=== PATIENT | male | born 1970 | race Caucasian/White ===

== ENCOUNTER 2018-05-17 13:23 | Emergency (ER) | payer BC ==
[~2018-05-17] VITALS: Ht 172.7 cm; Wt 154.2 kg
[~2018-05-17 13:23] MED LIST: ACETAMINOPHEN325 M1 PO; ASPIR-LOW81 MG PO; CHERATUSSIN AC118 ML PO; COMBIVENT RESPIM4 GM INH; FLONASE ALLERG9.9 ML NS; GABAPENTIN800 MG PO; GLUCOPHAGE500 MG PO; IBUPROFEN600 MG PO; MEDROL4 M1 PO; METOPROLOL TART50 MG PO; NORCO 5-325 TA1 EACH PO; NORTRIPTYLINE H25 MG PO; PERCOCET 5-3251 EACH PO; RANITIDINE HCL150 MG PO; TESSALON PERLE100 MG PO; VENTOLIN HFA18 GM INH
[2018-05-17] MEDS ORDERED: DULOXETINE HCL60 MG PO (13:44)
[2018-05-17] MEDS ORDERED: ATORVASTATIN CA20 MG PO (13:44)
[2018-05-17] MEDS ORDERED: PERCOCET 7.5-31 EACH PO (16:47)
== END 2018-05-17 17:07 | disposition home or self-care (01) ==
LOC: ED 13:23
DX: S39.011A Strain of muscle, fascia and tendon of abdomen, initial encounter (principal); K42.9 Umbilical hernia without obstruction or gangrene; X58.XXXA Exposure to other specified factors, initial encounter; I10 Essential (primary) hypertension; Z87.891 Personal history of nicotine dependence; Z79.899 Other long term (current) drug therapy; Z79.82 Long term (current) use of aspirin
CPT/HCPCS: 74177; 80053; 85025; 99284-25; J1170; J2405; Q9967

== ENCOUNTER 2019-06-06 12:00 | Emergency (ER) | payer BC ==
[~2019-06-06] VITALS: Ht 172.7 cm; Wt 154.2 kg
[~2019-06-06 12:00] MED LIST changes: +ATORVASTATIN CA20 MG PO; +DULOXETINE HCL60 MG PO; +PERCOCET 7.5-31 EACH PO
--- NOTE | 2019-06-06 15:05 | EKG ---
[facility] [address] [place], [place] [address] Signed Sinus tachycardia Otherwise normal ECG When compared with ECG of 12-MAY-2016 12:46, No significant change was found Confirmed by STEVE MEDEIROS MD ([id number]) on 06/06/2019 3:05:28 PM Electronically Signed By: STEVE MEDEIROS MD 06/06/19 1505 PATIENT NAME: GOROBERT Electrocardiogram DATE OF : 68 PHYSICIAN: STEVE MEDEIROS MD REPORT #: [id number] REPORT IS CONFIDENTIAL AND NOT TO BE RELEASED WITHOUT AUTHORIZATION
== END 2019-06-06 20:04 | disposition short-term general hospital (02) ==
LOC: ED 12:00
DX: J18.9 Pneumonia, unspecified organism (principal); J90 Pleural effusion, not elsewhere classified; I10 Essential (primary) hypertension; F17.200 Nicotine dependence, unspecified, uncomplicated; Z79.899 Other long term (current) drug therapy; Z79.82 Long term (current) use of aspirin; Z79.84 Long term (current) use of oral hypoglycemic drugs
CPT/HCPCS: 71046; 71260; 80053; 83605; 84484; 85025; 85379; 93005; 93010; 94660; 96361; 99285-25; J0456; J0696; J1170; J1885; J7030; J7060

== ENCOUNTER 2019-10-31 08:03 | Emergency (ER) | payer BC ==
[~2019-10-31] VITALS: Ht 172.7 cm; Wt 147.4 kg
--- OUTSIDE RECORDS SUMMARY | ~2019-10-31 | XMS | Encounter Summary ---
Demographics + + + | Address | [address] | | | [place] [address] | + + + | Home Phone | | + + + | Preferred Language | Unknown | + + + | Marital Status | Single | + + + | Baptism Affiliation | NON | + + + | Race | White | + + + | Ethnic Group | Not or | + + + Author + + + | Organization | Unknown | + + + | Address | Unknown | + + + | Phone | Unavailable | + + + Support + + +---------+ + | Name | Relationship | Address | Phone | + + +---------+ + | Dionne Frances | ECON | Unknown | | + + +---------+ + Care Team Providers + +------+ + | Care Stockfeed Miller Name | Role | Phone | + +------+ + | Gustavo Xavier | Unavailable | + +------+ + Encounter Details +--------+ + + + + | Date | Type | Department | Care Team | Description | +--------+ + + + + | 01/09/ | Procedure - | | Record, Operation | Operative Report | | 2006 | | | | | | | Transcribed | | | | +--------+ + + + + Social History + +-------+ +--------+------+ | Tobacco Use | Types | Packs/Day | Years | Date | | | | | Used | | + +-------+ +--------+------+ | Never Assessed | | | | | + +-------+ +--------+------+ + + + | Sex Assigned at | Date Recorded | | | | + + + | Not on file | | + + + + + + + | Job Start Date | Occupation | Industry | + + + + | Not on file | Not on file | Not on file | + + + + + + + + | Travel History | Travel Start | Travel End | + + + + + + | No recent travel history available. | + + documented as of this encounter Plan of Treatment Not on filedocumented as of this encounter Procedures + +--------+ + + + | Procedure Name | Priori | Date/Time | Associated Diagnosis | Comments | | | ty | | | | + +--------+ + + + | OPERATION RECORD | | 01/09/2006 | | Results for this | | | | | | procedure are in the | | | | | | results section. | + +--------+ + + + documented in this encounter Results OPERATION RECORD (01/09/2006) + + | Transcriptions | + + | Interface, Manager Of Environmental Services In - 01/11/2006 2:33 AM PDT | | [id number] | | [id number] BAILEE Lan [id number] | | | | Date: 01/09/2006 | | | | Attending Surgeon: Dejan Barclay M.D. | | | | Taker Off Drying Kiln(s): Antwon Ellington M.D. | | | | Preoperative Diagnosis(es): | | Left lumbar foraminal stenosis. | | | | Postoperative Diagnosis(es): | | Left lumbar foraminal stenosis. | | | | Procedures Performed: | | Left L3-L4 and left L4-L5 hemilaminotomy and microforaminotomy. | | | | Anesthesia: | | General. | | | | Estimated Blood Loss: | | Less than 100 cc. | | | | Complications: | | None. | | | | Findings: | | Severe foraminal stenosis at L3-L4 and moderate foraminal stenosis at | | L4-L5. | | | | Indications: | | Briefly, Jose Alberto Morocho is a 35-year-old gentleman with a long history of | | left-sided leg pain and numbness. His imaging studies has demonstrated | | foraminal stenosis at L3-L4 and L4-L5 on the left. He presents for neural | | decompression. | | | | Procedure: | | After consent was obtained, the patient was taken to the operating room. | | The ID was confirmed by the ID wrist bracelet. Anesthesia was induced via | | endotracheal tube intubation without complications, and the antibiotics | | were administered per protocol. The patient was placed in the prone | | position on the Tarun frame with all pressure points carefully padded. | | C-arm fluoroscopy was used to identify the region of L3-L4 and L4-L5. The | | back was shaved and prepped and draped in a sterile fashion. | | | | A #10 blade was used to make an incision down through the skin. Bovie | | electrocautery was used to open up dorsally to the fascia. The fascia was | | opened up with Bovie electrocautery on the patient's left side only, and | | then using subperiosteal dissection techniques the spinous processes and | | lamina of the levels were identified. X-ray was obtained to confirm | | levels, and we found that we are initially at L2. The exposure was then | | extended caudally, and subperiosteal dissection techniques were used to | | dissect out the lamina, the spinous processes, and facets of L3, L4, and | | L5. Intraoperative fluoroscopy was then obtained with a Riverside elevator | | under the lamina of L3 and L4. This confirmed that we were in fact at the | | proper levels. | | | | The microscope was brought into the field, and the lamina was partially | | removed on the left side first at L3 using the Kerrison rongeurs and the | | high-speed drill. This was then performed at L4 as well. In a similar | | fashion, the ligamentum flavum was identified and opened up with a curette. | | The ligamentum flavum was then removed with Kerrisons and curettes. First, | | we did this at L3-L4. The venous plexus of epidural veins was noted to be | | quite engorged. We then undermined the medial aspect of the facet at | | L3-L4. In this way, the foramen was opened. The foraminotomy was then | | widened with 3-mm Kerrison rongeurs. A Riverside elevator was placed over | | the surface of the nerve root out the foramen, and found that the nerve | | root was in good position and well decompressed. We gently retracted the | | nerve root medially to look for any herniated disk fragments and none were | | identified. Gelfoam was placed over the epidural veins to prevent any | | further bleeding. We then focused our attention on L4-L5. The facet at | | L4-L5 was undermined with a high-speed drill in a similar fashion. The | | foramen was opened up with a 3-mm Kerrison. The nerve root was clearly | | identified. We opened up the top of the foramen with the Kerrison rongeur. | | The nerve passed out the foramen. A Eddie elevator was placed over the | | top of the nerve root and directed out the foramen, and the nerve root was | | found to be well decompressed. We again retracted the nerve root slightly | | medially and looked for any herniated disk fragments, and none were | | identified. The epidural venous plexus was also very engorged at L4-L5. | | Bipolar electrocautery and Gelfoam were used for hemostasis. We then felt | | we had adequate decompression of both L3-L4 and L4-L5. The wound was | | copiously irrigated, and then all the Gelfoam and patties were removed. | | Powdered Gelfoam was then placed over the nerve roots in the foramen at | | L3-L4 and L4-L5 and allowed to sit for 4 minutes. This was then carefully | | evacuated to not leave any residual powdered Gelfoam. Ten more cubic | | centimeters of local anesthetic was injected into the lumbar paraspinal | | musculature. Anesthesia gave the patient a shot of Toradol, and then we | | began with closure in the typical fashion. The dorsal fascia was closed | | with 0-Vicryl sutures in an interrupted fashion. Subcutaneous tissues were | | closed with multiple 3-0 Vicryl sutures in an inverted interrupted fashion. | | The skin was closed with a running subcuticular stitch. | | | | The entire case was performed using loop magnification headlight | | illumination. At the end of the case, all needle and sponge counts were | | correct. I, Dr. Dejan Barclay was personally present and scrubbed for the | | entirety of the procedure. I, Dr. Dejan Barclay personally performed all | | the critical elements of the case including the hemilaminotomies and the | | microforaminotomies. I was not scrubbed during the closure of the skin, | | but I was immediately available for the entirety of the closure. | | | | | | | | | | Dejan Barclay M.D. | | | | | | RAQUEL / OLIVIA | | [id number] / [id number] / [id number] / | | | | | + + documented in this encounter Visit Diagnoses Not on filedocumented in this encounter"
--- OUTSIDE RECORDS SUMMARY | ~2019-10-31 | XMS | Encounter Summary ---
Demographics + + + | Address | [address] | | | [place] [address] | + + + | Home Phone | | + + + | Preferred Language | Unknown | + + + | Marital Status | Single | + + + | Islam Affiliation | NON | + + + | Race | White | + + + | Ethnic Group | Not or | + + + Author + + + | Author | [facility] | + + + | Organization | [facility] | + + + | Address | Unknown | + + + | Phone | Unavailable | + + + Support + + +---------+ + | Name | Relationship | Address | Phone | + + +---------+ + | Dionne Frances | ECON | Unknown | | + + +---------+ + Care Team Providers + +------+ + | Care Special Inspector Name | Role | Phone | + +------+ + | Gustavo Xavier PCP | Unavailable | + +------+ + Reason for Visit + + + | Reason | Comments | + + + | History and physical | C/O L3-4 laminectomy and decompression on 01-09-06 | | examination | | + + + | Pre-op evaluation | L3-5 laminectomies DOS 01/09/06 | + + + Encounter Details +--------+---------+ + + + | Date | Type | Department | Care Team | Description | +--------+---------+ + + + | 01/08/ | Office | Neurosurgery [address] | Anai Quiñonez, | Radiculitis, | | 2005 | Visit | JARON Wlils | [place] [address] [facility] | Lumbosacral (Primary | | | | Rd Mailcode:OP14B | [address] | Dx) | | | | [employer] | [place] [address] | | | | | [place], [place] | | | | | | [address] | | | | | | [phone] | | | +--------+---------+ + + + Social History + +-------+ [...] + + documented as of this encounter Last Filed Vital Signs + + + + + | Vital Sign | Reading | Time Taken | Comments | + + + + + | Blood Pressure | 108/79 | 01/08/2006 12:01 PM | | | | | PDT | | + + + + + | Pulse | 75 | 01/08/2006 12:01 PM | | | | | PDT | | + + + + + | Temperature | - | - | | + + + + + | Respiratory Rate | 16 | 01/08/2006 12:01 PM | | | | | PDT | | + + + + + | Oxygen Saturation | - | - | | + + + + + | Inhaled Oxygen | - | - | | | Concentration | | | | + + + + + | Weight | 108 kg (238 lb) | 01/08/2006 12:01 PM | | | | | PDT | | + + + + + | Height | 175.3 cm (5' 9") | 01/08/2006 12:01 PM | | | | | PDT | | + + + + + | Body Mass Index | 35.15 | 01/08/2006 12:01 PM | | | | | PDT | | + + + + + documented in this encounter Patient Instructions Patient Instructions 01/08/2006 11:30 AM PDT [facility] [employer] [facility] Department of Neurological Surgery [address] Mail [address] [place] [address] Toll Free Paging [email or web address] Pre-Operative Instructions Surgery Date: 01/09/06Check in time: Call today Please call between 2:00pm - 4:00pm the business afternoon prior to your in patient surgery to obtain your arrival time. Please be advised that it is virtually impossib le to accurately estimate your actual time of surgery. If you are scheduled for outpatient surgery, the day stay unit will call you the afternoon before your surgery to advise you of your arrival time. Again, it is virtually impossible t o exactly estimate the time of your procedure. If the surgery is on a Thursday, PLEASE call the Thursday before. It is not possible to accura tely estimate the actual time of surgery. Your surgery may start later in the day than antic ipated. If you are not able to reach someone, please plan to report to the hospital by 6:30a m. Check in location: 4th floor [facility], [address] 9th floor [facility] (Admitting Dept.) Important Reminders You cannot eat or drink after midnight the night before surgery. You may, however, brush y our teeth and rinse your mouth. It is best to eat early the night before and get a good nigh t s rest. If you have any x-ray, CT or MRI films in your possession, please bring them with you to [facility] on the day of your surgery. If you take aspirin either for your heart, or as a pain medication, you need to stop at le ast 5 days before surgery to decrease any chance of increased bleeding during or after surge ry. Please check the labels of all zvje-gax-yptyyuf medications that you take as they may al so contain aspirin. You may take your regularly scheduled medications with the exception of . Please use as little water as possible, but enough to get them down. If you take any pain medications, when you arrive, please inform the nurses what you took and when you took them . Your family and visitors can park free of charge in the [facility] parking are a. The ticket will be stamped, so please bring that in with you for validation. Discharge Information: It is expected that you will be discharged in approximately 1 day. Check out time at the h ospital is 11:00am. Please plan to arrange for transportation home ahead of time so you can leave in a timely fashion, as most patients are eager to get home. If you have any additional questions, please feel free to contact our office at . documented in this encounter Progress Notes Anai Quiñonez - 01/08/2006 12:20 PM PDTFormatting of this note might be different from t he original. Pre-Procedure History and Physical Date of Admission: 01/09/06 HISTORY: 35 yo male with c/o LBP with radiculopathy down left leg. Originally injured in . Has had occasional exacerbations. A few months ago felt sharp pain while at work. Has be en treated conservatively without relief or improvement of sxs. MRI revealed lumbar stenosis and disc bulge at L3-4, and L4-5. CURRENT PROBLEM LIST: Patient Active Problem List: RADICULITIS, LUMBOSACRAL[724.4M] Date Noted: 12/10/2005 Past Medical History: UNSPECIFIED SHOCK OTHER UNSPECIFIED BACK DISORDER UNSPECIFIED EPILEPSY WITHOUT MENTION OF INTRACTABLE EPILEPSY Comment: Chilhood. No treatment currently. No past surgical history on file. MEDICATIONS: Current outpatient prescriptions: OXYCODONE 5 MG TAB take 2 tablets (10mg) by oral route every 4 hours as needed for pain Dis p: Rfl: ASPIRIN 500 MG TAB take 2 tablets (1,000mg) by oral route every 6 hours as needed Disp: Rf l: No Known Allergies. FAMILY HISTORY: No family history on file REVIEW OF SYSTEMS: Cardiac: No CP, ADLs w/o problems; Pulm: No SOB; GI: Reg BMs, no GERD PHYSICAL EXAM: VITALS: BP 108/79 | Pulse 75 | Resp 16 | Ht 5' 9" (1.75m) | Wt 238 lbs (108.0kg) HEENT: See Notes: KWADWO, EOMI NECK: See Notes: supple, no bruit CHEST/LUNGS: See Notes: CTA bilat HEART: See Notes: RRR, no murmur ABDOMEN: Normal BACK: Normal EXTREMITIES: See Notes: YEUNG; BUE/BLE strength 5/5 throughout all muscle groups NEUROLOGICAL: See Notes: SILT, gait normal G.U.: Normal PROVISIONAL DIAGNOSIS: Lumbar stenosis PLANNED COURSE OF ACTION: L3-4, L4-5 laminectomies PARQ: A PARQ session was held, additional questions with discussion were completed. documented in this encsac-osage hospitaler Plan of Treatment Not on filedocumented as of this encounter Visit Diagnoses + + | Diagnosis | + + | Radiculitis, lumbosacral - Primary Thoracic or lumbosacral neuritis or radiculitis, | | unspecified | + + documented in this encounter
--- OUTSIDE RECORDS SUMMARY | ~2019-10-31 | XMS | Encounter Summary ---
Demographics + + + | Address | [address] | | | [place] [address] | + + + | Home Phone | | + + + | Preferred Language | Unknown | + + + | Marital Status | | + + + | Christianity Affiliation | Unknown | + + + | Race | Unknown | + + + | Ethnic Group | Unknown | + + + Author + + + | Author | [facility] | | | and [place] | + + + | Organization | [facility] | | | and [place] | + + + | Address | Unknown | + + + | Phone | Unavailable | + + + Support + + +---------+ + | Name | Relationship | Address | Phone | + + +---------+ + | Xuan Gan | ECON | Unknown | | + + +---------+ + | Dionne Hensley | ECON | Unknown | | + + +---------+ + Care Team Providers + +------+ + | Care Theatre Professor Name | Role | Phone | + +------+ + | Edilberto Troy MD | PCP | | + +------+ + Reason for Visit + + + | Reason | Comments | + + + | New Patient | Back Pain | + + + Evaluate & Treat (Routine) + +--------+ + + + + | Status | Reason | Specialty | Diagnoses / | Referred By | Referred To | | | | | Procedures | Contact | Contact | + +--------+ + + + + | Authorized | | Physical | Diagnoses | Troy, | Ashwin, Lamont | | | | Medicine and | | Edilberto Madrigal MD | Edyta Terry MD [address] | | | | Rehabilitatio | Radiculopath | [address] | [address] | | | | n | y, thoracic | [address] | [place], | | | | | region | [place], | [place] [address] | | | | | | [place] [address] | Phone: | | | | | | Phone: | [phone] | | | | | | [phone] | Fax: | | | | | | Fax: | [phone] | | | | | | [phone] | | + +--------+ + + + + Encounter Details +--------+---------+ + + + | Date | Type | Department | Care Team | Description | +--------+---------+ + + + | 09/21/ | Office | [facility] | Lamont Christopher, | Intercostal | | 2019 | Visit | PHYSIATRY [address] | MD [address] | neuralgia (Primary | | | | [address] [place], [place] | Dx); Neuropathic | | | | [place], [place] | [address] | pain of chest; | | | | [address] | | History of diabetes | | | | [phone] | | mellitus; Pleuritic | | | | | | chest pain | +--------+---------+ + + + Social History + + + +--------+ + | Tobacco Use | Types | Packs/Day | Years | Date | | | | | Used | | + + + +--------+ + | Former Smoker | Cigarettes | 0.8 | 25 | Quit: 04/25/2010 | + + + +--------+ + + +---+---+---+ | Smokeless Tobacco: | | | | | Never Used | | | | + +---+---+---+ + + +---------+ + | Alcohol Use | Drinks/Week | oz/Week | Comments | + + +---------+ + | Yes | | | | + + +---------+ + + + + | Sex Assigned at | Date Recorded | | | | + + + | Not on file | | + + + documented as of this encounter Last Filed Vital Signs + + + + + | Vital Sign | Reading | Time Taken | Comments | + + + + + | Blood Pressure | 110/62 | 09/22/2019 9:29 AM | | | | | PDT | | + + + + + | Pulse | - | - | | + + + + + | Temperature | 36.2 C (97.1 F) | 09/22/2019 9:29 AM | | | | | PDT | | + + + + + | Respiratory Rate | - | - | | + + + + + | Oxygen Saturation | - | - | | + + + + + | Inhaled Oxygen | - | - | | | Concentration | | | | + + + + + | Weight | 147.4 kg (325 lb) | 09/22/2019 9:29 AM | | | | | PDT | | + + + + + | Height | 172.7 cm (5' 8") | 09/22/2019 9:29 AM | | | | | PDT | | + + + + + | Body Mass Index | 49.42 | 09/22/2019 9:29 AM | | | | | PDT | | + + + + + documented in this encounter Patient Instructions Patient Instructions Yuliana Stokes, Tail Dogger - 09/22/2019 9:20 AM PDTPlease sta rt taking over the counter vitamin-D 2,000 units daily. Consider using over the counter Capzasin please use every 4 hours consistently. We will send Dr. Troy your progress note with medication recommendations. Please call our office if you would like to begin desensitization therapy. Electronically s igned by Yuliana Stokes, Tail Dogger at 09/22/2019 10:20 AM PDT documented in this encounter Progress Notes Lamont Christopher MD - 09/22/2019 9:20 AM PDTFormatting of this note might be different fro m the original. Lamont Christopher MD [address] [facility] [facility] [address] [address], [address] [place], [place] [id number] FAX: PHYSICAL MEDICINE AND REHABILITATION H&P CHIEF COMPLAINT: Chief Complaint Patient presents with New Patient Back Pain HISTORY OF PRESENT ILLNESS: Jose Alberto Morocho s a 49 y.o. [facility] for the complaint of burning pain from the upper/mid back with radiation to the right abdomen and chest region that began June 06, 2019, after recent rig ht sided empyema with thoracic surgery treatment at [facility]. He reports symptoms began after intubation for acute respiratory failure, right-sided pneumonia, complicated parapneumonic effusion. The symptoms have been unchanged. He describes a burning sensation to the skin, si mmilar to a sunburn. At some points it worsens with taking a deep breath. Jose Alberto Morocho rates the pain as moderate. The symptoms are continuous. Jose Alberto rashid describes the pain as burning, crushing, sharp, shooting and tingling. Jose Alberto Morocho does not report any change in bowel or bladder function or saddle anest hesia recently. His symptoms improve with nothing. His symptoms worsen with changing position, standing, sitting, walking, running, kneeling, bending and twisting. Jose Alberto Morocho has tried opiod pain medication, NSAIDS and Muscle relaxers. Jose Alberto Morocho is currently taking Oxycodone 10 mg, daily for treatment of pain. He has also tr ied methocarbamol 50 mg but reports no relief in symptoms. PAST MEDICAL HISTORY: Past Medical History: Diagnosis Date Back disorder Chronic low back pain COPD (chronic obstructive pulmonary disease) (HCC) DDD (degenerative disc disease), lumbar 09/12/2014 Dyspepsia Epilepsy, unspecified, not intractable, without status epilepticus ([facility]) Family history of prostate cancer GERD (gastroesophageal reflux disease) Gout History of seizures as a child Hypercholesterolemia Hyperlipidemia Hypertension Incisional hernia without obstruction or gangrene Lumbar radiculopathy 09/12/2014 Lumbosacral radiculitis 12/10/2005 Morbid obesity (HCC) Morbid obesity due to excess calories ([facility]) Nocturnal hypoxemia Poor circulation Poor eating habits Shock, unspecified (HCC) Sleep apnea Thoracic radiculopathy Type 2 diabetes mellitus ([facility]) PAST SURGICAL HISTORY: Past Surgical History: Procedure Laterality Date BRONCHOSCOPY Bilateral 06/19/2019 Procedure: BRONCHOSCOPY FLEXIBLE; Surgeon: Ronn Voss MD; [facility] 05/14/2016 Tubular Adenoma INGUINAL HERNIA REPAIR Left 2000 LACERATION REPAIR Right 1975 Foot SPINE SURGERY 12/2005 L4-L5 Decompression with shaving of bone spurs; Dr Gunter, [facility] SPLEEN REPAIR 1984 THORACOSCOPY Right 06/19/2019 Procedure: VIDEO ASSISTED THORACOSCOPY W/ DECORTICATION; Surgeon: Rocky Pierre MD; Loca tion: [facility] THORACOTOMY Right 06/19/2019 Procedure: THORACOTOMY-DECORTICATION; Surgeon: Rocky Pierre MD; Location: [facility] TOOTH EXTRACTION 01/31/2019 VASECTOMY 03/2010 CURRENT MEDICATIONS: Current Outpatient Medications Medication Sig Dispense Refill albuterol 90 mcg/puff inhaler Inhale 2 puffs into the lungs every 2 hours as needed for Wheezing. (Patient taking differently: Inhale 2 puffs into the lungs every 6 hours as neede d for Wheezing, Shortness of Breath or Other (Cough).) albuterol-ipratropium (COMBIVENT RESPIMAT) 100-20 mcg/puff inhaler Inhale 1 puff into t he lungs 4 times daily. aspirin 81 MG tablet Take 162 mg by mouth nightly. atorvaSTATin (LIPITOR) 80 MG tablet Take 80 mg by mouth nightly. DULoxetine (CYMBALTA) [address] capsule Take 1 capsule by mouth Daily. (Patient taking d ifferently: Take 120 mg by mouth nightly.) 0 famotidine (PEPCID) 20 mg tablet Daily. gabapentin (NEURONTIN) 600 MG tablet Take 2 tablets by mouth 3 times daily. 90 tablet 0 lidocaine-prilocaine (EMLA) cream Apply topically 3 times daily as needed (Pain). 0 lisinopril (PRINIVIL, ZESTRIL) 10 mg tablet Take 1 tablet by mouth Daily. metFORMIN (GLUCOPHAGE) 1000 MG tablet Take 1,000 mg by mouth 2 times daily (with breakf ast & dinner). metoprolol succinate (TOPROL-XL) 50 mg 24 hr tablet Take 50 mg by mouth Daily. metoprolol tartrate (LOPRESSOR) 50 mg tablet Take 50 mg by mouth 2 times daily. Multiple Vitamins-Minerals (MULTIVITAMIN PO) Take 1 tablet by mouth Daily. Castine-3 Fatty Acids (FISH OIL PO) Take by mouth. oxyCODONE 10 MG TABS take 1 tablet by mouth every 8 hours if needed for 7 days ranitidine (ZANTAC) 150 mg tablet Take 150 mg by mouth 2 times daily. No current facility-administered medications for this visit. ALLERGIES: No Known Allergies SOCIAL HISTORY: The patient reports that he quit smoking about 9 years ago. His smoking use included cigar ettes. He has a 20.00 pack-year smoking history. He has never used smokeless tobacco. He rep orts current alcohol use. He reports current drug use. Drug: Marijuana. FAMILY HISTORY: Family History Problem Relation Age of Onset COPD Mother Heart disease Father Heart failure Father Coronary artery disease Father Prostate cancer Father Multiple sclerosis Sister Multiple sclerosis Brother No known problems Maternal Grandmother No known problems Maternal Grandfather No known problems Paternal Grandmother No known problems Paternal Grandfather No known problems Son No known problems Daughter No known problems Sister REVIEW OF SYSTEMS: GENERALLY: No fever, no night sweats, no anemia, no fatigue, no recent profound weight ch anges. EYES: No eye problems, + use of corrective lenses, no eye injury, no double vision, no bli ndness. EARS, NOSE, AND THROAT: No changes in taste or smell, no hearing difficulty, + ringing in the ears, no ear drainage, no dizziness, no voice changes, no difficulty swallowing, + signi ficant snoring, + sleep apnea, no sinus problems, + major dental work. NEUROLOGICALLY:The patient has no numbness/pain of arms, + numbness/pain of legs, + awake w ith numbness/pain, no weakness, + muscle aching, no coordination difficulty, no change in wa lk, no head injury, no neck injury, no back injury, no pain in neck, + pain in back, no stro ke, no fainting spells, no loss of consciousness, no tremor/shaking, no seizures, no headach es, no migraine, no memory loss, no speech difficulty, no confusion and no numbness of face. PSYCHIATRIC: No depression, no sleep disorders, no anxiety, no bipolar disorder, no psycho tic episodes. CARDIOVASCULAR: No heart attacks, no heart murmur, no heart fluttering, no chest pain, + a nkle swelling. LUNG DISEASE: + shortness of breath, no cough, no tuberculosis, no bloody cough, no asthm a, + COPD. GASTROINTESTINAL: No bowel disease, no nausea or vomiting, no rectal bleeding, no constipa tion, no stool incontinence, no liver disease, no gallbladder disease, + abdominal pain, no ulcers. KIDNEY DISEASE: No urinary frequency, no painful or difficult urination, no incontinence. ENDOCRINE: + diabetes, no thyroid disease, no osteopenia or osteoporosis, no breast draina ge. SKIN: No breast lumps, no skin changes, no rashes, no itches. HEMATOLOGIC/LYMPHATIC: No enlarged lymph nodes, no easy or unusual bleeding, no personal h istory of cancer. RHEUMATOLOGIC: No joint arthritis, no rheumatoid arthritis. PHYSICAL EXAMINATION: Blood pressure 110/62, temperature 36.2 C (97.1 F), height 1.727 m (5' 8"), weight (!) 147.4 kg (325 lb). Body mass index is 49.42 kg/m. GENERAL: He does appear uncomfortable when seated. HEENT: HEAD/FACE: EYES: Normocephalic and atraumatic. There are no areas of recent trauma. Normal sclerae without icterus. SKIN Limited skin exam shows no significant rashes or lesions. CHEST: The patient is in no acute respiratory distress with unlabored respirations. HEART: There is not lower extremity edema. ABDOMEN: The patient is overweight. NEUROLOGIC: The patient is awake, alert, and oriented to time, place, person. He follows simple and complex commands. His speech is fluent. He comprehends speech well. He has no apparent deficits with short or termite treater helper memory. He has appropriate fund of knowledge Cranial nerves appear grossly intact. Subjective decreased sensation with monofilament testing to a broad thoracic space distrubu tion on the right. Motor exam demonstrates grossly intact strength to upper and lower extremities RADIOGRAPHIC REVIEW: Ct Chest was reviewed personally by me , I concur with the results as reported by the Radio logist. The imaging demonstrates: Right lung process is nearly resolved. A small fluid. IMPRESSION: 1. Intercostal neuralgia 2. Neuropathic pain of chest 3. History of diabetes mellitus PLAN: 1. Jose Alberto Morocho presents to the clinic today for evaluation and treatment of burning senstion from the upper/mid back with radiation to the right abdomen and chest region that began June 06, 2019, after recent right sided empyema with thoracic surgery treatment at [facility]. He reports symptoms began after intubation for acute respiratory failure, right-side d pneumonia, complicated parapneumonic effusion. 2. The differential diagnosis most consistent with Jose Alberto Morocho's physical assessmen t and report of symptoms included, but is not limited to: Neuropathic pain. .gm 3. We discussed that neuropathic pain to the chest wall could be due to a nerve injury from recent right sided empyema with thoracic surgery treatment. We discussed nerve healing/rege nerate usually is complete at 18 months after surgery. We discussed that symptoms may or may not improve. 4. Medication management of symptoms was discussed in detail during today's visit. We disc ussed that the goal of medication use is to make symptoms of pain and numbness less noticeab le. Medication use is not expected to fix or cure the cause of her symptoms. Jose Alberto Leyva is currently taking Oxycodone 10 mg, daily. We discussed that while taking opiod pain medication can ultimately decline his recovery due to an increase in pain receptors. We disc ussed that if he continues to use opioid medication for chronic pain management he should di scuss discontinuing Oxycodone and consider an alternative medication with his primary care jose freeman. I advised discontinue Oxycodone and begin a small dose of methadone, since this ten ds to better help with nerve pain. Jose Alberto Morocho will discuss this further with his [facility] care provider. We discussed that the best medication for nerve pain is anti-seizure medicaitons or antidep ressant Jose Alberto Morocho is currently taking Duloxetine 60 mg daily and gabapentin 600 mg 2 tablets TID. He reports that if he discontinues Gabapentin symptoms will increase. 5. We discussed an alternative to oral medications. We discussed the use of Capsaicin cream . We discussed that Capsaicin stimulates nerve endings so they release a receptor chemical, substance P, that transmits pain signals to the brain. When a nerve ending has released all of its substance P reserves, pain signals are no longer sent to the brain until substance P has been replenished. We discussed that he should apply capsasion every 4 hours consistentl y. 6. Jose Alberto Morocho is diabetic and reports history of diabetic neuropathy. We discussed that research shows patients who have vitamin D deficiency can help improve diabetic neurop athy. We discussed that if vitamin D levels are low he should consider taking over the count er vitamin D 2,000 units indefinitely. We discussed that vitamin B and folic acid are FDA ap proved and although there is no evidence showing this helps reduce neuropathic pain, there a re some patients who report relief in symptoms. 7. We discussed that desensitization therapy could help minimize the body's response to mary grace ious stimuli.This technique is utilized to decrease, or normalize, the body s response to particular sensations. Jose Alberto Morocho would see a physical therapists that would work with him over a period of time to help him over-come pain. Jose Alberto Morocho declined dese nsitization therapy at this time. In summary, Jose Alberto Morocho has right sided chest wall pain secondary to intercostal ne uralgia. His pain started after having right sided thoracotomy for empyema and 2 chest tube s. This pain is superficial, involves his skin in a dermatomal pattern, and is described as burning in quality. He likely also has a component of pleuritic chest pain secondary to his empyema. He descri bes this pain as sharp catching pain with deep breathing. He reports that he has a history of opiate overuse and abuse in his distant past. He would prefer not to fall back into a pattern of using too many opiates. He has a history of diabetic neuropathy and diabetic neuropathic pain. Today we reviewed t hat his history of diabetes and diabetic neuropathy put him at increased risk for impairment of nerve healing and recovery. He was encouraged to optimizing his diabetic control to all ow for best chances of nerve recovery. Today we reviewed the association between painful an d non-painful diabetic neuropathy and vitamin D deficiency. He was encouraged to consider s upplementing vitamin D3 2000 units daily. Jose Alberto Morocho is already on maximal doses of Gabapentin. He reports that it doesn't help enough, but without it, he is in much worse pain. So it is offering some benefit. Luciano Morocho is also on maximal doses of Cymbalta, and has already failed tricyclic anti depressant in the past. Jose Alberto Morocho was offered desensitization therapy with physical therapy, but he decli padmini for now. Jose Alberto Morocho was advised that he could try over the counter capsaicin cream. We rev iewed the proposed mechanism of action. We reviewed the risks of skin irritation, needing t o avoid getting it your eyes, need for routine reapplication, etc. Today we reviewed the healing process of nerves. We discussed that he may expect some impr ovement, albeit not likely resolution, of symptoms over the 18 months following onset of sym ptoms. We reviewed the option of thoracic MRI to evaluate for neural foraminal narrowing or spinal stenosis. Given the onset of symptoms associated with his thoracotomy surgery, his symptom s most likely represent injury to the intercostal nerves. We reviewed that this is a known risk of thoracotomy surgery. We reviewed the risk that opiate medications can cause worsening neuropathic pain over time . We reviewed that very low dose methadone may provide better neuropathic pain relief than oxycodone, but we reviewed that no opiates if possible is best. Intercostal nerve block could be considered, but is not offered in our clinic. Consult [facility]iology pain clinic for intercostal nerve block, could be considered if the conserv ative measures above, and a tincture of time, don't prove to be helpful. Thank you for allowing me to be involved in the care of your patient. If you have any ques tions regarding the care of your patient please don't hesitate to call. I, Lamont Christopher MD personally performed the services described in this documentation, as scribed by in my presence, Yuliana Stokes, Tail Dogger and are both accurate and comp lete. Lamont Christopher MD - 09/22/2019 CC:Edilberto Troy MD documented in this en counter Plan of Treatment Not on filedocumented as of this encounter Visit Diagnoses + + | Diagnosis | + + | Intercostal neuralgia - Primary Other nerve root and plexus disorders | + + | Neuropathic pain of chest Other nerve root and plexus disorders | + + | History of diabetes mellitus Personal history of other endocrine, metabolic, and | | immunity disorders | + + | Pleuritic chest pain Painful respiration | + + documented in this encounter
--- OUTSIDE RECORDS SUMMARY | ~2019-10-31 | XMS | Encounter Summary ---
Demographics + + + | Address | [address] | | | [place] [address] | + + + | Home Phone | | + + + | Preferred Language | Unknown | + + + | Marital Status | | + + + | Pentecostalism Affiliation | Unknown | + + + | Race | Unknown | + + + | Ethnic Group | Unknown | + + + Author + + + | Author | [facility] | | | and [place] | + + + | Organization | [facility] | | | and [...] Team Providers + +------+ + | Care Labor Delivery Specialist Name | Role | Phone | + +------+ + | Edilberto Troy MD | PCP | | + +------+ + Encounter Details +--------+ + + + + | Date | Type | Department | Care Team | Description | +--------+ + + + + | 07/04/ | Hospital | [facility] | Carlos Thompson, | Empyema of the right | | 2020 | Encounter | [facility] | [place] [address] | lung ([facility]) | | | | [address] | [address], | | | | | [address] [place], [place] | [place] [address] | | | | | [address] | [phone] | | | | | [phone] | | | +--------+ + + + + Social History + +-------+ +--------+ + | Tobacco Use | Types | Packs/Day | Years | Date | | | | | Used | | + +-------+ +--------+ + | Former Smoker | | | | Quit: 04/25/2010 | + +-------+ +--------+ + + +---+---+---+ | Smokeless Tobacco: | | | | | Never Used | | | | + +---+---+---+ + + +---------+ + | Alcohol Use | Drinks/Week | oz/Week | Comments | + + +---------+ + | Yes | 0 Standard drinks | 0.0 | | | | or equivalent | | | + + +---------+ + + + + | Sex Assigned at | Date Recorded | | | | + + + | Not on file | | + + + documented as of this encounter Medications at Time of Discharge + + + +---------+ + + | Medication | Sig | Dispensed | Refills | Start | End Date | | | | | | Date | | + + + +---------+ + + | albuterol 90 | Inhale 2 puffs into | | 0 | 03/25/20 | | | mcg/puff inhaler | the lungs every 2 | | | 20 | | | | hours as needed for | | | | | | | Wheezing. | | | | | + + + +---------+ + + | | Inhale 1 puff into | | 0 | | | | albuterol-ipratropiu | the lungs 4 times | | | | | | m (COMBIVENT | daily. | | | | | | RESPIMAT) 100-20 | | | | | | | mcg/puff inhaler | | | | | | + + + +---------+ + + | aspirin 81 MG | Take 162 mg by mouth | | 0 | | | | tablet | nightly. | | | | | + + + +---------+ + + | atorvaSTATin | Take 80 mg by mouth | | 0 | | | | (LIPITOR) 80 MG | nightly. | | | | | | tablet | | | | | | + + + +---------+ + + | DULoxetine | Take 1 capsule by | | 0 | 06/21/20 | | | (CYMBALTA) [address] | mouth Daily. | | | 20 | | | capsule | | | | | | + + + +---------+ + + | famotidine | Daily. | | 0 | | | | (PEPCID) 20 mg | | | | | | | tablet | | | | | | + + + +---------+ + + | gabapentin | Take 2 tablets by | 90 | 0 | 20 | | | (NEURONTIN) 600 MG | mouth 3 times daily. | tablet | | 20 | | | tablet | | | | | | + + + +---------+ + + | | Apply topically 3 | | 0 | 02/09/20 | | | lidocaine-prilocaine | times daily as | | | 18 | | | (EMLA) cream | needed (Pain). | | | | | + + + +---------+ + + | lisinopril | Take 1 tablet by | | 0 | 06/22/19 | | | (PRINIVIL, ZESTRIL) | mouth Daily. | | | 20 | | | 10 mg tablet | | | | | | + + + +---------+ + + | metFORMIN | Take 1,000 mg by | | 0 | | | | (GLUCOPHAGE) 1000 MG | mouth 2 times daily | | | | | | tablet | (with breakfast & | | | | | | | dinner). | | | | | + + + +---------+ + + | metoprolol | Take 50 mg by mouth | | 0 | 06/27/19 | | | succinate | Daily. | | | 20 | | | (TOPROL-XL) 50 mg 24 | | | | | | | hr tablet | | | | | | + + + +---------+ + + | metoprolol | Take 50 mg by mouth | | 0 | | | | tartrate (LOPRESSOR) | 2 times daily. | | | | | | 50 mg tablet | | | | | | + + + +---------+ + + | Multiple | Take 1 tablet by | | 0 | | | | Vitamins-Minerals | mouth Daily. | | | | | | (MULTIVITAMIN PO) | | | | | | + + + +---------+ + + | ranitidine | Take 150 mg by mouth | | 0 | | | | (ZANTAC) 150 mg | 2 times daily. | | | | | | tablet | | | | | | + + + +---------+ + + | apixaban (ELIQUIS) | Take 5 mg by mouth 2 | | 0 | | | | 5 mg tablet | times daily. | | | | 0 | + + + +---------+ + + | cefTRIAXone | Inject 2 g into the | 1 each | 0 | 06/22/19 | | | (ROCEPHIN) IVPB | vein Daily for 25 | | | 20 | 0 | | (custom dose) 2 | days. Indications: | | | | | | gIndications: | Empyema | | | | | | Empyema of Pleura | | | | | | + + + +---------+ + + | chlorhexidine | USE DIRECTE Rinse | | 0 | 01/14/20 | | | (PERIDEX) 0.12% | with 1/2 ounce by | | | 19 | 0 | | solution | mouth for 30 seconds | | | | | | | then spit out. use | | | | | | | twice a day | | | | | + + + +---------+ + + | clotrimazole | clotrimazole 1 % | | 0 | | | | (LOTRIMIN) 1% cream | topical cream APPLY | | | | 0 | | | TO THE AFFECTED AND | | | | | | | SURROUNDING AREAS OF | | | | | | | SKIN BY TOPICAL | | | | | | | ROUTE 2 TIMES PER | | | | | | | DAY IN THE MORNING | | | | | | | AND EVENING | | | | | + + + +---------+ + + | diazePAM (VALIUM) | take 1 tablet by | | 0 | 03/11/20 | | | 5 mg tablet | mouth 1 hour prior | | | 18 | 0 | | | to procedure and 1 | | | | | | | to 2 table... | | | | | | | (REFER TO | | | | | | | PRESCRIPTION NOTES). | | | | | + + + +---------+ + + | DULoxetine | Take 30 mg by mouth | | 0 | | | | (CYMBALTA) [address] | Daily. | | | | 0 | | capsule | | | | | | + + + +---------+ + + | methocarbamol | Take 1 tablet by | 30 | 0 | 07/05/19 | | | (METHOCARBAMOL) 750 | mouth every 6 hours | tablet | | 20 | 0 | | mg tablet | as needed for Muscle | | | | | | | spasms. | | | | | + + + +---------+ + + | oxyCODONE | Take 1 tablet by | 45 | 0 | 06/22/19 | | | (ROXICODONE) 5 mg | mouth every 8 hours | tablet | | 20 | 0 | | tablet | as needed for Pain | | | | | | | for up to 15 days. | | | | | + + + +---------+ + + documented as of this encounter Plan of Treatment Not on filedocumented as of this encounter Procedures + +--------+ + + + | Procedure Name | Priori | Date/Time | Associated Diagnosis | Comments | | | ty | | | | + +--------+ + + + | XR CHEST PA AND | Routin | 07/05/2019 | Empyema of the | Results for this | | LATERAL | e | 9:07 AM | right lung (HCC) | procedure are in the | | | | PDT | | results section. | + +--------+ + + + documented in this encounter Results XR Chest PA and Lateral (07/05/2019 9:07 AM PDT) + + | Specimen | + + | | + + + + + | Impressions | Performed At | + + + | 1. Round to ovoid opacity in the right mid lung is slightly reduced | [facility] | | in size from prior study. 2. Right-sided pleural fluid and | | | thickening is similar to prior study. 3. There is a new left PICC | | | line terminating at the atrial caval junction. Signed | | | by: Isiah Branham, Eddie Sign Date/Time: 07/05/2019 9:10 AM | | + + + + + + | Narrative | Performed At | + + + | CHEST PA AND LATERAL CLINICAL INFORMATION: Status post | [facility] | | thoracic surgery. COMPARISON: XR CHEST PA AND LATERAL | | | (06/22/2019); XR CHEST AP PORTABLE (06/21/2019); XR CHEST AP PORTABLE | | | (06/20/2019); CT CHEST W CONTRAST (06/17/2019); FINDINGS: | | | Left-sided PICC line is noted with the tip terminating at the atrial | | | caval junction. Right-sided PICC line is no longer present. No | | | pneumothorax is noted. Opacity along the mid right lung is slightly | | | reduced in size from prior study. Some residual right-sided pleural | | | fluid and thickening is noted. There is no new airspace | | | consolidation. The pulmonary markings are normal in caliber. There | | | is mild degenerative disc disease of the thoracic spine. | | + + + + + | Procedure Note | + + | Gabriele, Rad Results In - 07/05/2019 9:14 AM PDT | | CHEST PA AND LATERAL | | | | CLINICAL INFORMATION: | | Status post thoracic surgery. | | | | COMPARISON: | | XR CHEST PA AND LATERAL (06/22/2019); XR CHEST AP PORTABLE (06/21/2019); | | XR CHEST AP PORTABLE (06/20/2019); CT CHEST W CONTRAST (06/17/2019); | | | | FINDINGS: | | Left-sided PICC line is noted with the tip terminating at the atrial | | caval junction. Right-sided PICC line is no longer present. No | | pneumothorax is noted. Opacity along the mid right lung is slightly | | reduced in size from prior study. Some residual right-sided pleural | | fluid and thickening is noted. There is no new airspace consolidation. | | The pulmonary markings are normal in caliber. There is mild | | degenerative disc disease of the thoracic spine. | | | | IMPRESSION: | | 1. Round to ovoid opacity in the right mid lung is slightly reduced in | | size from prior study. | | 2. Right-sided pleural fluid and thickening is similar to prior study. | | 3. There is a new left PICC line terminating at the atrial caval | | junction. | | | | | | | | | | Signed by: Isiah Branham, Eddie | | Sign Date/Time: 07/05/2019 9:10 AM | + + + +---------+ + + | Performing | Address | City/State/Zipcode | Phone Number | | Organization | | | | + +---------+ + + | [facility] | | | | + +---------+ + + documented in this encounter Visit Diagnoses + + | Diagnosis | + + | Empyema of the right lung (HCC) Empyema without mention of fistula | + + documented in this encounter"
--- OUTSIDE RECORDS SUMMARY | ~2019-10-31 | XMS | Clinical Summary ---
Demographics + + + | Address | [address] | | | [place] [address] | + + + | Home Phone | | + + + | Preferred Language | Unknown | + + + | Marital Status | | + + + | Oriental Orthodox Affiliation | Unknown | + + + | Race | Unknown | + + + | Ethnic Group | Unknown | + + + Author + + + | Author | [facility] | | | and [place] | + + + | Organization | [facility] | | | and [place] | [...] Team Providers + +------+ + | Care Construction Producer Name | Role | Phone | + +------+ + | Edilberto Troy MD | PCP | | + +------+ + Allergies No Known Allergies Medications + + + +---------+------+------+-------+ | Medication | Sig | Dispensed | Refills | Star | End | Statu | | | | | | t | Date | s | | | | | | Date | | | + + + +---------+------+------+-------+ | metoprolol | Take 50 mg by mouth | | 0 | | | Activ | | tartrate (LOPRESSOR) | 2 times daily. | | | | | e | | 50 mg tablet | | | | | | | + + + +---------+------+------+-------+ | Multiple | Take 1 tablet by | | 0 | | | Activ | | Vitamins-Minerals | mouth Daily. | | | | | e | | (MULTIVITAMIN PO) | | | | | | | + + + +---------+------+------+-------+ | ranitidine | Take 150 mg by mouth | | 0 | | | Activ | | (ZANTAC) 150 mg | 2 times daily. | | | | | e | | tablet | | | | | | | + + + +---------+------+------+-------+ | aspirin 81 MG | Take 162 mg by mouth | | 0 | | | Activ | | tablet | nightly. | | | | | e | + + + +---------+------+------+-------+ | | Inhale 1 puff into | | 0 | | | Activ | | albuterol-ipratropiu | the lungs 4 times | | | | | e | | m (COMBIVENT | daily. | | | | | | | RESPIMAT) 100-20 | | | | | | | | mcg/puff inhaler | | | | | | | + + + +---------+------+------+-------+ | atorvaSTATin | Take 80 mg by mouth | | 0 | | | Activ | | (LIPITOR) 80 MG | nightly. | | | | | e | | tablet | | | | | | | + + + +---------+------+------+-------+ | metFORMIN | Take 1,000 mg by | | 0 | | | Activ | | (GLUCOPHAGE) 1000 MG | mouth 2 times daily | | | | | e | | tablet | (with breakfast & | | | | | | | | dinner). | | | | | | + + + +---------+------+------+-------+ | | Apply topically 3 | | 0 | 11/1 | | Activ | | lidocaine-prilocaine | times daily as | | | 2/20 | | e | | (EMLA) cream | needed (Pain). | | | 18 | | | + + + +---------+------+------+-------+ | gabapentin | Take 2 tablets by | 90 | 0 | 03/2 | | Activ | | (NEURONTIN) 600 MG | mouth 3 times daily. | tablet | | 5/20 | | e | | tablet | | | | 20 | | | + + + +---------+------+------+-------+ | lisinopril | Take 1 tablet by | | 0 | 03/2 | | Activ | | (PRINIVIL, ZESTRIL) | mouth Daily. | | | 5/20 | | e | | 10 mg tablet | | | | 20 | | | + + + +---------+------+------+-------+ | DULoxetine | Take 1 capsule by | | 0 | 03/2 | | Activ | | (CYMBALTA) [address] | mouth Daily. | | | 5/20 | | e | | capsule | | | | 20 | | | + + + +---------+------+------+-------+ +---+ + | | Additional | | | InformationPatient | | | taking differently: | | | 120 mg Oral NIGHTLY, | | | Informant: Other, | | | Reported on 09/05/2019 | | | 2:33 PM | +---+ + + + +---+---+------+---+-------+ | albuterol 90 | Inhale 2 puffs into | | 0 | 03/2 | | Activ | | mcg/puff inhaler | the lungs every 2 | | | 08/16 | | e | | | hours as needed for | | | 20 | | | | | Wheezing. | | | | | | + + +---+---+------+---+-------+ +---+ + | | Additional | | | InformationPatient | | | taking differently: | | | 2 puff Inhalation | | | EVERY 6 HOURS PRN, | | | Wheezing, Shortness | | | of Breath, Other, | | | Cough, Informant: | | | Other, Reported on | | | 09/05/2019 2:33 PM | +---+ + + + +---+---+------+---+-------+ | famotidine | Daily. | | 0 | | | Activ | | (PEPCID) 20 mg | | | | | | e | | tablet | | | | | | | + + +---+---+------+---+-------+ | metoprolol | Take 50 mg by mouth | | 0 | 03/3 | | Activ | | succinate | Daily. | | | 0/20 | | e | | (TOPROL-XL) 50 mg 24 | | | | 20 | | | | hr tablet | | | | | | | + + +---+---+------+---+-------+ | Bricelyn-3 Fatty | Take by mouth. | | 0 | | | Activ | | Acids (FISH OIL PO) | | | | | | e | + + +---+---+------+---+-------+ | oxyCODONE 10 MG | take 1 tablet by | | 0 | 06/2 | | Activ | | TABS | mouth every 8 hours | | | 05/19 | | e | | | if needed for 7 days | | | 20 | | | + + +---+---+------+---+-------+ Active Problems + + + | Problem | Noted Date | + + + | Empyema lung | 06/22/2019 | + + + | Empyema of lung | 06/19/2019 | + + + + + | Overview: Added automatically from request for surgery | | [id number] | + + + + + | Type 2 diabetes mellitus, without long-term current use of | 06/18/2019 | | insulin | | + + + | Obesity, Class III, BMI 40-49.9 (morbid obesity) | 07/30/2018 | + + + | Chronic pain | 07/27/2018 | + + + | Depressive disorder | 07/27/2018 | + + + | Essential hypertension | 07/27/2018 | + + + | Obstructive sleep apnea syndrome | 07/27/2018 | + + + | Type 2 diabetes mellitus | 07/27/2018 | + + + | Lumbar radiculopathy | 09/12/2014 | + + + | DDD (degenerative disc disease), lumbar | 09/12/2014 | + + + Resolved Problems + + + + | Problem | Noted | Resolved | | | Date | Date | + + + + | Sepsis | 06/18/19 | | | | 20 | 0 | + + + + | Reactive lymphadenopathy | 06/18/19 | | | | 20 | 0 | + + + + Encounters +--------+ + + + + | Date | Type | Specialty | Care Team | Description | +--------+ + + + + | 09/21/ | Office | Physical Medicine | Lamont Christopher, | Intercostal | | 2019 | Visit | and Rehabilitation | MD | neuralgia (Primary | | | | | | Dx); Neuropathic | | | | | | pain of chest; | | | | | | History of diabetes | | | | | | mellitus; Pleuritic | | | | | | chest pain | +--------+ + + + + | 09/06/ | Imaging | Radiology | Provider, | | | 2019 | Exam | | MD Martin | | +--------+ + + + + | 09/06/ | Imaging | Radiology | Provider, | | | 2019 | Exam | | MD Martin | | +--------+ + + + + | 09/04/ | Abstract | Physical Medicine | Provider, | | | 2019 | | and Rehabilitation | MD Martin | | +--------+ + + + + from Last 3 Months Immunizations + + + + | Name | Administration Dates | Next Due | + + + + | INFLUENZA PF | 02/02/2019, 02/08/2018, 02/04/2017, | | | TRIVALENT(PED/ADOL/A | 02/26/2016, 01/30/2015, 04/28/2013 | | | KAREN LOZANO | | | + + + + | TDAP, (ADOL/ADULT) | 03/13/2018 | | + + + + Family History + + + + + | Medical History | Relation | Name | Comments | + + + + + | Multiple sclerosis | Brother | | | + + + + + | No known problems | Daughter | | | + + + + + | Coronary artery | Father | | | | disease | | | | + + + + + | Heart disease | Father | | | + + + + + | Heart failure | Father | | | + + + + + | Prostate cancer | Father | | | + + + + + | No known problems | Maternal | | | | | Grandfath | | | | | er | | | + + + + + | No known problems | Maternal | | | | | Grandmoth | | | | | er | | | + + + + + | COPD | Mother | | | + + + + + | No known problems | Paternal | | | | | Grandfath | | | | | er | | | + + + + + | No known problems | Paternal | | | | | Grandmoth | | | | | er | | | + + + + + | Multiple sclerosis | Sister | | | + + + + + | No known problems | Sister | Dionne | | | | | Ayden | | + + + + + | No known problems | Son | | | + + + + + + + + + + | Relation | Name | Status | Comments | + + + + + | Brother | | | | | | | (Age | | | | | 43) | | + + + + + | Daughter | | Alive | | + + + + + | Father | | | heart failure | | | | (Age | | | | | 76) | | + + + + + | Maternal Grandfather | | | | + + + + + | Maternal Grandmother | | | | + + + + + | Mother | | | lung failure | | | | (Age | | | | | 69) | | + + + + + | Paternal Grandfather | | | | + + + + + | Paternal Grandmother | | | | + + + + + | Sister | | | | | | | (Age | | | | | 41) | | + + + + + | Sister | Dionne | Alive | | | | Ayden | | | + + + + + | Son | | Alive | | + + + + + Social History + + [...] on file | | + + + Last Filed Vital Signs + + + + + | Vital Sign | Reading | Time Taken | Comments | + + + + + | Blood Pressure | 110/62 | 09/22/2019 9:29 AM | | | | | PDT | | + + + + + | Pulse | 91 | 07/20/2019 11:13 AM | | | | | PDT | | + + + + + | Temperature | 36.2 C (97.1 F) | 09/22/2019 9:29 AM | | | | | PDT | | + + + + + | Respiratory Rate | 16 | 07/20/2019 11:13 AM | | | | | PDT | | + + + + + | Oxygen Saturation | 95% | 07/20/2019 11:13 AM | | | | | PDT [...] | | + + + + + Plan of Treatment + + + + + | Health Maintenance | Due Date | Last | Comments | | | | Done | | + + + + + | Hepatitis C | | | | | Screening | 0 | | | + + + + + | Vaccine: | | | | | Pneumococcal 19-64 | 6 | | | | ( of - PPSV23) | | | | + + + + + | Diabetic Eye Exam | | | | | | 8 | | | + + + + + | Diabetic Foot Exam | | | | | | 8 | | | + + + + + | Vaccine: Zoster (1 | | | | | of 2) | 0 | | | + + + + + | Hemoglobin A1c | | 06/19/19 | | | Screening | 0 | 20 | | + + + + + | Vaccine: Influenza | | 02/03/20 | | | (#1) | 0 | 19, | | | | | 02/09/20 | | | | | 18, | | | | | 02/05/20 | | | | | 17, | | | | | Addition | | | | | al | | | | | history | | | | | exists | | + + + + + | Med Mgmt: HBA1C | | 06/19/19 | | | | 0 | 20 | | + + + + + | Medication | | 06/22/19 | | | Management | 0 | 20 | | + + + + + | Med Mgmt: Cr | | 06/22/19 | | | | 1 | 20, | | | | | 06/21/19 | | | | | 20, | | | | | 06/20/19 | | | | | 20, | | | | | Addition | | | | | al | | | | | history | | | | | exists | | + + + + + | Med Mgmt: K | | 06/22/19 | | | | 1 | 20, | | | | | 06/21/19 | | | | | 20, | | | | | 06/20/19 | | | | | 20, | | | | | Addition | | | | | al | | | | | history | | | | | exists | | + + + + + | Med Mgmt: eGFR | | 06/22/19 | | | | 1 | 20, | | | | | 06/21/19 | | | | | 20, | | | | | 06/20/19 | | | | | 20, | | | | | Addition | | | | | al | | | | | history | | | | | exists | | + + + + + | Colorectal Cancer | | 05/14/19 | | | Screening | 7 | 17 | | | (Colonoscopy) | | | | + + + + + | Vaccine: | | 03/13/20 | | | Dtap/Tdap/Td (2 - | 8 | 18 | | | Td) | | | | + + + + + Procedures + +--------+ + + + | Procedure Name | Priori | Date/Time | Associated Diagnosis | Comments | | | ty | | | | + +--------+ + + + | CT CHEST W CONTRAST | Routin | 08/26/2019 | | Results for this | | | e | 12:05 AM | | procedure are in the | | | | PDT | | results section. | + +--------+ + + + | CT ABDOMEN PELVIS W | Routin | 08/26/2019 | | Results for this | | CONTRAST | e | 12:00 AM | | procedure are in the | | | | PDT | | results section. | + +--------+ + + + from Last [address] Chest w Contrast (08/26/2019 12:05 AM PDT) + + | Specimen | + + | | + + + + + | Narrative | Performed At | + + + | External films for comparison only | [facility] | | | | | No results will be in the chart. | | + + + + +---------+ + + | Performing | Address | City/State/Zipcode | Phone Number | | Organization | | | | + +---------+ + + | [facility] | | | | + +---------+ + + CT Abdomen Pelvis w Contrast (08/26/2019 12:00 AM PDT) + + | Specimen | + + | | + + + + + | Narrative | Performed At | + + + | External films for comparison only | [facility] | | | | | No results will be in the chart. | | + + + + +---------+ + + | Performing | Address | City/State/Zipcode | Phone Number | | Organization | | | | + +---------+ + + | [facility] | | | | + +---------+ + + from Last 3 Months Insurance +---------+--------+ +--------+ +---------+------+ | Payer | Benefi | Subscriber | Effect | Phone | Address | Type | | | t Plan | ID | lupe | | | | | | / | | Dates | | | | | | Group | | | | | | +---------+--------+ +--------+ +---------+------+ | [place] | REGENC | [id number] | | [phone] | | PPO | | | E BCBS | 8 | 016-Pr | 8 | | | | | [place] | | esent | | | | | | PPO | | | | | | +---------+--------+ +--------+ +---------+------+ | BCBS | BCBS | [id number] | | | | PPO | | | OOS | 8 | 016-Pr | | | | | | PPO | | esent | | | | +---------+--------+ +--------+ +---------+------+ + +--------+ +--------+ + + | Guarantor Name | Accoun | Relation to | Date | Phone | Billing Address | | | t Type | Patient | of | | | | | | | | | | + +--------+ +--------+ + + | Jose Alberto Morocho | Person | Self [birth year] | [address] | | | al/Fam | | 1970 | [phone] | [place] [address] | | | joaquin | | | 9 (Home) | | + +--------+ +--------+ + + | Jose Alberto Morocho | Person | Self [birth year] | [address] | | | al/Fam | | 1971 | [phone] | [place] [address] | | | joaquin | | | 9 (Home) | | + +--------+ +--------+ + + Advance Directives + + + + + | Type | Date Recorded | Patient | 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
--- OUTSIDE RECORDS SUMMARY | ~2019-10-31 | XMS | Encounter Summary ---
Demographics + + + | Address | [address] | | | [place] [address] | + + + | Home Phone | | + + + | Preferred Language | Unknown | + + + | Marital Status | Single | + + + | [employer]aritan Affiliation | NON | + + + | Race | White | + + + | Ethnic Group | Not or | + + + Author + + + | Author | [facility] | + + + | Organization | [facility] | + + + | Address | Unknown | + + + | Phone | Unavailable | + + + Support + + +---------+ + | Name | Relationship | Address | Phone | + + +---------+ + | Dionne Frances | ECON | Unknown | | + + +---------+ + Care Team Providers + +------+ + | Care Director Cloud Transformation Name | Role | Phone | + +------+ + | Nikolai Rowe | PCP | | + +------+ + Encounter Details +--------+ + + + + | Date | Type | Department | Care Team | Description | +--------+ + + + + | 11/07/ | Ancillary | Registration [id number] | | | | 2006 | [address] | [address] | | | | | [address] | [address] Mailcode: [id number] | | | | | | [place], [place] | | | | | | [address] | | | | | | [phone] | | | +--------+ + + + [...] filedocumented as of this encounter Visit Diagnoses Not on filedocumented in this encounter"
--- OUTSIDE RECORDS SUMMARY | ~2019-10-31 | XMS | Encounter Summary ---
Demographics + + + | Address | [address] | | | [place] [address] | + + + | Home Phone | | + + + | Preferred Language | Unknown | + + + | Marital Status | Single | + + + | Mu-Ism Affiliation | NON | + + + | Race | White | + + + | Ethnic Group | Not or | + + + Author + + + | Author | [facility] | + + + | Organization | [facility] | + + + | Address | Unknown | + + + | Phone | Unavailable | + + + Support + + +---------+ + | Name | Relationship | Address | Phone | + + +---------+ + | Dionne Frances | ECON | Unknown | | + + +---------+ + Care Team Providers + +------+ + | Care Stone Sandblaster Name | Role | Phone | + +------+ + | Gustavo Xavier | PCP | Unavailable | + +------+ + Encounter Details +--------+ + + + + | Date | Type | Department | Care Team | Description | +--------+ + + + + | 10/30/ | Results | Neurosurgery [address] | Dejan Barclay, | | | 2005 | Only | [address] | | | | | | Tristin Mailcode:[id number] | | | | | | [place] | | | | | | [place], [place] | | | | | | [address] | | | | | | [phone] | | | +--------+ + + + [...] as of this encounter Plan of Treatment + +---------+--------+ + + | Name | Type | Priori | Associated Diagnoses | Date/Time | | | | ty | | | + +---------+--------+ + + | MRI OUTSIDE FILMS | Imaging | Routin | | 10/30/2005 12:00 AM | | | | e | | PDT | + +---------+--------+ + + documented as of this encounter Visit Diagnoses Not on filedocumented in this encounter"
--- OUTSIDE RECORDS SUMMARY | ~2019-10-31 | XMS | Encounter Summary ---
Demographics + + + | Address | [address] | | | [place] [address] | + + + | Home Phone | | + + + | Preferred Language | Unknown | + + + | Marital Status | | + + + | Caodaism Affiliation | Unknown | + + + | Race | Unknown | + + + | Ethnic Group | Unknown | + + + Author + + + | Author | [facility] | | | and [place] | + + + | Organization | [facility] | | | and [place] | [...] Team Providers + +------+ + | Care Weight Clerk Name | Role | Phone | + +------+ + | Edilberto Troy MD | PCP | | + +------+ + Encounter Details +--------+ + + + + | Date | Type | Department | Care Team | Description | +--------+ + + + + | 09/07/ | Imaging | [facility] | Provider, | | | 2020 | Exam | [facility] | MD [address] | | | | | IMAGING [address] | [address] | | | | | [address] | [place] [address] | | | | | [place] [address] | | | | | | [phone] | | | +--------+ + + + [...] XR CHEST PA AND | Routin | 06/06/2019 | | Results for this | | LATERAL | e | 12:00 AM | | procedure are in the | | | | PDT | | results section. | + +--------+ + + + documented in this encounter Results XR Chest PA and Lateral (06/06/2019 12:00 AM PDT) + + | Specimen [...]
--- OUTSIDE RECORDS SUMMARY | ~2019-10-31 | XMS | Encounter Summary ---
Demographics + + + | Address | [address] | | | [place] [address] | + + + | Home Phone | | + + + | Preferred Language | Unknown | + + + | Marital Status | | + + + | Adventist Affiliation | Unknown | + + + | Race | Unknown | + + + | Ethnic Group | Unknown | + + + Author + + + | Author | [facility] | | | and [place] | + + + | Organization | [facility] | | | and [place] [...] Team Providers + +------+ + | Care Spacer Type Bar And Segment Name | Role | Phone | + +------+ + | Edilberto Troy MD | PCP | | + +------+ + Reason for Visit + + + | Reason | Comments | + + + | Follow-up | Empyema of Right Pleural Space | + + + Encounter Details +--------+---------+ + + + | Date | Type | Department | Care Team | Description | +--------+---------+ + + + | 07/19/ | Office | [facility] | Amber, | Empyema of right | | 2020 | Visit | INFECTIOUS DISEASE | MD [address] | pleural space (HCC) | | | | [address] | [address] | (Primary Dx) | | | | [place], [place] | [place] [address] | | | | | [address] | [phone] | | | | | [phone] | | | +--------+---------+ + + + [...] + + + | Blood Pressure | 138/88 | 07/20/2019 11:13 AM | | | | | PDT | | + + + + + | Pulse | 91 | 07/20/2019 11:13 AM | | | | | PDT | | + + + + + | Temperature | 36.9 C (98.5 F) | 07/20/2019 11:13 AM | | | [...] + + + + | Weight | 144.2 kg (318 lb) | 07/20/2019 11:13 AM | | | | | PDT | | + + + + + | Height | - | - | | + + + + + | Body Mass Index | 46.96 | 07/05/2019 9:09 AM | | | | | PDT | | + + + + + documented in this encounter Patient Instructions Patient Instructions Becky Clark MD - 07/20/2019 11:20 AM PDTCall ID clinic if you have cough, shortness of breath, fever or develop diarrhea documented in this encounter Progress Notes Josephine Loya, JEREMY - 07/20/2019 11:20 AM PDTPICC Removal Note: S :D/C PICC order received from Dr Clark O: PICC line removed from left antecubital after sterile site prepped per protocol. PICC c atheter tip visualized and intact. PICC line measures 40cm Pressure dressing applied with 4x 4 gauze and secured with coban. A: No redness, ecchymosis, edema, swelling, or drainage noted at site. P: Instructions provided on post PICC discharge care, including followup notification instr uctions. Jazzy Eller MD - 07/20/2019 11:20 AM PDTFormatting of this note might be different from the [facility]. Subjective: Patient ID: Jose Alberto Morocho is a 49 y.o. male. HPI CC: Follow-up on empyema Past medical history, medications, allergies, social and family histories are recorded in E PIC, reviewed and updated as necessary. Background History (from Dr. Lee's prior note on 07/04): The patient has been admitted to the hospital after he was recently in a different facility from June 06, 2019 through June 16, 2019 where he was managed for acute respiratory failure, right-sided pneumonia, complic ated parapneumonic effusion. The patient was initially given ceftriaxone and azithromycin. The patient had persistent fevers and also persistent leukocytosis. The patient had christel arently chest tube placed and also thoracentesis with drainage of purulent fluid. Results of cultures are not available at the moment. It appears that due to persistent fever infec tious disease was consulted. The patient's antibiotic therapy was escalated to vancomycin and Zosyn. The patient had a PICC line placed and he was discharged from the hospital with persistent leukocytosis up to 18,000. The patient apparently declined surgical interventi on. The patient returned to our emergency department with a fever of 102.6, cardiac, oxygen sat uration 93%. White blood cell count was still 18,000. The patient had a repeat CT of the chest which showed right pleural effusion with reactive mediastinal lymphadenopathy. Patient was admitted to the hospital for further care. His fluid culture at [facility] from 06/14 was NGTD. 06/10/19 sputum NRF. Blood cx 06/05, 06/06, 06/07 , 06/08 all NG. Infectious Disease (ID) consult requested for furtherevaluation and management. I recommended cardiothoracic surgery consultation. Patient was evaluated by Dr. Ignacio giron taken to the OR for decortication. All the cultures are negative. The patient responded well to IV ceftriaxone. He was discharged to complete 4 weeks of therapy. His white blood cell count has normalize d. He feels better, less pain, minimal cough. He denies fevers, chills. Assessment on 07/04: The patient was responding well to IV ceftriaxone and advised to continu e with antibiotic treatment plan. Previously noted elevated LFTs had resolved. Antibiotic stop date based on MAY 31. Interim history: The patient was also seen at CT surgery by Carlos Thompson PA-C status po st VATS/decortication. Sutures were removed during that clinic visit. Patient states that he has clinically improved. He denies cough, phlegm, dyspnea, chest pa in/pleurisy. He does indicate having some numbness at the site of prior chest tube. He has been afebrile with no chills or sweats. Energy level is better. He reports completing IV ceftriaxone on 07/17. He has been no problems with the PICC site. He denies diarrhea, thrush, pruritus or new skin rash. He wants to go back to work. He states that he works at [employer] and accommodations can pot entially be made for him to be able to physically distance with the COVID-19 pandemic. Review of Systems MS: Chronic back pain, known lumbar DDD All other systems reviewed and are negative, unless specified above Objective: Physical Exam Vital signs have been reviewed General: Pleasant male, not in acute physical distress. BMI 47. Speaks in complete senten stephen HEENT: Normocephalic. Anicteric sclera. No conjunctival lesions. No nasal mucosal lesion s. Moist oral mucosa with no oral thrush or ulcers. No pharyngeal hyperemia or exudates. Chest wall: Surgical site at the right chest wall in prior chest tube sites with brownish d iscoloration. There are no overt signs of chest wall cellulitis. Lungs: Symmetric chest expansion. No rales, wheezes rhonchi noted Cardiovascular: Normal rate. Regular rhythm. No murmur rubs Abdomen: No distention. Soft. No tenderness, rebound or guarding Skin: No drug rash Left upper extremity PICC site with no signs of inflammation Musculoskeletal: No inflamed-looking joints. Scar at lumbar area intact with no signs of i nfection. No direct spine or paraspinal tenderness to palpation Neurologic: Oriented x3. Motor strength intact upper and lower extremities. No tremors Psychiatric: Appropriate mood and affect Lab Results Component Value Date WBC 14.77 (H) 06/22/2019 HCT 38.6 (L) 06/22/2019 MCV 89.1 06/22/2019 PLT 441 (H) 06/22/2019 Lab Results Component Value Date CREA 0.73 06/22/2019 BUN 12 06/22/2019 NA 141 06/22/2019 K 3.7 06/22/2019 CL 104 06/22/2019 CO2 30 06/22/2019 Lab Results Component Value Date ALT 66 (H) 06/17/2019 AST 37 06/17/2019 ALKPHOS 127 (H) 06/17/2019 WBC 9200. 63% neutrophils. C-reactive protein 13.2 (reference range 0-5). ESR 40 Glucose 136, BUN 14, creatinine 1.64. Albumin 3.7, AST 13, ALT 15 Microbiology data reviewed Chest x-ray: IMPRESSION: 1. Round to ovoid opacity in the right mid lung is slightly reduced in size from prior study. 2. Right-sided pleural fluid and thickening is similar to prior study. 3. There is a new left PICC line terminating at the atrial caval [place]unction. Signed by: Isiah Branham Richard Sign Date/Time: 07/05/2019 9:10 AM Assessment: 1. Empyema of right pleural space (HCC) DISCONTINUE CENTRAL LINE Patient appears to have clinically improved after right decortication and with IV ceftriaxo ne. Leukocytosis has improved. Transaminases appear to have improved as well. He has mini casi elevated inflammatory markers. Patient would like to go back to work. He does work at [employer]. We discussed that he is a t risk for severe disease with COVID-19 given underlying comorbidities of type 2 diabetes me llitus and essential hypertension. He informs me that he can be accommodated at work to be able to practice physical distancing and will be allowed to use masks. Plan: 1. Discontinue PICC 2. No antibiotics recommended at this time 3. Patient carefully advised to contact his PCP or ID clinic if he has recurrent symptoms of respiratory infection or diarrhea, which can be an antibiotic side effect 4. Letter for work with recommendations for physical distancing, accommodations for krissy t to wear face mask/face shield and frequent hand hygiene during the COVID-19 pandemic had kyree house provided at his request documented in this encounter Plan of Treatment Not on filedocumented as of this encounter Visit Diagnoses + + | Diagnosis | + + | Empyema of right pleural space (HCC) - Primary Empyema without mention of fistula | + + documented in this encounter"
--- OUTSIDE RECORDS SUMMARY | ~2019-10-31 | XMS | Encounter Summary ---
Demographics + + + | Address | [address] | | | [place] [address] | + + + | Home Phone | | + + + | Preferred Language | Unknown | + + + | Marital Status | | + + + | Baptist Affiliation | Unknown | + + + | Race | Unknown | + + + | Ethnic Group | Unknown | + + + Author + + + | Author | [facility] | | | and [place] | + + + | Organization | [facility] | | | and [place] [...] Team Providers + +------+ + | Care Contact Center Professional Name | Role | Phone | + +------+ + | Mamadou Hammer DO | PCP | | + +------+ + Reason for Visit Service/Procedure (Routine) +--------+--------+ + + + + | Status | Reason | Specialty | Diagnoses / | Referred By | Referred To | | | | | Procedures | Contact | Contact | +--------+--------+ + + + + | Closed | | Radiology | Diagnoses | | [facility] | | | | | Lumbar | [place], | [address] | | | | | radiculopath | Ruddy Camacho MD | [place], | | | | | y | [address] | [place] | | | | | Procedures | [place] | [address] | | | | | [place] INJECT | [place], [place] | Phone: | | | | | ANES/STEROID | [address] | [phone] | | | | | FORAMEN | Phone: | Fax: | | | | | LUMBAR/SACRA | [phone] | [phone] | | | | | L [address] IMG | Fax: | | | | | | GUIDE ,1 | [phone] | | | | | | LEVEL [place] | | | | | | | TRIAMCINOLON | | | | | | | E ACET INJ | | | | | | | NOS, 10 MG | | | | | | | Left S1 | | | | | | | TFESI | | | +--------+--------+ + + + + Encounter Details +--------+ + + + + | Date | Type | Department | Care Team | Description | +--------+ + + + + | 10/30/ | Hospital | [facility] | Ruddy Luo | Lumbar radiculopathy | | 2015 | Encounter | MED CTR XRAY [address] | [address], [address] | | | | | [place] | [address] [place], [place] | | | | | [place] [address] | [address] | | | | | [phone] | | | | | | | Residential Support Specialist, [facility] | | | | | | [place] | | +--------+ + + + + Social History + +-------+ +--------+ + | Tobacco Use | Types | Packs/Day | Years | Date | | | | | Used | | + +-------+ +--------+ + | Former Smoker | | | | Quit: 04/25/2010 | + +-------+ +--------+ + + + +---------+ + | Alcohol Use [...] this encounter Last Filed Vital Signs + +---------+ + + | Vital Sign | Reading | Time Taken | Comments | + +---------+ + + | Blood Pressure | 140/88 | 10/30/2014 2:13 PM | | | | | PDT | | + +---------+ + + | Pulse | 89 | 10/30/2014 2:13 PM | | | | | PDT | | + +---------+ + + | Temperature | - | - | | + +---------+ + + | Respiratory Rate | - | - | | + +---------+ + + | Oxygen Saturation | - | - | | + +---------+ + + | Inhaled Oxygen | - | - | | | Concentration | | | | + +---------+ + + | Weight | - | - | | + +---------+ + + | Height | - | - | | + +---------+ + + | Body Mass Index | - | - | | + +---------+ + + documented in this encounter Medications at Time of Discharge + + + +---------+--------+ + | Medication | Sig | Dispensed | Refills | Start | End Date | | | | | | Date | | + + + +---------+--------+ + | | Inhale 1 puff into | | 0 | | | | albuterol-ipratropiu | the lungs 4 times | | | | | | m (COMBIVENT | daily. | | | | | | RESPIMAT) 100-20 | | | | | | | mcg/puff inhaler | | | | | | + + + +---------+--------+ + | aspirin 81 MG | Take 162 mg by mouth | | 0 | | | | tablet | nightly. | | | | | + + + +---------+--------+ + | metoprolol | Take 50 mg by mouth | | 0 | | | | tartrate (LOPRESSOR) | 2 times daily. | | | | | | 50 mg tablet | | | | | | + + + +---------+--------+ + | Multiple | Take 1 tablet by | | 0 | | | | Vitamins-Minerals | mouth Daily. | | | | | | (MULTIVITAMIN PO) | | | | | | + + + +---------+--------+ + | ranitidine | Take 150 mg by mouth | | 0 | | | | (ZANTAC) 150 mg | 2 times daily. | | | | | | tablet | | | | | | + + + +---------+--------+ + | acetaminophen | Take 500 mg by mouth | | 0 | | | | (TYLENOL) 500 mg | every 6 hours as | | | | 8 | | tablet | needed for Pain. | | | | | + + + +---------+--------+ + | albuterol 90 | Inhale 2 puffs into | | 0 | | | | mcg/puff inhaler | the lungs every 6 | | | | 0 | | | hours as needed for | | | | | | | Wheezing. | | | | | + + + +---------+--------+ + | gabapentin | Take 600 mg by mouth | | 0 | | | | (NEURONTIN) 600 MG | 2 times daily. | | | | 0 | | tablet | | | | | | + + + +---------+--------+ + | nortriptyline | Take 25 mg by mouth | | 0 | | | | (PAMELOR) 25 mg | nightly. | | | | 8 | | capsule | | | | | | + + + +---------+--------+ + | | Take 1 tablet by | | 0 | | | | oxyCODONE-acetaminop | mouth every 4 hours | | | | 8 | | hen (PERCOCET) 5-325 | as needed for Pain. | | | | | | mg per tablet | | | | | | + + + +---------+--------+ + documented as of this encounter Plan of Treatment Not on filedocumented as of this encounter Procedures + +--------+ + + + | Procedure Name | Priori | Date/Time | Associated Diagnosis | Comments | | | ty | | | | + +--------+ + + + | FL EPIDURAL STEROID | Routin | 10/30/2014 | Lumbar | Results for this | | INJECTION LUMBAR | e | 2:05 PM | radiculopathy | procedure are in the | | TRANSFORAMINAL | | PDT | | results section. | + +--------+ + + + documented in this encounter Results FL NITZA Lumbar Transforaminal (10/30/2014 2:05 PM PDT) + + | Specimen | + + | | + + + + + | Narrative | Performed At | + + + | 10/30/2014 Left S1 Transforaminal Epidural Steroid Injection | [facility] | | Diagnosis: Lumbosacral radiculopathy ICD-9 Code 724.4 [address] Alberto | [facility] | | Sue Morocho presents to the fluoroscopy suite for a | [facility] | | fluoroscopically-guided left S1 transforaminal epidural steroid | - IMAGING | | injection as part of conservative management for chronic pain with | | | lumbosacral radiculopathy and degenerative disk disease. After | | | informed consent was obtained, the patient lay in the prone position | | | on the fluoroscopy table. The area was identified under | | | fluoroscopic guidance. The area was prepped and draped in sterile | | | fashion. A 25-gauge, 1.5-inch needle was inserted into this region | | | and approximately 3 mL of buffered 1% lidocaine was infused. | | | Then, a 22-gauge spinal needle was inserted into the superolateral | | | region of the right S1 foramen and advanced into the epidural space | | | under fluoroscopic guidance. Confirmation into the epidural space | | | was obtained with infusion of approximately 1 mL of Omnipaque | | | contrast which showed epidural flow. Then, a combination of 1.5 | | | mL of 1% lidocaine and 1.5 mL of 6 mg/mL Celestone was infused. | | | The patient tolerated the procedure well without complications. | | | Pre- and post-procedure blood pressures were stable. The patient | | | was given verbal as well as written follow-up instructions. | | | Prior to the start of the procedure, the following were performed | | | and/or verified, including correct patient identity, correct | | | site/side marked and visible, agreement on the procedure to be done, | | | correct patient positioning and an accurate procedure consent form. | | | Any safety precautions based on clinical history and/or | | | medication use have been addressed. I personally performed the | | | procedure above. Estimated blood loss: Minimal Complications: | | | None Findings: As expected Anesthesia: Local 1% Lidocaine | | + + + + + + + + | Performing | Address | City/State/Zipcode | Phone Number | | Organization | | | | + + + + + | [facility] | [address] | [place] | [phone] | | [facility] | | [address] | | | - IMAGING | | | | + + + + + documented in this encounter Visit Diagnoses + + | Diagnosis | + + | Lumbar radiculopathy Thoracic or lumbosacral neuritis or radiculitis, unspecified | + + documented in this encounter Administered Medications + +--------+ +------+------+------+ | Medication Order | MAR | Action | Dose | Rate | Site | | | Action | Date | | | | + +--------+ +------+------+------+ | betamethasone (CELESTONE | Given | 10/31/19 | 6 mg | | | | SOLUSPAN) injection 6 mg 6 mg, | | 15 2:13 | | | | | Other, ONCE, 10/30/14 at 1430, | | PM PDT | | | | | For 1 dose, Shake well. Not for | | | | | | | IV use., | | | | | | + +--------+ +------+------+------+ +---+---+ | | | +---+---+ + +-------+ +-------+---+---+ | iohexol (OMNIPAQUE 300) 300 | Given | 10/31/19 | 4 mLs | | | | mg/mL injection 4 mL 4 mL, | | 15 2:11 | | | | | INTRATHECAL, ONCE, Thu10/30/14 at | | PM PDT | | | | | 1430, For 1 dose | | | | | | + +-------+ +-------+---+---+ +---+---+ | | | +---+---+ + +-------+ +------+---+ + | lidocaine 1% injection 1 mL 1 | Given | 10/31/19 | 1 mL | | Other | | mL, Intradermal, ONCE, Thu10/30/14 | | 15 2:08 | | | (Comment | | at 1430, For 1 dose | | PM PDT | | | ) | + +-------+ +------+---+ + +---+---+ | | | +---+---+ + +-------+ +------+---+---+ | sodium bicarbonate (NEUT) 4% | Given | 10/31/19 | 1 mL | | | | injection 1 mL 1 mL, | | 15 2:08 | | | | | Intravenous, ONCE, 10/30/14 at | | PM PDT | | | | | 1430, For 1 dose, Use for | | | | | | | addition to other parenteral | | | | | | | solutions., | | | | | | + +-------+ +------+---+---+ +---+---+ | | | +---+---+ documented in this encounter"
--- OUTSIDE RECORDS SUMMARY | ~2019-10-31 | XMS | Encounter Summary ---
Demographics + + + | Address | [address] | | | [place] [address] | + + + | Home Phone | | + + + | Preferred Language | Unknown | + + + | Marital Status | | + + + | Presybeterian Affiliation | Unknown | + + + | Race | Unknown | + + + | Ethnic Group | Unknown | + + + Author + + + | Author | [facility] | | | and Angelana | + + + | Organization | [facility] | | | and Angelana [...] Team Providers + +------+ + | Care Bleach Mixer Name | Role | Phone | + +------+ + | Edilberto Troy MD | PCP | | + +------+ + Reason for Visit +---------+ + | Reason | Comments | +---------+ + | Consult | | +---------+ + | Snoring | | +---------+ + Evaluate & Treat (Routine) +--------+--------+ + + + + | Status | Reason | Specialty | Diagnoses / | Referred By | Referred To | | | | | Procedures | Contact | Contact | +--------+--------+ + + + + | Closed | | Psychiatry & | Diagnoses | Troy, | Venkata, | | | | Neurology - | Obstructive | Edilberto Madrigal MD | MD Nata | | | | Sleep | sleep apnea | [address] | [address] | | | | Medicine / | (adult) | Kyle Cid | [address] [place] | | | | Sleep | (pediatric) | [place], | [place] | | | | Medicine | CONSULT [address] | [place] [address] | [address] Phone: | | | | | [address] | Phone: | [phone] | | | | | ELSEWHERE IN | [phone] | Fax: | | | | | [place] | Fax: | [phone] | | | | | EUQIP--NEEDS | [phone] | | | | | | OXYGEN? | | | | | | | Procedures | | | | | | | NEW PATIENT | | | +--------+--------+ + + + + Encounter Details +--------+---------+ + + + | Date | Type | Department | Care Team | Description | +--------+---------+ + + + | 12/24/ | Office | [facility] | Nata Hastings MD | SHEILA (obstructive | | 2018 | Visit | SLEEP DISORDER [address] | [address] | sleep apnea) | | | | [address] [place] | [place] | (Primary Dx) | | | | [place] [id number] | [address] | | | | | [phone] | | | +--------+---------+ + + + [...] + + + | Blood Pressure | 160/100 | 12/24/2017 9:37 AM | | | | | PDT | | + + + + + | Pulse | 88 | 12/24/2017 9:37 AM | | | | | PDT | | + + + + + | Temperature | - | - | | + + + + + | Respiratory Rate | 18 | 12/24/2017 9:37 AM | | | | | PDT | | + + + + + | Oxygen Saturation | 93% | 12/24/2017 9:37 AM | | | | | PDT | | + + + + + | Inhaled Oxygen | - | - | | | Concentration | | | | + + + + + | Weight | 155.4 kg (342 lb 9.5 | 12/24/2017 9:37 AM | | | | oz) | PDT | | + + + + + | Height | 175.3 cm (5' 9") | 12/24/2017 9:37 AM | | | | | PDT | | + + + + + | Body Mass Index | 50.59 | 12/24/2017 9:37 AM | | | | | PDT | | + + + + + documented in this encounter Progress Notes Nata Hastings MD - 12/24/2017 10:00 AM PDT ID/CC: We are asked to seeJose Alberto Morocho referred for consultation from Edilberto Troy for ev aluation of obstructive sleep apnea. Jose Alberto Morocho is a 47 y.o. year male old with history of morbid obesity, lumbar deg enerative disc disease, hypertension,gout, COPD, and obstructive sleep apnea presenting for reevaluation and establishment of care for obstructive sleep apnea. "Jose Alberto" states is in today for reevaluation of his sleep apnea. He says he used to be on s ome mental bleed in oxygen with his BiPAP machine and he would sleep much better. I reviewed his outside records. He had a split-night polysomnography at [facility] in [place], [place] on September 27, 2013. He had presented with snoring, witnessed apnea, restless and unrefreshing Sleep, daytime sleepiness and nocturia. Sleep efficiency was 87.2%. 14.2% of stage R sleep. AHI was severely elevated at 78.2. S upine AHI was 176.5. Sleep apnea was obstructive in nature. ETCO2 or TCO2 were not measure d. Patient spent 70% of total sleep time in supine position. Teo oxygen saturation was 5 6%. CPAP was titrated and was switched to bilevel because of high pressures need for CPAP. Patient was on Bilevel at 20/19 cm H2O for only 8 minutes of sleep time and with "ongoing significant respiratory events". It was concluded that there was" incomplete resolution" of his sleep-related breathing disorder at this pressure. autobilevel was recommended: IPAP ma x 25, min EPAP 15, maximum pressure support at 6, min ps at 4. Oxygen was not added. Download today shows that he is on auto bilevel: Max IPAP 22, min EPAP 14, maximum pressure support 6, minimum pressure support 4. Her age IPAP has been 19 for 90% of time. Maximum titrated EPAP has been 17. Average EPAP, 90% of time has been 14.2. AHI is 0.6. He has used his machine religiously and for average paige ly usage of 9 hours. Jose Alberto says he was not started on oxygen initially when he was started on BiPAP, and he had a few overnight oximetry and since his oxygen was low he was started on supplemental oxygen. Dr. Troy note indicated that he was on 4 LPM oxygen . He says that has insurance several m onths ago and he couldn't afford oxygen so he stopped using his oxygen in March to 2017 when he returned it. He says BiPAP has helped him a lot and without it he cannot sleep, however, he would sleep much better when he had oxygen. By that he says he means that he would have fewer awakening s at night and overall the quality of sleep was better. He gets 8-9 hours of sleep per night. He goes to bed around 2 AM. He is a night owl. it takes 10 minutes to one hour for him to fall asleep. When it takes longer than 30 madeline leon he usually is not sleepy when he goes to bed. His wakes him up around 11 AM during his lunch break. He usually feels rested. He denies excessive daytime sleepiness.. 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 His shifts will be changed next and he will need to be at work at 7 AM and has to go to bed earlier. Has had some restless legs for several years and describes it as tingling and pain in his l egs and he has to move them at bedtime. This causes some relief. depending on how tired he is it can keep him from falling asleep. He also has neuropathy. No history of anemia. He has had this problem for several years before he was started on m edications such as duloxetine. ? Tullos Sleepiness Scale: 2 out of 24 ( score >11 clinnically significant for sleepiness ). ? Patient denies: drowsy driving. ? - Insomnia Severity Index Score: 17 out of 28, suggesting moderate insomnia. 0-7 no clinically significant. 8-14 subthreshold insomnia 15-21 moderate insomnia 22-28 severe insomnia ADDITIONAL DATA: ? Doan Depression Inventory: 13, consistent with mild depression.no suicidal Ideation. ? Doan Anxiety Inventory:9 ? SF-36v2: Significant decline in all subscales but MH, RE, SF PAST MEDICAL HISTORY Past Medical History: Diagnosis Date DDD (degenerative disc disease), lumbar 09/12/2014 Gout Hypertension Lumbar radiculopathy 09/12/2014 Poor circulation PAST SURGICAL HISTORY Past Surgical History: Procedure Laterality Date SPINE SURGERY 2006 spleen repair 1983 ALLERGIES No Known Allergies CURRENT MEDICATIONS Prior to Admission medications Medication Sig Start Date End Date Taking? Authorizing Provider albuterol 90 mcg/puff inhaler Inhale 2 puffs into the lungs every 6 hours as needed for Whe ezing. Yes Historical Provider, albuterol-ipratropium (COMBIVENT RESPIMAT) 100-20 mcg/puff inhaler Inhale 1 puff into the l ungs 4 times daily. Yes Historical Provider, aspirin 81 MG tablet Take 81 mg by mouth Daily. Yes Historical Provider, atorvaSTATin (LIPITOR) 20 mg tablet Take 20 mg by mouth nightly. Yes Historical Provider, DULoxetine (CYMBALTA) [address] capsule Take 30 mg by mouth Daily. Yes Historical Provider , gabapentin (NEURONTIN) 600 MG tablet Take 600 mg by mouth 2 times daily. Yes Historical P MD pete metFORMIN (GLUCOPHAGE) 1000 MG tablet Take 1,000 mg by mouth 2 times daily (with breakfast & dinner). Yes Historical Provider, metoprolol tartrate (LOPRESSOR) 50 mg tablet Take 50 mg by mouth 2 times daily. Yes Histo rical ProviderMD Multiple Vitamins-Minerals (MULTIVITAMIN PO) Take by mouth. Yes Historical Provider, nortriptyline (PAMELOR) 25 mg capsule Take 25 mg by mouth nightly. Yes Historical Provide MD mario ranitidine (ZANTAC) 150 mg tablet Take 150 mg by mouth 2 times daily. Yes Historical Prov MD violette SOCIAL HISTORY - Lives with . - Occupation: see hpi - ETOH: yes, details not asked today - Smoking: quit in 2010 - Other substances: mj - Caffeine use: - Exercise: 2 miles per day at work but no exercise - Eating habits: no breakfast, usually eats yogurt for lunch, eats a good meal including me at and vegetables for dinner FAMILY HISTORY His mother had SHEILA. REVIEW OF SYSTEMS Constitutional: No significant fatigue ENT: No nasal or sinus congestion. Card: No exertional substernal chest heaviness, Resp: No cough, No wheezing GI: + diarrhea, ,+ acid reflux : + nocturia MS: + back pain Neuro: No headaches Psych: No overt anxiety Endocrine: No heat or cold intolerance Heme: No easy bruising or prolonged bleeding. PHYSICAL EXAMINATION BP (!) 160/100 | Pulse 88 | Resp 18 | Ht 1.753 m (5' 9") | Wt (!) 155.4 kg (342 lb 9.5 oz) | SpO2 93% | BMI 50.59 kg/m , Neck Measurement: 25 in GEN: obese, pleasant, NAD HEENT: Sclerae anicteric. No ptosis. Oropharyngeal exam reveals Modified Mallampati grade4 airway with 1+ tonsils. Tongue does not have scalloping. Thereis not retrognathia. Patient does not have a high arched palate. CV: RRR, no m/r/g RESP: CTAB, no w/r/r EXT: No clubbing/cyanosis. NEURO: A&Ox3, speech fluent. face symmetric, uvula/tongue midline. . Normal casual gait. PSYCH: Appropriate affect. LABS/IMAGING: PFT 11/30/13: FEV1: 70%, FVC: 66%(due to morbid obesity?), FEV1/FVC 79%, FVC 66%, FRC 111% ASSESSMENT AND PLAN SHEILA: This patient has history of severe obstructive sleep apnea and a polysomnography which was done in [place], [place] in 2013. He has been on auto BiPAP as he needed pressures as high as 20 cm H2O with CPAP. He has been using his machine religiously. He was on nocturn al bleed-in supplemental oxygen up to 4 LPM until early 2017 when he returned oxygen because he could not afford it. He reports that this has picked up the quality of his sleep. Base d on his sleep study report, oxygen was not added at the time of sleep study and was added l ater when overnight oximetry on bipap was performed. CO2 WAS measured during HIS sleep study . Otherwise, he has been using his BiPAP machine religiously and he says he cannot sleep wi thout it. His download shows normal AHI. Mask and pressures are comfortable to sometimes h e feels the pressure is somewhat low. He also has gained about [address] ud in 2013. I discussed that he will need to get an overnight oximetry on his bilevel machine and room air, if he continued to have residual hypoxemia while he is using his machine, I will send a prescription for supplemental oxygen. However, I did inform him that very likely we will n eed to perform a separate CPAP titration study to make sure if he really needs supplemental oxygen. In that case, I I will order a CPAP titration study with TCO2 monitoring and oxyge n to be added if it was necessary. Given his history of COPD as well as his BMI which is 50 .5, he likely has sleep related hypoventilation. He might also have obesity hypoventilation syndrome though it is a diagnosis of exclusion. He is agreeable with this plan. Today, I sent a prescription for overnight oximetry on bilevel and room air to in- home medical [facility] in [place], [place]. I will call the patient with the results and next treatme nt plan. I also discussed the pathophysiology of sleep apnea today, associated risks including hear t attack and stroke with untreated severe sleep apnea, and association between obstructive s leep apnea and hypertension, insulin resistance and diabetes, GERD, headaches, and mood and memory problems. Patient will continue to use his machine regularly. We won't change the p ressure at this time. Advised him to clean his mask and change it regularly. Encouraged maintaining regular physical activity and healthy eating habits. Discussed the importance of eating habits and diet, and that food is not just about calorie intake, and f ood is information and medicine. Encouraged him to eat a healthy breakfast, healthy clean fo ods with minimal fast foods/processed foods: a rainbow of fruits and vegetables regularly, spices such as turmeric, good protein, and cut back on carb. Thank you for the opportunity to participate in this patient's care. Portions of this chart may have been created with [email or web address] voice recognition software. Occasi onal wrong-word or sound-alike substitutions may have occurred due to the inherent tirado itations of voice recognition software. Please read the chart carefully and recognize, using context, where these substitutions have occurred. [facility] - 12/24/2017 10:00 AM PDTFormatting of this note might be different from the origina l. 12/24/17 0900 Doan Depression Inventory-II Depression Score 13 - Minimal depression Insomnia Severity Index Insomnia Severity Index 17 Tullos Sleepiness Scale Sitting and reading 0 Watching TV 0 Sitting, inactive in a public place (e.g. a theatre or a meeting) 1 As a passenger in a car for an hour without a break 0 Lying down to rest in the afternoon when circumstances permit 1 Sitting and talking to someone 0 Sitting quietly after a lunch without alcohol 0 In a car, while stopped for a few minutes in traffic 0 Total score 2 SF-36v2 Score PF 32.66 RP 39.19 BP 42.24 GH 36.54 VT 34.77 SF 47.31 RE 56.17 MH 50.87 PCS 31.24 MCS 55.08 documented in this enco unter Plan of Treatment Not on filedocumented as of this encounter Visit Diagnoses + + | Diagnosis | + + | SHEILA (obstructive sleep apnea) - Primary Obstructive sleep apnea (adult) (pediatric) | + + documented in this encounter
--- OUTSIDE RECORDS SUMMARY | ~2019-10-31 | XMS | Clinical Summary ---
Demographics + + + | Address | [address] | | | [place] [address] | + + + | Home Phone | | + + + | Preferred Language | Unknown | + + + | Marital Status | Single | + + + | Mormonism Affiliation | NON | + + + | Race | White | + + + | Ethnic Group | Not or | + + + Author + + + | Author | NON REVENUE LOCATIONS | + + + | Organization | NON REVENUE LOCATIONS | + + + | Address | Unknown | + + + | Phone | Unavailable | + + + Support + + +---------+ + | Name | Relationship | Address | Phone | + + +---------+ + | Dionne Frances | ECON | Unknown | | + + +---------+ + Care Team Providers + +------+ + | Care Lightning Rod Installer Name | Role | Phone | + +------+ + | Nikolai Rowe | PCP | | + +------+ + Source Comments HALEY is fully live on both [facility] and [facility] Allergies No Known Allergies Medications + + + +---------+------+------+-------+ | Medication | Sig | Dispensed | Refills | Star | End | Statu | | | | | | t | Date | s | | | | | | Date | | | + + + +---------+------+------+-------+ | naproxen 500 mg | Take 500 mg by mouth | | 0 | | | Activ | | Oral Tablet | two times daily. | | | | | e | + + + +---------+------+------+-------+ Active Problems + + + | Problem | Noted Date | + + + | Radiculitis, lumbosacral | 12/10/2005 | + + + Social History + + + +--------+ + | Tobacco Use | Types | Packs/Day | Years | Date | | | | | Used | | + + + +--------+ + | Former Smoker | Cigarettes | 0.8 | 25 | Quit: 04/25/2010 | + + + +--------+ + + + +---------+ + | Alcohol Use | Drinks/Week | oz/Week | Comments | + + +---------+ + | Yes | | | rare | + + +---------+ + + + [...] recent travel history available. | + + Last Filed Vital Signs + + + + + | Vital Sign | Reading | Time Taken | Comments | + + + + + | Blood Pressure | 110/80 | 02/12/2011 2:32 PM | | | | | PST | | + + + + + | Pulse | 80 | 02/12/2011 2:32 PM | | | | | PST | | + + + + + | Temperature | 37.2 C (99 F) | 02/12/2011 2:32 PM | | | | | PST | | + + + + + | Respiratory Rate | 24 | 02/12/2011 2:32 PM | | | | | PST | | + + + + + | Oxygen Saturation | - | - | | + + + + + | Inhaled Oxygen | - | - | | | Concentration | | | | + + + + + | Weight | 122.5 kg (270 lb) | 02/12/2011 2:32 PM | | | | | PST | | + + + + + | Height | 172.7 cm (5' 8") | 02/12/2011 2:32 PM | | | | | PST | | + + + + + | Body Mass Index | 41.05 | 02/12/2011 2:32 PM | | | | | PST | | + + + + + Plan of Treatment + + + + + | Health Maintenance | Due Date | Last Done | Comments | + + + + + | Influenza (Flu) | | | | | vaccination (Season | 0 | | | | Ended) | | | | + + + + + | Pneumococcal | Aged Out | | No longer eligible | | vaccination | | | based on patient's | | | | | age to complete this | | | | | topic | + + + + + Results Not on filefrom Last 3 Months Insurance + +--------+ +--------+ + +------+ | Payer | Benefi | Subscriber | Effect | Phone | Address | Type | | | t Plan | ID | lupe | | | | | | / | | Dates | | | | | | Group | | | | | | + +--------+ +--------+ + +------+ | [employer]UE [employer] BLUE | BCBS | [phone] | 06/29/19 | [phone] | [address] | PPO | | SHIELD | OUT OF | x | 11-[phone] | [phone] | [phone] | | | | STATE | | sent | | [place], | | | | | | | | [place] | | | | | | | | [phone] | | + +--------+ +--------+ + +------+ + +--------+ +--------+ + + | Guarantor Name | Accoun | Relation to | Date | Phone | Billing Address | | | t Type | Patient | of | | | | | | | | | | + +--------+ +--------+ + + | Jose Alberto Morocho | Person | Self [birth year] | [address] | | | al/Fam | | 1971 | [phone] | [place] [address] | | | joaquin | | | [address] (Home) | | + +--------+ +--------+ + +
--- OUTSIDE RECORDS SUMMARY | ~2019-10-31 | XMS | Encounter Summary ---
Demographics + + + | Address | [address] | | | [place] [address] | + + + | Home Phone | | + + + | Preferred Language | Unknown | + + + | Marital Status | | + + + | Orthodoxy Affiliation | Unknown | + + + | Race | Unknown | + + + | Ethnic Group | Unknown | + + + Author + + + | Author | [facility] | | | and Angelana | + + + | Organization | [facility] | | | and Angelana | [...] Team Providers + +------+ + | Care [employer] Hand Finisher Name | Role | Phone | + +------+ + | Edilberto Troy MD | PCP | | + +------+ + Reason for Visit + + + | Reason | Comments | + + + | Chest Pain | | + + + | Fever (9 Weeks To 74 | | | Years) | | + + + Auth/Cert +--------+--------+ + + + + | Status | Reason | Specialty | Diagnoses / | Referred By | Referred To | | | | | Procedures | Contact | Contact | +--------+--------+ + + + + | | | | Diagnoses | | | | | | | Chest pain, | | | | | | | unspecified | | | | | | | type | | | | | | | Sepsis, due | | | | | | | to | | | | | | | unspecified | | | | | | | organism, | | | | | | | unspecified | | | | | | | whether | | | | | | | acute organ | | | | | | | dysfunction | | | | | | | present | | | | | | | (HCC) | | | +--------+--------+ + + + + Encounter Details +--------+ + + + + | Date | Type | Department | Care Team | Description | +--------+ + + + + | 06/16/ | Hospital | [facility] | [place], | Chest pain, | | 2019 - | Encounter | [facility] | [address] | unspecified type | | | | CARE FLOOR [address] | (Primary Dx); | | [address]/21/ | | [address] | [place] [address] | Sepsis, due to | | 2019 | | [place], [place] | [phone] | unspecified | | | | [address] | | organism, | | | | [phone] | Josselin Diallo MD | unspecified whether | | | | | [address] | acute organ | | | | | [place] [address] | dysfunction present | | | | | [phone] | ([facility]); Empyema of | | | | | | the right lung | | | | | Leon Ch MD | (FORM[facility]LY [facility]); Empyema of | | | | | [address] | right pleural space | | | | | [place] [address] | (FORM[facility]LY [facility]); Community | | | | | [phone] | acquired pneumonia | | | | | | of right lower lobe | | | | | Rocky Arce MD | of lung; Persistent | | | | | [address] | fever; Leukocytosis, | | | | | [place], [place] | unspecified type; | | | | | [address] | Obesity, Class III, | | | | | | BMI 40-49.9 (morbid | | | | | VickyEddy schulz | obesity) (FORM[facility]LY [facility]); | | | | | MD Doug [address] | Empyema lung (HCC); | | | | | [address] [place], [place] | Essential | | | | | [address] | hypertension; | | | | | | Reactive | | | | | | lymphadenopathy; | | | | | | Type 2 diabetes | | | | | | mellitus without | | | | | | complication, | | | | | | without long-term | | | | | | current use of | | | | | | insulin (HCC) | +--------+ + + + + Social [...] + + + | Blood Pressure | 120/76 | 06/22/2019 12:15 PM | | | | | PDT | | + + + + + | Pulse | 86 | 06/22/2019 12:15 PM | | | | | PDT | | + + + + + | Temperature | 37.2 C (99 F) | 06/22/2019 12:15 PM | | | | | PDT | | + + + + + | Respiratory Rate | 16 | 06/22/2019 12:15 PM | | | | | PDT | | + + + + + | Oxygen Saturation | 95% | 06/22/2019 12:15 PM | | | | | PDT | | + + + + + | Inhaled Oxygen | - | - | | | Concentration | | | | + + + + + | Weight | 139 kg (306 lb 8 oz) | 06/22/2019 5:10 AM | | | | | PDT | | + + + + + | Height | 172.7 cm (5' 8") | 06/18/2019 3:39 AM | | | | | PDT | | + + + + + | Body Mass Index | 46.6 | 06/18/2019 3:39 AM | | | | | PDT | | + + + + + documented in this encounter Discharge Summaries Darci Morris MD - 06/22/2019 12:17 PM PDTFormatting of this note might be different fr om the original. [facility] Service: Hospitalist Discharge Summary Pt: Robert Stiles AGE/SEX: 48 y.o. ROOM: 81/8125- : 1970 PCP: Edilberto Troy MD Date of Admission: 06/17/2019 Date of Discharge: 06/22/2019 06/22/19 Discharge Provider: Eddy Perry MD Treatment Team: Wesley Hua MD; Juan A Voss MD; Rocky Arce MD Discharge Diagnoses: Principal Problem: Empyema lung Active Problems: Obesity, Class III, BMI 40-49.9 (morbid obesity) Chronic pain Essential hypertension Obstructive sleep apnea syndrome Type 2 diabetes mellitus, without long-term current use of insulin Empyema of lung Resolved Problems: Sepsis Reactive lymphadenopathy Procedures: Procedure(s): VIDEO ASSISTED THORACOSCOPY W/ DECORTICATION THORACOTOMY-DECORTICATION BRIEF HISTORY OF PRESENTATION: Robert Stiles is a 48 y.o. male with past medical history significant for hypertensio n, hyperlipidemia, diabetes mellitus type 2 on metformin, morbid obesity and sleep apnea on CPAP, former smoker, and current marijauna smoker who presented with worsening shortness of breath, nausea, decreased appetite, worsening right sided pleuritic chest pain one day follo wing discharge from [facility] on 06/15 where patient was admitted for 10 days for acute respiratory failure with right pneumonia and empyema and was admitted 06/[address] [facility]. HOSPITAL COURSE: Upon admission, Patient underwent a right diagnostic thorascopy, right thoracotomy wit h full decortication on 06/18. That evening he was intubated and then extubated to room air on 06/19. Chest tube removed on 06/20. Per infectious disease consult, patient treated with IV ceftriaxone 2 g daily. Upon discharge patient was eating, drinking, urinating, having bowel movements without prob lems. Patient was discharged on his home medications with limited number of roxicodone for p ain. Patient was made follow up appointments with cardiac surgery, infectious disease, and h is excellent PCP. All questions were answered to the satisfaction of the patient and he was discharged in stable condition. Past Medical History: Diagnosis Date DDD (degenerative disc disease), lumbar 09/12/2014 Gout Hypertension Lumbar radiculopathy 09/12/2014 Morbid obesity (HCC) Nocturnal hypoxemia Poor circulation Poor eating habits Sleep apnea Type 2 diabetes mellitus (HCC) Past Surgical History: Procedure Laterality Date BRONCHOSCOPY Bilateral 06/19/2019 Procedure: BRONCHOSCOPY FLEXIBLE; Surgeon: Ronn Voss MD; Location: [facility] INGUINAL HERNIA REPAIR Left 2000 SPINE SURGERY 2006 spleen repair 1984 THORACOSCOPY Right 06/19/2019 Procedure: VIDEO ASSISTED THORACOSCOPY W/ DECORTICATION; Surgeon: Rocky Arce MD; Loca tion: [facility] OR THORACOTOMY Right 06/19/2019 Procedure: THORACOTOMY-DECORTICATION; Surgeon: Rocky Arce MD; Location: [facility] [facility] MAIN OR No Known Allergies No medications prior to admission. DISCHARGE EXAM Vital Signs: BP 120/76 | Pulse 86 | Temp 37.2 C (99 F) (Oral) | Resp 16 | Ht 1.727 m (5' 8") | Wt (!) 139 kg (306 lb 8 oz) | SpO2 95% | BMI 46.60 kg/m General Appearance: Alert and cooperative, and appears to be in no acute distress. HEENNT: Normocephalic and atraumatic. EOMI. Hearing grossly intact. No nasal discharge. Cardiovascular: Rhythm and rate are regular. No murmurs, gallops or rubs appreciated. Perip heral pulses 2+ and symmetric. No lower extremity edema. Pulmonary/Chest: Right posterior inferior lung field has decreased breath sounds relative t o right superior and left lung walsh, slightly improved compared to yesterday. Bandage ove r decortication incision is clean and dry. Chest tube incision site is closed with mild ser ous discharge from suture site. Drain incision site covered in clean bandage. Patient repo rts numbness in anterior chest in approximate 5 inch vertical span approximately 4 inches be low the nipple Abdominal: Soft, nontender, nondistended. Normoactive bowel sounds. No guarding or rebound tenderness. Musculoskeletal: Normal range of motion. Normal muscular development. Ambulating normally. Neurological: CN II-XII grossly intact. Oriented to person, place, and time. Skin: Skin is warm and dry. No rash noted. Psychiatric:The patient was able to demonstrate good judgement and reason, without hallucin ations, abnormal affect or abnormal behaviors during the examination. DATA Recent Labs Lab 06/22/19 0526 06/21/19 0412 WBC 14.77* 14.24* RBC 4.33 4.21 HGB 12.1* 11.8* HCT 38.6* 37.2* MCV 89.1 88.4 MCH 27.9 28.0 MCHC 31.3* 31.7* PLT 441* 416* MPV 11.0 11.0 MONOPCT 7.80 8.20 Recent Labs Lab 06/22/19 0526 06/17/19 2231 NA 141 < > 137 K 3.7 < > 3.8 CL 104 < > 100 CO2 30 < > 26 ANIONGAP 11 < > 15 BUN 12 < > 15 ALT -- -- 66* AST -- -- 37 EGFR >60 < > >60 MG 1.9 < > -- < > = values in this interval not displayed. No results for input(s): LABGLYC in the last 168 hours. Invalid input(s): HGBA1C No results for input(s): APTT, INR, PTT in the last 168 hours. No results for input(s): TSH in the last 168 hours. Invalid input(s): T3FREE, FREET4 No results for input(s): TROPONINT in the last 168 hours. Invalid input(s): CKTOTAL, TROPONINI, CKMBINDEX Radiology/Imaging Ct Chest W Contrast Result Date: 06/18/2019 CT CHEST WITH CONTRAST CLINICAL INFORMATION: Cough. Pneumonia. Pleural effusion. [facility], referred by PCP to [facility] for worsening symptoms. COMPARISON: CT ANGIOGRAPHY CHEST (06/06/2019); CHEST TWO VIEWS [id number] (06/06/2019); PRO CEDURE: Axial images through the chest after the administration of 100 ml Omnipaque 350 intr avenous contrast. Multiplanar reconstructions. At least one of the following CT dose optimiz ation techniques were used: Automated exposure control; Adjustment of mA and/or kV according to patient size; Use of iterative reconstruction technique. FINDINGS: Lungs, Pleura and Air ways: Moderate multifocal platelike atelectasis in the right middle and lower lobes. Atelec tasis of the superior segment of the right lower lobe. Moderate air-containing right pleura l effusion extending into the horizontal and oblique fissures. These findings are moderatel y improved since comparison 06/06/2019, previously there was near complete atelectasis of the right middle and lower lobes and increased size of the pleural effusion. Small foci of air b etween the visceral and parietal pleura adjacent to the anteromedial and anterolateral right middle lobe (series 4, images 153 and 215), in conjunction with small volume air within the soft tissues of the lateral right chest wall, this is likely sequela of thoracentesis. Medi astinum: No significant pericardial, great vessel or esophageal abnormality. No mediastinal mass. Lymph Nodes: Right-sided hilar and mediastinal lymphadenopathy, almost certainly react lupe in the setting of infection. Upper Abdomen: No significant abnormality in the visualized upper abdomen. BODY WALL Soft Tissues: The soft tissues of the chest wall are unremarkable. Bones: No acute fracture or vertebral end plate destruction. No lytic or blastic lesion. 1. Interval improvement in right middle and lower lobe atelectasis, which is now mild. 2. M oderate right pleural effusion is decreased in size since 06/06/2019 comparison with new foci of air, likely sequela of thoracentesis. Associated reactive hilar and mediastinal lymphaden opathy. Dictated by: Isiah Ward Natalie Signed by: Isiah Morel James Sign Date/Time: 0 06/18/2019 1:13 AM The radiologist has reviewed the images and edited/approved the report. Fo r interventional procedures, the signing radiologist was present for the calhoun portions of the exam. Xr Chest Ap Portable Result Date: 06/18/2019 CHEST PORTABLE ONE VIEW CLINICAL INFORMATION: PICC line placement verification. COMPARISON: CT CHEST W CONTRAST (06/17/2019); CT ANGIOGRAPHY CHEST (06/06/2019); CHEST TWO VIEWS [id number] (06/06/2019); FINDINGS/IMPRESSION: 1. New right PICC line present with the tip identified in the mid SVC. 2. Moderate pleuroparenchymal opacities involving the mid and lower right hemithora x, similar to the recent CT of the chest. Left lung is clear. 3. Cardiomediastinal contours are stable. 4. No pneumothorax. Signed by: Isiah Morel James Sign Date/Time: 06/18/2019 4: 35 AM PLAN Discharge to Home or Self Care in stable condition. Continue 4 weeks outpatient IV therapy with ceftriaxone. Take current list of medications including the newer ones as prescribed. Continue to work on dietary modifications and weight losing strategies. Code Status: Prior Discharge Procedure Orders XR Chest PA and Lateral Standing Status: Future Standing Exp. Date: 06/21/20 Order Specific Question Answer Comments Reason for exam: s/p thoracic surgery What is the preferred imaging location? [facility] Follow up: [facility] [address] [facility] [id number] For IV antibiotics Rocky Arce MD [address] [place] [facility] [place] [address] Schedule an appointment as soon as possible for a visit in 2 weeks Hospital Follow-up Ciro Gardner MD [address] [facility] [address] In 2 weeks Hospital Follow-up Edilberto Madrigal MD [address] [facility] [id number] Hospital Follow-up Discharge Medications New Medications Details cefTRIAXone (ROCEPHIN) IVPB (custom dose) 2 g Inject 2 g into the vein Daily for 25 days. Indications: Empyema oxyCODONE 5 mg tablet Take 1 tablet by mouth every 8 hours as needed for Pain for up to 15 days. aka: ROXICODONE Changed Medications Details albuterol 90 mcg/puff inhaler Inhale 2 puffs into the lungs every 2 hours as needed for Wheezing. What changed: when to take this DULoxetine [address] capsule Take 30 mg by mouth Daily. What changed: Another medication with the same name was changed. Make sure you understand how and when to take each. aka: CYMBALTA DULoxetine [address] capsule Take 1 capsule by mouth Daily. What changed: how much to take how to take this when to take this aka: CYMBALTA gabapentin 600 MG tablet Take 2 tablets by mouth 3 times daily. What changed: how much to take when to take this aka: NEURONTIN lisinopril 10 mg tablet Take 1 tablet by mouth Daily. What changed: how much to take how to take this when to take this aka: PRINIVIL, ZESTRIL Unchanged Medications Details albuterol-ipratropium 100-20 mcg/puff inhaler Inhale 1 puff into the lungs 4 times daily. aka: COMBIVENT RESPIMAT aspirin 81 MG tablet Take 81 mg by mouth Daily. atorvaSTATin 20 mg tablet Take 20 mg by mouth nightly. aka: LIPITOR diazePAM 5 mg tablet take 1 tablet by mouth 1 hour prior to procedure and 1 to 2 table... (REFER TO PRESCRIPTI ON NOTES). aka: VALIUM lidocaine-prilocaine cream apply three times a day if needed for pain aka: EMLA metFORMIN 1000 MG tablet Take 1,000 mg by mouth 2 times daily (with breakfast & dinner). aka: GLUCOPHAGE metoprolol tartrate 50 mg tablet Take 50 mg by mouth 2 times daily. aka: LOPRESSOR MULTIVITAMIN PO Take by mouth. raNITIdine 150 mg tablet Take 150 mg by mouth 2 times daily. aka: ZANTAC Discharge took 60 minutes, to include final examination, discussion of admission, and prepa ration of prescriptions, instructions for on-going care, follow-up and documentation of disc harge summary. Darci Morris MD 7:18 PM 06/22/19 Associated attestation - Eddy Perry MD - 06/22/2019 9:44 PM PDTI have reviewed resident Dr. Morris's discharge summary. I agree with his assessment, clinical findings and discharge plans. Patient was admitted due to shortness of breath and pleuritic chest pains. He was found to have pneumonia and empyema and underwent a right diagnostic thorascopic, right thoracotomy w ith full decortication on 06/19/2019. CT Surgery following and removed chest tube today, ID r ecommended 4 weeks of IV Ceftriaxone which will continue till July 18, 2019. Case managemen t made arrangements for home antibiotics. He was feeling much better with no chest pains and no shortness of breath at present, He is now discharged to home in a stable condition. doc umented in this encounter Discharge Instructions Instructions Eddy Perry MD - 06/22/2019Formatting of this note might be differe nt from the original. Medications as prescribed Keep right side wound sites clean and covered. Replace bandages every day. Follow-up with Dr. Arce (the Cardiac Surgeon) in 2 week Follow-up with Dr. Lee (the Infectious disease doctor) in 2 weeks Follow-up with PCP within 1 month Return to hospital as needed for worsening symptoms. Pneumonia (Adult) Pneumonia is an infection deep within the lungs. It is in the small air sacs (alveoli). Pne umonia may be caused by a virus or bacteria. Pneumonia caused by bacteriais usually treate d with an antibiotic. Severe cases may need to be treated in the hospital. Milder cases can be treated at home. Symptoms usually start to get better during the first2 days of treatme nt. Home care Follow these guidelines when caring for yourself at home: Rest at home for the first 2 to 3 days, or until you feel stronger. Don t let yourself get overly tired when you go back to your activities. Stay away from cigarette smoke yours or other people s. You may use acetaminophen or ibuprofen to control fever or pain, unless another medicine was prescribed. If you have chronic liver or kidney disease, talk with your healthcare prov ider before using these medicines. Also talk with your provider if you ve had a stomach ul cer or gastrointestinal bleeding. Don t give aspirin to anyone younger than 18 years of ag e who is ill with a fever. It may cause severe liver damage. Your appetite may be poor, so a light diet is fine. Drink 6 to 8 glasses of fluids every day to make sure you are getting enough fluids. Anju erages can include water, sport drinks, sodas without caffeine, juices, tea, or soup. Fluids will help loosen secretions in the lung. This will make it easier for you to cough up the p hlegm (sputum). If you also have heart or kidney disease, check with your healthcare provide r before you drink extra fluids. Take antibiotic medicine prescribed until it is all gone, even if you are feeling better after a few days. Follow-up care Follow up with your healthcare provider in the next 2 to 3 days, or as advised. This is to be sure the medicine is helping you get better. If you are 65 or older, you should get a pneumococcal vaccine and a yearlyflu (influenza) shot. You should also get these vaccines if you have chronic lung disease like asthma, emp hysema, or COPD. Recently, a second type of pneumonia vaccine has become available for every one over 65 years old. This is in addition to the previous vaccine. Ask your provider about this. When to seek medical advice Call your healthcare provider right away if any of these occur: You don t get better within the first 48 hours of treatment Shortness of breath gets worse Rapid breathing (more than 25 breaths per minute) Coughing up blood Chest pain gets worse with breathing Fever of100.4F (38C) or higher that doesn t get better with fever medicine Weakness, dizziness, or fainting that gets worse Thirst or dry mouth that gets worse Sinus pain, headache, or a stiff neck Chest pain not caused by coughing Date Last Reviewed: 03/30/201619997657-1509 [employer]. [address] [place] [address], [place] [address]. All righ ts reserved. This information is not intended as a substitute for professional medical care. Always follow your healthcare professional's instructions. Cardiothoracic Surgery Discharge Instructions Routine Follow Up Appointments Follow up with Cardiothoracic Surgery, Dr Arce in 2 wks. Our office will call you to schedule a time Please call [phone] with any questions or if you need to reschedule Please go to [facility] and get a 2-view Chest X-Ray done 30min before your appoint ment. An order has been placed for you Follow up with your primary care physician in 2-4 weeks. General Instructions The [facility] Cardiothoracic Surgery office will contact you within 72 hours of your hospital discharge. If you do not receive a phone call or have any concerns before then, please call our office Mon-Fri 8:00am-5:00pm at [phone]. Please make sure we have the best conta ct number for you before you leave the hospital. Bowel Care Most patients experience some degree of constipation after surgery. To minimize constipati on: Take 4-6 short walks daily if able Take a twice daily fiber supplement such as Benefiber, Citrucel, or Metamucil Take stool softeners daily as prescribed, such as Colace Take over the counter medicines such as Milk of Magnesia (MOM) or Miralax Daily Monitoring Notify the [facility] Cardiothoracic Surgery office of: Any weight gain or loss of 4lbs or more in 2 days. Weigh yourself daily in the AM. Temperature greater than 101F. Redness, swelling, drainage, or increased tenderness along your incision. Significant shortness of breath, weight gain or loss, ankle swelling, or chest pain Persistent loose stools or diarrhea Dressings and Stitches You will not be leaving the hospital with a dressing on your surgical incision site. Theref ore, it is important to monitor for the changes covered under daily monitoring. Shower daily with antibacterial soap. Let the soap and water run over your incision - do not scrub. All the stitches along your incision will dissolve and do not need to be removed. If you have any visible stitches at smaller incision sites, please have them removed at your follo w up visit with [facility] Cardiothoracic Surgery - no later than 2 weeks after your surgery. Reason to go to ER/Call 911 1. You cannot breathe 2. You are having Chest Pain or pain that radiates into your jaw, arm, or the middle of you r back. 3. You feel as though you are going to lose consciousness. 4. Your heart is racing too fast or feels irregular. Showering: No bath, hot tub, or swimming pool. Wash incision with soap and water - do not scrub, rinse with warm water, and do not allow the shower water to directly impact the incision. Use eloina an towels on incision sites. Pat dry, do not cross contaminate. Do not use any dressings, lo tions, creams oils, etc, on incisions. Exercise: Ambulating: Progressively increase the amount of time and distance. The goal is to walk a m inimum of 6 times a day. Do not use arms to push, pull, or lift greater than 5 lbs. Move ams symmetrically, not opposing. Thoracotomy: Your Home Recovery For the first several weeks after your surgery, you'll be gaining a little more energy and strength each day. Breathing may be uncomfortable at first, and you may be short of breath. Take things slowly, and rest when you get tired. Your doctor or nurse can talk to you about what you can and can't do as you recover. Caring for Your Incision Your doctor will tell you when it'Balwinder to shower. When you shower, wash your incision gent ly with warm (not hot) water and mild soap. Bruising, itchiness, soreness, and numbness at y our incision site are normal for several weeks after surgery. Taking Medications Take your pain medications regularly as your doctor instructs don't wait until the pain gets bad before you take them. In addition to medication for pain, your doctor may prescrib e other medications. Oxygen may also be prescribed. When to Call Your Doctor Draining or very red incision Sudden, severe shortness of breath Sudden, sharp chest pain Fever over 101F (38.3C) Rapid heartbeat or "fluttering" in your chest Easing into Activity For 6 to 8 weeks after your surgery, avoid any activity that might put stress on your heali ng incisions, such as heavy lifting or yard work. Do start walking, though, to improve your circulation, lung capacity, and strength. Taking pain medications before activity will help make breathing more comfortable. You'll probably feel short of breath for several weeks. Thi s is normal and will improve with time. As you begin to feel better, you can gradually add m ore strenuous activities. Ask your doctor how long to wait before returning to sexual relati ons, driving, and work. [id number] [employer]. [address] [place], [place] [id number]. All righ ts reserved. This information is not intended as a substitute for professional medical care. Always follow your healthcare professional's instructions. documented in this encounter Medications at Time [...] 1 capsule by | | 0 | 06/22/19 | | | (CYMBALTA) [address] | mouth Daily. | | | 20 | | | capsule | | | | | | + + + +---------+ + + | gabapentin | Take 2 tablets by | 90 | 0 | 06/22/19 | | | (NEURONTIN) 600 MG | [...] 1 tablet by | | 0 | 03/25/20 | | | (PRINIVIL, ZESTRIL) | mouth [...] + + documented as of this encounter Progress Notes Ciro Vu MD - 06/22/2019 9:43 AM PDT [facility] Service: Infectious Diseases Progress Note Hospital Day: LOS: 4 days Post-Op Day: 3 Days Post-Op CC: Follow up on pneumonia. Follow up empyema. SUBJECTIVE/OVERNIGHT EVENTS Continues on iv antibiotic therapy. Denies new concerns and denies side effects. Tolerating antibiotics well. No acute events over the last 24 hours. Feels good, took a shower today. Afebrile. Pain well controlled. Intake/Output Summary (Last 24 hours) at 06/22/2019 0943 Last data filed at 06/22/2019 0600 Gross per 24 hour Intake 2369 ml Output 575 ml Net 1794 ml REVIEW OF SYSTEMS . GI: denies diarrhea. Skin: denies skin rash. Constitutional: denies fever and chills. Respi ratory: denies difficulty breathing. MEDICATIONS: Scheduled Meds: acetaminophen 1,000 mg Oral 3 times per day aspirin 81 mg Oral Daily atorvaSTATin 20 mg Oral Nightly cefTRIAXone 2 g Intravenous Daily DULoxetine 30 mg Oral Daily enoxaparin 40 mg Subcutaneous Q24H gabapentin 1,200 mg Oral TID insulin lispro 0-12 Units Subcutaneous 4x Daily AC and HS lisinopril 10 mg Oral Daily methocarbamol 1,000 mg Oral 4 times per day metoprolol tartrate 50 mg Oral BID potassium chloride 30 mEq Oral Once Continuous Infusions: PRN Meds:.albuterol, alteplase, alteplase, dextrose 10%, dextrose, docusate sodium, heparin , HYDROmorphone, labetalol, melatonin, ondansetron, ondansetron, oxyCODONE, polyethylene gly col, sodium chloride (PF) 0.9% injection PHYSICAL EXAM Vital Signs: BP 129/61 | Pulse 93 | Temp 36.8 C (98.3 F) (Oral) | Resp 16 | Ht 1.727 m (5' 8") | Wt (!) 139 kg (306 lb 8 oz) | SpO2 94% | BMI 46.60 kg/m Focused exam shows: General exam: No distress, cooperative with exam. HEENT: sclera non-icteric, no visible oral thrush Cardiovascular: regular rate and rhythm Lungs: no tachypnea, clear breath sounds. Mildly decreased at bases Abdomen: no distension, bowel sounds present Extremities/MSK: No edema, no joint effusions Skin: No lesions, normal turgor Neurologic: Awake, cranial nerves intact. Follows commands. Venous access: PICC. LABS: All labs were reviewed. Recent Results (from the past 24 hour(s)) POC Glucose Result Value Ref Range Glucose, POC 129 (H) 65 - 99 mg/dL POC Glucose Result Value Ref Range Glucose, POC 108 (H) 65 - 99 mg/dL POC Glucose Result Value Ref Range Glucose, POC 113 (H) 65 - 99 mg/dL Basic Metabolic Panel Result Value Ref Range Na 141 135 - 145 mmol/L K 3.7 3.5 - 4.9 mmol/L Cl 104 99 - 109 mmol/L CO2 30 23 - 32 mmol/L Anion Gap 11 5 - 20 mmol/L Glucose 102 (H) 65 - 99 mg/dL BUN 12 8 - 25 mg/dL Creatinine 0.73 0.70 - 1.30 mg/dL BUN/Creatinine Ratio 16 Calcium 8.8 8.5 - 10.5 mg/dL Estimated GFR >60 >60 mL/min/1.73m2 CBC with Differential Result Value Ref Range WBC 14.77 (H) 3.80 - 11.00 K/uL RBC 4.33 4.20 - 5.70 M/uL Hemoglobin 12.1 (L) 13.2 - 17.0 g/dL Hematocrit 38.6 (L) 39.0 - 50.0 % MCV 89.1 80.0 - 100.0 fl MCH 27.9 27.0 - 34.0 pg MCHC 31.3 (L) 32.0 - 35.5 g/dL RDW-SD 44.7 37 - 53 fl Platelet Count 441 (H) 150 - 400 K/uL MPV 11.0 fl Diff Type AUTOMATED % nRBC 0.0 0 /100WBC % Neutrophils 69.20 % IMMATURE GRANULOCYTE 0.70 % % Lymphocytes 15.70 % Monocyte % 7.80 % Eosinophils % 5.90 % Basophils % 0.70 % Neutrophils, Absolute 10.22 (H) 1.90 - 7.40 K/uL IMMATURE GRANS AB 0.11 (H) 0.00 - 0.07 K/uL Absolute Lymphocytes 2.32 1.00 - 3.90 K/uL Absolute Monocytes 1.15 (H) 0.00 - 0.80 K/uL Eosinophils, Absolute 0.87 (H) 0.00 - 0.50 K/uL Basophils, Absolute 0.10 0.00 - 0.10 K/uL Magnesium Result Value Ref Range Magnesium 1.9 1.7 - 2.4 mg/dL POC Glucose Result Value Ref Range Glucose, POC 130 (H) 65 - 99 mg/dL Microbiology Results (Last 14 Days by Collected Date with Culture/Sensitivity) Procedure Component Value Units Date/Time Culture, Fungus [[id number]] Collected: 06/19/19 1048 Order Status: Sent Lab Status: In process Updated: 06/19/19 1112 Specimen: Tissue from Pleura, Right Culture, Tissue, Smear, with Anaerobes [[id number]] Collected: 06/19/19 1048 Order Status: Canceled Lab Status: No result Specimen: Tissue from Pleura, Right Culture Virus [[id number]] Collected: 06/19/19 1048 Order Status: Sent Lab Status: In process Updated: 06/19/19 1113 Specimen: Tissue from Pleura, Right Culture, Tissue, Smear, with Anaerobes [[id number]] Collected: 06/19/19 104 Order Status: Completed Lab Status: Preliminary result Updated: 06/22/19 0725 Special Requests PLEURAL RIGHT PEEL Special Requests Testing performed at [facility];[address] [place] [address];[place] [address] Gram Stain Result -- 1+ WBC'S SEEN Gram Stain Result NO ORGANISMS SEEN RESULT NO GROWTH 3 DAYS RESULT Testing performed at [facility], [address] [place] [address] Comment: Testing performed at [facility], [address] [place] [address] Coronavirus (COVID-19) PCR [[id number]] Order Status: Canceled Lab Status: No result Specimen: Tissue from Nasopharynx Culture, Fungus [[id number]] Collected: 06/19/19 1029 Order Status: Sent Lab Status: In process Updated: 06/19/19 1110 Specimen: Body Fluid from Pleural Fluid, Right Culture Virus [[id number]] Collected: 06/19/19 1029 Order Status: Sent Lab Status: In process Updated: 06/19/19 1110 Specimen: Body Fluid from Pleural Fluid, Right Culture, Body Fluid Sterile [[id number]] Collected: 06/19/19 1029 Order Status: Completed Lab Status: Preliminary result Updated: 06/22/19 0725 Specimen: Body Fluid from Pleural Fluid, Right Gram Stain Result -- 1+ WBC'S SEEN RESULT NO GROWTH 3 DAYS RESULT Testing performed at [address] [address] Comment: Testing performed at [facility], [address] [place] [address] MRSA NAAT [[id number]] Collected: 06/18/19 1258 Order Status: Completed Lab Status: Final result Updated: 06/18/19 1417 Specimen: Tissue from Nares SOURCE: NARES(NOSE) Result NEGATIVE Comment: Testing performed at [facility];[address] [place] [address] Streptococcus pneumoniae Antigen [[id number]] Collected: 06/18/19 1005 Order Status: Completed Lab Status: Final result Updated: 06/21/19 1108 Specimen: Urine, Unspecified Source Specimen Source Urine Streptococcus pneumoniae Negative Body Fluid Culture, Sterile Not indicated. Organism ID Not indicated. Please note (See Below) Comment: [employer] standards require a culture to be performed on CSF specimens submitted for bacterial antigen testing. (CAP [id number]) Urine specimens will not be cultured. Testing performed by [facility], [address] [place] [address] Respiratory pathogen panel, NAAT [[id number]] Collected: 06/18/19 0351 Order Status: Completed Lab Status: Final result Updated: 06/18/19 0603 Specimen: Body Fluid from Nasopharynx Adenovirus DNA Not Detected Coronavirus 229E Not Detected Coronavirus HKU1 Not Detected Coronavirus NL63 Not Detected Coronavirus OC43 Not Detected Human Metapneumovirus Not Detected Rhinovirus/Enterovirus Not Detected Influenza A Not Detected Influenza B Not Detected Parainfluenza 1 Not Detected Parainfluenza 2 Not Detected Parainfluenza 3 Not Detected Parainfluenza 4 Not Detected Respiratory Syncytial Virus Not Detected Bordetella pertussis DNA Not Detected Chlamydia pneumoniae Not Detected Mycoplasma pneumoniae Not Detected Interpretation: -- A negative FilmArray RP result does not exclude the possibility of a viral or bacterial i nfection. Test results may also be affected by concurrent antiviral/antibacterial therapy or levels of organism in the specimen that are below the limit of detection for this test. Comment: Negative results in the setting of a respiratory illness may be due to infection with pathogens that are not detected by this test or lower respiratory tract infection that is not detected by a nasopharyngeal swab specimen. Testing performed by [employer] Testing performed at [facility], [address] [place] [address] Culture, Blood [[id number]] Collected: 06/17/19 2256 Order Status: Completed Lab Status: Preliminary result Updated: 06/19/19 0526 Specimen: Peripheral Blood Special Requests LAC Special Requests Testing performed at [facility];[address] [place] [address] RESULT NO GROWTH AT THIS TIME RESULT Testing performed at [facility], [address] [place] [address] Comment: Testing performed at [facility], [address] [place] [address] Culture, Blood [[id number]] Collected: 06/17/19 2230 Order Status: Completed Lab Status: Preliminary result Updated: 06/19/19 0526 Specimen: Blood from Line RESULT NO GROWTH AT THIS TIME RESULT Testing performed at [facility], [address] [place] [address] Comment: Testing performed at [facility], [address] [place] [address] Microbiology Results (72 hrs) Procedure Component Value Units Date/Time Culture, Fungus [[id number]] Collected: 06/19/19 1048 Order Status: Sent Lab Status: In process Updated: 06/19/19 1112 Specimen: Tissue from Pleura, Right Culture Virus [[id number]] Collected: 06/19/19 104 Order Status: Sent Lab Status: In process Updated: 06/19/19 1113 Specimen: Tissue from Pleura, Right Culture, Tissue, Smear, with Anaerobes [[id number]] Collected: 06/19/19 1048 Order Status: Completed Lab Status: Preliminary result Updated: 06/22/19 0725 Special Requests PLEURAL RIGHT PEEL Special Requests Testing performed at [facility];[address] [place] [address] Gram Stain Result -- 1+ WBC'S SEEN Gram Stain Result NO ORGANISMS SEEN RESULT NO GROWTH 3 DAYS RESULT Testing performed at [facility], [address] [place] [address] Comment: Testing performed at [facility], [address] [place] [address] Culture, Fungus [[id number]] Collected: 06/19/19 1029 Order Status: Sent Lab Status: In process Updated: 06/19/19 1110 Specimen: Body Fluid from Pleural Fluid, Right Culture Virus [[id number]] Collected: 06/19/19 1029 Order Status: Sent Lab Status: In process Updated: 06/19/19 1110 Specimen: Body Fluid from Pleural Fluid, Right Culture, Body Fluid Sterile [[id number]] Collected: 06/19/19 102 Order Status: Completed Lab Status: Preliminary result Updated: 06/22/19 0725 Specimen: Body Fluid from Pleural Fluid, Right Gram Stain Result -- 1+ WBC'S SEEN RESULT NO GROWTH 3 DAYS RESULT Testing performed at [address] [address] Comment: Testing performed at [facility], [address] [place] [address] IMAGING: CXR images were reviewed. My interpretation: Images dated 06/22/2019. Chest tube removed. Improved infiltrates. ASSESSMENT & PLAN The patient is a 48 y.o.-year-old male with the following problems: Active Hospital Problems Diagnosis Date Noted Empyema of right pleural space 06/19/2019 Sepsis 06/18/2019 Reactive lymphadenopathy 06/18/2019 Type 2 diabetes mellitus, without long-term current use of insulin 06/18/2019 Obesity, Class III, BMI 40-49.9 (morbid obesity) 07/30/2018 Essential hypertension 07/27/2018 Chronic pain 07/27/2018 Obstructive sleep apnea syndrome 07/27/2018 Resolved Hospital Problems No resolved problems to display. 1. Empyema of right pleural space 2. Persistent fever and leukocytosis, sec to #1, resolved. 3. Morbid obesity 4. Elevated liver enzymes Patient who has failed conservative management for right sided empyema. This is a patient with community-acquired pneumonia and complicated by empyema. His antibiotics were escala joie in the outside facility due to persistent fever and leukocytosis, however hisslowres ponsewassecondaryto persistent pleural space infection. Recommend to continue antibiotic therapy with IV ceftriaxone 2 g daily, cardiothoracic surg [place] consultedand the patient is status post decortication on June 19, 2019. Tissue cult ure is no growth so far. 4 weeks of IV therapy is recommended. We will monitor clinically. Side effects of atbx discussed with patient. Follow up ID clinic in 2 weeks. Continue current antibiotic regimen. Discussed with attending provider: Eddy Perry MD Discussed with bottle caser regarding OPAT. Discussed with bottle caser regarding discharge planning. Ciro Lee MD, MPH Infectious Diseases 06/22/19 Rudy García MD - 06/21/2019 5:02 PM PDTPROGRESS NOTE for Robert Stiles On the hospitalist service. 06/21/19 ASSESSMENT AND PLAN Empyema of right pleural space (06/19/2019) Assessment: Improved with no shortness of breath and decreased chest pain now 2 days stat us post thorascopic, thoracotomy, and full decortication per [facility] cardiothoracic surgery. Chest tube in place now on day 2. Now on day 4 of ceftriaxone 2 g IV with WBCs down trende d from 18-14. Plan: Cardiothoracic surgery consulted, appreciate recommendations infectious disease consulted, appreciate recommendations Continue ceftriaxone 2 g IV daily per infectious disease. Follow-up on blood, viral, fungal. and COVID-19 cultures/PCR of 06/18 Pain control with acetaminophen 1000 mg 3 times daily and oxycodone 5 mg 3 times daily a s needed CBC in morning Type 2 diabetes mellitus, without long-term current use of insulin (06/18/2019) Assessment: Uncontrolled diabetes with most recent hemoglobin A1c of 7.3 on 06/18. POC gl ucose is 108 129 today with no insulin use. Plan: continue insulin sliding scale. Carb consistent diet BMP in the morning Chronic pain Assessment: Home regimen of gabapentin is 1200 mg 3 times daily, patient currently on 300 3 times daily. Plan: We will titrate up gabapentin to 600 3 times daily and assess for disequilibrium side e ffects. If tolerated well will titrate up to 1200 mg 3 times daily. Principal Problem: Empyema of the right lung Active Problems: Obesity, Class III, BMI 40-49.9 (morbid obesity) Chronic pain Essential hypertension Obstructive sleep apnea syndrome Sepsis Reactive lymphadenopathy Type 2 diabetes mellitus, without long-term current use of insulin Empyema of right pleural space Resolved Problems: * No resolved hospital problems. * Length of stay: 3 days Disposition: inpatient, will begin discharge planning once changed to po antibiotics. Code Status: Full code DVT Prophylaxis: Lovenox 40 mg GI Prophylaxis: None Diet: Carb consistent Bowel Regimen: Colace and MiraLAX as needed PATIENT SUMMARY Robert Stiles is a 48 y.o. male with past medical history significant for hypertensio n, hyperlipidemia, diabetes mellitus type 2 on metformin, morbid obesity and sleep apnea on CPAP who presented with worsening shortness of breath, nausea, decreased appetite, worsening pleuritic chest pain on the right side 1 day following discharge from [facility] on 05/28 where patient was admitted for 10 days for acute respiratory failure with right pneumonia and empyema and was admitted 06/16 for empyema at [facility]. Patient underwent a right diagnost ic thorascopic, right thoracotomy with full decortication on 06/18. That evening he was intu bated and then extubated to room air on 06/19. Patient is now 2 days status post decorticati on and on day 3 of admission. SUBJECTIVE Events Overnight: No acute events overnight. Afebrile saturating 92% on room air with CPAP use at night. Sleep: Slept well Eating/drinking: Tolerating liquids and solids well without nausea or vomiting BM: No problems stooling Ambulating: Ambulating within room Patient denies shortness of breath, reports 8/10 chest pain with cough. OBJECTIVE BP 135/81 | Pulse 87 | Temp 37.1 C (98.7 F) (Oral) | Resp 16 | Ht 1.727 m (5' 8") | Wt (!) 139.3 kg (307 lb 3.2 oz) | SpO2 97% | BMI 46.71 kg/m Physical Exam: ? Patient sitting upright in chair with chest tube present in right flank. Patient appears in no acute distress asides from the pain due to the chest tube present. ? Heart regular rhythm and rate ? Lungs clear to auscultation bilaterally in bilateral upper walsh and left posterior left field. Decreased air movement in right lower posterior field. No wheezes or crackles ausc ultated. ? Chest tube insertion site without erythema or discharge. Decortication incision site cov ered with bandage with scant dried blood on bandage. Notable tenderness to palpation on rig ht anterior lung field. Darci Morris MD 06/21/19 5:02 PM Associated attestation - Eddy Perry MD - 06/21/2019 6:22 PM PDTI have reviewed resident Dr. Morris's progress note and examined the patient in detail. I agree with his ass essment, clinical findings and current treatment plans. Patient was admitted due to shortness of breath and pleuritic chest pains. He was found to have pneumonia and empyema and underwent a right diagnostic thorascopic, right thoracotomy w ith full decortication on 06/19/2019. CT Surgery following and removed chest tube today, ID r ecommended 4 weeks of IV Ceftriaxone which will probably continue till July 18, 2019. Disch arge plans in 1 to 2 days if remains stable.Pavithra Ling OTR/Palak - 06/21/2019 1:36 PM P DT Occupational Therapy Discharge Occupational Therapy discharged the following patient today: Robert Stiles Per chart review (PT note), RN and patient, patient is able to complete selfcare tasks with safety and independence and does not require skilled occupational therapy at this time. Pt report has all required equipment available. May obtain a new referral for OT if the need ar ises. Rudy Rodriguez MD - 06/21/2019 11:21 AM PDTFormatting of this note might be different from leeanne zavala. [facility] Service: Infectious Diseases Progress Note Hospital Day: LOS: 3 days Post-Op Day: 2 Days Post-Op CC: Follow up on pneumonia. Follow-up on empyema SUBJECTIVE/OVERNIGHT EVENTS Continues on iv antibiotic therapy. Denies new concerns and denies side effects. Tolerating antibiotics well. No acute events over the last 24 hours. Afebrile, cultures are negative, stable anemia. White blood cell count still mildly elevat ed. Intake/Output Summary (Last 24 hours) at 06/21/2019 1122 Last data filed at 06/21/2019 1048 Gross per 24 hour Intake 1786 ml Output 3525 ml Net -1739 ml REVIEW OF SYSTEMS . GI: denies diarrhea. Skin: denies skin rash. Constitutional: denies fever and chills. Respi ratory: denies difficulty breathing. MEDICATIONS: Scheduled Meds: acetaminophen 1,000 mg Oral 3 times per day aspirin 81 mg Oral Daily atorvaSTATin 20 mg Oral Nightly cefTRIAXone 2 g Intravenous Daily DULoxetine 30 mg Oral Daily enoxaparin 40 mg Subcutaneous Q24H gabapentin 600 mg Oral TID insulin lispro 0-12 Units Subcutaneous 4x Daily AC and HS lisinopril 10 mg Oral Daily methocarbamol 1,000 mg Oral 4 times per day metoprolol tartrate 50 mg Oral BID Continuous Infusions: PRN Meds:.albuterol, alteplase, alteplase, dextrose 10%, dextrose, docusate sodium, heparin , HYDROmorphone, labetalol, melatonin, ondansetron, ondansetron, oxyCODONE-acetaminophen, po lyethylene glycol, sodium chloride (PF) 0.9% injection PHYSICAL EXAM Vital Signs: BP 121/73 | Pulse 88 | Temp 36.8 C (98.2 F) (Oral) | Resp 16 | Ht 1.727 m (5' 8") | Wt (!) 139.3 kg (307 lb 3.2 oz) | SpO2 94% | BMI 46.71 kg/m Focused exam shows: General exam: No distress, cooperative with exam. HEENT: sclera non-icteric, no visible oral thrush Cardiovascular: regular rate and rhythm Lungs: no tachypnea, clear breath sounds. Mildly decreased at bases Abdomen: no distension, bowel sounds present Extremities/MSK: No edema, no joint effusions Skin: No lesions, normal turgor Neurologic: Awake, cranial nerves intact. Follows commands. Venous access: PICC. LABS: All labs were reviewed. Recent Results (from the past 24 hour(s)) POC Glucose Result Value Ref Range Glucose, POC 140 (H) 65 - 99 mg/dL POC Glucose Result Value Ref Range Glucose, POC 114 (H) 65 - 99 mg/dL POC Glucose Result Value Ref Range Glucose, POC 132 (H) 65 - 99 mg/dL Basic Metabolic Panel Result Value Ref Range Na 141 135 - 145 mmol/L K 3.6 3.5 - 4.9 mmol/L Cl 105 99 - 109 mmol/L CO2 28 23 - 32 mmol/L Anion Gap 12 5 - 20 mmol/L Glucose 107 (H) 65 - 99 mg/dL BUN 12 8 - 25 mg/dL Creatinine 0.74 0.70 - 1.30 mg/dL BUN/Creatinine Ratio 16 Calcium 8.7 8.5 - 10.5 mg/dL Estimated GFR >60 >60 mL/min/1.73m2 CBC with Differential Result Value Ref Range WBC 14.24 (H) 3.80 - 11.00 K/uL RBC 4.21 4.20 - 5.70 M/uL Hemoglobin 11.8 (L) 13.2 - 17.0 g/dL Hematocrit 37.2 (L) 39.0 - 50.0 % MCV 88.4 80.0 - 100.0 fl MCH 28.0 27.0 - 34.0 pg MCHC 31.7 (L) 32.0 - 35.5 g/dL RDW-SD 44.5 37 - 53 fl Platelet Count 416 (H) 150 - 400 K/uL MPV 11.0 fl Diff Type AUTOMATED % nRBC 0.0 0 /100WBC % Neutrophils 68.80 % IMMATURE GRANULOCYTE 0.50 % % Lymphocytes 16.60 % Monocyte % 8.20 % Eosinophils % 5.30 % Basophils % 0.60 % Neutrophils, Absolute 9.80 (H) 1.90 - 7.40 K/uL IMMATURE GRANS AB 0.07 0.00 - 0.07 K/uL Absolute Lymphocytes 2.36 1.00 - 3.90 K/uL Absolute Monocytes 1.17 (H) 0.00 - 0.80 K/uL Eosinophils, Absolute 0.75 (H) 0.00 - 0.50 K/uL Basophils, Absolute 0.09 0.00 - 0.10 K/uL Magnesium Result Value Ref Range Magnesium 2.0 1.7 - 2.4 mg/dL POC Glucose Result Value Ref Range Glucose, POC 146 (H) 65 - 99 mg/dL Microbiology Results (Last 14 Days by Collected Date with Culture/Sensitivity) Procedure Component Value Units Date/Time Culture, Fungus [[id number]] Collected: 06/19/19 1048 Order Status: Sent Lab Status: In process Updated: 06/19/19 1112 Specimen: Tissue from Pleura, Right Culture, Tissue, Smear, with Anaerobes [[id number]] Collected: 06/19/19 1048 Order Status: Canceled Lab Status: No result Specimen: Tissue from Pleura, Right Culture Virus [[id number]] Collected: 06/19/19 1048 Order Status: Sent Lab Status: In process Updated: 06/19/19 1113 Specimen: Tissue from Pleura, Right Culture, Tissue, Smear, with Anaerobes [[id number]] Collected: 06/19/19 1048 Order Status: Completed Lab Status: Preliminary result Updated: 06/21/19 0737 Special Requests PLEURAL RIGHT PEEL Special Requests Testing performed at [facility];[address] [place] [address];[place] [address] Gram Stain Result -- 1+ WBC'S SEEN Gram Stain Result NO ORGANISMS SEEN RESULT NO GROWTH 2 DAYS RESULT Testing performed at [facility], [address] [place] [address] Comment: Testing performed at [facility], [address] [place] [address], [place] [address] Coronavirus (COVID-19) PCR [[id number]] Order Status: Canceled Lab Status: No result Specimen: Tissue from Nasopharynx Culture, Fungus [[id number]] Collected: 06/19/19 1029 Order Status: Sent Lab Status: In process Updated: 06/19/19 1110 Specimen: Body Fluid from Pleural Fluid, Right Culture Virus [[id number]] Collected: 06/19/19 1029 Order Status: Sent Lab Status: In process Updated: 06/19/19 1110 Specimen: Body Fluid from Pleural Fluid, Right Culture, Body Fluid Sterile [[id number]] Collected: 06/19/19 1029 Order Status: Completed Lab Status: Preliminary result Updated: 06/21/19 0737 Specimen: Body Fluid from Pleural Fluid, Right Gram Stain Result -- 1+ WBC'S SEEN RESULT NO GROWTH 2 DAYS RESULT Testing performed at [address] [address] [address] Comment: Testing performed at [facility], [address] [place] [address] MRSA NAAT [[id number]] Collected: 06/18/19 1258 Order Status: Completed Lab Status: Final result Updated: 06/18/19 1417 Specimen: Tissue from Nares SOURCE: NARES(NOSE) Result NEGATIVE Comment: Testing performed at [facility];[address] [facility];[place] [address] Streptococcus pneumoniae Antigen [[id number]] Collected: 06/18/19 1005 Order Status: Completed Lab Status: Final result Updated: 06/21/19 1108 Specimen: Urine, Unspecified Source Specimen Source Urine Streptococcus pneumoniae Negative Body Fluid Culture, Sterile Not indicated. Organism ID Not indicated. Please note (See Below) Comment: [employer] standards require a culture to be performed on CSF specimens submitted for bacterial antigen testing. (CAP [id number]) Urine specimens will not be cultured. Testing performed by [facility], [address] [place] [address] Respiratory pathogen panel, NAAT [[id number]] Collected: 06/18/19 0351 Order Status: Completed Lab Status: Final result Updated: 06/18/19 0603 Specimen: Body Fluid from Nasopharynx Adenovirus DNA Not Detected Coronavirus 229E Not Detected Coronavirus HKU1 Not Detected Coronavirus NL63 Not Detected Coronavirus OC43 Not Detected Human Metapneumovirus Not Detected Rhinovirus/Enterovirus Not Detected Influenza A Not Detected Influenza B Not Detected Parainfluenza 1 Not Detected Parainfluenza 2 Not Detected Parainfluenza 3 Not Detected Parainfluenza 4 Not Detected Respiratory Syncytial Virus Not Detected Bordetella pertussis DNA Not Detected Chlamydia pneumoniae Not Detected Mycoplasma pneumoniae Not Detected Interpretation: -- A negative FilmArray RP result does not exclude the possibility of a viral or bacterial i nfection. Test results may also be affected by concurrent antiviral/antibacterial therapy or levels of organism in the specimen that are below the limit of detection for this test. Comment: Negative results in the setting of a respiratory illness may be due to infection with pathogens that are not detected by this test or lower respiratory tract infection that is not detected by a nasopharyngeal swab specimen. Testing performed by [facility] Testing performed at [facility], [address] [place] [address] Culture, Blood [[id number]] Collected: 06/17/19 2256 Order Status: Completed Lab Status: Preliminary result Updated: 06/19/19 05 Specimen: Peripheral Blood Special Requests LAC Special Requests Testing performed at [facility];[address] [place] [address] RESULT NO GROWTH AT THIS TIME RESULT Testing performed at [facility], [address] [place] [address] Comment: Testing performed at [facility], [address] [place] [address] Culture, Blood [[id number]] Collected: 06/17/19 2230 Order Status: Completed Lab Status: Preliminary result Updated: 06/19/19525 Specimen: Blood from Line RESULT NO GROWTH AT THIS TIME RESULT Testing performed at [facility], [address] [place] [address] Comment: Testing performed at [facility], [address] [place] [address] Microbiology Results (72 hrs) Procedure Component Value Units Date/Time Culture, Fungus [[id number]] Collected: 06/19/19 1048 Order Status: Sent Lab Status: In process Updated: 06/19/19 111 Specimen: Tissue from Pleura, Right Culture Virus [[id number]] Collected: 06/19/19 1048 Order Status: Sent Lab Status: In process Updated: 06/19/19 111 Specimen: Tissue from Pleura, Right Culture, Tissue, Smear, with Anaerobes [[id number]] Collected: 06/19/19 1048 Order Status: Completed Lab Status: Preliminary result Updated: 06/21/19 0737 Special Requests PLEURAL RIGHT PEEL Special Requests Testing performed at [facility];[address] [place] [address] Gram Stain Result -- 1+ WBC'S SEEN Gram Stain Result NO ORGANISMS SEEN RESULT NO GROWTH 2 DAYS RESULT Testing performed at [facility], [address] [place] [address] Comment: Testing performed at [facility], [address] [place] [address] Culture, Fungus [[id number]] Collected: 06/19/19 1029 Order Status: Sent Lab Status: In process Updated: 06/19/19 1110 Specimen: Body Fluid from Pleural Fluid, Right Culture Virus [[id number]] Collected: 06/19/19 1029 Order Status: Sent Lab Status: In process Updated: 06/19/19 1110 Specimen: Body Fluid from Pleural Fluid, Right Culture, Body Fluid Sterile [[id number]] Collected: 06/19/19 1029 Order Status: Completed Lab Status: Preliminary result Updated: 06/21/19 0737 Specimen: Body Fluid from Pleural Fluid, Right Gram Stain Result -- 1+ WBC'S SEEN RESULT NO GROWTH 2 DAYS RESULT Testing performed at [facility], [address] [place] [address] Comment: Testing performed at [facility], [address] [place] [address] MRSA NAAT [[id number]] Collected: 06/18/19 1258 Order Status: Completed Lab Status: Final result Updated: 06/18/19 1417 Specimen: Tissue from Nares SOURCE: NARES(NOSE) Result NEGATIVE Comment: Testing performed at [facility];[address] [place] [address];[place] [address] IMAGING: CXR images were reviewed. My interpretation: Images obtained today. Chest tube in place. Opacity on the right, no pneumothorax. ASSESSMENT & PLAN The patient is a 48 y.o.-year-old male with the following problems: Active Hospital Problems Diagnosis Date Noted Empyema of right pleural space 06/19/2019 Sepsis 06/18/2019 Empyema of the right lung 06/18/2019 Reactive lymphadenopathy 06/18/2019 Type 2 diabetes mellitus, without long-term current use of insulin 06/18/2019 Obesity, Class III, BMI 40-49.9 (morbid obesity) 07/30/2018 Essential hypertension 07/27/2018 Chronic pain 07/27/2018 Obstructive sleep apnea syndrome 07/27/2018 Resolved Hospital Problems No resolved problems to display. 1. Empyema of right pleural space 2. Persistent fever and leukocytosis, sec to #1 3. Morbid obesity 4. Elevated liver enzymes Patient who has failed conservative management for right sided empyema. This is a patient with community-acquired pneumonia and complicated by empyema. His antibiotics were escala joie in the outside facility due to persistent fever and leukocytosis, however his slow respo nse is secondary to persistent pleural space infection. Recommend to continue antibiotic therapy with IV ceftriaxone 2 g daily, cardiothoracic surg florence consultation and the patient is status post decortication on June 19, 2019. Tissue cul ture is no growth so far. 4 weeks of IV therapy is recommended. We will monitor clinically. Continue to monitor clinical response. Continue current antibiotic regimen. Repeat CBC and CMP in the am. Discussed with attending provider: Eddy Perry MD Discussed with bottle caser regarding OPAT. Discussed with bottle caser regarding discharge planning. Ciro Lee MD, MPH Infectious Diseases 06/21/19 ally Thompson PA - 06/21/2019 9:01 AM PDTFormatting of this note might be different from the or iginal. [facility] Service: Cardiothoracic Surgery Progress Note ROOM: [address] [place] [address] Hospital Day: LOS: 3 days Post-Op Day: 2 Days Post-Op Surgery/Procedure: 06/19/2019, Dr Ignacio HENDRICKSON decortication SUBJECTIVE Events Overnight: HD stable, SR. Afebrile and WBCs trending down. CPAP overnight (hx of SHEILA) UOP: 3.4L/24hs CT Output: 100mL/24hrs OBJECTIVE Vital Signs: BP 115/75 | Pulse 79 | Temp 36.8 C (98.2 F) (Oral) | Resp 16 | Ht 1.727 m (5' 8") | Wt (!) 139.3 kg (307 lb 3.2 oz) | SpO2 94% | BMI 46.71 kg/m Current weight: Patient Vitals for the past 96 hrs: Weight 06/20/19 0400 (!) 139.3 kg (307 lb 3.2 oz) 06/19/19 2000 (!) 139.5 kg (307 lb 7.1 oz) 06/19/19 0513 (!) 138.5 kg (305 lb 6.4 oz) 06/18/19 0339 (!) 141.2 kg (311 lb 3.2 oz) 06/17/19 2134 (!) 139.6 kg (307 lb 12.2 oz) Admission weight: Weight: (!) 139.6 kg (307 lb 12.2 oz) Physical Exam: General: Alert, oriented, in no acute distress, resting in bed Heart: RRR No murmur Lungs: CTA b/l Dim bases. Abdomen: Soft, nondistended, nontender Extremities: Well perfused, mild LE edema Musculoskeletal: no deformities or significant abnormalities Neurological: No gross focal motor or sensory deficits Skin: No rash or lesions. Thoracoscopy incision dressing is C/D/I. Chest tube present inc ision C/D/I. DATA: Scheduled Medications acetaminophen 1,000 mg Oral 3 times per day aspirin 81 mg Oral Daily atorvaSTATin 20 mg Oral Nightly cefTRIAXone 2 g Intravenous Daily DULoxetine 30 mg Oral Daily enoxaparin 40 mg Subcutaneous Q24H gabapentin 300 mg Oral TID insulin lispro 0-12 Units Subcutaneous 4x Daily AC and HS lisinopril 10 mg Oral Daily methocarbamol 1,000 mg Oral 4 times per day metoprolol tartrate 50 mg Oral BID Continuous Infusions PRN Medications albuterol, alteplase, alteplase, dextrose 10%, dextrose, docusate sodium, heparin, HYDROmor phone, labetalol, melatonin, ondansetron, ondansetron, oxyCODONE-acetaminophen, polyethylene glycol, sodium chloride (PF) 0.9% injection HOME MEDS: Prior to Admission medications Medication Sig Start [...] mg by mouth nightly. Yes Historical Provider, diazePAM (VALIUM) 5 mg tablet take 1 tablet by mouth 1 hour prior to procedure and 1 to 2 t able... (REFER TO PRESCRIPTION NOTES). 03/11/18 Historical Provider, DULoxetine (CYMBALTA) [address] capsule Take 30 mg by mouth Daily. Yes Historical Provider , DULoxetine (CYMBALTA) [address] capsule 03/10/18 Yes Historical Provider, gabapentin (NEURONTIN) 600 MG tablet Take 600 mg by mouth 2 times daily. Yes Historical P MD pete lidocaine-prilocaine (EMLA) cream apply three times a day if needed for pain 02/08/18 Yes Historical Provider, lisinopril (PRINIVIL, ZESTRIL) 10 mg tablet 05/05/19 Yes Historical Provider, metFORMIN (GLUCOPHAGE) 1000 MG tablet Take 1,000 mg by mouth 2 times daily (with breakfast & dinner). Yes Historical Provider, metoprolol tartrate (LOPRESSOR) 50 mg tablet Take 50 mg by mouth 2 times daily. Yes Histo rical Provider, Multiple Vitamins-Minerals (MULTIVITAMIN PO) Take by mouth. Yes Historical Provider, ranitidine (ZANTAC) 150 mg tablet Take 150 mg by mouth 2 times daily. Historical Provide rMD LABS: Recent Results (from the past 24 hour(s)) POC Glucose Result Value Ref Range Glucose, POC 140 (H) 65 - 99 mg/dL POC Glucose Result Value Ref Range Glucose, POC 114 (H) 65 - 99 mg/dL POC Glucose Result Value Ref Range Glucose, POC 132 (H) 65 - 99 mg/dL Basic Metabolic Panel Result Value Ref Range Na 141 135 - 145 mmol/L K 3.6 3.5 - 4.9 mmol/L Cl 105 99 - 109 mmol/L CO2 28 23 - 32 mmol/L Anion Gap 12 5 - 20 mmol/L Glucose 107 (H) 65 - 99 mg/dL BUN 12 8 - 25 mg/dL Creatinine 0.74 0.70 - 1.30 mg/dL BUN/Creatinine Ratio 16 Calcium 8.7 8.5 - 10.5 mg/dL Estimated GFR >60 >60 mL/min/1.73m2 CBC with Differential Result Value Ref Range WBC 14.24 (H) 3.80 - 11.00 K/uL RBC 4.21 4.20 - 5.70 M/uL Hemoglobin 11.8 (L) 13.2 - 17.0 g/dL Hematocrit 37.2 (L) 39.0 - 50.0 % MCV 88.4 80.0 - 100.0 fl MCH 28.0 27.0 - 34.0 pg MCHC 31.7 (L) 32.0 - 35.5 g/dL RDW-SD 44.5 37 - 53 fl Platelet Count 416 (H) 150 - 400 K/uL MPV 11.0 fl Diff Type AUTOMATED % nRBC 0.0 0 /100WBC % Neutrophils 68.80 % IMMATURE GRANULOCYTE 0.50 % % Lymphocytes 16.60 % Monocyte % 8.20 % Eosinophils % 5.30 % Basophils % 0.60 % Neutrophils, Absolute 9.80 (H) 1.90 - 7.40 K/uL IMMATURE GRANS AB 0.07 0.00 - 0.07 K/uL Absolute Lymphocytes 2.36 1.00 - 3.90 K/uL Absolute Monocytes 1.17 (H) 0.00 - 0.80 K/uL Eosinophils, Absolute 0.75 (H) 0.00 - 0.50 K/uL Basophils, Absolute 0.09 0.00 - 0.10 K/uL Magnesium Result Value Ref Range Magnesium 2.0 1.7 - 2.4 mg/dL POC Glucose Result Value Ref Range Glucose, POC 146 (H) 65 - 99 mg/dL PROBLEM LIST Principal Problem: Empyema of the right lung Active Problems: Obesity, Class III, BMI 40-49.9 (morbid obesity) Chronic pain Essential hypertension Obstructive sleep apnea syndrome Sepsis Reactive lymphadenopathy Type 2 diabetes mellitus, without long-term current use of insulin Empyema of right pleural space ASSESSMENT & PLAN S/P R VATS decortication -Remove chest tube -2v CXR in AM We will sign off after chest tube out Thank you for allowing us to participate in the care of this patient. If there are any ques tions please do not hesitate to contact our service. Code Status: Full Code The patient has been seen, all new lab results and imaging reviewed, and the plan discussed with the attending provider, Dr. Ignacio Thompson, HILARY 06/21/2019 Associated attestation - Rocky Arce MD - 06/21/2019 9:40 AM PDTPatient was seen, exami nas, labs, x-rays, treatment plan reviewed. Ciro Vu MD - 06/20/2019 10:43 AM PDT [facility] Service: Infectious Diseases Progress Note Hospital Day: LOS: 2 days Post-Op Day: 1 Day Post-Op CC: Follow-up pneumonia, empyema SUBJECTIVE/OVERNIGHT EVENTS Continues on iv antibiotic therapy. Tolerating antibiotics well. No acute events over the last 24 hours. Patient was extubated. The patient reports chest pain is now different, more consistent with surgical pain rather than empyema pain. Afebrile, with downtrending white cell count. Intake/Output Summary (Last 24 hours) at 06/20/2019 1043 Last data filed at 06/20/2019 0900 Gross per 24 hour Intake 3618.3 ml Output 2835 ml Net 783.3 ml REVIEW OF SYSTEMS . GI: denies diarrhea. Skin: denies skin rash. Constitutional: denies fever and chills. MEDICATIONS: Scheduled Meds: acetaminophen 1,000 mg Oral 3 times per day aspirin 81 mg Oral Daily atorvaSTATin 20 mg Oral Nightly cefTRIAXone 2 g Intravenous Daily DULoxetine 30 mg Oral Daily enoxaparin 40 mg Subcutaneous Q24H gabapentin 300 mg Oral TID insulin lispro 0-12 Units Subcutaneous 4x Daily AC and HS lisinopril 10 mg Oral Daily methocarbamol 1,000 mg Oral 4 times per day metoprolol tartrate 50 mg Oral BID Continuous Infusions: PRN Meds:.albuterol, alteplase, alteplase, dextrose 10%, dextrose, docusate sodium, fentaNY L (PF), heparin, HYDROmorphone, labetalol, melatonin, meperidine, ondansetron, ondansetron, polyethylene glycol, sodium chloride (PF) 0.9% injection PHYSICAL EXAM Vital Signs: BP 143/78 | Pulse 98 | Temp 37.1 C (98.8 F) (Oral) | Resp 27 | Ht 1.727 m (5' 8") | Wt (!) 139.3 kg (307 lb 3.2 oz) | SpO2 96% | BMI 46.71 kg/m Focused exam shows: General exam: Obese, no distress, cooperative with exam. HEENT: sclera non-icteric, no visible oral thrush Cardiovascular: regular rate and rhythm Lungs: no tachypnea, clear breath sounds. Mildly decreased at bases Chest wall: Chest tube in place Abdomen: no distension, bowel sounds present Extremities/MSK: No edema, no joint effusions Skin: No lesions, normal turgor Neurologic: Awake, cranial nerves intact. Follows commands. Venous access: PIV. LABS: All labs were reviewed. Recent Results (from the past 24 hour(s)) Culture, Tissue, Smear, with Anaerobes Result Value Ref Range Special Requests PLEURAL RIGHT PEEL Special Requests Testing performed at [facility];[address] [facility];[place] [address] Gram Stain Result 1+ WBC'S SEEN Gram Stain Result NO ORGANISMS SEEN Gram Stain Result Testing performed at [facility], [address] [facility], [place] [address] RESULT PENDING Blood gas, Arterial Result Value Ref Range FiO2, POC 60 % pH, Arterial, POC 7.294 (L) 7.350 - 7.450 pCO2, Arterial 57 (H) 35 - 45 mmHg pO2, Arterial 80 80 - 105 mmHg HCO3, Arterial 28 (H) 22 - 26 mmol/L TCO2, Arterial, POC 29 (H) 23 - 27 mEq/L Base Excess, POC 1 0 - 3 mEq/L SO2, Arterial, POC 94 (L) 95 - 98 % Comment, POC Site = arterial line POC Glucose Result Value Ref Range Glucose, POC 136 (H) 65 - 99 mg/dL POC Glucose Result Value Ref Range Glucose, POC 114 (H) 65 - 99 mg/dL Basic Metabolic Panel Result Value Ref Range Na 144 135 - 145 mmol/L K 4.1 3.5 - 4.9 mmol/L Cl 108 99 - 109 mmol/L CO2 26 23 - 32 mmol/L Anion Gap 14 5 - 20 mmol/L Glucose 118 (H) 65 - 99 mg/dL BUN 19 8 - 25 mg/dL Creatinine 0.84 0.70 - 1.30 mg/dL BUN/Creatinine Ratio 23 Calcium 8.5 8.5 - 10.5 mg/dL Estimated GFR >60 >60 mL/min/1.73m2 CBC with Differential Result Value Ref Range WBC 13.77 (H) 3.80 - 11.00 K/uL RBC 4.19 (L) 4.20 - 5.70 M/uL Hemoglobin 11.6 (L) 13.2 - 17.0 g/dL Hematocrit 37.2 (L) 39.0 - 50.0 % MCV 88.8 80.0 - 100.0 fl MCH 27.7 27.0 - 34.0 pg MCHC 31.2 (L) 32.0 - 35.5 g/dL RDW-SD 45.2 37 - 53 fl Platelet Count 430 (H) 150 - 400 K/uL MPV 11.2 fl Diff Type AUTOMATED % nRBC 0.0 0 /100WBC % Neutrophils 78.20 % IMMATURE GRANULOCYTE 0.50 % % Lymphocytes 12.30 % Monocyte % 7.70 % Eosinophils % 0.90 % Basophils % 0.40 % Neutrophils, Absolute 10.77 (H) 1.90 - 7.40 K/uL IMMATURE GRANS AB 0.07 0.00 - 0.07 K/uL Absolute Lymphocytes 1.69 1.00 - 3.90 K/uL Absolute Monocytes 1.06 (H) 0.00 - 0.80 K/uL Eosinophils, Absolute 0.12 0.00 - 0.50 K/uL Basophils, Absolute 0.06 0.00 - 0.10 K/uL Magnesium Result Value Ref Range Magnesium 2.0 1.7 - 2.4 mg/dL Microbiology Results (Last 14 Days by Collected Date with Culture/Sensitivity) Procedure Component Value Units Date/Time Culture, Fungus [[id number]] Collected: 06/19/191047 Order Status: Sent Lab Status: In process Updated: 06/19/19 1112 Specimen: Tissue from Pleura, Right Culture, Tissue, Smear, with Anaerobes [[id number]] Collected: 06/19/191047 Order Status: Canceled Lab Status: No result Specimen: Tissue from Pleura, Right Culture Virus [[id number]] Collected: 06/19/191047 Order Status: Sent Lab Status: In process Updated: 06/19/19 1113 Specimen: Tissue from Pleura, Right Culture, Tissue, Smear, with Anaerobes [[id number]] Collected: 06/19/191047 Order Status: Completed Lab Status: Preliminary result Updated: 06/19/19 2207 Special Requests PLEURAL RIGHT PEEL Special Requests Testing performed at [facility];[address] [place] [address];[place] [address] Gram Stain Result -- 1+ WBC'S SEEN Gram Stain Result NO ORGANISMS SEEN Gram Stain Result Testing performed at [facility], [address] [place] [address] RESULT PENDING Comment: Testing performed at [facility], [address] [place] [address] Coronavirus (COVID-19) PCR [[id number]] Order Status: Canceled Lab Status: No result Specimen: Tissue from Nasopharynx Culture, Fungus [[id number]] Collected: 06/19/19 1029 Order Status: Sent Lab Status: In process Updated: 06/19/19 1110 Specimen: Body Fluid from Pleural Fluid, Right Culture Virus [[id number]] Collected: 06/19/19 1029 Order Status: Sent Lab Status: In process Updated: 06/19/19 1110 Specimen: Body Fluid from Pleural Fluid, Right Culture, Body Fluid Sterile [[id number]] Collected: 06/19/19 1029 Order Status: Completed Lab Status: Preliminary result Updated: 06/19/19 2207 Specimen: Body Fluid from Pleural Fluid, Right Gram Stain Result -- 1+ WBC'S SEEN Gram Stain Result Testing performed at [facility], [address] [place] [address] RESULT PENDING Comment: Testing performed at [facility], [address] [place] [address] MRSA NAAT [[id number]] Collected: 06/18/19 1258 Order Status: Completed Lab Status: Final result Updated: 06/18/19 1417 Specimen: Tissue from Nares SOURCE: NARES(NOSE) Result NEGATIVE Comment: Testing performed at [facility];[address] [place] [address];[place] [address] Streptococcus pneumoniae Antigen [[id number]] Collected: 06/18/19 1005 Order Status: Sent Lab Status: In process Updated: 06/18/19 1010 Specimen: Urine, Unspecified Source Respiratory pathogen panel, NAAT [[id number]] Collected: 06/18/19 0351 Order Status: Completed Lab Status: Final result Updated: 06/18/19 0603 Specimen: Body Fluid from Nasopharynx Adenovirus DNA Not Detected Coronavirus 229E Not Detected Coronavirus HKU1 Not Detected Coronavirus NL63 Not Detected Coronavirus OC43 Not Detected Human Metapneumovirus Not Detected Rhinovirus/Enterovirus Not Detected Influenza A Not Detected Influenza B Not Detected Parainfluenza 1 Not Detected Parainfluenza 2 Not Detected Parainfluenza 3 Not Detected Parainfluenza 4 Not Detected Respiratory Syncytial Virus Not Detected Bordetella pertussis DNA Not Detected Chlamydia pneumoniae Not Detected Mycoplasma pneumoniae Not Detected Interpretation: -- A negative FilmArray RP result does not exclude the possibility of a viral or bacterial i nfection. Test results may also be affected by concurrent antiviral/antibacterial therapy or levels of organism in the specimen that are below the limit of detection for this test. Comment: Negative results in the setting of a respiratory illness may be due to infection with pathogens that are not detected by this test or lower respiratory tract infection that is not detected by a nasopharyngeal swab specimen. Testing performed by Molecular Methodology Testing performed at [facility], [address] [place] [address] Culture, Blood [[id number]] Collected: 06/17/19 2256 Order Status: Completed Lab Status: Preliminary result Updated: 06/19/19 0526 Specimen: Peripheral Blood Special Requests LAC Special Requests Testing performed at [facility];[address] [place] [address];[place] [address] RESULT NO GROWTH AT THIS TIME RESULT Testing performed at [facility], [address] [place] [address] Comment: Testing performed at [facility], [address] [place] [address] Culture, Blood [[id number]] Collected: 06/17/19 2230 Order Status: Completed Lab Status: Preliminary result Updated: 06/19/19 05 Specimen: Blood from Line RESULT NO GROWTH AT THIS TIME RESULT Testing performed at [facility], [address] [place] [address] Comment: Testing performed at [facility], [address] [place] [address] Microbiology Results (72 hrs) Procedure Component Value Units Date/Time Culture, Fungus [[id number]] Collected: 06/19/19 1048 Order Status: Sent Lab Status: In process Updated: 06/19/19 1112 Specimen: Tissue from Pleura, Right Culture Virus [[id number]] Collected: 06/19/19 104 Order Status: Sent Lab Status: In process Updated: 06/19/19 1113 Specimen: Tissue from Pleura, Right Culture, Tissue, Smear, with Anaerobes [[id number]] Collected: 06/19/19 1048 Order Status: Completed Lab Status: Preliminary result Updated: 06/19/192206 Special Requests PLEURAL RIGHT PEEL Special Requests Testing performed at [facility];[address] [place] [address];[place] [address] Gram Stain Result -- 1+ WBC'S SEEN Gram Stain Result NO ORGANISMS SEEN Gram Stain Result Testing performed at [address] [address] RESULT PENDING Comment: Testing performed at [facility], [address] [place] [address] Culture, Fungus [[id number]] Collected: 06/19/19 1029 Order Status: Sent Lab Status: In process Updated: 06/19/19 1110 Specimen: Body Fluid from Pleural Fluid, Right Culture Virus [[id number]] Collected: 06/19/19 1029 Order Status: Sent Lab Status: In process Updated: 06/19/19 1110 Specimen: Body Fluid from Pleural Fluid, Right Culture, Body Fluid Sterile [[id number]] Collected: 06/19/19 1029 Order Status: Completed Lab Status: Preliminary result Updated: 06/19/19 2207 Specimen: Body Fluid from Pleural Fluid, Right Gram Stain Result -- 1+ WBC'S SEEN Gram Stain Result Testing performed at [facility], [address] [place] [address] RESULT PENDING Comment: Testing performed at [facility], [address] [place] [id number] MRSA NAAT [[id number]] Collected: 06/18/19 1258 Order Status: Completed Lab Status: Final result Updated: 06/18/19 1417 Specimen: Tissue from Nares SOURCE: NARES(NOSE) Result NEGATIVE Comment: Testing performed at [facility];[address] [place] [address] Streptococcus pneumoniae Antigen [[id number]] Collected: 06/18/19 1005 Order Status: Sent Lab Status: In process Updated: 06/18/19 1010 Specimen: Urine, Unspecified Source Respiratory pathogen panel, NAAT [[id number]] Collected: 06/18/19 0351 Order Status: Completed Lab Status: Final result Updated: 06/18/19 0603 Specimen: Body Fluid from Nasopharynx Adenovirus DNA Not Detected Coronavirus 229E Not Detected Coronavirus HKU1 Not Detected Coronavirus NL63 Not Detected Coronavirus OC43 Not Detected Human Metapneumovirus Not Detected Rhinovirus/Enterovirus Not Detected Influenza A Not Detected Influenza B Not Detected Parainfluenza 1 Not Detected Parainfluenza 2 Not Detected Parainfluenza 3 Not Detected Parainfluenza 4 Not Detected Respiratory Syncytial Virus Not Detected Bordetella pertussis DNA Not Detected Chlamydia pneumoniae Not Detected Mycoplasma pneumoniae Not Detected Interpretation: -- A negative FilmArray RP result does not exclude the possibility of a viral or bacterial i nfection. Test results may also be affected by concurrent antiviral/antibacterial therapy or levels of organism in the specimen that are below the limit of detection for this test. Comment: Negative results in the setting of a respiratory illness may be due to infection with pathogens that are not detected by this test or lower respiratory tract infection that is not detected by a nasopharyngeal swab specimen. Testing performed by Molecular Methodology Testing performed at [facility], [address] [place] [address] Culture, Blood [[id number]] Collected: 06/17/196 Order Status: Completed Lab Status: Preliminary result Updated: 06/19/19525 Specimen: Peripheral Blood Special Requests LAC Special Requests Testing performed at [facility];[address] [place] [address] RESULT NO GROWTH AT THIS TIME RESULT Testing performed at [address] [address] Comment: Testing performed at [facility], [address] [place] [address] Culture, Blood [[id number]] Collected: 06/17/190 Order Status: Completed Lab Status: Preliminary result Updated: 06/19/19525 Specimen: Blood from Line RESULT NO GROWTH AT THIS TIME RESULT Testing performed at [facility], [address] [place] [address] Comment: Testing performed at [address] [address] IMAGING: CXR images were reviewed. My interpretation: Chest x-ray images obtained June 20, 2019, today, my interpretation is persistent infiltrate in the right lung with chest tube in place. Left lung is clear with n o pneumonia. ASSESSMENT & PLAN The patient is a 48 y.o.-year-old male with the following problems: Active Hospital Problems Diagnosis Date Noted Empyema of right pleural space 06/19/2019 Sepsis 06/18/2019 Empyema of the right lung 06/18/2019 Reactive lymphadenopathy 06/18/2019 Type 2 diabetes mellitus, without long-term current use of insulin 06/18/2019 Obesity, Class III, BMI 40-49.9 (morbid obesity) 07/30/2018 Essential hypertension 07/27/2018 Chronic pain 07/27/2018 Obstructive sleep apnea syndrome 07/27/2018 Resolved Hospital Problems No resolved problems to display. 1. Empyema of right pleural space 2. Persistent fever and leukocytosis, sec to #1 3. Morbid obesity 4. Elevated liver enzymes Patient who has failed conservative management for right sided empyema. This is patient wi th community-acquired pneumonia and complicated by empyema. His antibiotics were escalated in the outside facility due to persistent fever and leukocytosis, however his slow response is secondary to persistent pleural space infection. Recommend to continue antibiotic ther apy with IV ceftriaxone 2 g daily, cardiothoracic surgery consultation and the patient is st atus post decortication on June 19, 2019. Tissue culture is in progress. Continue to monitor clinical response. Patient has PICC line in place for OPAT. Continue current antibiotic regimen. Repeat CBC and CMP in the am. Patient updated on his/her condition today. Discussed with attending provider: Leon Ch MD Discussed with bottle caser regarding OPAT. Ciro Lee MD, MPH Infectious Diseases 06/20/19 Yuly Cordero, DO - 06/20/2019 9:02 AM PDTFormatting of this note might be different from the origin [facility]: Code Enforcement Inspector Progress Note Robert Stiles 48 y.o. Hospital Day: LOS: 2 days Post-Op Day: 1 Day Post-Op Consulting Physicians Treatment Team: Ciro Gardner MD; Rocky Arce MD SUBJECTIVE Patient Summary: The patient is a 48 y.o. male with significant past medical history of morbid obesity, hype rtension, gout, former smoker, current marijuana smoker, sleep apnea with CPAP use and chron ic back pain with history of spine surgery who presents with persistent Right sided chest pa in after an admission at [facility] from 06/05-06/16/19 where he was diagnosed and treated for a rig ht-sided pneumonia with complex exudative parapneumonic effusion (s/p chest tube drainage), acute respiratory failure with BIPAP and sepsis. . He was discharged home and presented to [facility] on 07/15/19 with cc of SOB and worsening Right chest pain. He was started on Zosyn and Va nc at admission and was changed to ceftriaxone and clindamycin on 06/09/19; then changed back to Zosyn and Vanc on 06/[address] chest on 06/11 showed partial consolidation of RLL, minimal pleural effusion and findings suggestive of an empyema. On 06/14 he had a fluoro guid ed thoracentesis with culture sent. He was discharged with a PICC and on IV vanc and Zosyn t o be continued through 07/12/19. On 06/15 his WBC increased It was discussed with the pt on day of discharge that he might need surgical intervention which the pt declined. He wished to d/c home but came here with worsening right sided chest pain with empyema increased in s ize. ICU Timeline: 06/18: He was taken for a thoracotomy with decortication and transferred to the ICU intu bated on MV. Events Overnight: Intubated overnight. Extubated this am to RA. Pt denies dyspnea. On ly complaints are of right side chest wall pain and wanting to eat and drink. SCHEDULED MEDICATIONS Reviewed. OBJECTIVE VITAL SIGNS Temp: [36.7 C (98.1 F)-37.2 C (99 F)] 37.2 C (99 F) Pulse: [79-100] 96 Resp: [13-35] 30 BP: (79-173)/(42-97) 134/69 Arterial Line BP: (71-175)/(39-129) 164/115 Intake/Output Summary (Last 24 hours) at 06/20/2019 0902 Last data filed at 06/20/2019 0700 Gross per 24 hour Intake 3618.3 ml Output 2435 ml Net 1183.3 ml EXAM GEN: awake, alert, oriented x3, conversant, NAD NEURO: PERRLA, EOMI, normal voice, moves all extremities well HEENT: sclerae clear, nonicteric, oral mmm, pink, no exudates NECK: obese, supple, trachea midline CV: RRR, S1/S2, no murmur, rub or gallop LUNGS: clear b/l but diminished throughout, no wheezing, rales or rhonchi CHEST: Right lateral chest with dry dressing over thoracotomy site and chest tube ABD: soft, obese, nondistended, nontender to palpation, no masses, large midline upper abd scar EXTR: no edema, clubbing or cyanosis SKIN: warm, dry, no rash or mottling LINES/TUBES: RUE PICC, PIV Diagnostic Studies: Available labs and images have been reviewed and will be addressed as indicated in the assessment and plan. PROBLEM LIST Principal Problem: Empyema of the right lung Active Problems: Obesity, Class III, BMI 40-49.9 (morbid obesity) Chronic pain Essential hypertension Obstructive sleep apnea syndrome Sepsis Reactive lymphadenopathy Type 2 diabetes mellitus, without long-term current use of insulin Empyema of right pleural space Resolved Problems: * No resolved hospital problems. * ASSESSMENT & PLAN NEURO: No issues CV: Hemodynamically stable. No active issues. PULM: Right chest empyema: now s/p thoracotomy and decortication. ? Chest tube mgmt per CTS. ? IS use hourly while awake, CPAP HS. SHEILA with CPAP RUL appeared collapsed on post-op CXR. Was bronch'd and old blood clot/mucus cleared. GI/NUTRITION: ADAT to diabetic diet. RENAL/LYTES: No issues D/c Ortiz ID: Right empyema following community acquired PNA. S/p decortication. F/u on cx. On ceftriaxone. ID, Dr. Lee following. Checking for HIV. HEME: Leukocytosis: improving. ENDO: Uncontrolled type 2 diabetes mellitus: HbA1c 7.3. will use SSI for now. Will get diabete s educator consult prior to d/c home. MUSC/SKIN: Start to mobilize PROPHYLAXIS: Stress ulcer prophylaxis: N/A DVT prophylaxis: Enoxaparin injection and SCD's while in bed VAP bundle: N/A Disposition: He is stable on RA after extubated this am and stable to transfer out of the ICU to acute care. I gave report to Dr. Ch who has accepted the pt in transfer to the [facility]. Code Status: Full Code *Please bill 35 minutes of critical care time spent evaluating the patient, reviewing the d sukh and formulating a plan exclusive of all other procedures. Yuly Garcia DO 06/20/2019 Dictation software, [employer], was used which may contain error with similar sound words even after review. Portions of this chart may have been copied from previous notes for continuity of care. Carlos Zhang PA - 0 06/20/2019 7:26 AM PDT [facility] Service: Cardiothoracic Surgery Progress Note ROOM: [id number] Hospital Day: LOS: 2 days Post-Op Day: 1 Day Post-Op Surgery/Procedure: 06/19/2019, Dr Ignacio Helms VATS decortication SUBJECTIVE Events Overnight: HD stable, remained vented overnight for lung re-expansion. Plan fo r extubation this morning. Afebrile and WBCs trending down UOP: 1.4L/24hs CT Output: 70mL/overnight, 150mL/24hrs OBJECTIVE Vital Signs: BP 118/60 | Pulse 97 | Temp 37.2 C (99 F) (Oral) | Resp 26 | Ht 1.727 m (5' 8") | Wt (!) 139.3 kg (307 lb 3.2 oz) | SpO2 98% | BMI 46.71 kg/m Current weight: Patient Vitals for the past 96 hrs: Weight 06/20/19 0400 (!) 139.3 kg (307 lb 3.2 oz) 06/19/19 2000 (!) 139.5 kg (307 lb 7.1 oz) 06/19/19 0513 (!) 138.5 kg (305 lb 6.4 oz) 06/18/19 0339 (!) 141.2 kg (311 lb 3.2 oz) 06/17/19 2134 (!) 139.6 kg (307 lb 12.2 oz) Admission weight: Weight: (!) 139.6 kg (307 lb 12.2 oz) Physical Exam: General: Alert, oriented, in no acute distress, resting in bed, Intubated Heart: RRR No murmur Lungs: CTA b/l Dim bases. Abdomen: Soft, nondistended, nontender Extremities: Well perfused, mild LE edema Musculoskeletal: no deformities or significant abnormalities Neurological: No gross focal motor or sensory deficits Skin: No rash or lesions. Thoracoscopy incision dressing is C/D/I. Chest tube present inc ision C/D/I. DATA: Scheduled Medications acetaminophen 1,000 mg Oral 3 times per day aspirin 81 mg Oral Daily atorvaSTATin 20 mg Oral Nightly cefTRIAXone 2 g Intravenous Daily chlorhexidine 15 mL Mouth/Throat BID DULoxetine 30 mg Oral Daily enoxaparin 40 mg Subcutaneous Q24H gabapentin 300 mg Oral TID insulin lispro 0-12 Units Subcutaneous 4 times per day lisinopril 10 mg Oral Daily methocarbamol 1,000 mg Oral 4 times per day metoprolol tartrate 12.5 mg Oral BID Continuous Infusions fentaNYL 50 mcg/hr (06/20/19518) propofol infusion 30 mcg/kg/min (06/20/19518) PRN Medications albuterol, albuterol-ipratropium, alteplase, alteplase, dextrose 10%, dextrose, docusate so dium, fentaNYL (PF), heparin, HYDROmorphone, labetalol, Magnesium replacement - ICU AND magnesium sulfate AND magnesium sulfate, melatonin, meperidine, ondansetron, ondansetron , polyethylene glycol, Potassium replacement - ICU AND potassium chloride AND potass ium chloride AND potassium chloride, sodium chloride (PF) 0.9% injection HOME MEDS: Prior to Admission medications Medication Sig Start [...] mg by mouth nightly. Yes Historical Provider, diazePAM (VALIUM) 5 mg tablet take 1 tablet by mouth 1 hour prior to procedure and 1 to 2 t able... (REFER TO PRESCRIPTION NOTES). 03/11/18 Historical Provider, DULoxetine (CYMBALTA) [address] capsule Take 30 mg by mouth Daily. Yes Historical Provider , DULoxetine (CYMBALTA) [address] capsule 03/10/18 Yes Historical Provider, gabapentin (NEURONTIN) 600 MG tablet Take 600 mg by mouth 2 times daily. Yes Historical P MD pete lidocaine-prilocaine (EMLA) cream apply three times a day if needed for pain 02/08/18 Yes Historical Provider, lisinopril (PRINIVIL, ZESTRIL) 10 mg tablet 05/05/19 Yes Historical Provider, metFORMIN (GLUCOPHAGE) 1000 MG tablet Take 1,000 mg by mouth 2 times daily (with breakfast & dinner). Yes Historical Provider, metoprolol tartrate (LOPRESSOR) 50 mg tablet Take 50 mg by mouth 2 times daily. Yes Histo rical Provider, Multiple Vitamins-Minerals (MULTIVITAMIN PO) Take by mouth. Yes Historical Provider, ranitidine (ZANTAC) 150 mg tablet Take 150 mg by mouth 2 times daily. Historical Provide rMD LABS: Recent Results (from the past 24 hour(s)) POC Glucose Result Value Ref Range Glucose, POC 105 (H) 65 - 99 mg/dL Type and Screen Result Value Ref Range ABO Rh O POSITIVE Antibody Screen NEGATIVE BB BAND [id number] BB BAND Testing performed at [facility];[address] [place] [address];[place] [address] Culture, Body Fluid Sterile Result Value Ref Range Gram Stain Result 1+ WBC'S SEEN Gram Stain Result Testing performed at [facility], [address] [place] [address] RESULT PENDING Culture, Tissue, Smear, with Anaerobes Result Value Ref Range Special Requests PLEURAL RIGHT PEEL Special Requests Testing performed at [facility];[address] [place] [address] Gram Stain Result 1+ WBC'S SEEN Gram Stain Result NO ORGANISMS SEEN Gram Stain Result Testing performed at [address] [address] RESULT PENDING Blood gas, Arterial Result Value Ref Range FiO2, POC 60 % pH, Arterial, POC 7.294 (L) 7.350 - 7.450 pCO2, Arterial 57 (H) 35 - 45 mmHg pO2, Arterial 80 80 - 105 mmHg HCO3, Arterial 28 (H) 22 - 26 mmol/L TCO2, Arterial, POC 29 (H) 23 - 27 mEq/L Base Excess, POC 1 0 - 3 mEq/L SO2, Arterial, POC 94 (L) 95 - 98 % Comment, POC Site = arterial line POC Glucose Result Value Ref Range Glucose, POC 136 (H) 65 - 99 mg/dL POC Glucose Result Value Ref Range Glucose, POC 114 (H) 65 - 99 mg/dL Basic Metabolic Panel Result Value Ref Range Na 144 135 - 145 mmol/L K 4.1 3.5 - 4.9 mmol/L Cl 108 99 - 109 mmol/L CO2 26 23 - 32 mmol/L Anion Gap 14 5 - 20 mmol/L Glucose 118 (H) 65 - 99 mg/dL BUN 19 8 - 25 mg/dL Creatinine 0.84 0.70 - 1.30 mg/dL BUN/Creatinine Ratio 23 Calcium 8.5 8.5 - 10.5 mg/dL Estimated GFR >60 >60 mL/min/1.73m2 CBC with Differential Result Value Ref Range WBC 13.77 (H) 3.80 - 11.00 K/uL RBC 4.19 (L) 4.20 - 5.70 M/uL Hemoglobin 11.6 (L) 13.2 - 17.0 g/dL Hematocrit 37.2 (L) 39.0 - 50.0 % MCV 88.8 80.0 - 100.0 fl MCH 27.7 27.0 - 34.0 pg MCHC 31.2 (L) 32.0 - 35.5 g/dL RDW-SD 45.2 37 - 53 fl Platelet Count 430 (H) 150 - 400 K/uL MPV 11.2 fl Diff Type AUTOMATED % nRBC 0.0 0 /100WBC % Neutrophils 78.20 % IMMATURE GRANULOCYTE 0.50 % % Lymphocytes 12.30 % Monocyte % 7.70 % Eosinophils % 0.90 % Basophils % 0.40 % Neutrophils, Absolute 10.77 (H) 1.90 - 7.40 K/uL IMMATURE GRANS AB 0.07 0.00 - 0.07 K/uL Absolute Lymphocytes 1.69 1.00 - 3.90 K/uL Absolute Monocytes 1.06 (H) 0.00 - 0.80 K/uL Eosinophils, Absolute 0.12 0.00 - 0.50 K/uL Basophils, Absolute 0.06 0.00 - 0.10 K/uL Magnesium Result Value Ref Range Magnesium 2.0 1.7 - 2.4 mg/dL PROBLEM LIST Principal Problem: Empyema of the right lung Active Problems: Obesity, Class III, BMI 40-49.9 (morbid obesity) Chronic pain Essential hypertension Obstructive sleep apnea syndrome Sepsis Reactive lymphadenopathy Type 2 diabetes mellitus, without long-term current use of insulin Empyema of right pleural space ASSESSMENT & PLAN S/P R VATS decortication -Extubate per ICU protocol this AM -After extubation, aggressive IS, ambulate -Chest tube to waterseal Pt can be transferred back to hospitalist service after extubation We will follow for chest tube management Code Status: Full Code The patient has been seen, all new lab results and imaging reviewed, and the plan discussed with the attending provider, HILARY Esquivel 06/20/2019 Brooke Swanson RN - 06/19/2019 3:00 PM PDTUpon pt's arrival to floor, pt was r/o COVID 19 in special droplet i solation precauitons from [place]. Yuly garcia stated that pt does not need these precaution as t his is a clear picture of community acquired pneumonia with an empyema. She also stated that ID has been following him since his [facility] admission and they were very clear that this is n ot COVID 19. Verbal order received to remove special droplet isolation precautions . At 1430 , informed Dr. Voss that in Epic pt is still listed as COVID 19 r/o, but pt is not in isola tion. Dr. Voss stated that a call has been made to make the r/o COVID 19 notifications in E pic to be removed. Will continue to monitor. Brooke Wang RN documented in this encounter H&P Notes Darci Morris MD - 06/18/2019 2:23 AM PDTFormatting of this note might be different fr om the original. HISTORY AND PHYSICAL for Robert Stiles male 1970 48 y.o. who is being admitted to the adult hospitalist service at [facility]. Admitting Physician: Josselin Diallo MD Chief complaint: shortness of breath and chest pain History of present illness: Patient is a 48-year-old male with history significant for hype rtension, hyperlipidemia, well controlled type 2 diabetes mellitus on metformin, morbid obes ity, nocturnal hypoxemia and obstructive sleep apnea with BiPAP, former smoker, and recent h ospitalization at [facility] for right lower lobe empyema with discharge date 06/16/2019 presents with shortness of breath, pleuritic chest pain, and fever. Patient was admitted from 06/05 through 06/16/2019 at [facility] in [place], [place] for acute respiratory failure with right-sided pneumonia and an exudative parapneumonic effu carmelita per chest x-ray and CTA. Echocardiogram on 06/07/2019 showed ejection fraction 55-60%. A chest tube was placed while in the ICU for 3 days which drained purulent fluid. Antibioti c regimen was most successful with IV vancomycin and IV Zosyn via a PICC line placed on 06/10. Fluoroscopy guided thoracentesis completed on 06/14. Microbiology of thoracic fluid reported as 1+ WBCs with no organisms and no growth at the time of discharge on 06/15. On 05/28 12/16 Patient was afebrile and hemodynamically stable yet with WBC's uptrending from 16 - 18 and he declined a surgical intervention; he was subsequently discharged with nonoperative ma nagement with continued IV by antibiotics via PICC until 07/12/2019 with close follow-up with infectious disease Dr Crenshaw, general surgeon Dr Basurto, and PCP Dr. Troy. Following discharge from [facility] on 06/15 patient felt well in the evening. However on the fo llowing morning of 06/16 patient began feeling increased shortness of breath with wheezing; m alaise with nausea, decreased appetite, increased right-sided 9.5/10 pleuritic chest pain gr eatest behind his right scapula; fever of up to 102F with no chills. Patient denies watery diarrhea but reports having 2-4 soft stools per day. The symptoms persisted until the patie nt presented to the [facility] ED in the evening of the 06/16. Upon arrival to the [facility] ED, patient was febrile to 102.6, normotensive, tachycardic at 1 26, nontachypneic and saturating 93% on room air. Blood cultures were drawn and sent. Labs showed unremarkable troponin, WBC of 18, platelets of 444, lactate of 2.0, unremarkable CMP . CT chest with contrast showed interval improvement in right middle and lower lobe atelect asis which now is mild with improved moderate right pleural effusion as well as reactive hil ar and mediastinal lymphadenopathy. Patient was given a 2 L bolus of normal saline and 4 mg IV morphine for pain. [facility] infectious disease was consulted who recommended initiating m eropenem and micafungin regimen. . Review of systems: Constitutional: Reports decreased weight with hospitalization, decreased appetite, and feve r. Denies chills hENT: Denies current headache, dysphagia, or odynophagia Eyes: Negative Respiratory: Right-sided pleuritic chest pain Cardiovascular: Denies history of chronic heart failure or myocardial infarction. No left- sided chest pain. Gastrointestinal: Reports nausea and recent soft stools. denies reflux, vomiting, hematoche ferdinand or melena or abdominal pain Genitourinary: Denies dysuria Musculoskeletal: Denies edema Neurological: Reports having neuropathy in bilateral lower extremities. Reports history of epilepsy as a child Hematologic: Reports history of easily clotting. Patient reports his PICC line is clogged. Psychiatric: Denies being anxious or depressive at this time Past medical history: Past Medical History: Diagnosis Date DDD (degenerative disc disease), lumbar 09/12/2014 Gout Hypertension Lumbar radiculopathy 09/12/2014 Morbid obesity (HCC) Nocturnal hypoxemia Poor circulation Poor eating habits Sleep apnea Past surgical history: Past Surgical History: Procedure Laterality Date INGUINAL HERNIA REPAIR Left 2001 SPINE SURGERY 2006 spleen repair 1984 Home medications: Prior to Admission medications Medication Sig Start [...] mg by mouth nightly. Yes Historical Provider, diazePAM (VALIUM) 5 mg tablet take 1 tablet by mouth 1 hour prior to procedure and 1 to 2 t able... (REFER TO PRESCRIPTION NOTES). 03/11/18 Historical Provider, DULoxetine (CYMBALTA) [address] capsule Take 30 mg by mouth Daily. Yes Historical Provider , DULoxetine (CYMBALTA) [address] capsule 03/10/18 Yes Historical Provider, gabapentin (NEURONTIN) 600 MG tablet Take 600 mg by mouth 2 times daily. Yes Historical P MD pete lidocaine-prilocaine (EMLA) cream apply three times a day if needed for pain 02/08/18 Yes Historical Provider, lisinopril (PRINIVIL, ZESTRIL) 10 mg tablet 05/05/19 Yes Historical Provider, metFORMIN (GLUCOPHAGE) 1000 MG tablet Take 1,000 mg by mouth 2 times daily (with breakfast & dinner). Yes Historical Provider, metoprolol tartrate (LOPRESSOR) 50 mg tablet Take 50 mg by mouth 2 times daily. Yes Histo rical Provider, Multiple Vitamins-Minerals (MULTIVITAMIN PO) Take by mouth. Yes Historical Provider, ranitidine (ZANTAC) 150 mg tablet Take 150 mg by mouth 2 times daily. Historical Provide MD mario Allergies: No Known Allergies Family history: Family History Problem Relation Age of Onset COPD Mother Heart disease Father Multiple sclerosis Sister Multiple sclerosis Brother Social history: Social History Substance and Sexual Activity Alcohol Use Yes Alcohol/week: 0.0 standard drinks Social History Tobacco Use Smoking Status Former Smoker Last attempt to quit: 04/25/2010 Years since quittin.1 Smokeless Tobacco Never Used Social History Substance and Sexual Activity Drug Use Yes Comment: Marijuana Social History Social History Narrative Patient is full code. Patient lives in [place], [place]. 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 Patient is independent in his activities of daily living and denies any falls. Patient reports using marijuana, denies currently using tobacco though formerly smoked cig arettes. Patient reports rare alcohol use. Vitals: BP 135/78 | Pulse 120 | Temp 37.6 C (99.6 F) (Oral) | Resp 20 | Ht 1.727 m (5' 8") | Wt (!) 141.2 kg (311 lb 3.2 oz) | SpO2 95% | BMI 47.32 kg/m Physical exam: Well-appearing, AOx3, in intermittent acute distress due to bilateral lower extremity neuro pathic pain, left side greater than right. HENT: atraumatic, mucus membranes moist, conjunctivae normal, neck supple Heart: Regular rhythm and tachycardic, no murmur, radial and dorsalis pedis pulses are palp able and equal Lungs: Crepitations auscultated in the right very or posterior lung field. Otherwise, othe r lung walsh clear to auscultation without wheezes, rhonchi, or crackles; effort limited se condary to pain with inspiration. No respiratory distress, no accessory muscle use. Abdomen: Soft, nontender, nondistended Extremities: No cyanosis, clubbing, tenderness, with trace edema in bilateral lower extremi ties Skin: Skin is soft with no DVTs presents near PICC line. Multiple tattoos present on trunk and arms. Piercings present in left ear. No rash or lesion, normal skin turgor Mental: Behavior, judgment, and cognition appear normal Data: Recent Results (from the past 72 hour(s)) CT Chest w Contrast Impression 1. Interval improvement in right middle and lower lobe atelectasis, which is now mild. 2. Moderate right pleural effusion is decreased in size since 06/06/2019 comparison with new foci of air, likely sequela of thoracentesis. Associated reactive hilar and mediastinal lymphadenopathy. Dictated by: Isiah Ward Natalie Signed by: Isiah Morel James Sign Date/Time: 06/18/2019 1:13 AM The radiologist has reviewed the images and edited/approved the report. For interventional procedures, the signing radiologist was present for the calhoun portions of the exam. RESTING ECG: Normal sinus rythm at 124 bpm QRS [place] - (nl -30 +100) : -30 - +100 [place] - (nl 120-200 msec) : 134 QRS - (nl 50 - 100 msec) : 74 QTc - (nl 340 - 470): 456 Waveforms: No Q waves, No ST changes, Good R wave progression. Analysis: Normal ECG Assessment/Plan: Patient is a 48-year-old male with hypertension, hyperlipidemia, morbid obesity, SHEILA with B iPAP, type 2 diabetes mellitus with shortness of breath, fever of 102.6, and pleuritic right sided chest pain 1 day following 10-day discharge from [facility] for right lower lung empyema treated with chest tube, and IV antibiotic regimen of IV Zosyn and IV vancomycin. Sepsis (06/18/2019) Empyema of the right lung (06/18/2019) Reactive lymphadenopathy (06/18/2019) Assessment: Sepis with tachycardia, fever, WBC 18.3, and most likely secondary to treatm ent failure of known right lower lung empyema due to unknown organism while on IV vancomycin and IV Zosyn. Reactive lymphadenopathy and improving right pleural effusion shown on CT ch est with contrast. Echocardiogram 06/06 showed normal left ventricular ejection fraction. Plan: -Continue ID consultation, appreciate recommendations. -Per ID, continue meropenem 500mg IV q6h and micafungin 100mg qd -Follow blood cultures -IVF with NS 100 ml/hr -Vitals per unit routine -Cardiac telemetry -Supplemental O2 as needed -CBC in morning -Procalcitonin in morning -Respiratory pathogen panel -Streptococcus pneumonia antigen -Magnesium in morning -Daily weights Strict ins and outs Acetaminophen 650 mg every 4 hours as needed for pain and fever Albuterol ipratropium (Combivent) 100 20 1 puff 4 times daily for shortness of breat h Albuterol 90 mcg/puff inhaler 2 puffs every 6 hours as needed for shortness of breath Type 2 diabetes mellitus, without long-term current use of insulin (06/18/2019) Assessment: Relatively well controlled for a man of his size with a hemoglobin A1c of 7.2 % at [facility] on 06/07/2019 Plan: -Hold home treatment of metformin 1000 mg -Low-dose sliding scale insulin -POCT glucose before meals and nightly -Hypoglycemia protocol -BMP in the morning Chronic pain (07/27/2018) Assessment: Patient in notable pain physical exam with out his evening dose of gabapentin , of which he is on maximal dose of 1200 mg 3 times daily. Plan: -continue home regimen of gabapentin 1200mg TID -Acetaminophen PRN for pain and fever Obstructive sleep apnea syndrome (07/27/2018) Assessment: Stable with BIPAP use at home, currently saturating >=93% on room air Plan: -BIPAP during sleep. Patient may use his own machine. Essential hypertension (07/27/2018) Assessment: Well controlled with blood pressure ranging 110-140/60-90. Plan: -continue home regimen of metoprolol tartrate 50 mg twice daily & lisinopril 10 mg daily -labetolol 10mg q4h for SB>160 or DBP >100. Obesity, Class III, BMI 40-49.9 (morbid obesity) (07/30/2018) Assessment: Morbidly obese at 46.8 BMI with significant abdominal girth. Plan: Consider counseling patient to lose weight Continue BiPAP during sleep. Active comorbid conditions include: - hypertension - sleep apnea - obesity; due to excess calories; morbid BMI 40+ - Drugs/Alcohol/Tobacco - substance abuse Date of admission: 06/18/2019 Disposition: Admit to Inpatient Code Status: Full code DVT Prophylaxis: Enoxaparin (Lovenox) 40 mg GI Prophylaxis: None at this time Diet: Diabetic diet Bowel Regimen: docusate sodium, Problem list: Principal Problem: Sepsis Active Problems: Obesity, Class III, BMI 40-49.9 (morbid obesity) Chronic pain Essential hypertension Obstructive sleep apnea syndrome Empyema of the right lung Reactive lymphadenopathy Type 2 diabetes mellitus, without long-term current use of insulin Electronically signed by: Darci Morris MD 06/18/2019 5:08 AM Associated attestation - Josselin Diallo MD - 06/20/2019 4:49 AM PDTI have discussed this patients case in detail with the resident and provided appropriate supervision. We have dis cussed all likely DDX and have addressed this appropriately. I have seen and examined the pa tient myself and my physical exam findings are the same as those documented by the resident . I am in agreement with their assessment plan and disposition.documented in this encounter Consult Notes Yuly Garcia DO - 06/19/2019 12:33 PM PDTFormatting of this note might be different from t carlos original. [facility] Service: Code Enforcement Inspector Initial Consult Note Robert Stiles 48 y.o. Date of Admission: 06/17/2019 Reason for Consultation: post-op decortication, sedated on mechanical ventilation Requesting Physician: Dr. Arce, Cardiothoracic Surgery History Obtained From: chart review, reason patient could not give history: intubated, ellen joie CHIEF COMPLAINT: empyema, community acquired pneumonia Subjective HISTORY OF PRESENT ILLNESS The patient is a 48 y.o. male with significant past medical history of morbid obesity, hype rtension, gout, former smoker, current marijuana smoker, sleep apnea with CPAP use and chron ic back pain with history of spine surgery who presents with persistent Right sided chest pa in after an admission at [facility] from 06/05-06/16/19 where he was diagnosed and treated for a rig ht-sided pneumonia with complex exudative parapneumonic effusion (s/p chest tube drainage), acute respiratory failure with BIPAP and sepsis. . He was discharged home and presented to [facility] on 07/15/19 with cc of SOB and worsening Right chest pain. He was started on Zosyn and Va nc at admission and was changed to ceftriaxone and clindamycin on 06/09/19; then changed back to Zosyn and Vanc on 06/[address] chest on 06/11 showed partial consolidation of RLL, minimal pleural effusion and findings suggestive of an empyema. On 06/14 he had a fluoro guid ed thoracentesis with culture sent. He was discharged with a PICC and on IV vanc and Zosyn t o be continued through 07/12/19. On 06/15 his WBC increased It was discussed with the pt on day of discharge that he might need surgical intervention which the pt declined. He wished to d/c home but came here with worsening right sided chest pain with empyema increased in s ize. He was taken for a thoracotomy with decortication and transferred to the ICU intubated on MV. Active comorbid conditions include: - hypertension; essential; without renal disease; without hypertensive heart disease - pleural effusion; exudative; known due to; empyema - pneumonia - sleep apnea; obstructive - endocrine problem - diabetes; type 2; with complications - obesity; due to excess calories; morbid BMI 40+ REVIEW OF SYSTEMS Unable to review due to intubation and mechanical ventilation PAST MEDICAL HISTORY Past Medical History: Diagnosis Date DDD (degenerative disc disease), lumbar 09/12/2014 Gout Hypertension Lumbar radiculopathy 09/12/2014 Morbid obesity (HCC) Nocturnal hypoxemia Poor circulation Poor eating habits Sleep apnea PAST SURGICAL HISTORY Past Surgical History: Procedure Laterality Date INGUINAL HERNIA REPAIR Left 2001 SPINE SURGERY 2006 spleen repair 1983 ALLERGIES No Known Allergies MEDICATIONS PRIOR TO ADMISSION Medications Prior to Admission Medication Sig Dispense Refill albuterol 90 mcg/puff inhaler Inhale 2 puffs into the lungs every 6 hours as needed for Wheezing. albuterol-ipratropium (COMBIVENT RESPIMAT) 100-20 mcg/puff inhaler Inhale 1 puff into t he lungs 4 times daily. aspirin 81 MG tablet Take 81 mg by mouth Daily. atorvaSTATin (LIPITOR) 20 mg tablet Take 20 mg by mouth nightly. diazePAM (VALIUM) 5 mg tablet take 1 tablet by mouth 1 hour prior to procedure and 1 to 2 table... (REFER TO PRESCRIPTION NOTES). 0 DULoxetine (CYMBALTA) [address] capsule Take 30 mg by mouth Daily. DULoxetine (CYMBALTA) [address] capsule 0 gabapentin (NEURONTIN) 600 MG tablet Take 600 mg by mouth 2 times daily. lidocaine-prilocaine (EMLA) cream apply three times a day if needed for pain 0 lisinopril (PRINIVIL, ZESTRIL) 10 mg tablet metFORMIN (GLUCOPHAGE) 1000 MG tablet Take 1,000 mg by mouth 2 times daily (with breakf ast & dinner). metoprolol tartrate (LOPRESSOR) 50 mg tablet Take 50 mg by mouth 2 times daily. Multiple Vitamins-Minerals (MULTIVITAMIN PO) Take by mouth. ranitidine (ZANTAC) 150 mg tablet Take 150 mg by mouth 2 times daily. SCHEDULED MEDICATIONS Reviewed. 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 Employer: [employer] Social Needs Financial resource strain: Not on file Food insecurity: Worry: Not on file Inability: Not on file Transportation needs: Medical: Not on file Non-medical: Not on file Tobacco Use Smoking status: Former Smoker Last attempt to quit: 04/25/2010 Years since quittin.1 Smokeless tobacco: Never Used Substance and Sexual Activity Alcohol use: Yes Alcohol/week: 0.0 standard drinks Drug use: Yes Comment: Marijuana Sexual activity: Yes Lifestyle Physical activity: Days per week: Not on file Minutes per session: Not on file Stress: Not on file Relationships Social connections: Talks on phone: Not on file Gets together: Not on file Attends voodoo service: Not on file Active member of club or organization: Not on file Attends meetings of clubs or organizations: Not on file Relationship status: Not on file Intimate partner violence: Fear of current or ex partner: Not on file Emotionally abused: Not on file Physically abused: Not on file Forced sexual activity: Not on file Other Topics Concern Not on file Social History Narrative Patient is full code. Patient lives in [place], [place]. 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 Patient is independent in his activities of daily living and denies any falls. Patient reports using marijuana, denies currently using tobacco though formerly smoked cig arettes. Patient reports rare alcohol use. PHYSICAL EXAM VITAL SIGNS Temp: [36.6 C (97.8 F)-37.4 C (99.3 F)] 37.2 C (99 F) Pulse: [67-95] 79 Resp: [18-20] 18 BP: (112-127)/(70-81) 120/75 Intake/Output Summary (Last 24 hours) at 06/19/2019 1234 Last data filed at 06/19/2019 1151 Gross per 24 hour Intake 3630.91 ml Output 1400 ml Net 2230.91 ml EXAM GEN: morbidly obese, intubated, sedated still from OR, NAD NEURO: PERRLA, sedated still HEENT: sclerae clear, nonicteric, oral mmm, pink, no exudates NECK: supple, trachea midline CV: RRR, S1/S2, no murmur, rub or gallop, peripheral pulses palpable, cap refill brisk LUNGS: clear b/l but diminished throughout, no wheezing, rales or rhonchi ABD: soft, obese, nondistended, nontender to palpation, no masses, large midline upper abd scar EXTR: no edema, clubbing or cyanosis SKIN: warm, dry, no rash or mottling; no e/o skin breakdown over the occiput, scapulae, elb ows, sacrum or heels LINES/TUBES: RUE PICC, PIV PROBLEM LIST Principal Problem: Sepsis Active Problems: Obesity, Class III, BMI 40-49.9 (morbid obesity) Chronic pain Essential hypertension Obstructive sleep apnea syndrome Empyema of the right lung Reactive lymphadenopathy Type 2 diabetes mellitus, without long-term current use of insulin Resolved Problems: * No resolved hospital problems. * Diagnostic Studies: Available labs and images have been reviewed and will be addressed as indicated in the assessment and plan. ASSESSMENT & PLAN NEURO: Neuro intact prior to surgery. Will reassess neuro exam after OR anesthesia/NMBA has metabolized. CV: Hemodynamically stable. No active issues. PULM: Right chest empyema: now s/p thoracotomy and decortication. Plan is to keep intubated ov ernight and assess for extubation in am. Chest tube mgmt per CTS. IS use post-extubation. RUL appears collapsed on post-op CXR. Will bronch pt. GI/NUTRITION: NPO Resume diet once extubated and stable. RENAL/LYTES: No issues ID: Right empyema following community acquired PNA. S/p decortication. F/u on cx. On ceftriaxone. ID, Dr. Lee following. Checking for HIV. HEME: Leukocytosis: improving. ENDO: Uncontrolled type 2 diabetes mellitus: HbA1c 7.3. will use SSI for now. Will get diabete s educator consult prior to d/c home. MUSC/SKIN: No issues PROPHYLAXIS: Stress ulcer prophylaxis: N/A DVT prophylaxis: Enoxaparin injection VAP: chlorhexidine oral care and HOB > 30 degrees Disposition: ICU care as above. Code Status: Full Code Primary Care Physician: Edilberto Troy MD *Please bill 55 minutes of critical care time spent evaluating the patient, reviewing the d sukh and formulating a plan exclusive of all other procedures. Yuly Garcia DO 06/19/2019 Rocky Avila MD - 05/29 11:20 AM PDT Service: Cardiothoracic Surgery Consult Note CHIEF COMPLAINT: Right sided pleuritic chest pain HISTORY OF PRESENT ILLNESS The patient is a 48 y.o. male with significant past medical history of morbid obesity, SHEILA( CPAP), HTN, and DM, with a 3 week history of right sided pleuritic pain and dyspnea. The pat danie was admitted to [facility] from 06/07/19 to 06/16/19. He was treated for a right lower lobe pn eumonia complicated by a parapneumonic effusion. He was treated with IV antibiotics and righ t tube thoracostomy. The patient developed a recurrent right effusion after removal of the c hest tube and thoracentesis was performed. The thoracentesis yielded only 20 cc due to fluid loculations. The patient was discharged on 06/16/19 but quickly developed fevers and increas ing right pleuritic pain. He presented to our ED last evening. CT of the chest was performed last evening. I have reviewed the images. There is a loculated right effusion with compress lupe atelectasis of the right lower lobe. We are asked to evaluate the patient for the recurr ent effusion. The patient complains of fever, dyspnea and right pleuritic chest pain which h as increased in intensity over the last 36 hours. Temperature on admission was 39.2. REVIEW OF SYSTEMS Review of Systems Constitutional: Positive for fatigue. HENT: Negative. Eyes: Negative. Respiratory: Positive for shortness of breath. Cardiovascular: Positive for chest pain (Right pleuritic). Gastrointestinal: Negative. Musculoskeletal: Negative. Neurological: Positive for weakness. Psychiatric/Behavioral: Negative. All other systems are reviewed and negative Past Medical History: Diagnosis Date DDD (degenerative disc disease), lumbar 09/12/2014 Gout Hypertension Lumbar radiculopathy 09/12/2014 Morbid obesity (HCC) Nocturnal hypoxemia Poor circulation Poor eating habits Sleep apnea Past Surgical History: Procedure Laterality Date INGUINAL HERNIA REPAIR Left 2001 SPINE SURGERY 2006 spleen repair 1984 No Known Allergies Medications Prior to Admission Medication Sig Dispense Refill albuterol 90 mcg/puff inhaler Inhale 2 puffs into the lungs every 6 hours as needed for Wheezing. albuterol-ipratropium (COMBIVENT RESPIMAT) 100-20 mcg/puff inhaler Inhale 1 puff into t he lungs 4 times daily. aspirin 81 MG tablet Take 81 mg by mouth Daily. atorvaSTATin (LIPITOR) 20 mg tablet Take 20 mg by mouth nightly. diazePAM (VALIUM) 5 mg tablet take 1 tablet by mouth 1 hour prior to procedure and 1 to 2 table... (REFER TO PRESCRIPTION NOTES). 0 DULoxetine (CYMBALTA) [address] capsule Take 30 mg by mouth Daily. DULoxetine (CYMBALTA) [address] capsule 0 gabapentin (NEURONTIN) 600 MG tablet Take 600 mg by mouth 2 times daily. lidocaine-prilocaine (EMLA) cream apply three times a day if needed for pain 0 lisinopril (PRINIVIL, ZESTRIL) 10 mg tablet metFORMIN (GLUCOPHAGE) 1000 MG tablet Take 1,000 mg by mouth 2 times daily (with breakf ast & dinner). metoprolol tartrate (LOPRESSOR) 50 mg tablet Take 50 mg by mouth 2 times daily. Multiple Vitamins-Minerals (MULTIVITAMIN PO) Take by mouth. ranitidine (ZANTAC) 150 mg tablet Take 150 mg by mouth 2 times daily. 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 Employer: [employer] Social Needs Financial resource strain: Not on file Food insecurity: Worry: Not on file Inability: Not on file Transportation needs: Medical: Not on file Non-medical: Not on file Tobacco Use Smoking status: Former Smoker Last attempt to quit: 04/25/2010 Years since quittin.1 Smokeless tobacco: Never Used Substance and Sexual Activity Alcohol use: Yes Alcohol/week: 0.0 standard drinks Drug use: Yes Comment: Marijuana Sexual activity: Yes Lifestyle Physical activity: Days per week: Not on file Minutes per session: Not on file Stress: Not on file Relationships Social connections: Talks on phone: Not on file Gets together: Not on file Attends voodoo service: Not on file Active member of club or organization: Not on file Attends meetings of clubs or organizations: Not on file Relationship status: Not on file Intimate partner violence: Fear of current or ex partner: Not on file Emotionally abused: Not on file Physically abused: Not on file Forced sexual activity: Not on file Other Topics Concern Not on file Social History Narrative Patient is full code. Patient lives in [place], [place]. 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 Patient is independent in his activities of daily living and denies any falls. Patient reports using marijuana, denies currently using tobacco though formerly smoked cig arettes. Patient reports rare alcohol use. PHYSICAL EXAM Vital Signs: BP 127/59 | Pulse 95 | Temp 37.1 C (98.8 F) (Oral) | Resp 20 | Ht 1.727 m (5' 8") | Wt (!) 141.2 kg (311 lb 3.2 oz) | SpO2 96% | BMI 47.32 kg/m Physical Exam Vitals signs reviewed. Constitutional: Appearance: He is well-developed. Comments: Obese WM HENT: Head: Normocephalic and atraumatic. Cardiovascular: Rate and Rhythm: Normal rate and regular rhythm. Heart sounds: Normal heart sounds. Pulmonary: Effort: Pulmonary effort is normal. Comments: Decreased BS at bases R>L Abdominal: General: Bowel sounds are normal. Palpations: Abdomen is soft. Skin: General: Skin is warm and dry. Neurological: Mental Status: He is alert and oriented to person, place, and time. DATA CT chest: 06/17/19 Recurrent loculated right effusion ASSESSMENT & PLAN Recurrent right loculated right effusion concerning for empyema. I have recommended thoracoscopy/decortication for definitive treatment. Risks/benefits including bleeding/air leak discussed with patient. The patient understands the risks and wants to proceed with surgery. Surgery tentatively planned for 06/19/19. Primary Care Physician: MD Rocky Gaffney MD 06/18/2019 *CORE MEASURES REMINDER: If the patient has a known or suspected infection prior to surger y, please add diagnosis to the problem list (consider: Infection 136.9). Ciro Rodriguez MD - 06/18/2019 10:34 AM PDTAssociated Order(s): PROVIDER TO PROVIDER CONSULTFormatti ng of this note might be different from the original. [facility] Service: Infectious Diseases Initial Consult Note Date of Admission: 06/17/2019 Requesting Physician: Leon Ch MD Reason for Consult Antibiotic recommendations CHIEF COMPLAINT Chest pain, fever HISTORY OF PRESENT ILLNESS The patient is a 48 y.o.-year-old male with significant PMH of obesity, seen in consultatio n for antibiotic recommendations. The patient has been admitted to the hospital after he was recently in a different facility from June 06, 2019 through June 16, 2019 where he was managed for acute respiratory failur e, right-sided pneumonia, complicated parapneumonic effusion. The patient was initially giv en ceftriaxone and azithromycin. The patient had persistent fevers and also persistent leuk ocytosis. The patient had apparently chest tube placed and also thoracentesis with drainage of purulent fluid. Results of cultures are not available at the moment. It appears that d ue to persistent fever infectious disease was consulted. The patient's antibiotic therapy w as escalated to vancomycin and Zosyn. The patient had a PICC line placed and he was dischar ged from the hospital with persistent leukocytosis up to 18,000. The patient apparently dec lined surgical intervention. The patient returned to our emergency department with a fever of 102.6, cardiac, oxygen sat uration 93%. White blood cell count was still 18,000. The patient had a repeat CT of the c hest which showed right pleural effusion with reactive mediastinal lymphadenopathy. Patient was admitted to the hospital for further care. His fluid culture at [facility] from 06/14 was NGTD. 06/10/19 sputum NRF. Blood cx 06/05, 06/06, 06/07 , 06/08 all NG. Infectious Disease (ID) consult requested for further evaluation and management. 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 Employer: [employer] Social Needs Financial resource strain: Not on file Food insecurity: Worry: Not on file Inability: Not on file Transportation needs: Medical: Not on file Non-medical: Not on file Tobacco Use Smoking status: Former Smoker Last attempt to quit: 04/25/2010 Years since quittin.1 Smokeless tobacco: Never Used Substance and Sexual Activity Alcohol use: Yes Alcohol/week: 0.0 standard drinks Drug use: Yes Comment: Marijuana Sexual activity: Yes Lifestyle Physical activity: Days per week: Not on file Minutes per session: Not on file Stress: Not on file Relationships Social connections: Talks on phone: Not on file Gets together: Not on file Attends voodoo service: Not on file Active member of club or organization: Not on file Attends meetings of clubs or organizations: Not on file Relationship status: Not on file Intimate partner violence: Fear of current or ex partner: Not on file Emotionally abused: Not on file Physically abused: Not on file Forced sexual activity: Not on file Other Topics Concern Not on file Social History Narrative Patient is full code. Patient lives in [place], [place]. 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 Patient is independent in his activities of daily living and denies any falls. Patient reports using marijuana, denies currently using tobacco though formerly smoked cig arettes. Patient reports rare alcohol use. IMMUNIZATIONS: stated as current, but no records available Family History Problem Relation Age of Onset COPD Mother Heart disease Father Multiple sclerosis Sister Multiple sclerosis Brother Current Facility-Administered Medications Medication Dose Route Frequency Provider Last Rate Last Dose acetaminophen (TYLENOL) tablet 650 mg 650 mg Oral Q4H PRN Galen Roth MD 650 mg at 06/18/19 0636 albuterol 90 mcg/puff inhaler 2 puff 2 puff Inhalation Q6H PRN Galen Roth MD albuterol-ipratropium (COMBIVENT RESPIMAT) 100-20 mcg/puff inhaler 1 puff 1 puff Inhal ation 4x Daily Galen Roth MD 1 puff at 06/18/19 0912 aspirin EC tablet 81 mg 81 mg Oral Daily Galen Roth MD 81 mg at 06/18/19 0912 atorvaSTATin (LIPITOR) tablet 20 mg 20 mg Oral Nightly Galen Roth MD dextrose 50% injection 12.5-25 g 12.5-25 g Intravenous PRN Galen Roth MD And dextrose 10% (D10W) infusion Intravenous Continuous PRN Galen Roth MD docusate sodium (COLACE) capsule 100 mg 100 mg Oral BID PRN Galen Roth MD DULoxetine (CYMBALTA) DR capsule 30 mg 30 mg Oral Daily Galen Roth MD enoxaparin (LOVENOX) 40 mg/0.4 mL injection 40 mg 40 mg Subcutaneous Daily Galen Roth MD 40 mg at 06/18/19 0911 gabapentin (NEURONTIN) tablet 1,200 mg 1,200 mg Oral TID Galen Roth MD 1 ,200 mg at 06/18/19 0912 insulin lispro (humaLOG) injection (vial) 0-6 Units 0-6 Units Subcutaneous 4x Daily WC and HS Galen Roth MD labetalol (TRANDATE) 5 mg/mL injection 20-40 mg 20-40 mg Intravenous Q4H PRN Galen Roth MD lisinopril (PRINIVIL, ZESTRIL) tablet 10 mg 10 mg Oral Daily Galen Roth MD 10 mg at 06/18/19 0912 melatonin tablet 3 mg 3 mg Oral Nightly PRN Galen Roth MD meropenem (MERREM) 500 mg in sodium chloride 0.9% 50 mL IVPB 500 mg Intravenous Q6H Redd Skelton MD 100 mL/hr at 06/18/19 0636 500 mg at 06/18/19 0636 metoprolol tartrate (LOPRESSOR) tablet 50 mg 50 mg Oral BID Galen Roth MD 50 mg at 06/18/19 0912 [START ON 06/19/2019] micafungin (MYCAMINE) 100 mg in sodium chloride 0.9% 100 mL IVPB 100 mg Intravenous Q24H Galen Roth MD ondansetron (ZOFRAN ODT) disintegrating tablet 4 mg 4 mg Oral Q6H PRN Galen merida MD polyethylene glycol (MIRALAX) powder 17 g 17 g Oral Daily PRN Greta Howe senna (SENOKOT) tablet 8.6 mg 8.6 mg Oral BID PRN Galen Roth MD sodium chloride 0.9% (NS) infusion Intravenous Continuous Galen Roth MD 1 00 mL/hr at 06/18/19 0353 ALLERGIES No Known Allergies REVIEW OF SYSTEMS 12+ systems reviewed. Negative except as per HPI. PHYSICAL EXAM Vital Signs: BP 127/59 | Pulse 95 | Temp 37.1 C (98.8 F) (Oral) | Resp 20 | Ht 1.727 m (5' 8") | Wt (!) 141.2 kg (311 lb 3.2 oz) | SpO2 96% | BMI 47.32 kg/m General Appearance: Alert, cooperative, no distress. Obese. Head: Normocephalic, without obvious abnormality, atraumatic. Lips, mucosa, and tongue normal; dentition normal; no thrush present. Eyes: PERRL, conjunctiva/corneas clear, EOM's intact. Throat: Oropharynx without exudates. Neck: Supple, symmetrical, trachea midline, no adenopathy; thyroid: no enlargement/tenderness/nodules; no carotid bruit or JVD Back: Symmetric, no curvature, ROM normal, no CVA tenderness Lungs: Decreased right base, respirations unlabored Chest Wall: No tenderness or deformity Heart: Regular rate. No murmurs. Abdomen: Soft, non-tender, bowel sounds active all four quadrants, no masses, no organomegaly Extremities: Extremities normal, atraumatic, no cyanosis or edema Pulses: 2+ and symmetric all extremities Skin: Skin color, texture, turgor normal, no rashes or lesions Lymph nodes: Cervical, supraclavicular, and axillary nodes normal Neurologic: Alert, oriented, no focal deficits. Venous access: Venous access: PICC. REVIEW OF LABS: All labs were reviewed. Recent Results (from the past 24 hour(s)) CBC with Differential Result Value Ref Range WBC 18.13 (H) 3.80 - 11.00 K/uL RBC 4.73 4.20 - 5.70 M/uL Hemoglobin 13.0 (L) 13.2 - 17.0 g/dL Hematocrit 42.0 39.0 - 50.0 % MCV 88.8 80.0 - 100.0 fl MCH 27.5 27.0 - 34.0 pg MCHC 31.0 (L) 32.0 - 35.5 g/dL RDW-SD 45.1 37 - 53 fl Platelet Count 444 (H) 150 - 400 K/uL MPV 10.9 fl Diff Type AUTOMATED % nRBC 0.0 0 /100WBC % Neutrophils 78.40 % IMMATURE GRANULOCYTE 1.50 % % Lymphocytes 9.00 % Monocyte % 8.00 % Eosinophils % 2.60 % Basophils % 0.50 % Neutrophils, Absolute 14.21 (H) 1.90 - 7.40 K/uL IMMATURE GRANS AB 0.27 (H) 0.00 - 0.07 K/uL Absolute Lymphocytes 1.63 1.00 - 3.90 K/uL Absolute Monocytes 1.45 (H) 0.00 - 0.80 K/uL Eosinophils, Absolute 0.48 0.00 - 0.50 K/uL Basophils, Absolute 0.09 0.00 - 0.10 K/uL Comprehensive Metabolic Panel Result Value Ref Range Na 137 135 - 145 mmol/L K 3.8 3.5 - 4.9 mmol/L Cl 100 99 - 109 mmol/L CO2 26 23 - 32 mmol/L Anion Gap 15 5 - 20 mmol/L Glucose 137 (H) 65 - 99 mg/dL BUN 15 8 - 25 mg/dL Creatinine 1.05 0.70 - 1.30 mg/dL BUN/Creatinine Ratio 14 Calcium 9.5 8.5 - 10.5 mg/dL Protein, Total 7.5 6.3 - 8.2 g/dL Albumin 3.9 3.6 - 5.0 g/dL Globulin 3.6 1.3 - 4.9 g/dL A/G Ratio 1.1 1.0 - 2.4 BILIRUBIN, TOTAL 0.3 0.1 - 1.5 mg/dL ALK PHOS 127 (H) 35 - 115 U/L AST 37 10 - 45 U/L ALT 66 (H) 10 - 65 U/L Estimated GFR >60 >60 mL/min/1.73m2 Troponin I Result Value Ref Range Troponin I 0.006 0.00 - 0.04 ng/mL Lactic Acid Result Value Ref Range Lactate, Serum 2.0 0.4 - 2.0 mmol/L Respiratory pathogen panel, NAAT Result Value Ref Range Adenovirus DNA Not Detected NOTDET Coronavirus 229E Not Detected NOTDET Coronavirus HKU1 Not Detected NOTDET Coronavirus NL63 Not Detected NOTDET Coronavirus OC43 Not Detected NOTDET Human Metapneumovirus Not Detected NOTDET Rhinovirus/Enterovirus Not Detected NOTDET Influenza A Not Detected NOTDET Influenza B Not Detected NOTDET Parainfluenza 1 Not Detected NOTDET Parainfluenza 2 Not Detected NOTDET Parainfluenza 3 Not Detected NOTDET Parainfluenza 4 Not Detected NOTDET Respiratory Syncytial Virus Not Detected NOTDET Bordetella pertussis DNA Not Detected NOTDET Chlamydia pneumoniae Not Detected NOTDET Mycoplasma pneumoniae Not Detected NOTDET Interpretation: A negative FilmArray RP result does not exclude the possibility of a viral or bacterial i nfection. Test results may also be affected by concurrent antiviral/antibacterial therapy or levels of organism in the specimen that are below the limit of detection for this test. Basic Metabolic Panel Result Value Ref Range Na 137 135 - 145 mmol/L K 4.1 3.5 - 4.9 mmol/L Cl 104 99 - 109 mmol/L CO2 27 23 - 32 mmol/L Anion Gap 10 5 - 20 mmol/L Glucose 118 (H) 65 - 99 mg/dL BUN 14 8 - 25 mg/dL Creatinine 1.2 0.70 - 1.30 mg/dL BUN/Creatinine Ratio 12 Calcium 8.8 8.5 - 10.5 mg/dL Estimated GFR >60 >60 mL/min/1.73m2 CBC with Differential Result Value Ref Range WBC 15.67 (H) 3.80 - 11.00 K/uL RBC 4.46 4.20 - 5.70 M/uL Hemoglobin 12.5 (L) 13.2 - 17.0 g/dL Hematocrit 39.6 39.0 - 50.0 % MCV 88.8 80.0 - 100.0 fl MCH 28.0 27.0 - 34.0 pg MCHC 31.6 (L) 32.0 - 35.5 g/dL RDW-SD 45.4 37 - 53 fl Platelet Count 371 150 - 400 K/uL MPV 11.4 fl Diff Type MANUAL % Segmented Neutrophils 76 % % Metamyelocytes 1 % % Lymphocytes 9 % % Reactive Lymphocytes 1 % % Monocytes 12 % Eosinophils % 1 % Neutrophils, Absolute 11.90 (H) 1.90 - 7.40 K/uL Absolute Metamyelocytes 0.16 (H) 0.00 K/uL Absolute Lymphocytes 1.41 1.00 - 3.90 K/uL Absolute Variant Lymphocytes 0.16 (H) 0.00 K/uL Absolute Monocytes 1.88 (H) 0.00 - 0.80 K/uL Eosinophils, Absolute 0.16 0.00 - 0.50 K/uL RBC Morphology RBC AND PLT MORPHOLOGY APPEAR NORMAL Magnesium Result Value Ref Range Magnesium 2.1 1.7 - 2.4 mg/dL Procalcitonin Result Value Ref Range PROCALCITONIN <0.05 <0.5 ng/mL POC Glucose Result Value Ref Range Glucose, POC 99 65 - 99 mg/dL MICROBIOLOGY Microbiology Results (Last 14 Days by Collected Date with Culture/Sensitivity) Procedure Component Value Units Date/Time Streptococcus pneumoniae Antigen [[id number]] Collected: 06/18/19 1005 Order Status: Sent Lab Status: In process Updated: 06/18/19 1010 Specimen: Urine, Unspecified Source Respiratory pathogen panel, NAAT [[id number]] Collected: 06/18/19 0351 Order Status: Completed Lab Status: Final result Updated: 06/18/19 0603 Specimen: Body Fluid from Nasopharynx Adenovirus DNA Not Detected Coronavirus 229E Not Detected Coronavirus HKU1 Not Detected Coronavirus NL63 Not Detected Coronavirus OC43 Not Detected Human Metapneumovirus Not Detected Rhinovirus/Enterovirus Not Detected Influenza A Not Detected Influenza B Not Detected Parainfluenza 1 Not Detected Parainfluenza 2 Not Detected Parainfluenza 3 Not Detected Parainfluenza 4 Not Detected Respiratory Syncytial Virus Not Detected Bordetella pertussis DNA Not Detected Chlamydia pneumoniae Not Detected Mycoplasma pneumoniae Not Detected Interpretation: -- A negative FilmArray RP result does not exclude the possibility of a viral or bacterial i nfection. Test results may also be affected by concurrent antiviral/antibacterial therapy or levels of organism in the specimen that are below the limit of detection for this test. Comment: Negative results in the setting of a respiratory illness may be due to infection with pathogens that are not detected by this test or lower respiratory tract infection that is not detected by a nasopharyngeal swab specimen. Testing performed by Molecular Methodology Testing performed at [facility], [address] [place] [address] Culture, Blood [[id number]] Collected: 06/17/19 2256 Order Status: Sent Lab Status: In process Updated: 06/17/19 2303 Specimen: Peripheral Blood Culture, Blood [[id number]] Collected: 06/17/19 2230 Order Status: Sent Lab Status: In process Updated: 06/17/19 223 Specimen: Blood from Line Microbiology Results (72 hrs) Procedure Component Value Units Date/Time Streptococcus pneumoniae Antigen [[id number]] Collected: 06/18/19 1005 Order Status: Sent Lab Status: In process Updated: 06/18/19 1010 Specimen: Urine, Unspecified Source Respiratory pathogen panel, NAAT [[id number]] Collected: 06/18/19 0351 Order Status: Completed Lab Status: Final result Updated: 06/18/19 0603 Specimen: Body Fluid from Nasopharynx Adenovirus DNA Not Detected Coronavirus 229E Not Detected Coronavirus HKU1 Not Detected Coronavirus NL63 Not Detected Coronavirus OC43 Not Detected Human Metapneumovirus Not Detected Rhinovirus/Enterovirus Not Detected Influenza A Not Detected Influenza B Not Detected Parainfluenza 1 Not Detected Parainfluenza 2 Not Detected Parainfluenza 3 Not Detected Parainfluenza 4 Not Detected Respiratory Syncytial Virus Not Detected Bordetella pertussis DNA Not Detected Chlamydia pneumoniae Not Detected Mycoplasma pneumoniae Not Detected Interpretation: -- A negative FilmArray RP result does not exclude the possibility of a viral or bacterial i nfection. Test results may also be affected by concurrent antiviral/antibacterial therapy or levels of organism in the specimen that are below the limit of detection for this test. Comment: Negative results in the setting of a respiratory illness may be due to infection with pathogens that are not detected by this test or lower respiratory tract infection that is not detected by a nasopharyngeal swab specimen. Testing performed by Molecular Methodology Testing performed at [facility], [address] [place] [address] Culture, Blood [[id number]] Collected: 06/17/19 225 Order Status: Sent Lab Status: In process Updated: 06/17/192302 Specimen: Peripheral Blood Culture, Blood [[id number]] Collected: 06/17/192229 Order Status: Sent Lab Status: In process Updated: 06/17/192232 Specimen: Blood from Line IMAGING CXR images were reviewed. Images of CT chest were reviewed. My interpretation: R empyema. DIAGNOSES: Active Hospital Problems Diagnosis Date Noted Sepsis 06/18/2019 Empyema of the right lung 06/18/2019 Reactive lymphadenopathy 06/18/2019 Type 2 diabetes mellitus, without long-term current use of insulin 06/18/2019 Obesity, Class III, BMI 40-49.9 (morbid obesity) 07/30/2018 Essential hypertension 07/27/2018 Chronic pain 07/27/2018 Obstructive sleep apnea syndrome 07/27/2018 Resolved Hospital Problems No resolved problems to display. ASSESSMENT AND RECOMMENDATIONS The patient is a 48 y.o.-year-old male with the following problems: 1. Empyema of right pleural space 2. Persistent fever and leukocytosis, sec to #1 3. Morbid obesity 4. Elevated liver enzymes Patient who has failed conservative management for right sided empyema. This is patient wi th community-acquired pneumonia and complicated by empyema. His antibiotics were escalated in the outside facility due to persistent fever and leukocytosis, however his response to pe rsistent pleural space infection. Therefore, recommend antibiotic therapy with IV ceftriaxo ne 2 g daily, cardiothoracic surgery consultation for open debridement and to obtain repeat cultures, including tissue. Continue to monitor clinical response. Monitor daily creatinine level. Rule out HIV infection. Discussed with attending provider: Leon Ch MD . Thank you for this consultation. Will follow along. Ciro Lee MD, MPH Infectious Diseases 06/18/19 documented in this encounter ED Notes Krupa Sneed RN - 06/18/2019 3:33 AM Andrew LUNA at bedside with wheelchair, p t has personal belonging, handed combivent inhaler to administer upstairs. Electronically si gned by Krupa Sneed RN at 06/18/2019 3:34 AM PDTKrupa Sneed RN - 2:43 AM PDTProvided sandwich, apples, veggie tray, and water to patient.Electronica lly signed by Krupa Sneed RN at 06/18/2019 2:44 AM Tai Mcgee RN - 12:15 AM PDTAssumed care of pt, received report from JEREMY Rae. rKyra hernandez RN - 06/18/2019 12:06 AM PD TPt states he feels increased SOB and RN gave pt 2L of O2 on NC. Kyra Hunt RN - 06/17/2019 11:16 PM PDTMica Aayush hoffman () [phone] signed by Kyra Prather RN at 06/17/2019 11:17 PM PDT Yumiko Nj CNA - 06/17/2019 10:22 PM PDTMade call to [facility] Request for images, patien t records and notes Randolph brooks DO - 06/17/2019 9:50 PM PDTFormatting of this note might be different fr om the original. [facility] Department of Emergency Medicine 9:50 PM History of Present Illness Patient Identification Robert Stiles is a 48 y.o. male. Patient information was obtained from patient. History/Exam limitations: none. Patient presented to the Emergency Department by: Car Chief Complaint Chief Complaint Patient presents with Chest Pain Fever (9 Weeks To 74 Years) The patient presents to ED with complaints of fever, SOB and right chest wall pain. Onset of symptoms was 10 days ago, with a fluctuation course since that time. The symptoms are described to be of moderate severity. The patient describes the quality and location of the symptoms as the following: SOB. The patient also complains of fever (102), lower chest pain, nausea, pain around shoulder b lades. Patient denies vomiting, diarrhea, or any other symptoms at this time. 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 Patient was just discharged yesterday from [facility] after a 10 day stay for loculated pneumoni a. He reports that in the hospital they placed a chest tube and performed a thoracentesis. H e reports that since he was discharged he has been very nauseas, had a fever, and has pain b ehind his shoulder blades. He called Dr. Crawley from [facility] who recommended that he come to the ED at [facility]. Patient was sent home on vancomycin and Zosyn via PICC line. PCP: Edilberto Troy MD Past Medical History: Diagnosis Date DDD (degenerative disc disease), lumbar 09/12/2014 Gout Hypertension Lumbar radiculopathy 09/12/2014 Morbid obesity (HCC) Nocturnal hypoxemia Poor circulation Poor eating habits Sleep apnea Past Surgical History: Procedure Laterality Date SPINE SURGERY 2005 spleen repair 1983 Prior to Admission medications Medication Sig Start Date End Date Taking? Authorizing Provider albuterol 90 mcg/puff inhaler Inhale 2 puffs into the lungs every 6 hours as needed for Whe ezing. Historical Provider, albuterol-ipratropium (COMBIVENT RESPIMAT) 100-20 mcg/puff inhaler Inhale 1 puff into the l ungs 4 times daily. Historical Provider, aspirin 81 MG tablet Take 81 mg by mouth Daily. Historical Provider, atorvaSTATin (LIPITOR) 20 mg tablet Take 20 mg by mouth nightly. Historical Provider, diazePAM (VALIUM) 5 mg tablet take 1 tablet by mouth 1 hour prior to procedure and 1 to 2 t able... (REFER TO PRESCRIPTION NOTES). 03/11/18 Historical Provider, DULoxetine (CYMBALTA) [address] capsule Take 30 mg by mouth Daily. Historical Provider, Greta Sheppard DULoxetine (CYMBALTA) [address] capsule 03/10/18 Historical Provider, gabapentin (NEURONTIN) 600 MG tablet Take 600 mg by mouth 2 times daily. Historical Prov iderMD lidocaine-prilocaine (EMLA) cream apply three times a day if needed for pain 02/08/18 His torical Provider, metFORMIN (GLUCOPHAGE) 1000 MG tablet Take 1,000 mg by mouth 2 times daily (with breakfast & dinner). Historical Provider, metoprolol tartrate (LOPRESSOR) 50 mg tablet Take 50 mg by mouth 2 times daily. Historic al ProviderMD Multiple Vitamins-Minerals (MULTIVITAMIN PO) Take by mouth. Historical Provider, ranitidine (ZANTAC) 150 mg tablet Take 150 mg by mouth 2 times daily. Historical Provide MD mario No Known Allergies Social History Socioeconomic History Marital status: Spouse name: Not on file Number of children: 2 Years of education: Not on file Highest education level: Not on file Occupational History Not on file Social Needs Financial resource strain: Not on file Food insecurity: Worry: Not on file Inability: Not on file Transportation needs: Medical: Not on file Non-medical: Not on file Tobacco Use Smoking status: Former Smoker Last attempt to quit: 04/25/2010 Years since quittin.1 Smokeless tobacco: Never Used Substance and Sexual Activity Alcohol use: Yes Alcohol/week: 0.0 standard drinks Drug use: Yes Comment: Marijuana Sexual activity: Yes Lifestyle Physical activity: Days per week: Not on file Minutes per session: Not on file Stress: Not on file Relationships Social connections: Talks on phone: Not on file Gets together: Not on file Attends voodoo service: Not on file Active member of club or organization: Not on file Attends meetings of clubs or organizations: Not on file Relationship status: Not on file Intimate partner violence: Fear of current or ex partner: Not on file Emotionally abused: Not on file Physically abused: Not on file Forced sexual activity: Not on file Other Topics Concern Not on file Social History Narrative Not on file Family History Problem Relation Age of Onset COPD Mother Heart disease Father Multiple sclerosis Sister Multiple sclerosis Brother Review of Systems Constitutional: Positive for fever Negative for chills Eyes: Negative for vision changes Nose: Negative for congestion Throat: Negative for sore throat CV/Resp: Positive for SOB, lower chest pain GI: Positive for nausea Negative for abdominal pain, vomiting, or diarrhea : Negative for urinary problems Musculoskeletal: Positive for pain around shoulder blades Skin: Negative for rash Neuro/Psych: Negative for headache Endo/heme/Lymph: Negative for easy bruising All other systems reviewed and negative except as noted. Physical Exam Temp: (!) 39.2 C (102.6 F) Pulse: 126 Resp: 18 BP: 124/61 SpO2: 93 % Vital signs interpretation: febrile, tachycardic General: Alert, in no apparent distress Eyes: Normal inspection, pupils equal and round, non-icteric ENT: Ears normal Nose normal Pharynx normal Neck: Normal inspection Supple Cardiovascular: Tachycardic rate without murmur, and rhythm normal. No murmurs Respiratory: Diminished breath sounds on the right. No rales, wheezing or rhonchi Abdomen: Soft, non-tender, non-distended No guarding or rebound Musculoskeletal: tenderness to the right posterior chest wall. Back: Normal inspection Skin: Patchy blanching rash to the bilateral anterior arms and upper chest. bandaged incis ions to the right chest wall from recent chest tube. Color normal Warm and dry Neuro: Alert, no AMS, normal speech, no facial droop No gross motor/sensory deficits Medical Decision Making and Emergency Department Course ED Department Course Patient presents to ED with complaints of fever, chest pain. On exam the patient has dimini shed breath sounds on the right. My DDx includes, but is not limited to: sepsis, pneumonia, abscess, empyema, PICC line infection. Will order labs/imaging, and reevaluate the patient. On review of [facility] notes: Patient was admitted on the 05 of June to [facility] with empyema and treated for sepsis. He h ad a chest tube placed. Treated initially with Rocephin and clindamycin. He was switched to Zosyn and vancomycin because he had no improvement. He was downgraded from the ICU and switched back to Rocephin and clindamycin, but had recur rent fevers so he was put back on vancomycin and Zosyn. Imaging showed consolidation of the right lower lobe concerning for empyema. On 06/14 he had a fluoroscopy guided thoracentesis a [facility]. He was then discharged on 06/15 with PICC line and plan for continued Zosyn/vancomyc in until 07/11. 10:49 PM CBC shows elevated WBC at 18.13, low HGB at 13.0, low MCHC at 31.0, elevated PLT a t 444 11:00 PM CMP shows elevated glucose at 137, elevated ALK PHOS at 127, and elevated ALT at 6 6. Troponin is normal. 11:03 PM lactic acid is normal 12:[address] shows Interval improvement in right middle and lower lobe atelectasis, wh ich is now mild. Moderate right pleural effusion is decreased in size since 06/06/2019 comparison with new foci of air, likely sequela of thoracentesis. Associated reactive hilar and mediastinal lymphadenopathy. 12:40 AM I spoke with Dr. Lee, who recommends starting on meropenem and micafungin. Patient re-evaluated. Improving symptomatically. Vitals reveal resolution of fever, HR comi ng down. No distress. 1:27 AM Discussed the pt's case including pertinent hx, workup, and treatment with Dr. Tere aguilar, hospitalist, who accepts the pt for admission. Will continue to monitor the pt in this de partment until care is transferred. Temp: 37.7 C (99.9 F) Pulse: 118 Resp: 18 BP: 122/90 SpO2: 95 % Medications meropenem (MERREM) 500 mg in sodium chloride 0.9% 50 mL IVPB (has no administration in time range) micafungin (MYCAMINE) 100 mg in sodium chloride 0.9% 100 mL IVPB (has no administration in time range) sodium chloride 0.9% (NS) infusion (has no administration in time range) sodium chloride 0.9% (NS) bolus 2,000 mL (0 mLs Intravenous Stopped 06/18/19 0114) iohexol (OMNIPAQUE 350) 350 mg/mL injection 100 mL (100 mLs Intravenous Given 06/17/19 2313) morphine injection 4 mg (4 mg Intravenous Given 06/17/19 2338) Records Reviewed Old medical records. Nursing notes. No prior [facility] ED visits available for review. Laboratory Evaluation Results Procedure Component Value Ref Range Date/Time Lactic Acid [[id number]] Collected: 06/17/19 2233 Order Status: Completed Specimen: Blood Updated: 06/17/19 2305 Lactate, Serum 2.0 0.4 - 2.0 mmol/L Culture, Blood [[id number]] Collected: 06/17/192255 Order Status: Sent Specimen: Peripheral Blood Updated: 06/17/192302 Comprehensive Metabolic Panel [[id number]] (Abnormal) Collected: 06/17/192230 Order Status: Completed Specimen: Blood Updated: 06/17/192300 Na 137 135 - 145 mmol/L K 3.8 3.5 - 4.9 mmol/L Cl 100 99 - 109 mmol/L CO2 26 23 - 32 mmol/L Anion Gap 15 5 - 20 mmol/L Glucose 137 65 - 99 mg/dL BUN 15 8 - 25 mg/dL Creatinine 1.05 0.70 - 1.30 mg/dL BUN/Creatinine Ratio 14 Calcium 9.5 8.5 - 10.5 mg/dL Protein, Total 7.5 6.3 - 8.2 g/dL Albumin 3.9 3.6 - 5.0 g/dL Globulin 3.6 1.3 - 4.9 g/dL A/G Ratio 1.1 1.0 - 2.4 BILIRUBIN, TOTAL 0.3 0.1 - 1.5 mg/dL ALK PHOS 127 35 - 115 U/L AST 37 10 - 45 U/L ALT 66 10 - 65 U/L Estimated GFR >60 >60 mL/min/1.73m2 Troponin I [[id number]] Collected: 06/17/192230 Order Status: Completed Specimen: Blood Updated: 06/17/192300 Troponin I 0.006 0.00 - 0.04 ng/mL CBC with Differential [[id number]] (Abnormal) Collected: 06/17/192230 Order Status: Completed Specimen: Blood Updated: 06/17/192250 WBC 18.13 3.80 - 11.00 K/uL RBC 4.73 4.20 - 5.70 M/uL Hemoglobin 13.0 13.2 - 17.0 g/dL Hematocrit 42.0 39.0 - 50.0 % MCV 88.8 80.0 - 100.0 fl MCH 27.5 27.0 - 34.0 pg MCHC 31.0 32.0 - 35.5 g/dL RDW-SD 45.1 37 - 53 fl Platelet Count 444 150 - 400 K/uL MPV 10.9 fl Diff Type AUTOMATED % nRBC 0.0 0 /100WBC % Neutrophils 78.40 % IMMATURE GRANULOCYTE 1.50 % % Lymphocytes 9.00 % Monocyte % 8.00 % Eosinophils % 2.60 % Basophils % 0.50 % Neutrophils, Absolute 14.21 1.90 - 7.40 K/uL IMMATURE GRANS AB 0.27 0.00 - 0.07 K/uL Absolute Lymphocytes 1.63 1.00 - 3.90 K/uL Absolute Monocytes 1.45 0.00 - 0.80 K/uL Eosinophils, Absolute 0.48 0.00 - 0.50 K/uL Basophils, Absolute 0.09 0.00 - 0.10 K/uL Culture, Blood [[id number]] Collected: 06/17/192229 Order Status: Sent Specimen: Blood from Line Updated: 06/17/192232 I personally reviewed the lab results and they have been posted to the chart. Pertinent po sitive and negative findings have been addressed appropriately. Radiology and EKG Evaluation EKG time: 22:27 Rhythm: sinus tachycardia Rate: 124 Intervals: normal No significant ST and T waves abnormalities No acute ischemia. Interpreted by me at time of service Imaging Results CT Chest w Contrast (Final result) Result time 06/18/19 01:13:02 Final result by Robert Morel MD (06/18/19 01:13:02) Impression: 1. Interval improvement in right middle and lower lobe atelectasis, which is now mild. 2. Moderate right pleural effusion is decreased in size since 06/06/2019 comparison with new foci of air, likely sequela of thoracentesis. Associated reactive hilar and mediastinal lymphadenopathy. Dictated by: Isiah Ward Natalie Signed by: Isiah Morel James Sign Date/Time: 06/18/2019 1:13 AM The radiologist has reviewed the images and edited/approved the report. For interventional procedures, the signing radiologist was present for the calhoun portions of the exam. Narrative: CT CHEST WITH CONTRAST CLINICAL INFORMATION: Cough. Pneumonia. Pleural effusion. Recently admitted at [facility], on Vanco/Zosyn for loculated PNA, referred by PCP to [facility] for worsening symptoms. COMPARISON: CT ANGIOGRAPHY CHEST (06/06/2019); CHEST TWO VIEWS [id number] (06/06/2019); PROCEDURE: Axial images through the chest after the administration of 100 ml Omnipaque 350 intravenous contrast. Multiplanar reconstructions. At least one of the following CT dose optimization techniques were used: Automated exposure control; Adjustment of mA and/or kV according to patient size; Use of iterative reconstruction technique. FINDINGS: Lungs, Pleura and Airways: Moderate multifocal platelike atelectasis in the right middle and lower lobes. Atelectasis of the superior segment of the right lower lobe. Moderate air-containing right pleural effusion extending into the horizontal and oblique fissures. These findings are moderately improved since comparison 06/06/2019, previously there was near complete atelectasis of the right middle and lower lobes and increased size of the pleural effusion. Small foci of air between the visceral and parietal pleura adjacent to the anteromedial and anterolateral right middle lobe (series 4, images 153 and 215), in conjunction with small volume air within the soft tissues of the lateral right chest wall, this is likely sequela of thoracentesis. Mediastinum: No significant pericardial, great vessel or esophageal abnormality. No mediastinal mass. Lymph Nodes: Right-sided hilar and mediastinal lymphadenopathy, almost certainly reactive in the setting of infection. Upper Abdomen: No significant abnormality in the visualized upper abdomen. BODY WALL Soft Tissues: The soft tissues of the chest wall are unremarkable. Bones: No acute fracture or vertebral end plate destruction. No lytic or blastic lesion. Preliminary result by Gabriele, Rad Results In (06/18/19 00:05:21) Impression: Interval improvement in right middle and lower lobe atelectasis, which is now mild. Moderate right pleural effusion is decreased in size since 06/06/2019 comparison with new foci of air, likely sequela of thoracentesis. Associated reactive hilar and mediastinal lymphadenopathy. Dictated by: Isiah Ward Natalie The radiologist has reviewed the images and edited/approved the report. For interventional procedures, the signing radiologist was present for the calhoun portions of the exam. Narrative: CT CHEST WITH CONTRAST CLINICAL INFORMATION: Cough. Pneumonia. Pleural effusion. Recently admitted at [facility], on Vanco/Zosyn for loculated PNA, referred by PCP to [facility] for worsening symptoms. COMPARISON: CT ANGIOGRAPHY CHEST (06/06/2019); CHEST TWO VIEWS [id number] (06/06/2019); PROCEDURE: Axial images through the chest after the administration of 100 ml Omnipaque 350 intravenous contrast. Multiplanar reconstructions. At least one of the following CT dose optimization techniques were used: Automated exposure control; Adjustment of mA and/or kV according to patient size; Use of iterative reconstruction technique. FINDINGS: Lungs, Pleura and Airways: Moderate multifocal platelike atelectasis in the right middle and lower lobes. Atelectasis of the superior segment of the right lower lobe. Moderate air-containing right pleural effusion extending into the horizontal and oblique fissures. These findings are moderately improved since comparison 06/06/2019, previously there was near complete atelectasis of the right middle and lower lobes and increased size of the pleural effusion. Small foci of air between the visceral and parietal pleura adjacent to the anteromedial and anterolateral right middle lobe (series 4, images 153 and 215), in conjunction with small volume air within the soft tissues of the lateral right chest wall, this is likely sequela of thoracentesis. Mediastinum: No significant pericardial, great vessel or esophageal abnormality. No mediastinal mass. Lymph Nodes: Right-sided hilar and mediastinal lymphadenopathy, almost certainly reactive in the setting of infection. Upper Abdomen: No significant abnormality in the visualized upper abdomen. BODY WALL Soft Tissues: The soft tissues of the chest wall are unremarkable. Bones: No acute fracture or vertebral end plate destruction. No lytic or blastic lesion. Disposition: FINAL IMPRESSION ICD-10-CM ICD-9-CM 1. Chest pain, unspecified type R07.9 786.50 2. Sepsis, due to unspecified organism, unspecified whether acute organ dysfunction present (HCC) A41.9 038.9 995.91 ED Disposition ED Disposition Condition Comment Admit Clinical impression: Chest pain, unspecified type [[id number]] Clinical impression: Sepsis, due to unspecified organism, unspecified whether acute organ dysfunction present (HCC) [[id number]] Admitting provider: [facility]OSPITALIST [[id number]] Expected patient class: Inpatient [101] Level of service: Medical Discharge Medications: ED Prescriptions None Procedures Attending Provider Note: Randolph Juan DO personally performed the services describ ed in this documentation, as scribed by Francisco Cuevas in my presence, and it is both accura te and complete. Chart Reviewed and Completed. Scribe: Keesha Lo, scribing for and in the presence of Randolph Dyson DO. Completed by: Keesha Posey 06/18/2019 1:29 AM Randolph Dyson DO 06/18/192042 documented in this encounter Miscellaneous Notes Plan of Care - Nicole Dodd RN - 06/22/2019 1:28 PM PDT Problem: Adult Inpatient Plan of Care Goal: Plan of Care Review Outcome: Ongoing, progressing Reviewed plan of care with patient. Electronically signed by Nicole Dodd RN at 06/21 1:28 PM PDTPlan of Care - Julia London RN - 06/22/2019 11:23 AM PDTCa re Management Final Discharge Plan Readmission Risk: Medium Discharge Plan Planned Disposition: home with outpatient IV antibiotic therapy PCP: Edilberto Troy MD Patient/Family Notified: yes Transportation will be provided by: family Transportation Date/Time: 06/22/19 Community Support Services Current Outpt/Agency/Support Groups: infusion therapy, home Community Agency Name: [facility] Equipment Home Equipment at Discharge: (TBD) Equipment Used at Home: none Pharmacy Pharmacy/Medication needs: ([facility] in [place]) Notes: CM faxed new IV abx script to [facility]. Pt will receive his daily IV abx dose suhail or to discharge. [facility] will deliver pt's new medications tomorrow prior to his next do se. Electronically signed: Julia London RN 06/22/2019 12:33 PMElectronically sig nas by Julia London RN at 06/22/2019 12:36 PM PDTPlan of Care - Yuly Agrawal RN - 06/22/2019 5:38 AM PDT Problem: Fall Injury Risk Goal: Absence of Fall and Fall-Related Injury Outcome: Ongoing, progressing VSS. Pt c/o pain x2. Pt medicated w/PRN pain meds and appears to be resting comfortably at this time, relief noted. No acute changes since previous shift. Bed in low locked position, call light within reach, hourly rounding for pt needs. End of s hift review completed by this RN. YULY AGRAWAL RN lan of [place] Meghan Jaimes RN - 06/21/2019 6:30 PM PDTDiscussed pending COVID test with Infection Prevention. Per IP, COVID test was not indicated for this pt when discussed with Dr. Garcia. At this time, pt remains on standard precautions per recommendations from IP. Meghan poon RN lan of [place] Nicole Dupree RN - 06/21/2019 5:47 PM PDTPt vitals stable, on RA, chest tube removed tod ay by cardiothoracic team. Pt c/o pain scheduled and PRN medications given per MAY. Problem: Respiratory Compromise (Pneumonia) Goal: Effective Oxygenation and Ventilation Outcome: Ongoing, progressing Nicole Dodd RN lan of [place] Julia Regalado RN - 06/21/2019 1:17 PM PDTCare Management Follow-Up Readmission Risk: Medium Current Discharge Plan Anticipated Discharge Disposition: home with outpatient services Expected DC Date: 06/22/2019 Barriers to Discharge: not medically ready for discharge Steps Taken Toward Discharge: pt states that he was discharged from [facility] with [facility] for home IV abx therapy. Per ID MD pt will need an additional 4 weeks IV abx on discharge Next Steps: CM to update [place] and send new IV abx script when pt is ready for discharge. CM will continue to follow for discharge planning Community Support Services Current Outpt/Agency/Support Groups: none Discharge Transportation Transportation Needs: family or friend will provide Electronically signed: Julia London RN 06/21/2019 3:46 PM lan of Olga Pa RN - 06/21/2019 5:40 AM PDTPatient is resting comfortably in low bed with call light, non-skid socks, bed rail x2 and side table. Calm and pleasant througho ut shift. Pain managed with PO PRN medications as indicated. Chest tube patent. Dressing to insertion site CDI. No measurable output in chest tube overnight. No difficulties with respi ratory status. VSS, afebrile. No acute events noted overnight. Shift chart review complete. lan of Care - Olga Sandoval RN - 06/20/2019 10:56 PM PDT Problem: Adult Inpatient Plan of Care Goal: Plan of Care Review Outcome: Ongoing, progressing Reviewed POC with patient who is agreeable. Problem: Pain (Acute Coronary Syndrome) Goal: Absence of Cardiac-Related Pain Outcome: Ongoing, progressing Patient states pain is well managed with PRN PO medications. Will continue to monitor and treat as indicated. Problem: Skin Injury Risk Increased Goal: Skin Health and Integrity Outcome: Ongoing, progressing Monitor dressing to right flank. Encouraged and educated on repositioning to reduce risk o f skin integrity. No new skin issues noted. Problem: Fall Injury Risk Goal: Absence of Fall and Fall-Related Injury Outcome: Ongoing, progressing Low bed. Bed rails x2. Call light and personal items in reach. Nonskid socks. Patient is c ompliant with safety precautions and remains free of falls. Patient remains free of fall and injuries. Problem: Infection (Pneumonia) Goal: Resolution of Infection Signs/Symptoms Outcome: Ongoing, progressing Continues on IV antibiotics. VSS/afebrile. Chest tube output sanguinous with no s/sx of ne w or worsening infection. Problem: Respiratory Compromise (Pneumonia) Goal: Effective Oxygenation and Ventilation Outcome: Ongoing, progressing R side chest tube. Sanguinous output. CPAP at night r/t SHEILA. Lungs dim/clear per baseline. Oxygen saturation stable on room air. No s/sx of worsening respiratory compromise noted.Irma ctronically signed by Olga Cerna RN at 06/20/2019 10:58 PM PDTPlan of Care - Maegan Tran RN - 06/20/2019 5:09 PM PDT Problem: Adult Inpatient Plan of Care Goal: Optimal Comfort and Wellbeing Outcome: Ongoing, progressing Problem: Skin Injury Risk Increased Goal: Skin Health and Integrity Outcome: Ongoing, progressing Took over care at about 1500. A/Ox4, VSS, Afebrile. Pt reported pain x1, PRN percocet given . Pt ambulating standby assist. Encouraging pt to change positions frequently for skin integ rity. No acute changes from initial assessment. End of shift audit complete. Maegan Cox, RN lan of Care - Galen Torres MD - 06/20/2019 2:31 PM PDTAccept note. Patient examined at bedside in ICU. In good spirits. BP 138/70 | Pulse 99 | Temp 37.6 C (99.6 F) (Oral) | Resp 17 | Ht 1.727 m (5' 8") | Wt (!) 139.3 kg (307 lb 3.2 oz) | SpO2 95% | BMI 46.71 kg/m Will accept patient care to our the adult hospitalist service. Full progress note note to betty calderon tomorrow. Galen Roth MD 06/20/2019 2:35 PM lan of [place] - Gustavo Coats, PT, DPT - 06/20/2019 1:55 PM PDTPhysical Therapy Initial Evaluation, Discharge Note Recommended discharge disposition: home, home with assist Post discharge physical therapy recommendation: no further PT Equipment Recommendations: none Barriers to community-based discharge None Recommended Frequency: other (see comments)(Eval only--d/c acute PT) for days with reasse ssment due by Summary: Pt. is s/p R thoracotomy. He is AOx4 reporting 4/10 pain from chest tube site. The pt. exhibits 5/5 strength including stable balance and gait cycle. Spo2 maintained >95% throughout activity progression. The pt. reports hx. of chronic LBP and was educated in ge ntle sustained hip flexion (knee to chest) stretching while in bed to stretch and mobilize h is lumbar spine. The pt.'s mobility appears stable to be discharged form acute PT as the pt . may mobilize with supervision from [facility] staff as tolerated. Living Environment Lives With: spouse Living Arrangements: house Home Accessibility: stairs to enter home Functional Level Prior Transferring: independent Ambulation: independent Equipment Currently Used at Home: none Cognitive Assessment Orientation: oriented x 4 Bed Mobility Additional Documentation: supine to/from sit Supine to Sit, Level of Stan[place]: modified independent Transfers Additional Documentation: sit to/from stand Sit-Stand, Level of [place]: modified independent, supervised Gait Gait Comments: normal gait cycle with decreased holley Level of Stanly: modified independent, supervised Assistive Device: none, gait belt Distance (feet): 500 Sensory Assessment Sensation Comments: (intact) Strength Strength Comments: 08/01 Balance Standing Balance: Static: good balance Standing Balance: Dynamic: good balance Goals Reflects last filed data and may be from multiple contributors. lan of Tata Hernadez RN - 06/20/2019 6:38 AM PDTwrites understanding as pt is intubated. pt is completely alert and oriented x 4. he is intermittently anxious but is ready to learni ng/teaching. lan of Tobias Jordan RRT - 06/19/2019 3:51 PM PDTRCP Drager Vent Shift Note Robert Stiles continues on ventilatory support with the following ventilator settings Ventilation Mode (interface): Mode VC-AC (06/18 1452) Rate Set: 22 (06/18 1452) Tidal Volume Mechanical Exhaled (mL): 547 (06/18 1452) Minute Ventilation Total Exhaled (L/min): 11.9 (06/18 1452) Oxygen Concentration (%): 50 (06/18 1453) PEEP: 12 (06/18 1453) Inspiratory time (sec): 0.9 (06/18 1452) I:E : 2.0 (06/18 1452) Peak Inspiratory Pressure: 30 (06/18 145) Vent Tolerance: well Spontaneous Breathing Trial Performed: No, not indicated at this time 06/19/2019 3:51 PM Tobias Mclean RRT Problem: Communication Impairment (Mechanical Ventilation, Invasive) Goal: Effective Communication Outcome: Ongoing, progressing Problem: Device-Related Complication Risk (Mechanical Ventilation, Invasive) Goal: Optimal Device Function Outcome: Ongoing, progressing Problem: Inability to Wean (Mechanical Ventilation, Invasive) Goal: Mechanical Ventilation Liberation Outcome: Ongoing, progressing Problem: Ventilator-Induced Lung Injury (Mechanical Ventilation, Invasive) Goal: Absence of Ventilator-Induced Lung Injury Outcome: Ongoing, progressing -C Instructions P rovation - Ronn Voss MD - 06/19/2019 2:12 PM PDTPatient Instructions After Bronchoscop y Patient: Robert Stiles Procedure Date: Wednesday, June 19, 2019 Attending MD: Ronn Voss; This Bronchoscopy was performed on Wednesday, June 19, 2019. My impressions and recommendations are as follows: Impressions : - The airway examination was normal. - No specimens collected. Recommendations : - Await test results. You have received sedation for your procedure. You may feel normal, but your reflexes and memory are impaired. The precautions to take for 12- 24 hours after receiving sedation include: Do not drive a car. Do not make major decisions or sign legal documents. Do no activities requiring skilled physical coordination or hand-eye coordination. Alcohol should be avoided for a period of 24 hours. It is recommended that someone be available to assist you for 24 hours. It is normal for your throat to be sore after the exam. Gargling with warm salt water, taking ice chips, or throat lozenges may help relieve any discomfort. Call your physician if any of the following occur: Unexplained fever Neck or chest pain Coughing up blood Difficulty swallowing New onset of shortness of breath If you feel you need immediate attention and are unable to contact your doctor, go to an Emergency Department or the closest emergency facility. Ronn Voss, 06/19/2019 5:47:46 PM This report has been signed electronically.Electronically signed by Ronn Voss MD at 5:48 PM PDTOp Note - Rocky Arce MD - 06/19/2019 11:37 AM [facility] OPERATIVE REPORT ROCKY ARCE MD Patient: ROBERT STILES Admitting: JOSSELIN DIALLO MR #: [id number] LOC: PT TYPE: Adm Date: 06/17/2019 : 1970 DATE OF PROCEDURE: 06/19/2019 PREOPERATIVE DIAGNOSIS: Loculated right pleural effusion with compressive atelectasis. POSTOPERATIVE DIAGNOSIS: Loculated right pleural effusion with compressive atelectasis. PROCEDURES: 1. Right diagnostic thoracoscopy. 2. Right thoracotomy. 3. Full decortication. SURGEON: Rocky Arce MD QUAIL FARMER: YOVANNY Conley ANESTHESIOLOGIST: Janes Cameron MD ANESTHESIA: General endotracheal. INTRAVENOUS FLUIDS: 1000. ESTIMATED BLOOD LOSS: 100. COMPLICATIONS: None. INDICATIONS: The patient is a very pleasant 48-year-old white male with significant past m edical history of morbid obesity; sleep apnea, on CPAP; hypertension; and diabetes mellitus, who initially presented with a 3-week history of right-sided pleuritic chest pain and dyspn ea. The patient was admitted to [facility] from 06/07/2019 to 06/16/2019. He was treated for a presumptive right lower lobe pneumonia, complicated by a parapneumonic effusion. The patie nt was placed on IV antibiotics and had right tube thoracostomy. The patient clinically imp roved after admission, but after removal of the chest tube, he had a recurrent effusion and underwent thoracentesis. The thoracentesis did not yield much fluid, probably felt to be se condary to loculations. The patient was discharged home on 06/16/2019, but re-presented 24 hours later to our emergency room complaining of increasing right-sided pleuritic chest janette n. A CT scan of the chest performed on admission was reviewed. The patient had a moderate to large loculated right pleural effusion with compressive atelectasis. This was suggestive of an empyema with air-fluid pockets. I saw the patient in consultation. I recommended th oracoscopy, decortication, possible thoracotomy. Risks and benefits including bleeding, inf ection, air leak were discussed with the patient. He now presents for surgery. FINDINGS: 1. There was a moderate-sized loculated right pleural effusion with compressive atelectasi s of the right lower lobe. 2. After decortication, we obtained near full expansion of the right lower lobe. 3. Cultures were sent for aerobic, anaerobic, viral cultures, fungal cultures, and COVID-1 9. DESCRIPTION OF PROCEDURE: The patient was identified and taken to the operating room and w as placed supine on the operating table. After the adequate induction of general endotrache al anesthesia, the patient was positioned in the left lateral decubitus position with the [facility] chest up. An axillary roll was put into place. All pressure points were padded. The p atient was secured to the table with a beanbag and taped to the operating table. The patie nt's right chest was then prepped and draped sterilely. Preoperative antibiotics were given . A 1.5 cm incision was made in the anterior axillary line over the 6th interspace. This i ncision was carried down under direct visualization into the right pleural space. It was a very deep incision. There was a lot of subcutaneous tissues between the skin and the chest wall. When we reached the chest wall, we could not safely enter through this space due to the fact that the lung was adherent to the chest wall. We then decided to explore the incis ion that had been made at the other institution for the chest tube. We bluntly dissected th e incision down to the chest wall. Similarly, it appeared that the lung had adhered to the chest wall. It was not felt that we could safely perform thoracoscopy and it was decided to convert to a thoracotomy. The first incision we had was extended posterolaterally for christel roximately 4 cm. Incision was carried down to the chest wall. We reached the 7th interspac e. We dissected in the interspace of the 7th interspace. The lung was adherent to the ches t wall. We bluntly dissected the lung off of the chest wall superiorly and inferiorly, crea ting a space for the chest retractor. We placed a chest retractor. We bluntly dissected th e right lower lobe off of the chest wall posteriorly. As we progressed posteriorly, we enc ountered a large pocket of loculated fluid. The fluid again was sent for cultures and the p leural peel was sent for culture. We dissected the right lower lobe completely off of the d iaphragm. We rotated the lung medially, exposing the posterior pocket. Using a combination of sharp and blunt dissection, we evacuated all the loculated fluid posteriorly. There was a peel over the right lower lobe. Using a combination of sharp and blunt dissection, we p erformed a decortication over the right lower lobe. At the completion of this, the right lo wer lobe expanded fairly well. We then irrigated the right chest with 500 mL of warm steril e water. We made a small 1.5 cm incision anteriorly. We placed a #32 chest tube over the d iaphragm. The lung was reinflated. The ribs were reapproximated using three #2 Vicryl jeff costal stitches. Chest musculature, subcutaneous tissues, and skin were closed anatomicall y with running Vicryl stitches. A sterile dressing was applied to the wound. The patient t olerated the procedure well and was transferred to the intensive care unit, intubated, in st able condition. ROCKY ARCE MD Dictated by ROCKY ARCE MD 06/19/2019 11:37:11 Transcribed on 06/19/2019 18:26:10 by vale job# [id number] Confirmation #: [id number] lan of Jayden Mujica RN - 06/19/2019 7:47 AM LONNYThis RN received report from [facility] RN. Shortly after 0740 pt was taken to OR. Jayden Barnes RN lan of Wendy Mas RN - 06/19/2019 6:45 AM PDT Problem: Adult Inpatient Plan of Care Goal: Optimal Comfort and Wellbeing Outcome: Ongoing, progressing Note: Assessed patient's needs throughout shift, adjusted lights per patient preference, and clus tered care to decrease awakenings during shift. Problem: Pain (Acute Coronary Syndrome) Goal: Absence of Cardiac-Related Pain Outcome: Ongoing, progressing Note: Assessed pain level throughout shift. Pt AOx4. VSS. Afebrile. Voiding QS. Patient c/o pain on shift and Toradol was ordered and given. Chlorohexidine bath given x2, bedding changed x2, and shaved patient's right anterior and posterior chest for surgery this morning. Patient remains on 100 mL/hr NS continuous. Patient is ready to go to surgery and has no further needs on this shift. Will pass all future cares to day shift RN. Chart review complete. Wendy Peguero RN lan of Yuly Montes RN - 06/18/2019 7:33 PM PDTTmax this shift 99.3F. No c/o chest p ain noted throughout shift. PICC line has good blood return and is flushing after cap delgado e. No other acute changes from previous assessment. Shift chart check complete. Yuly Thornton RN lan of Yuly Ardon RN - 06/18/2019 6:51 PM PDT Problem: Adult Inpatient Plan of Care Goal: Plan of Care Review Outcome: Ongoing, progressing Plan of care for today reviewed with pt and pt verbalizes understanding. Electronically s igned by Yuly Mackenzie RN at 06/18/2019 6:51 PM PDTPlan of Sly Feliciano RN - 06/18/2019 12:24 PM PDTCare Management Initial Assessment Readmission Risk: Medium Status Prior to Admission or Illness Arrival From: home or self-care Lives With: spouse Living Arrangements: house Caregiver For: no one Functional Status: Independent Home Accessibility: stairs to enter home Transportation Available: family or friend will provide Able to return to prior living: yes Care Management Concerns Last discharge date: 06/16/19 Readmission Within Last 30 Days: previous discharge plan unsuccessful Is Readmission Diagnosis Related to or Same As: (Chest pain) Previous Discharging Facility: [facility] PCP: Edilberto Troy MD Contact Information Family Contact Information: Name: Xuan Gan (significant other) DC Needs Assessment Current Outpt/Agency/Support Groups: none Anticipated Changes Related to Illness: none Concerns to be Addressed: denies needs/concerns at this time Services Anticipated at Discharge: outpatient therapy Equipment Used at Home: none(pt has strong arm crutch from previous back surgery) Equipment Needed after Discharge: (TBD) Pharmacy/Medication Needs: ([facility] in [place]) Transportation Needs: family or friend will provide Initial Plan Anticipated Discharge Disposition: home with assist Expected DC Date: 06/21/19 Steps Taken Toward Discharge: Initial discharge planning assessment. Next Steps: CM to follow for discharge planning needs. Notes: Pt is from home with spouse, independent. Pt denies use of DME/O2 at home. Pt does u s a BiPAP. Pt transports himself as needed. Pt has thoracoscopy/decortication surgery tentatively scheduled for tomorrow. Electronically signed: Elin Albarado RN 06/18/2019 12:24 PM lan of Care - Leon Stearns MD - 06/18/2019 10:32 AM PDTFormatting of this note might be different from the o riginal. [facility] Service: Hospitalist Plan Of Care Note Pt: Robert Stiles AGE/SEX: 48 y.o. male ROOM: [address] [place] [address] : 1970 PCP: Edilberto Troy MD ADMIT DATE: 06/17/2019 TODAY'S DATE: 06/18/2019 48-year-old male with history significant for hypertension, hyperlipidemia, well controlled type 2 diabetes mellitus on metformin, morbid obesity, nocturnal hypoxemia and obstructive sleep apnea with BiPAP, former smoker, and recent hospitalization at [facility] for right lower l obe empyema with discharge date 06/16/2019 presents with shortness of breath, pleuritic chest pain, and fever. White cell count is getting better. Already discussed with wm dutton. Already discussed with Dr. Arce for decortication Vitals: Patient Vitals for the past 24 hrs: BP Temp Temp src Pulse Resp SpO2 Height Weight 06/18/19 0911 127/59 95 06/18/19 0714 120/69 37.1 C (98.8 F) Oral 106 20 96 % 06/18/19 0339 135/78 37.6 C (99.6 F) Oral 120 20 95 % 1.727 m (5' 8") (!) 141.2 kg (311 lb 3.2 oz) 06/18/19 0333 154/80 121 30 94 % 06/18/19 0230 141/81 06/18/19 0229 117 96 % 06/18/19 0131 118/65 120 20 95 % 06/18/19 0113 37.7 C (99.9 F) Oral 06/18/19 0100 122/90 118 95 % 06/18/19 0000 124/79 120 93 % 06/17/19 2330 117/63 (!) 38.1 C (100.6 F) Oral 123 18 94 % 1.727 m (5' 8") 06/17/19 2328 114/66 120 94 % 06/17/19 2200 125/65 126 14 94 % 06/17/19 2134 124/61 (!) 39.2 C (102.6 F) Oral 126 18 93 % (!) 139.6 kg (307 lb 12. 2 oz) I&O Detailed Table: Intake/Output Summary (Last 24 hours) at 06/18/2019 1033 Last data filed at 06/18/2019 0910 Gross per 24 hour Intake 3650 ml Output 3225 ml Net 425 ml Patient Vitals for the past 96 hrs: Weight 06/18/19 0339 (!) 141.2 kg (311 lb 3.2 oz) 06/17/19 2134 (!) 139.6 kg (307 lb 12.2 oz) Hemodynamics Last 24hrs: Leon Ch MD, FACP 06/18/2019 10:33 AM Dictation software, [employer], used which may contain error for similar sounding words even af ter review. Personal communication requested for any clarification. lan of Care - Wendy Peguero RN - 06/18/2019 6:41 AM PDT 06/18/2019 0432 by Wendy Peguero RN Outcome: Ongoing, progressing Note: Assessed patient's needs throughout shift, adjusted lights per patient preference, and clus tered care to decrease awakenings during shift. Problem: Pain (Acute Coronary Syndrome) Goal: Absence of Cardiac-Related Pain Outcome: Ongoing, progressing Note: Assessed cardiac rhythm throughout shift and presence of pain and treated accordingly. Pt AOx4. Tachy 95-120s . Afebrile. Voiding QS. NS running at 100 mL/hr. Meropenem administered per MAY. Holding metformin at this time due to recent contrast given for procedure. PICC placement verified by x-ray. Line is not flush ing at this time. Patient c/o pain on shift and Tylenol given. Home c-pap worn during sleep. Patient is resting at this time with no further needs on this shift. Will pass all future cares to day shift RN. Chart review complete. Wendy Peguero RN documented in this encounter Plan of Treatment Not on filedocumented as of this encounter Procedures + +--------+ + + + | Procedure Name | Priori | Date/Time | Associated Diagnosis | Comments | | | ty | | | | + +--------+ + + + | LABS - EXTERNAL SCAN | | 06/23/2019 | | Results for this | | | | 12:00 AM | | procedure are in the | | | | PDT | | results section. | + +--------+ + + + | POC GLUCOSE (NON | Routin | 06/22/2019 | | Results for this | | ORD) | e | 12:18 PM | | procedure are in the | | | | PDT | | results section. | + +--------+ + + + | POC GLUCOSE (NON | Routin | 06/22/2019 | | Results for this | | ORD) | e | 8:03 AM | | procedure are in the | | | | PDT | | results section. | + +--------+ + + + | XR CHEST PA AND | Routin | 06/22/2019 | | Results for this | | LATERAL | e | 7:00 AM | | procedure are in the | | | | PDT | | results section. | + +--------+ + + + | CBC WITH | STAT | 06/22/2019 | | Results for this | | DIFFERENTIAL | | 5:26 AM | | procedure are in the | | | | PDT | | results section. | + +--------+ + + + | MAGNESIUM | STAT | 06/22/2019 | | Results for this | | | | 5:26 AM | | procedure are in the | | | | PDT | | results section. | + +--------+ + + + | BASIC METABOLIC | STAT | 06/22/2019 | | Results for this | | PANEL | | 5:26 AM | | procedure are in the | | | | PDT | | results section. | + +--------+ + + + | POC GLUCOSE (NON | Routin | 06/21/2019 | | Results for this | | ORD) | e | 7:55 PM | | procedure are in the | | | | PDT | | results section. | + +--------+ + + + | POC GLUCOSE (NON | Routin | 06/21/2019 | | Results for this | | ORD) | e | 3:50 PM | | procedure are in the | | | | PDT | | results section. | + +--------+ + + + | POC GLUCOSE (NON | Routin | 06/21/2019 | | Results for this | | ORD) | e | 12:14 PM | | procedure are in the | | | | PDT | | results section. | + +--------+ + + + | POC GLUCOSE (NON | Routin | 06/21/2019 | | Results for this | | ORD) | e | 6:20 AM | | procedure are in the | | | | PDT | | results section. | + +--------+ + + + | XR CHEST AP PORTABLE | ANA M | 06/21/2019 | | Results for this | | | | 5:19 AM | | procedure are in the | | | | PDT | | results section. | + +--------+ + + + | CBC WITH | STAT | 06/21/2019 | | Results for this | | DIFFERENTIAL | | 4:12 AM | | procedure are in the | | | | PDT | | results section. | + +--------+ + + + | MAGNESIUM | STAT | 06/21/2019 | | Results for this | | | | 4:12 AM | | procedure are in the | | | | PDT | | results section. | + +--------+ + + + | BASIC METABOLIC | STAT | 06/21/2019 | | Results for this | | PANEL | | 4:12 AM | | procedure are in the | | | | PDT | | results section. | + +--------+ + + + | POC GLUCOSE (NON | Routin | 06/20/2019 | | Results for this | | ORD) | e | 8:52 PM | | procedure are in the | | | | PDT | | results section. | + +--------+ + + + | POC GLUCOSE (NON | Routin | 06/20/2019 | | Results for this | | ORD) | e | 4:38 PM | | procedure are in the | | | | PDT | | results section. | + +--------+ + + + | POC GLUCOSE (NON | Routin | 06/20/2019 | | Results for this | | ORD) | e | 12:03 PM | | procedure are in the | | | | PDT | | results section. | + +--------+ + + + | XR CHEST AP PORTABLE | ANA M | 06/20/2019 | | Results for this | | | | 7:09 AM | | procedure are in the | | | | PDT | | results section. | + +--------+ + + + | CBC WITH | Routin | 06/20/2019 | | Results for this | | DIFFERENTIAL | e | 4:21 AM | | procedure are in the | | | | PDT | | results section. | + +--------+ + + + | MAGNESIUM | Routin | 06/20/2019 | | Results for this | | | e | 4:21 AM | | procedure are in the | | | | PDT | | results section. | + +--------+ + + + | BASIC METABOLIC | Routin | 06/20/2019 | | Results for this | | PANEL | e | 4:21 AM | | procedure are in the | | | | PDT | | results section. | + +--------+ + + + | POC GLUCOSE (NON | Routin | 06/19/2019 | | Results for this | | ORD) | e | 11:31 PM | | procedure are in the | | | | PDT | | results section. | + +--------+ + + + | POC GLUCOSE (NON | Routin | 06/19/2019 | | Results for this | | ORD) | e | 7:59 PM | | procedure are in the | | | | PDT | | results section. | + +--------+ + + + | POC GLUCOSE (NON | Routin | 06/19/2019 | | Results for this | | ORD) | e | 7:22 PM | | procedure are in the | | | | PDT | | results section. | + +--------+ + + + | XR CHEST AP PORTABLE | Routin | 06/19/2019 | | Results for this | | | e | 4:52 PM | | procedure are in the | | | | PDT | | results section. | + +--------+ + + + | [place] BRNCHSC INCL | Routin | 06/19/2019 | | Results for this | | FLUOR GDNCE DX | e | 2:12 PM | | procedure are in the | | W/CELL WASHG SPX | | PDT | | results section. | + +--------+ + + + | XR ABDOMEN AP | ANA M | 06/19/2019 | | Results for this | | | | 1:52 PM | | procedure are in the | | | | PDT | | results section. | + +--------+ + + + | BRONCHOSCOPY | | 06/19/2019 | Empyema of right | | | FLEXIBLE | | 1:50 PM | pleural space (HCC) | | | | | PDT | | | + +--------+ + + + | HC BLOOD GASES ANY | Routin | 06/19/2019 | | Results for this | | COMBINATION | e | 12:45 PM | | procedure are in the | | | | PDT | | results section. | + +--------+ + + + | XR CHEST AP PORTABLE | STAT | 06/19/2019 | | Results for this | | | | 12:30 PM | | procedure are in the | | | | PDT | | results section. | + +--------+ + + + | CULTURE, VIRUS | Routin | 06/19/2019 | Empyema lung (HCC) | Results for this | | | e | 10:48 AM | | procedure are in the | | | | PDT | | results section. | + +--------+ + + + | CULTURE, FUNGUS | Routin | 06/19/2019 | Empyema lung (HCC) | Results for this | | | e | 10:48 AM | | procedure are in the | | | | PDT | | results section. | + +--------+ + + + | CULTURE, BODY FLUID | Routin | 06/19/2019 | Empyema lung (HCC) | Results for this | | STERILE | e | 10:29 AM | | procedure are in the | | | | PDT | | results section. | + +--------+ + + + | CULTURE, VIRUS | Routin | 06/19/2019 | Empyema lung ([facility]) | Results for this | | | e | 10:29 AM | | procedure are in the | | | | PDT | | results section. | + +--------+ + + + | CULTURE, FUNGUS | Routin | 06/19/2019 | Empyema lung ([facility]) | Results for this | | | e | 10:29 AM | | procedure are in the | | | | PDT | | results section. | + +--------+ + + + | THORACOTOMY-DECORTIC | | 06/19/2019 | Empyema lung ([facility]) | | | ATION | | 8:31 AM | | | | | | PDT | | | + +--------+ + + + | VIDEO ASSISTED | | 06/19/2019 | Empyema lung ([facility]) | | | THORACOSCOPY W/ | | 8:31 AM | | | | DECORTICATION | | PDT | | | + +--------+ + + + | TYPE AND SCREEN | STAT | 06/19/2019 | | Results for this | | | | 8:06 AM | | procedure are in the | | | | PDT | | results section. | + +--------+ + + + | POC GLUCOSE (NON | Routin | 06/19/2019 | | Results for this | | ORD) | e | 7:53 AM | | procedure are in the | | | | PDT | | results section. | + +--------+ + + + | CBC WITH | Routin | 06/19/2019 | | Results for this | | DIFFERENTIAL | e | 6:34 AM | | procedure are in the | | | | PDT | | results section. | + +--------+ + + + | HEMOGLOBIN A1C | Routin | 06/19/2019 | | Results for this | | | e | 6:34 AM | | procedure are in the | | | | PDT | | results section. | + +--------+ + + + | BASIC METABOLIC | Routin | 06/19/2019 | | Results for this | | PANEL | e | 6:34 AM | | procedure are in the | | | | PDT | | results section. | + +--------+ + + + | POC GLUCOSE (NON | Routin | 06/18/2019 | | Results for this | | ORD) | e | 9:47 PM | | procedure are in the | | | | PDT | | results section. | + +--------+ + + + | POC GLUCOSE (NON | Routin | 06/18/2019 | | Results for this | | ORD) | e | 4:38 PM | | procedure are in the | | | | PDT | | results section. | + +--------+ + + + | MRSA NAAT | Routin | 06/18/2019 | | Results for this | | | e | 12:58 PM | | procedure are in the | | | | PDT | | results section. | + +--------+ + + + | POC GLUCOSE (NON | Routin | 06/18/2019 | | Results for this | | ORD) | e | 11:44 AM | | procedure are in the | | | | PDT | | results section. | + +--------+ + + + | HIV P24 ANTIGEN | Add-On | 06/18/2019 | | Results for this | | | | 10:31 AM | | procedure are in the | | | | PDT | | results section. | + +--------+ + + + | HIV 1 AND 2 AB, | Add-On | 06/18/2019 | | Results for this | | REFLEX | | 10:31 AM | | procedure are in the | | | | PDT | | results section. | + +--------+ + + + | STREPTOCOCCUS | Routin | 06/18/2019 | | Results for this | | PNEUMONIAE, AG, EIA | e | 10:05 AM | | procedure are in the | | | | PDT | | results section. | + +--------+ + + + | POC GLUCOSE (NON | Routin | 06/18/2019 | | Results for this | | ORD) | e | 9:17 AM | | procedure are in the | | | | PDT | | results section. | + +--------+ + + + | PROCALCITONIN, SERUM | Routin | 06/18/2019 | | Results for this | | | e | 5:54 AM | | procedure are in the | | | | PDT | | results section. | + +--------+ + + + | CBC WITH | Routin | 06/18/2019 | | Results for this | | DIFFERENTIAL | e | 5:54 AM | | procedure are in the | | | | PDT | | results section. | + +--------+ + + + | MAGNESIUM | Routin | 06/18/2019 | | Results for this | | | e | 5:54 AM | | procedure are in the | | | | PDT | | results section. | + +--------+ + + + | BASIC METABOLIC | Routin | 06/18/2019 | | Results for this | | PANEL | e | 5:54 AM | | procedure are in the | | | | PDT | | results section. | + +--------+ + + + | XR CHEST AP PORTABLE | STAT | 06/18/2019 | | Results for this | | | | 4:29 AM | | procedure are in the | | | | PDT | | results section. | + +--------+ + + + | RESPIRATORY VIRUS | Routin | 06/18/2019 | | Results for this | | ANTIGENS PROFILE | e | 3:51 AM | | procedure are in the | | | | PDT | | results section. | + +--------+ + + + | CT CHEST W CONTRAST | STAT | 06/17/2019 | | Results for this | | | | 11:22 PM | | procedure are in the | | | | PDT | | results section. | + +--------+ + + + | CULTURE, BLOOD | STAT | 06/17/2019 | | Results for this | | | | 10:56 PM | | procedure are in the | | | | PDT | | results section. | + +--------+ + + + | LACTIC ACID | STAT | 06/17/2019 | | Results for this | | | | 10:33 PM | | procedure are in the | | | | PDT | | results section. | + +--------+ + + + | TROPONIN I | STAT | 06/17/2019 | | Results for this | | | | 10:31 PM | | procedure are in the | | | | PDT | | results section. | + +--------+ + + + | CBC WITH | STAT | 06/17/2019 | | Results for this | | DIFFERENTIAL | | 10:31 PM | | procedure are in the | | | | PDT | | results section. | + +--------+ + + + | COMPREHENSIVE | STAT | 06/17/2019 | | Results for this | | METABOLIC PANEL | | 10:31 PM | | procedure are in the | | | | PDT | | results section. | + +--------+ + + + | CULTURE, BLOOD | STAT | 06/17/2019 | | Results for this | | | | 10:30 PM | | procedure are in the | | | | PDT | | results section. | + +--------+ + + + | ECG 12 LEAD | STAT | 06/17/2019 | | Results for this | | | | 10:27 PM | | procedure are in the | [...] | | | | Signed by: Isiah Branham Richard | | Sign Date/Time: 07/05/2019 9:10 AM | + + + +---------+ + + | Performing | Address | City/State/Zipcode | Phone Number | | Organization | | | | + +---------+ + + | [facility] | | | | + +---------+ + + LABS - EXTERNAL SCAN (06/23/2019 12:00 AM PDT) + + + | Narrative | Performed At | + + + | Ordered by an | | | unspecified provider. | | + + + POC Glucose (06/22/2019 12:18 PM PDT) + + + + + + | Component | Value | Ref Range | Performed | Pathologist | | | | | At | Signature | + + + + + + | Glucose, | 170 (H)Comment: Testing | 65 - 99 mg/dL | [facility] | | | POC | performed at [facility];[address] | | LABORATORY | | | | [address];[place], [place] | | | | | | [address] | | | | + + + + + + + + | Specimen | + + | | + + + + + + + | Performing | Address | City/State/Zipcode | Phone Number | | Organization | | | | + + + + + | [facility] | [address] | [place] [address] | [phone] | + + + + + POC Glucose (06/22/2019 8:03 AM PDT) + + + + + + | Component | Value | Ref Range | Performed | Pathologist | | | | | At | Signature | + + + + + + | Glucose, | 130 (H)Comment: Testing | 65 - 99 mg/dL | [facility] | | | POC | performed at [facility];[address] | | LABORATORY | | | | [address];[place] | | | | | | [address] | | | | + + + + + + + + | Specimen | + + | | + + + + + + + | Performing | Address | City/State/Zipcode | Phone Number | | Organization | | | | + + + + + | [facility] | [address] | [place] [address] | [phone] | + + + + + XR Chest PA and Lateral (06/22/2019 7:00 AM PDT) + + | Specimen | + + | | + + + + + | Narrative | Performed At | + + + | CHEST PA AND LATERAL CLINICAL INFORMATION: Post chest tube | [facility] | | removal. COMPARISON: XR CHEST AP PORTABLE (06/21/2019); XR CHEST | | | AP PORTABLE (06/20/2019); XR CHEST AP PORTABLE (06/19/2019); | | | FINDINGS/IMPRESSION: 1. Right basilar chest tube no longer visible in | | | appears to been removed. 2. Mild improvement of bilateral lower | | | lobe atelectasis seen on the prior examination. Modest right | | | pleural effusion and loculated fluid in the minor fissure persist. | | | 3. Cardiomediastinal contours are stable. 4. No pneumothorax. | | | Signed by: Isiah Morel James Sign Date/Time: 06/22/2019 | | | 7:08 AM | | + + + + + | Procedure Note | + + | Gabriele, Rad Results In - 06/22/2019 7:12 AM PDT | | CHEST PA AND LATERAL | | | | CLINICAL INFORMATION: | | Post chest tube removal. | | | | COMPARISON: | | XR CHEST AP PORTABLE (06/21/2019); XR CHEST AP PORTABLE (06/20/2019); XR | | CHEST AP PORTABLE (06/19/2019); | | | | FINDINGS/IMPRESSION: | | 1. Right basilar chest tube no longer visible in appears to been | | removed. | | 2. Mild improvement of bilateral lower lobe atelectasis seen on the | | prior examination. Modest right pleural effusion and loculated fluid | | in the minor fissure persist. | | 3. Cardiomediastinal contours are stable. | | 4. No pneumothorax. | | | | | | | | | | | | Signed by: Isiah Morel James | | Sign Date/Time: 06/22/2019 7:08 AM | + + + +---------+ + + | Performing | Address | City/State/Zipcode | Phone Number | | Organization | | | | + +---------+ + + | [facility] | | | | + +---------+ + + Magnesium (06/22/2019 5:26 AM PDT) + + + + + + | Component | Value | Ref Range | Performed | Pathologist | | | | | At | Signature | + + + + + + | Magnesium | 1.9Comment: Testing | 1.7 - 2.4 mg/dL | [facility] | | | | performed at [facility];[address] | | LABORATORY | | | | [address];[place], [place] | | | | | | [address] | | | | + + + + + + + + | Specimen | + + | Blood | + + + + + + + | Performing | Address | City/State/Zipcode | Phone Number | | Organization | | | | + + + + + | [facility] | [address] | [place] [address] | [phone] | + + + + + CBC with Differential (06/22/2019 5:26 AM PDT) + + + + + + | Component | Value | Ref Range | Performed | Pathologist | | | | | At | Signature | + + + + + + | WBC | 14.77 (H) | 3.80 - 11.00 | [facility] | | | | | K/uL | LABORATORY | | + + + + + + | Red Blood | 4.33 | 4.20 - 5.70 | [facility] | | | Cells | | M/uL | LABORATORY | | + + + + + + | Hemoglobin | 12.1 (L) | 13.2 - 17.0 | [facility] | | | | | g/dL | LABORATORY | | + + + + + + | Hematocrit | 38.6 (L) | 39.0 - 50.0 % | [facility] | | | | | | LABORATORY | | + + + + + + | MCV | 89.1 | 80.0 - 100.0 fl | [facility] | | | | | | LABORATORY | | + + + + + + | MCH | 27.9 | 27.0 - 34.0 pg | [facility] | | | | | | LABORATORY | | + + + + + + | MCHC | 31.3 (L) | 32.0 - 35.5 | [facility] | | | | | g/dL | LABORATORY | | + + + + + + | RDW-SD | 44.7 | 37 - 53 fl | [facility] | | | | | | LABORATORY | | + + + + + + | Platelet | 441 (H) | 150 - 400 K/uL | [facility] | | | Count | | | LABORATORY | | + + + + + + | MPV | 11.0Comment: NO NORMAL | fl | [facility] | | | | RANGE ESTABLISHED | | LABORATORY | | + + + + + + | Diff Type | AUTOMATED | | [facility] | | | | | | LABORATORY | | + + + + + + | % nRBC | 0.0 | 0 /100WBC | [facility] | | | | | | LABORATORY | | + + + + + + | % | 69.20 | % | [facility] | | | Neutrophils | | | LABORATORY | | + + + + + + | IMMATURE | 0.70 | % | [facility] | | | GRANULOCYTE | | | LABORATORY | | + + + + + + | % | 15.70 | % | [facility] | | | Lymphocytes | | | LABORATORY | | + + + + + + | Monocyte % | 7.80 | % | [facility] | | | | | | LABORATORY | | + + + + + + | Eosinophils | 5.90 | % | [facility] | | | % | | | LABORATORY | | + + + + + + | Basophils % | 0.70 | % | [facility] | | | | | | LABORATORY | | + + + + + + | Neutrophils | 10.22 (H) | 1.90 - 7.40 | [facility] | | | , Absolute | | K/uL | LABORATORY | | + + + + + + | IMMATURE | 0.11 (H)Comment: NOTE | 0.00 - 0.07 | [facility] | | | GRANS AB | NEW REFERENCE RANGE | K/uL | LABORATORY | | + + + + + + | Absolute | 2.32 | 1.00 - 3.90 | [facility] | | | Lymphocytes | | K/uL | LABORATORY | | + + + + + + | Absolute | 1.15 (H) | 0.00 - 0.80 | [facility] | | | Monocytes | | K/uL | LABORATORY | | + + + + + + | Eosinophils | 0.87 (H) | 0.00 - 0.50 | [facility] | | | , Absolute | | K/uL | LABORATORY | | + + + + + + | Basophils, | 0.10Comment: Testing | 0.00 - 0.10 | [facility] | | | Absolute | performed at [facility];[address] | K/uL | LABORATORY | | | | [address];[place] | | | | | | [address] | | | | + + + + + + + + | Specimen | + + | Blood | + + + + + + + | Performing | Address | City/State/Zipcode | Phone Number | | Organization | | | | + + + + + | [facility] | [address] | [place] [address] | [phone] | + + + + + Basic Metabolic Panel (06/22/2019 5:26 AM PDT) + + + + + + | Component | Value | Ref Range | Performed | Pathologist | | | | | At | Signature | + + + + + + | Na | 141 | 135 - 145 | [facility] | | | | | mmol/L | LABORATORY | | + + + + + + | K | 3.7 | 3.5 - 4.9 | [facility] | | | | | mmol/L | LABORATORY | | + + + + + + | Cl | 104 | 99 - 109 mmol/L | [facility] | | | | | | LABORATORY | | + + + + + + | CO2 | 30 | 23 - 32 mmol/L | [facility] | | | | | | LABORATORY | | + + + + + + | Anion Gap | 11 | 5 - 20 mmol/L | [facility] | | | | | | LABORATORY | | + + + + + + | Glucose | 102 (H) | 65 - 99 mg/dL | [facility] | | | | | | LABORATORY | | + + + + + + | BUN | 12 | 8 - 25 mg/dL | [facility] | | | | | | LABORATORY | | + + + + + + | Creatinine | 0.73 | 0.70 - 1.30 | [facility] | | | | | mg/dL | LABORATORY | | + + + + + + | BUN/Creatin | 16 | | [facility] | | | ine Ratio | | | LABORATORY | | + + + + + + | Calcium | 8.8 | 8.5 - 10.5 | [facility] | | | | | mg/dL | LABORATORY | | + + + + + + | Estimated | >60Comment: GFR <60: | >60 | [facility] | | | GFR | CHRONIC KIDNEY DISEASE, | mL/min/1.73m2 | LABORATORY | | | | IF FOUND OVER A 3 MONTH | | | | | | PERIOD.GFR <15: KIDNEY | | | | | | FAILURE.FOR | | | | | | AMERICANS, MULTIPLY THE | | | | | | CALCULATED GFR BY | | | | | | 1.210.This eGFR is | | | | | | calculated using the | | | | | | MDRD IDMS traceable | | | | | | equation.Testing | | | | | | performed at [facility];[address] | | | | | | [facility];[place], [place] | | | | | | [address] | | | | + + + + + + + + | Specimen | + + | Blood | + + + + + + + | Performing | Address | City/State/Zipcode | Phone Number | | Organization | | | | + + + + + | [facility] | [address] | [place] [address] | [phone] | + + + + + POC Glucose (06/21/2019 7:55 PM PDT) + + + + + + | Component | Value | Ref Range | Performed | Pathologist | | | | | At | Signature | + + + + + + | Glucose, | 113 (H)Comment: Testing | 65 - 99 mg/dL | [facility] | | | POC | performed at [facility];[address] | | LABORATORY | | | | [address];[place] | | | | | | [address] | | | | + + + + + + + + | Specimen | + + | | + + + + + + + | Performing | Address | City/State/Zipcode | Phone Number | | Organization | | | | + + + + + | [facility] | [address] | [place] [address] | [phone] | + + + + + POC Glucose (06/21/2019 3:50 PM PDT) + + + + + + | Component | Value | Ref Range | Performed | Pathologist | | | | | At | Signature | + + + + + + | Glucose, | 108 (H)Comment: Testing | 65 - 99 mg/dL | [facility] | | | POC | performed at [facility];[address] | | LABORATORY | | | | [address];[place], [place] | | | | | | [address] | | | | + + + + + + + + | Specimen | + + | | + + + + + + + | Performing | Address | City/State/Zipcode | Phone Number | | Organization | | | | + + + + + | [facility] | [address] | [place] [address] | [phone] | + + + + + POC Glucose (06/21/2019 12:14 PM PDT) + + + + + + | Component | Value | Ref Range | Performed | Pathologist | | | | | At | Signature | + + + + + + | Glucose, | 129 (H)Comment: Testing | 65 - 99 mg/dL | [facility] | | | POC | performed at [facility];[address] | | LABORATORY | | | | [address];[place], [place] | | | | | | [address] | | | | + + + + + + + + | Specimen | + + | | + + + + + + + | Performing | Address | City/State/Zipcode | Phone Number | | Organization | | | | + + + + + | [facility] | [address] | [place] [address] | [phone] | + + + + + POC Glucose (06/21/2019 6:20 AM PDT) + + + + + + | Component | Value | Ref Range | Performed | Pathologist | | | | | At | Signature | + + + + + + | Glucose, | 146 (H)Comment: Testing | 65 - 99 mg/dL | [facility] | | | POC | performed at [facility];[address] | | LABORATORY | | | | [address];[place], [place] | | | | | | [address] | | | | + + + + + + + + | Specimen | + + | | + + + + + + + | Performing | Address | City/State/Zipcode | Phone Number | | Organization | | | | + + + + + | [facility] | [address] | [place] [address] | [phone] | + + + + + XR Chest AP Portable (06/21/2019 5:19 AM PDT) + + | Specimen | + + | | + + + + + | Narrative | Performed At | + + + | CHEST PORTABLE ONE VIEW CLINICAL INFORMATION: Post | [facility] | | thoracotomy. COMPARISON: XR CHEST AP PORTABLE (06/20/2019); XR | | | CHEST AP PORTABLE (06/19/2019); XR CHEST AP PORTABLE (06/19/2019); CT | | | CHEST W CONTRAST (06/17/2019); FINDINGS/IMPRESSION: 1. Right | | | basilar chest tube and right PICC line are stable. Endotracheal tube | | | and enteric tube have been removed. 2. Pleuroparenchymal opacities | | | along the peripheral and basilar right lower lung appears similar. | | | Slight increase in opacification in the mid lung may reflect | | | worsening consolidation or increasing loculated pleural fluid within | | | the fissure. 3. Cardiomediastinal contours are stable. 4. No | | | pneumothorax. Signed by: Isiah Morel, Robert Sign | | | Date/Time: 06/21/2019 5:28 AM | | + + + + + | Procedure Note | + + | Gabriele, Rad Results In - 06/21/2019 5:32 AM PDT | | CHEST PORTABLE ONE VIEW | | | | CLINICAL INFORMATION: | | Post thoracotomy. | | | | COMPARISON: | | XR CHEST AP PORTABLE (06/20/2019); XR CHEST AP PORTABLE (06/19/2019); XR | | CHEST AP PORTABLE (06/19/2019); CT CHEST W CONTRAST (06/17/2019); | | | | FINDINGS/IMPRESSION: | | 1. Right basilar chest tube and right PICC line are stable. | | Endotracheal tube and enteric tube have been removed. | | 2. Pleuroparenchymal opacities along the peripheral and basilar right | | lower lung appears similar. Slight increase in opacification in the | | mid lung may reflect worsening consolidation or increasing loculated | | pleural fluid within the fissure. | | 3. Cardiomediastinal contours are stable. | | 4. No pneumothorax. | | | | | | | | | | | | Signed by: Isiah Morel James | | Sign Date/Time: 06/21/2019 5:28 AM | + + + +---------+ + + | Performing | Address | City/State/Zipcode | Phone Number | | Organization | | | | + +---------+ + + | [facility] | | | | + +---------+ + + Magnesium (06/21/2019 4:12 AM PDT) + + + + + + | Component | Value | Ref Range | Performed | Pathologist | | | | | At | Signature | + + + + + + | Magnesium | 2.0Comment: Testing | 1.7 - 2.4 mg/dL | [facility] | | | | performed at [facility];[employer] | | LABORATORY | | | | [address];[place] | | | | | | [address] | | | | + + + + + + + + | Specimen | + + | Blood | + + + + + + + | Performing | Address | City/State/Zipcode | Phone Number | | Organization | | | | + + + + + | [facility] | [address] | [place] [address] | [phone] | + + + + + CBC with Differential (06/21/2019 4:12 AM PDT) + + + + + + | Component | Value | Ref Range | Performed | Pathologist | | | | | At | Signature | + + + + + + | WBC | 14.24 (H) | 3.80 - 11.00 | [facility] | | | | | K/uL | LABORATORY | | + + + + + + | Red Blood | 4.21 | 4.20 - 5.70 | [facility] | | | Cells | | M/uL | LABORATORY | | + + + + + + | Hemoglobin | 11.8 (L) | 13.2 - 17.0 | [facility] | | | | | g/dL | LABORATORY | | + + + + + + | Hematocrit | 37.2 (L) | 39.0 - 50.0 % | [facility] | | | | | | LABORATORY | | + + + + + + | MCV | 88.4 | 80.0 - 100.0 fl | [facility] | | | | | | LABORATORY | | + + + + + + | MCH | 28.0 | 27.0 - 34.0 pg | [facility] | | | | | | LABORATORY | | + + + + + + | MCHC | 31.7 (L) | 32.0 - 35.5 | [facility] | | | | | g/dL | LABORATORY | | + + + + + + | RDW-SD | 44.5 | 37 - 53 fl | [facility] | | | | | | LABORATORY | | + + + + + + | Platelet | 416 (H) | 150 - 400 K/uL | [facility] | | | Count | | | LABORATORY | | + + + + + + | MPV | 11.0Comment: NO NORMAL | fl | [facility] | | | | RANGE ESTABLISHED | | LABORATORY | | + + + + + + | Diff Type | AUTOMATED | | [facility] | | | | | | LABORATORY | | + + + + + + | % nRBC | 0.0 | 0 /100WBC | [facility] | | | | | | LABORATORY | | + + + + + + | % | 68.80 | % | [facility] | | | Neutrophils | | | LABORATORY | | + + + + + + | IMMATURE | 0.50 | % | [facility] | | | GRANULOCYTE | | | LABORATORY | | + + + + + + | % | 16.60 | % | [facility] | | | Lymphocytes | | | LABORATORY | | + + + + + + | Monocyte % | 8.20 | % | [facility] | | | | | | LABORATORY | | + + + + + + | Eosinophils | 5.30 | % | [facility] | | | % | | | LABORATORY | | + + + + + + | Basophils % | 0.60 | % | [facility] | | | | | | LABORATORY | | + + + + + + | Neutrophils | 9.80 (H) | 1.90 - 7.40 | [facility] | | | , Absolute | | K/uL | LABORATORY | | + + + + + + | IMMATURE | 0.07Comment: NOTE NEW | 0.00 - 0.07 | [facility] | | | GRANS AB | REFERENCE RANGE | K/uL | LABORATORY | | + + + + + + | Absolute | 2.36 | 1.00 - 3.90 | [facility] | | | Lymphocytes | | K/uL | LABORATORY | | + + + + + + | Absolute | 1.17 (H) | 0.00 - 0.80 | [facility] | | | Monocytes | | K/uL | LABORATORY | | + + + + + + | Eosinophils | 0.75 (H) | 0.00 - 0.50 | [facility] | | | , Absolute | | K/uL | LABORATORY | | + + + + + + | Basophils, | 0.09Comment: Testing | 0.00 - 0.10 | [facility] | | | Absolute | performed at [facility];[address] | K/uL | LABORATORY | | | | [address];[place] | | | | | | [address] | | | | + + + + + + + + | Specimen | + + | Blood | + + + + + + + | Performing | Address | City/State/Zipcode | Phone Number | | Organization | | | | + + + + + | [facility] | [address] | [place] [address] | [phone] | + + + + + Basic Metabolic Panel (06/21/2019 4:12 AM PDT) + + + + + + | Component | Value | Ref Range | Performed | Pathologist | | | | | At | Signature | + + + + + + | Na | 141 | 135 - 145 | [facility] | | | | | mmol/L | LABORATORY | | + + + + + + | K | 3.6 | 3.5 - 4.9 | [facility] | | | | | mmol/L | LABORATORY | | + + + + + + | Cl | 105 | 99 - 109 mmol/L | [facility] | | | | | | LABORATORY | | + + + + + + | CO2 | 28 | 23 - 32 mmol/L | [facility] | | | | | | LABORATORY | | + + + + + + | Anion Gap | 12 | 5 - 20 mmol/L | [facility] | | | | | | LABORATORY | | + + + + + + | Glucose | 107 (H) | 65 - 99 mg/dL | [facility] | | | | | | LABORATORY | | + + + + + + | BUN | 12 | 8 - 25 mg/dL | [facility] | | | | | | LABORATORY | | + + + + + + | Creatinine | 0.74 | 0.70 - 1.30 | [facility] | | | | | mg/dL | LABORATORY | | + + + + + + | BUN/Creatin | 16 | | [facility] | | | ine Ratio | | | LABORATORY | | + + + + + + | Calcium | 8.7 | 8.5 - 10.5 | [facility] | | | | | mg/dL | LABORATORY | | + + + + + + | Estimated | >60Comment: GFR <60: | >60 | [facility] | | | GFR | CHRONIC KIDNEY DISEASE, | mL/min/1.73m2 | LABORATORY | | | | IF FOUND OVER A 3 MONTH | | | | | | PERIOD.GFR <15: KIDNEY | | | | | | FAILURE.FOR | | | | | | AMERICANS, MULTIPLY THE | | | | | | CALCULATED GFR BY | | | | | | 1.210.This eGFR is | | | | | | calculated using the | | | | | | MDRD IDNJ traceable | | | | | | equation.Testing | | | | | | performed at [facility];[address] | | | | | | [facility];[place], [place] | | | | | | [address] | | | | + + + + + + + + | Specimen | + + | Blood | + + + + + + + | Performing | Address | City/State/Zipcode | Phone Number | | Organization | | | | + + + + + | [facility] | [address] | [place] [address] | [phone] | + + + + + POC Glucose (06/20/2019 8:52 PM PDT) + + + + + + | Component | Value | Ref Range | Performed | Pathologist | | | | | At | Signature | + + + + + + | Glucose, | 132 (H)Comment: Testing | 65 - 99 mg/dL | [facility] | | | POC | performed at [facility];[address] | | LABORATORY | | | | [address];[place] | | | | | | [address] | | | | + + + + + + + + | Specimen | + + | | + + + + + + + | Performing | Address | City/State/Zipcode | Phone Number | | Organization | | | | + + + + + | [facility] | [address] | [place] [address] | [phone] | + + + + + POC Glucose (06/20/2019 4:38 PM PDT) + + + + + + | Component | Value | Ref Range | Performed | Pathologist | | | | | At | Signature | + + + + + + | Glucose, | 114 (H)Comment: Testing | 65 - 99 mg/dL | [facility] | | | POC | performed at [facility];[address] | | LABORATORY | | | | [address];[place] | | | | | | [address] | | | | + + + + + + + + | Specimen | + + | | + + + + + + + | Performing | Address | City/State/Zipcode | Phone Number | | Organization | | | | + + + + + | [facility] | [address] | [place] [address] | [phone] | + + + + + POC Glucose (06/20/2019 12:03 PM PDT) + + + + + + | Component | Value | Ref Range | Performed | Pathologist | | | | | At | Signature | + + + + + + | Glucose, | 140 (H)Comment: Testing | 65 - 99 mg/dL | [facility] | | | POC | performed at [facility];[address] | | LABORATORY | | | | [address];[place], [place] | | | | | | [address] | | | | + + + + + + + + | Specimen | + + | | + + + + + + + | Performing | Address | City/State/Zipcode | Phone Number | | Organization | | | | + + + + + | [facility] | [address] | [place] [address] | [phone] | + + + + + XR Chest AP Portable (06/20/2019 7:09 AM PDT) + + | Specimen | + + | | + + + + + | Narrative | Performed At | + + + | CHEST PORTABLE ONE VIEW CLINICAL INFORMATION: Status post | [facility] | | Thoracotomy. COMPARISON: XR CHEST AP PORTABLE (06/19/2019); XR | | | CHEST AP PORTABLE (06/19/2019); XR CHEST AP PORTABLE (06/18/2019); CT | | | CHEST W CONTRAST (06/18/2019); FINDINGS/IMPRESSION: 1. ET tube | | | projects at the superior manubrial level well above the whitley. NG | | | tube distal tip is difficult to visualize. Right arm PICC line is | | | stable. Right inferior chest tube is stable. 2. Persistent density | | | in the right perihilar region which could represent airspace | | | consolidation or fluid within the fissure. Slight increased | | | parenchymal density inferolateral right lung base likely represents | | | atelectasis per right inferolateral pleural fluid and/or pleural | | | thickening has progressed slightly. No pneumothorax. Mild | | | asymmetric interstitial prominence right lung as compared to left. | | | Interstitium and vasculature are normal left lung. Left lung is | | | clear. 3. Cardiomediastinal contours are stable. 4. No pneumothorax. | | | Signed by: Isiah Johnson, Ge Sign Date/Time: | | | 06/20/2019 7:22 AM | | + + + + + | Procedure Note | + + | Gabriele, Rad Results In - 06/20/2019 7:26 AM PDT | | CHEST PORTABLE ONE VIEW | | | | CLINICAL INFORMATION: | | Status post Thoracotomy. | | | | COMPARISON: | | XR CHEST AP PORTABLE (06/19/2019); XR CHEST AP PORTABLE (06/19/2019); XR | | CHEST AP PORTABLE (06/18/2019); CT CHEST W CONTRAST (06/18/2019); | | | | FINDINGS/IMPRESSION: | | 1. ET tube projects at the superior manubrial level well above the | | whitley. NG tube distal tip is difficult to visualize. Right arm PICC | | line is stable. Right inferior chest tube is stable. | | 2. Persistent density in the right perihilar region which could | | represent airspace consolidation or fluid within the fissure. Slight | | increased parenchymal density inferolateral right lung base likely | | represents atelectasis per right inferolateral pleural fluid and/or | | pleural thickening has progressed slightly. No pneumothorax. Mild | | asymmetric interstitial prominence right lung as compared to left. | | Interstitium and vasculature are normal left lung. Left lung is clear. | | 3. Cardiomediastinal contours are stable. | | 4. No pneumothorax. | | | | | | | | | | | | Signed by: Isiah Johnson, Ge | | Sign Date/Time: 06/20/2019 7:22 AM | + + + +---------+ + + | Performing | Address | City/State/Zipcode | Phone Number | | Organization | | | | + +---------+ + + | [facility] | | | | + +---------+ + + Magnesium (06/20/2019 4:21 AM PDT) + + + + + + | Component | Value | Ref Range | Performed | Pathologist | | | | | At | Signature | + + + + + + | Magnesium | 2.0Comment: Testing | 1.7 - 2.4 mg/dL | [facility] | | | | performed at [facility];[address] | | LABORATORY | | | | [facility];[place], [place] | | | | | | [address] | | | | + + + + + + + + | Specimen | + + | | + + + + + + + | Performing | Address | City/State/Zipcode | Phone Number | | Organization | | | | + + + + + | [facility] | [address] | [place] [address] | [phone] | + + + + + CBC with Differential (06/20/2019 4:21 AM PDT) + + + + + + | Component | Value | Ref Range | Performed | Pathologist | | | | | At | Signature | + + + + + + | WBC | 13.77 (H) | 3.80 - 11.00 | [facility] | | | | | K/uL | LABORATORY | | + + + + + + | Red Blood | 4.19 (L) | 4.20 - 5.70 | [facility] | | | Cells | | M/uL | LABORATORY | | + + + + + + | Hemoglobin | 11.6 (L) | 13.2 - 17.0 | [facility] | | | | | g/dL | LABORATORY | | + + + + + + | Hematocrit | 37.2 (L) | 39.0 - 50.0 % | [facility] | | | | | | LABORATORY | | + + + + + + | MCV | 88.8 | 80.0 - 100.0 fl | [facility] | | | | | | LABORATORY | | + + + + + + | MCH | 27.7 | 27.0 - 34.0 pg | [facility] | | | | | | LABORATORY | | + + + + + + | MCHC | 31.2 (L) | 32.0 - 35.5 | [facility] | | | | | g/dL | LABORATORY | | + + + + + + | RDW-SD | 45.2 | 37 - 53 fl | [facility] | | | | | | LABORATORY | | + + + + + + | Platelet | 430 (H) | 150 - 400 K/uL | [facility] | | | Count | | | LABORATORY | | + + + + + + | MPV | 11.2Comment: NO NORMAL | fl | [facility] | | | | RANGE ESTABLISHED | | LABORATORY | | + + + + + + | Diff Type | AUTOMATED | | [facility] | | | | | | LABORATORY | | + + + + + + | % nRBC | 0.0 | 0 /100WBC | [facility] | | | | | | LABORATORY | | + + + + + + | % | 78.20 | % | [facility] | | | Neutrophils | | | LABORATORY | | + + + + + + | IMMATURE | 0.50 | % | [facility] | | | GRANULOCYTE | | | LABORATORY | | + + + + + + | % | 12.30 | % | [facility] | | | Lymphocytes | | | LABORATORY | | + + + + + + | Monocyte % | 7.70 | % | [facility] | | | | | | LABORATORY | | + + + + + + | Eosinophils | 0.90 | % | [facility] | | | % | | | LABORATORY | | + + + + + + | Basophils % | 0.40 | % | [facility] | | | | | | LABORATORY | | + + + + + + | Neutrophils | 10.77 (H) | 1.90 - 7.40 | [facility] | | | , Absolute | | K/uL | LABORATORY | | + + + + + + | IMMATURE | 0.07Comment: NOTE NEW | 0.00 - 0.07 | [facility] | | | GRANS AB | REFERENCE RANGE | K/uL | LABORATORY | | + + + + + + | Absolute | 1.69 | 1.00 - 3.90 | [facility] | | | Lymphocytes | | K/uL | LABORATORY | | + + + + + + | Absolute | 1.06 (H) | 0.00 - 0.80 | [facility] | | | Monocytes | | K/uL | LABORATORY | | + + + + + + | Eosinophils | 0.12 | 0.00 - 0.50 | [facility] | | | , Absolute | | K/uL | LABORATORY | | + + + + + + | Basophils, | 0.06Comment: Testing | 0.00 - 0.10 | [facility] | | | Absolute | performed at [facility];[address] | K/uL | LABORATORY | | | | [address];[place] | | | | | | [address] | | | | + + + + + + + + | Specimen | + + | | + + + + + + + | Performing | Address | City/State/Zipcode | Phone Number | | Organization | | | | + + + + + | [facility] | [address] | [place] [address] | [phone] | + + + + + Basic Metabolic Panel (06/20/2019 4:21 AM PDT) + + + + + + | Component | Value | Ref Range | Performed | Pathologist | | | | | At | Signature | + + + + + + | Na | 144 | 135 - 145 | [facility] | | | | | mmol/L | LABORATORY | | + + + + + + | K | 4.1 | 3.5 - 4.9 | [facility] | | | | | mmol/L | LABORATORY | | + + + + + + | Cl | 108 | 99 - 109 mmol/L | [facility] | | | | | | LABORATORY | | + + + + + + | CO2 | 26 | 23 - 32 mmol/L | [facility] | | | | | | LABORATORY | | + + + + + + | Anion Gap | 14 | 5 - 20 mmol/L | [facility] | | | | | | LABORATORY | | + + + + + + | Glucose | 118 (H) | 65 - 99 mg/dL | [facility] | | | | | | LABORATORY | | + + + + + + | BUN | 19 | 8 - 25 mg/dL | [facility] | | | | | | LABORATORY | | + + + + + + | Creatinine | 0.84 | 0.70 - 1.30 | [facility] | | | | | mg/dL | LABORATORY | | + + + + + + | BUN/Creatin | 23 | | [facility] | | | ine Ratio | | | LABORATORY | | + + + + + + | Calcium | 8.5 | 8.5 - 10.5 | [facility] | | | | | mg/dL | LABORATORY | | + + + + + + | Estimated | >60Comment: GFR <60: | >60 | [facility] | | | GFR | CHRONIC KIDNEY DISEASE, | mL/min/1.73m2 | LABORATORY | | | | IF FOUND OVER A 3 MONTH | | | | | | PERIOD.GFR <15: KIDNEY | | | | | | FAILURE.FOR | | | | | | AMERICANS, MULTIPLY THE | | | | | | CALCULATED GFR BY | | | | | | 1.210.This eGFR is | | | | | | calculated using the | | | | | | MDRD IDMS traceable | | | | | | equation.Testing | | | | | | performed at [facility];[address] | | | | | | [address];[place] | | | | | | [address] | | | | + + + + + + + + | Specimen | + + | | + + + + + + + | Performing | Address | City/State/Zipcode | Phone Number | | Organization | | | | + + + + + | [facility] | [address] [facility] | [place] [address] | [phone] | + + + + + POC Glucose (06/19/2019 11:31 PM PDT) + + + + + + | Component | Value | Ref Range | Performed | Pathologist | | | | | At | Signature | + + + + + + | Glucose, | 114 (H)Comment: Testing | 65 - 99 mg/dL | [facility] | | | POC | performed at [facility];[address] | | LABORATORY | | | | [address];[place] | | | | | | [address] | | | | + + + + + + + + | Specimen | + + | | + + + + + + + | Performing | Address | City/State/Zipcode | Phone Number | | Organization | | | | + + + + + | [facility] | [address] | [place] [address] | [phone] | + + + + + POC Glucose (06/19/2019 7:59 PM PDT) + + + + + + | Component | Value | Ref Range | Performed | Pathologist | | | | | At | Signature | + + + + + + | Glucose, | 110 (H)Comment: Testing | 65 - 99 mg/dL | [facility] | | | POC | performed at [facility];[address] | | LABORATORY | | | | [address];[place] | | | | | | [address] | | | | + + + + + + + + | Specimen | + + | | + + + + + + + | Performing | Address | City/State/Zipcode | Phone Number | | Organization | | | | + + + + + | [facility] | [address] | [place] [address] | [phone] | + + + + + POC Glucose (06/19/2019 7:22 PM PDT) + + + + + + | Component | Value | Ref Range | Performed | Pathologist | | | | | At | Signature | + + + + + + | Glucose, | 136 (H)Comment: Testing | 65 - 99 mg/dL | [facility] | | | POC | performed at [facility];[address] | | LABORATORY | | | | [address];[place] | | | | | | [address] | | | | + + + + + + + + | Specimen | + + | | + + + + + + + | Performing | Address | City/State/Zipcode | Phone Number | | Organization | | | | + + + + + | [facility] | [address] | [place] [address] | [phone] | + + + + + XR Chest AP Portable (06/19/2019 4:52 PM PDT) + + | Specimen | + + | | + + + + + | Impressions | Performed At | + + + | 1. Status post advancement of nasogastric tube into the stomach. 2. | [facility] | | Endotracheal, right PICC line and chest tube are stable in position. | | | 3. Interval improvement in aeration of the right upper lobe. | | | Residual consolidation versus atelectasis of the right mid lung. | | | Signed by: Isiah Branham, Eddie Aldrich Date/Time: | | | 06/19/2019 6:57 PM | | + + + + + + | Narrative | Performed At | + + + | CHEST PORTABLE ONE VIEW CLINICAL INFORMATION: Post | [facility] | | procedure. COMPARISON: XR CHEST AP PORTABLE (06/19/2019); XR CHEST | | | AP PORTABLE (06/18/2019); CT CHEST W CONTRAST (06/17/2019); | | | FINDINGS: Endotracheal tube is unchanged in position. There is a | | | nasogastric tube that appears to extend beyond the inferior margin of | | | the radiograph. There is a right PICC line terminating in the | | | distal SVC. There is interval improved aeration of the right upper | | | lobe. Some residual opacity is noted along the right mid lung. | | | Interval improved aeration of the left lung is noted with | | | resolution of previously seen atelectasis. The pulmonary markings | | | are normal in caliber. There is mild degenerative disc disease of | | | the thoracic spine. Right-sided chest tube is stable in position. | | | | | + + + + + | Procedure Note | + + | Gabriele, Rad Results In - 06/19/2019 7:00 PM PDT | | CHEST PORTABLE ONE VIEW | | | | CLINICAL INFORMATION: | | Post procedure. | | | | COMPARISON: | | XR CHEST AP PORTABLE (06/19/2019); XR CHEST AP PORTABLE (06/18/2019); CT | | CHEST W CONTRAST (06/17/2019); | | | | FINDINGS: | | Endotracheal tube is unchanged in position. There is a nasogastric | | tube that appears to extend beyond the inferior margin of the | | radiograph. There is a right PICC line terminating in the distal SVC. | | There is interval improved aeration of the right upper lobe. Some | | residual opacity is noted along the right mid lung. Interval improved | | aeration of the left lung is noted with resolution of previously seen | | atelectasis. The pulmonary markings are normal in caliber. There is | | mild degenerative disc disease of the thoracic spine. Right-sided | | chest tube is stable in position. | | | | IMPRESSION: | | 1. Status post advancement of nasogastric tube into the stomach. | | 2. Endotracheal, right PICC line and chest tube are stable in position. | | 3. Interval improvement in aeration of the right upper lobe. Residual | | consolidation versus atelectasis of the right mid lung. | | | | | | | | | | Signed by: Isiah Branham, Eddie | | Sign Date/Time: 06/19/2019 6:57 PM | + + + +---------+ + + | Performing | Address | City/State/Zipcode | Phone Number | | Organization | | | | + +---------+ + + | [facility] | | | | + +---------+ + + Bronchoscopy (06/19/2019 2:12 PM PDT) + + | Specimen | + + | | + + + + + | Narrative | Performed At | + + + | [facility] | [facility] | | | Patient Name: Robert Stiles | | | Procedure Date: 06/19/2019 2:12 PMMRN: [id number] | | | Date of : 1970Note Status: Finalized | | | Attending MD: Ronn Voss , | | | | | | Procedure: BronchoscopyMedicines: | | | Monitored Anesthesia CareProcedure: Pre-Anesthesia | | | Assessment: - A History and Physical has been performed. The | | | patient's medications, allergies and sensitivities have been | | | reviewed. - The risks and benefits of the procedure and the | | | sedation options and risks were discussed with the patient. All | | | questions were answered and informed consent was obtained. | | | After I obtained informed consent, the scope was passed under | | | direct vision. Throughout the procedure, the patient's blood | | | pressure, pulse, and oxygen saturations were monitored | | | continuously. The Bronchoscope was introduced through the | | | mouth, via the endotracheal tube (the patient was intubated for | | | the procedure) and advanced to the tracheobronchial tree. | | | | | | Estimated Blood Loss: Estimated | | | blood loss:Findings: The endotracheal tube is in good position. | | | The visualized portion of the trachea is of normal caliber. The | | | whitley is sharp. The tracheobronchial tree was examined to at | | | least the first subsegmental level. Bronchial mucosa and | | | anatomy are normal; there are no endobronchial lesions, and no | | | secretions except in the right upper lobe where there was thick blood | | | clot which was suctioned. | | | | | | Impression: - The airway examination was normal. | | | - No specimens collected. | | | | | | Recommendation: - Await test | | | results. | | | | | | | | | Ronn Voss, 06/19/2019 5:47:46 PMThis report has been | | | signed electronically.Number of Addenda: 0 Note Initiated On: | | | 06/19/2019 2:12 PM [facility] - Endoscopy | | | Department | | |Ronn Voss, | | |06/19/2019 5:47:46 PM | | |This report has been signed electronically. | | |Number of Addenda: 0 | | | | | |Note Initiated On: 06/19/2019 2:12 PM | | | | | | [facility] - Endoscopy Department | | + + + + +---------+ + + | Performing | Address | City/State/Zipcode | Phone Number | | Organization | | | | + +---------+ + + | [facility] | | | | + +---------+ + + XR Abdomen AP (06/19/2019 1:52 PM PDT) + + | Specimen | + + | | + + + + + | Impressions | Performed At | + + + | 1. Enteric catheter with tip overlying the proximal gastric body. | [facility] | | Recommend advancement by approximately 10 cm for optimal positioning. | | | 2. Partially visualized right basilar pleural fluid and adjacent | | | airspace opacities. Signed by: Isiah Sosa, Moshe Sign | | | Date/Time: 06/19/2019 2:33 PM | | + + + + + + | Narrative | Performed At | + + + | ABDOMEN ONE VIEW (KUB) CLINICAL INFORMATION: Placement | [facility] | | verification. COMPARISON: CT CHEST W CONTRAST (06/18/2019); | | | FINDINGS: Enteric catheter with tip overlying the proximal gastric | | | body. The side port overlies the expected location of the GE | | | junction. Visualized bowel gas pattern is otherwise unremarkable. | | | Right basilar pleural fluid and adjacent airspace opacities are | | | partially visualized. | | + + + + + | Procedure Note | + + | Gabriele, Rad Results In - 06/19/2019 2:36 PM PDT | | ABDOMEN ONE VIEW (KUB) | | | | CLINICAL INFORMATION: | | Placement verification. | | | | COMPARISON: | | CT CHEST W CONTRAST (06/18/2019); | | | | FINDINGS: | | Enteric catheter with tip overlying the proximal gastric body. The | | side port overlies the expected location of the GE junction. | | Visualized bowel gas pattern is otherwise unremarkable. Right basilar | | pleural fluid and adjacent airspace opacities are partially visualized. | | | | IMPRESSION: | | 1. Enteric catheter with tip overlying the proximal gastric body. | | Recommend advancement by approximately 10 cm for optimal positioning. | | 2. Partially visualized right basilar pleural fluid and adjacent | | airspace opacities. | | | | | | | | | | Signed by: Isiah Sosa, Moshe | | Sign Date/Time: 06/19/2019 2:33 PM | + + + +---------+ + + | Performing | Address | City/State/Zipcode | Phone Number | | Organization | | | | + +---------+ + + | [facility] | | | | + +---------+ + + Blood gas, Arterial (06/19/2019 12:45 PM PDT) + + + + + + | Component | Value | Ref Range | Performed | Pathologist | | | | | At | Signature | + + + + + + | FiO2, POC | 60 | % | [facility] | | | | | | LABORATORY | | + + + + + + | pH, | 7.294 (L)Comment: This | 7.350 - 7.450 | [facility] | | | Arterial, | test was developed and | | LABORATORY | | | POC | its performance | | | | | | characteristics | | | | | | determined byAbbott, it | | | | | | has not been cleared or | | | | | | approved by the [place] FDA. | | | | | | Clinicians should | | | | | | beadvised to consider a | | | | | | patient's signs, | | | | | | symptoms, history, and | | | | | | results of | | | | | | otherdiagnostic tests | | | | | | when interpreting | | | | | | results from these | | | | | | cartridges. | | | | + + + + + + | pCO2, | 57 (H) | 35 - 45 mmHg | [facility] | | | Arterial | | | LABORATORY | | + + + + + + | pO2, | 80 | 80 - 105 mmHg | [facility] | | | Arterial | | | LABORATORY | | + + + + + + | HCO3, | 28 (H) | 22 - 26 mmol/L | [facility] | | | Arterial | | | LABORATORY | | + + + + + + | TCO2, | 29 (H) | 23 - 27 mEq/L | [facility] | | | Arterial, | | | LABORATORY | | | POC | | | | | + + + + + + | Base | 1 | 0 - 3 mEq/L | [facility] | | | Excess, POC | | | LABORATORY | | + + + + + + | SO2, | 94 (L) | 95 - 98 % | [facility] | | | Arterial, | | | LABORATORY | | | POC | | | | | + + + + + + | Comment, | Site = arterial | | [facility] | | | POC | lineComment: Testing | | LABORATORY | | | | performed at [facility];[address] | | | | | | [address];[place] | | | | | | [address] | | | | + + + + + + + + | Specimen | + + | | + + + + + + + | Performing | Address | City/State/Zipcode | Phone Number | | Organization | | | | + + + + + | [facility] | [address] | [place] [address] | [phone] | + + + + + XR Chest AP Portable (06/19/2019 12:30 PM PDT) + + | Specimen | + + | | + + + + + | Impressions | Performed At | + + + | 1. New endotracheal tube in place with its tip 4.5 cm above the | [facility] | | whitley. Right PICC catheter stable. 2. Interval development of | | | airspace opacity in the right upper lobe with volume loss suggesting | | | a component of lobar collapse and possible accumulation of loculated | | | right pleural fluid. 3. Decreased aeration of the left lung with | | | extensive perihilar atelectasis. Signed by: Isiah Devi, | | | Hardy Sign Date/Time: 06/19/2019 1:46 PM | | + + + + + + | Narrative | Performed At | + + + | CHEST PORTABLE ONE VIEW CLINICAL INFORMATION: Respiratory | [facility] | | failure. COMPARISON: XR CHEST AP PORTABLE (06/18/2019); CT CHEST W | | | CONTRAST (06/17/2019); CT ANGIOGRAPHY CHEST (06/06/2019); CHEST TWO | | | VIEWS [id number] (06/06/2019); FINDINGS: Endotracheal tube tip 4.5 cm | | | above the whitley. Right PICC catheter remains in place with its tip | | | near the atriocaval junction. Increased volume loss and | | | opacification throughout the right upper lobe. Volume loss in the | | | left lung with extensive perihilar atelectasis. Possible loculated | | | right pleural effusion. No pneumothorax. No acute bony | | | abnormality. | | + + + + + | Procedure Note | + + | Gabriele, Rad Results In - 06/19/2019 1:49 PM PDT | | CHEST PORTABLE ONE VIEW | | | | CLINICAL INFORMATION: | | Respiratory failure. | | | | COMPARISON: | | XR CHEST AP PORTABLE (06/18/2019); CT CHEST W CONTRAST (06/17/2019); CT | | ANGIOGRAPHY CHEST (06/06/2019); CHEST TWO VIEWS [id number] (06/06/2019); | | | | FINDINGS: | | Endotracheal tube tip 4.5 cm above the whitley. Right PICC catheter | | remains in place with its tip near the atriocaval junction. Increased | | volume loss and opacification throughout the right upper lobe. Volume | | loss in the left lung with extensive perihilar atelectasis. Possible | | loculated right pleural effusion. No pneumothorax. No acute bony | | abnormality. | | | | IMPRESSION: | | 1. New endotracheal tube in place with its tip 4.5 cm above the whitley. | | Right PICC catheter stable. | | 2. Interval development of airspace opacity in the right upper lobe | | with volume loss suggesting a component of lobar collapse and possible | | accumulation of loculated right pleural fluid. | | 3. Decreased aeration of the left lung with extensive perihilar | | atelectasis. | | | | | | | | | | Signed by: Isiah Dvei Corey | | Sign Date/Time: 06/19/2019 1:46 PM | + + + +---------+ + + | Performing | Address | City/State/Zipcode | Phone Number | | Organization | | | | + +---------+ + + | [facility] | | | | + +---------+ + + Culture Virus (06/19/2019 10:48 AM PDT) + + + + + + | Component | Value | Ref Range | Performed | Pathologist | | | | | At | Signature | + + + + + + | SOURCE: | PLEURAL RIGHTComment: | | [facility] | | | | Testing performed at | | LABORATORY | | | | [facility];[address] [place] [address] | | | | | | Jennifer;[place] [address] | | | | + + + + + + | CULTURE,VIR | No virus | | [facility] | | | [place] | isolated.Comment: | | LABORATORY | | | | Testing performed by | | | | | | [facility], [address] | | | | | | [place] | | | | | | [id number] ON | | | | | | 06/28 AT 0505: | | | | | | PREVIOUSLY REPORTED | | | | | | (See Below) | | | | + + + + + + + + | Specimen | + + | Tissue - Entire | | right pleura (body | | structure) | + + + + + + + | Performing | Address | City/State/Zipcode | Phone Number | | Organization | | | | + + + + + | [facility] | [address] | [place] [address] | [phone] | + + + + + Culture, Fungus (06/19/2019 10:48 AM PDT) + + + + + + | Component | Value | Ref Range | Performed | Pathologist | | | | | At | Signature | + + + + + + | RESULT | NO FUNGUS ISOLATED | | [facility] | | | | | | LAB[facility]ATORY | | + + + + + + | RESULT | Testing performed at | | [facility] | | | | [facility], [address] [facility] | | LABORATORY | | | | [place], [place] | | | | | | [id number]: Testing | | | | | | performed at [facility], [address] | | | | | | [facility] [place], | | | | | | [place] [address] | | | | + + + + + + + + | Specimen | + + | Tissue - Entire | | right pleura (body | | structure) | + + + + + + + | Performing | Address | City/State/Zipcode | Phone Number | | Organization | | | | + + + + + | [facility] | [address] | [place] [address] | [phone] | + + + + + Culture, Body Fluid Sterile (06/19/2019 10:29 AM PDT) + + + + + + | Component | Value | Ref Range | Performed | Pathologist | | | | | At | Signature | + + + + + + | Gram Stain | 1+ | | [facility] | | | Result | [facility] | | LABORATORY | | | | | | | | + + + + + + | RESULT | NO GROWTH 4 DAYS | | [facility] | | | | | | LAB[facility]ATORY | | + + + + + + | RESULT | Testing performed at | | [facility] | | | | [facility], [address] [facility] | | LABORATORY | | | | Bl, [place], [place] | | | | | | [id number]: Testing | | | | | | performed at [facility], [address] | | | | | [address], | | | | | | [place] [address] | | | | + + + + + + + + | Specimen | + + | Body Fluid - Pleural | | fluid specimen | | (specimen) | + + + + + + + | Performing | Address | City/State/Zipcode | Phone Number | | Organization | | | | + + + + + | [facility] | [address] | [place] [address] | [phone] | + + + + + Culture Virus (06/19/2019 10:29 AM PDT) + + + + + + | Component | Value | Ref Range | Performed | Pathologist | | | | | At | Signature | + + + + + + | SOURCE: | PLEURAL FLUID | | [facility] | | | | RIGHTComment: Testing | | LABORATORY | | | | performed at [facility];[address];[place], [place] | | | | | | [address] | | | | + + + + + + | CULTURE,VIR | No virus | | [facility] | | | [place] | isolated.Comment: | | LABORATORY | | | | Testing performed by | | | | | | [facility], [address] | | | | | | [place] | | | | | | [id number] ON | | | | | | 06/28 AT 0505: | | | | | | PREVIOUSLY REPORTED | | | | | | (See Below) | | | | + + + + + + + + | Specimen | + + | Body Fluid - Pleural | | fluid specimen | | (specimen) | + + + + + + + | Performing | Address | City/State/Zipcode | Phone Number | | Organization | | | | + + + + + | [facility] | [address] | [place] [address] | [phone] | + + + + + Culture, Fungus (06/19/2019 10:29 AM PDT) + + + + + + | Component | Value | Ref Range | Performed | Pathologist | | | | | At | Signature | + + + + + + | RESULT | NO FUNGUS ISOLATED | | [facility] | | | | | | LABORATORY | | + + + + + + | RESULT | Testing performed at | | [facility] | | | | [facility], [address] [facility] | | LABORATORY | | | | [place], [place] | | | | | | [id number]: Testing | | | | | | performed at [facility], [address] | | | | | | [facility] [place], | | | | | | [place] [address] | | | | + + + + + + + + | Specimen | + + | Body Fluid - Pleural | | fluid specimen | | (specimen) | + + + + + + + | Performing | Address | City/State/Zipcode | Phone Number | | Organization | | | | + + + + + | [facility] | [address] | [place] [address] | [phone] | + + + + + Type and Screen (06/19/2019 8:06 AM PDT) + + + + + + | Component | Value | Ref Range | Performed | Pathologist | | | | | At | Signature | + + + + + + | ABO Rh | O POSITIVE | | [facility] | | | | | | LABORATORY | | + + + + + + | Antibody | NEGATIVE | | [facility] | | | Screen | | | LABORATORY | | + + + + + + | BB BAND | [id number] | | [facility] | | | | | | LABORATORY | | + + + + + + | BB BAND | Testing performed at | | [facility] | | | | [facility] | | LABORATORY | | | | [address];[place] [address] | | | | + + + + + + + + | Specimen | + + | Blood | + + + + + + + | Performing | Address | City/State/Zipcode | Phone Number | | Organization | | | | + + + + + | [facility] | [address] | [place] [address] | [phone] | + + + + + POC Glucose (06/19/2019 7:53 AM PDT) + + + + + + | Component | Value | Ref Range | Performed | Pathologist | | | | | At | Signature | + + + + + + | Glucose, | 105 (H)Comment: Testing | 65 - 99 mg/dL | [facility] | | | POC | performed at [facility];[address] | | LABORATORY | | | | [address];[place] | | | | | | [address] | | | | + + + + + + + + | Specimen | + + | | + + + + + + + | Performing | Address | City/State/Zipcode | Phone Number | | Organization | | | | + + + + + | [facility] | [address] | [place] [address] | [phone] | + + + + + Hemoglobin A1C (06/19/2019 6:34 AM PDT) + + + + + + | Component | Value | Ref Range | Performed | Pathologist | | | | | At | Signature | + + + + + + | Hemoglobin | 7.3 (H)Comment: HbA1c | 4.0 - 6.0 % | [facility] | | | A1c | method is certified by | | LABORATORY | | | | [employer] and traceable to | | | | | | the DCCT reference | | | | | | method.ADA guidelines | | | | | | indicate: | | | | | | Prediabetes: 5.7 - 6.4 | | | | | | Diabetes: >6.4 | | | | | | Glycemic control for | | | | | | adults with diabetes: | | | | | | <7.0 | | | | + + + + + + | Estimated | 163 (H)Comment: | <154 mg/dL | [facility] | | | Average | Estimated Average | | LABORATORY | | | Glucose | Glucose calculated from | | | | | | hemoglobin A1c by use of | | | | | | the ADArecommended | | | | | | formula.Testing | | | | | | performed at [facility], [address] | | | | | | [facility], | | | | | | [place] [address] | | | | + + + + + + + + | Specimen | + + | Blood | + + + + + + + | Performing | Address | City/State/Zipcode | Phone Number | | Organization | | | | + + + + + | [facility] | [address] | [place] [address] | [phone] | + + + + + CBC with Differential (06/19/2019 6:34 AM PDT) + + + + + + | Component | Value | Ref Range | Performed | Pathologist | | | | | At | Signature | + + + + + + | WBC | 14.59 (H) | 3.80 - 11.00 | [facility] | | | | | K/uL | LABORATORY | | + + + + + + | Red Blood | 4.64 | 4.20 - 5.70 | [facility] | | | Cells | | M/uL | LABORATORY | | + + + + + + | Hemoglobin | 13.1 (L) | 13.2 - 17.0 | [facility] | | | | | g/dL | LABORATORY | | + + + + + + | Hematocrit | 41.7 | 39.0 - 50.0 % | [facility] | | | | | | LABORATORY | | + + + + + + | MCV | 89.9 | 80.0 - 100.0 fl | [facility] | | | | | | LABORATORY | | + + + + + + | MCH | 28.2 | 27.0 - 34.0 pg | [facility] | | | | | | LABORATORY | | + + + + + + | MCHC | 31.4 (L) | 32.0 - 35.5 | [facility] | | | | | g/dL | LABORATORY | | + + + + + + | RDW-SD | 46.2 | 37 - 53 fl | [facility] | | | | | | LABORATORY | | + + + + + + | Platelet | 399 | 150 - 400 K/uL | [facility] | | | Count | | | LABORATORY | | + + + + + + | MPV | 10.8Comment: NO NORMAL | fl | [facility] | | | | RANGE ESTABLISHED | | LABORATORY | | + + + + + + | Diff Type | AUTOMATED | | [facility] | | | | | | LABORATORY | | + + + + + + | % nRBC | 0.0 | 0 /100WBC | [facility] | | | | | | LABORATORY | | + + + + + + | % | 73.50 | % | [facility] | | | Neutrophils | | | LABORATORY | | + + + + + + | IMMATURE | 0.80 | % | [facility] | | | GRANULOCYTE | | | LABORATORY | | + + + + + + | % | 12.30 | % | [facility] | | | Lymphocytes | | | LABORATORY | | + + + + + + | Monocyte % | 9.10 | % | [facility] | | | | | | LABORATORY | | + + + + + + | Eosinophils | 3.80 | % | [facility] | | | % | | | LABORATORY | | + + + + + + | Basophils % | 0.50 | % | [facility] | | | | | | LABORATORY | | + + + + + + | Neutrophils | 10.72 (H) | 1.90 - 7.40 | [facility] | | | , Absolute | | K/uL | LABORATORY | | + + + + + + | IMMATURE | 0.12 (H)Comment: NOTE | 0.00 - 0.07 | [facility] | | | GRANS AB | NEW REFERENCE RANGE | K/uL | LABORATORY | | + + + + + + | Absolute | 1.80 | 1.00 - 3.90 | [facility] | | | Lymphocytes | | K/uL | LABORATORY | | + + + + + + | Absolute | 1.33 (H) | 0.00 - 0.80 | [facility] | | | Monocytes | | K/uL | LABORATORY | | + + + + + + | Eosinophils | 0.55 (H) | 0.00 - 0.50 | [facility] | | | , Absolute | | K/uL | LABORATORY | | + + + + + + | Basophils, | 0.07Comment: Testing | 0.00 - 0.10 | [facility] | | | Absolute | performed at [facility];[address] | K/uL | LABORATORY | | | | [address];[place] | | | | | | [address] | | | | + + + + + + + + | Specimen | + + | Blood | + + + + + + + | Performing | Address | City/State/Zipcode | Phone Number | | Organization | | | | + + + + + | [facility] | [address] | [place] [address] | [phone] | + + + + + Basic Metabolic Panel (06/19/2019 6:34 AM PDT) + + + + + + | Component | Value | Ref Range | Performed | Pathologist | | | | | At | Signature | + + + + + + | Na | 142 | 135 - 145 | [facility] | | | | | mmol/L | LABORATORY | | + + + + + + | K | 4.4 | 3.5 - 4.9 | [facility] | | | | | mmol/L | LABORATORY | | + + + + + + | Cl | 106 | 99 - 109 mmol/L | [facility] | | | | | | LABORATORY | | + + + + + + | CO2 | 30 | 23 - 32 mmol/L | [facility] | | | | | | LABORATORY | | + + + + + + | Anion Gap | 10 | 5 - 20 mmol/L | [facility] | | | | | | LABORATORY | | + + + + + + | Glucose | 107 (H) | 65 - 99 mg/dL | [facility] | | | | | | LABORATORY | | + + + + + + | BUN | 18 | 8 - 25 mg/dL | [facility] | | | | | | LABORATORY | | + + + + + + | Creatinine | 1.01 | 0.70 - 1.30 | [facility] | | | | | mg/dL | LABORATORY | | + + + + + + | BUN/Creatin | 18 | | [facility] | | | ine Ratio | | | LABORATORY | | + + + + + + | Calcium | 9.5 | 8.5 - 10.5 | [facility] | | | | | mg/dL | LABORATORY | | + + + + + + | Estimated | >60Comment: GFR <60: | >60 | [facility] | | | GFR | CHRONIC KIDNEY DISEASE, | mL/min/1.73m2 | LABORATORY | | | | IF FOUND OVER A 3 MONTH | | | | | | PERIOD.GFR <15: KIDNEY | | | | | | FAILURE.FOR | | | | | | AMERICANS, MULTIPLY THE | | | | | | CALCULATED GFR BY | | | | | | 1.210.This eGFR is | | | | | | calculated using the | | | | | | MDRD IDMS traceable | | | | | | equation.Testing | | | | | | performed at [facility];[employer] | | | | | | [facility];[place], [place] | | | | | | [address] | | | | + + + + + + + + | Specimen | + + | Blood | + + + + + + + | Performing | Address | City/State/Zipcode | Phone Number | | Organization | | | | + + + + + | [facility] | [address] | [place] [address] | [phone] | + + + + + POC Glucose (06/18/2019 9:47 PM PDT) + + + + + + | Component | Value | Ref Range | Performed | Pathologist | | | | | At | Signature | + + + + + + | Glucose, | 110 (H)Comment: Testing | 65 - 99 mg/dL | [facility] | | [facility] | performed at [facility] [facility];[address] | | LABORATORY | | | | [address]ie Rodriguez;[place], [place] | | | | | | [id number] | | | | + + + + + + + + | Specimen | + + | | + + + + + + + | Performing | Address | City/State/Zipcode | Phone Number | | Organization | | | | + + + + + | [facility] | [address] | [place] [address] | [phone] | + + + + + POC Glucose (06/18/2019 4:38 PM PDT) + + + + + + | Component | Value | Ref Range | Performed | Pathologist | | | | | At | Signature | + + + + + + | Glucose, | 111 (H)Comment: Testing | 65 - 99 mg/dL | [facility] | | | POC | performed at [facility];[address] | | LABORATORY | | | | [address];[place] | | | | | | [address] | | | | + + + + + + + + | Specimen | + + | | + + + + + + + | Performing | Address | City/State/Zipcode | Phone Number | | Organization | | | | + + + + + | [facility] | [address] | [place] [address] | [phone] | + + + + + MRSA NAAT (06/18/2019 12:58 PM PDT) + + + + + + | Component | Value | Ref Range | Performed | Pathologist | | | | | At | Signature | + + + + + + | SOURCE: | CRIS(NOSE) | | [facility] | | | | | | LABORATORY | | + + + + + + | Result | NEGATIVEComment: Testing | MRSNEG | [facility] | | | | performed at [facility];[address] | | LABORATORY | | | | [address];[place] | | | | | | [address] | | | | + + + + + + + + | Specimen | + + | Tissue - Both | | anterior nares (body | | structure) | + + + + + + + | Performing | Address | City/State/Zipcode | Phone Number | | Organization | | | | + + + + + | [facility] | [address] | [place] [address] | [phone] | + + + + + POC Glucose (06/18/2019 11:44 AM PDT) + + + + + + | Component | Value | Ref Range | Performed | Pathologist | | | | | At | Signature | + + + + + + | Glucose, | 110 (H)Comment: Testing | 65 - 99 mg/dL | [facility] | | | POC | performed at [facility];[address] | | LABORATORY | | | | [address];[place] | | | | | | [address] | | | | + + + + + + + + | Specimen | + + | | + + + + + + + | Performing | Address | City/State/Zipcode | Phone Number | | Organization | | | | + + + + + | [facility] | [address] | [place] [address] | [phone] | + + + + + HIV P24 antigen (06/18/2019 10:31 AM PDT) + + + + + + | Component | Value | Ref Range | Performed | Pathologist | | | | | At | Signature | + + + + + + | HIV 1 and 2 | NON REACTIVEComment: | NR | [facility] | | | Ab | Testing performed at | | LABORATORY | | | | [facility];[address];[place] [address] | | | | + + + + + + + + | Specimen | + + | Blood | + + + + + + + | Performing | Address | City/State/Zipcode | Phone Number | | Organization | | | | + + + + + | [facility] | [address] | [place] [address] | [phone] | + + + + + HIV 1 and 2 Nicole Santoyo (06/18/2019 10:31 AM PDT) + + + + + + | Component | Value | Ref Range | Performed | Pathologist | | | | | At | Signature | + + + + + + | HIV 1 and 2 | NON REACTIVEComment: THE | NR | [facility] | | | Ab | NON REACTIVE HIV 1/2 | | LABORATORY | | | | RESULT INDICATES THAT | | | | | | NEITHER ANTIBODIES NOR | | | | | | [id number] TO HIV 1/2 | | | | | | HAVE BEEN DETECTED IN | | | | | | THIS SPECIMEN. THIS | | | | | | RESULT DOES NOTPRECLUDE | | | | | | PREVIOUS EXPOSURE OR | | | | | | INFECTION.Testing | | | | | | performed at [facility], [address] | | | | | | [facility], | | | | | | [place] [address] | | | | + + + + + + + + | Specimen | + + | Blood | + + + + + + + | Performing | Address | City/State/Zipcode | Phone Number | | Organization | | | | + + + + + | [facility] | [address] | [place] [address] | [phone] | + + + + + Streptococcus pneumoniae Antigen (06/18/2019 10:05 AM PDT) + + + + + + | Component | Value | Ref Range | Performed | Pathologist | | | | | At | Signature | + + + + + + | Specimen | Urine | | [facility] | | | Source | | | LABORATORY | | + + + + + + | Streptococc | Negative | Negative | [facility] | | | us | | | LABORATORY | | | pneumoniae | | | | | + + + + + + | Body Fluid | Not indicated. | | [facility] | | | Culture, | | | LABORATORY | | | Sterile | | | | | + + + + + + | Organism ID | Not indicated. | | [facility] | | | | | | LABORATORY | | + + + + + + | Please note | (See Below)Comment: | | [facility] | | | | [employer] | | LABORAT[facility] | | | | Pathologists standards | | | | | | require a culture to | | | | | | beperformed on CSF | | | | | | specimens submitted for | | | | | | bacterial antigen | | | | | | testing.(CAP NATHAN.[id number]) | | | | | | Urine specimens will not | | | | | | be cultured.Testing | | | | | | performed by [facility], | | | | | | [address] [facility], | | | | | | [facility] [address] | | | | + + + + + + + + | Specimen | + + | Urine - Urine | | specimen (specimen) | + + + + + + + | Performing | Address | City/State/Zipcode | Phone Number | | Organization | | | | + + + + + | [facility] | [address] | [place] [address] | [phone] | + + + + + POC Glucose (06/18/2019 9:17 AM PDT) + + + + + + | Component | Value | Ref Range | Performed | Pathologist | | | | | At | Signature | + + + + + + | Glucose, | 99Comment: Testing | 65 - 99 mg/dL | [facility] | | | POC | performed at [facility];[address] | | LABORATORY | | | | [address];[place], [place] | | | | | | [address] | | | | + + + + + + + + | Specimen | + + | | + + + + + + + | Performing | Address | City/State/Zipcode | Phone Number | | Organization | | | | + + + + + | [facility] | [address] | [place] [address] | [phone] | + + + + + Procalcitonin (06/18/2019 5:54 AM PDT) + + + + + + | Component | Value | Ref Range | Performed | Pathologist | | | | | At | Signature | + + + + + + | PROCALCITON | <0.05Comment: | <0.5 ng/mL | [facility] | | | IN | INTERPRETIVE | | LABORATORY | | | | INFORMATION: | | | | | | PROCALCITONIN PCT <= | | | | | | 0.5 ng/mL: Low risk | | | | | | for progression to | | | | | | severe systemic | | | | | | bacterial infection | | | | | | (severe sepsis/septic | | | | | | shock). Does not | | | | | | exclude an infection, | | | | | | because localized | | | | | | infections may be | | | | | | associated with such low | | | | | | levels. If PCT is | | | | | | measured very early | | | | | | after bacterial | | | | | | challenge (usually <6 | | | | | | hours), results may | | | | | | still be low and | | | | | | should re-assess PCT | | | | | | 6-24 hours later. PCT | | | | | | >0.5 and <= 2 ng/mL: | | | | | | Moderate risk for | | | | | | progression to severe | | | | | | systemic infection | | | | | | (severe sepsis/septic | | | | | | shock). Other | | | | | | conditions are known | | | | | | to elevate PCT, patient | | | | | | should be closely | | | | | | monitored both | | | | | | clinically and by | | | | | | re-assessing PCT | | | | | | within 6-24 hours. PCT > | | | | | | 2 ng/mL: High | | | | | | likelihood for | | | | | | progression to severe | | | | | | systemic bacterial | | | | | | infection (severe | | | | | | sepsis/septic shock). | | | | | | PCT >= 10 ng/mL: | | | | | | High likelihood of | | | | | | severe sepsis or septic | | | | | | shock.Testing performed | | | | | | at [facility];[address] | | | | | | [address];[place] [address] | | | | + + + + + + + + | Specimen | + + | Blood | + + + + + + + | Performing | Address | City/State/Zipcode | Phone Number | | Organization | | | | + + + + + | [facility] | [address] | [place] [address] | [phone] | + + + + + Magnesium (06/18/2019 5:54 AM PDT) + + + + + + | Component | Value | Ref Range | Performed | Pathologist | | | | | At | Signature | + + + + + + | Magnesium | 2.1Comment: Testing | 1.7 - 2.4 mg/dL | [facility] | | | | performed at [facility], [address] | | LABORATORY | | | | [address], | | | | | | [place] [address] | | | | + + + + + + + + | Specimen | + + | Blood | + + + + + + + | Performing | Address | City/State/Zipcode | Phone Number | | Organization | | | | + + + + + | [facility] | [address] | [place] [address] | [phone] | + + + + + CBC with Differential (06/18/2019 5:54 AM PDT) + + + + + + | Component | Value | Ref Range | Performed | Pathologist | | | | | At | Signature | + + + + + + | WBC | 15.67 (H) | 3.80 - 11.00 | [facility] | | | | | K/uL | LABORATORY | | + + + + + + | Red Blood | 4.46 | 4.20 - 5.70 | [facility] | | | Cells | | M/uL | LABORATORY | | + + + + + + | Hemoglobin | 12.5 (L) | 13.2 - 17.0 | [facility] | | | | | g/dL | LABORATORY | | + + + + + + | Hematocrit | 39.6 | 39.0 - 50.0 % | [facility] | | | | | | LABORATORY | | + + + + + + | MCV | 88.8 | 80.0 - 100.0 fl | [facility] | | | | | | LABORATORY | | + + + + + + | MCH | 28.0 | 27.0 - 34.0 pg | [facility] | | | | | | LABORATORY | | + + + + + + | MCHC | 31.6 (L) | 32.0 - 35.5 | [facility] | | | | | g/dL | LABORATORY | | + + + + + + | RDW-SD | 45.4 | 37 - 53 fl | [facility] | | | | | | LABORATORY | | + + + + + + | Platelet | 371 | 150 - 400 K/uL | [facility] | | | Count | | | LABORATORY | | + + + + + + | MPV | 11.4Comment: NO NORMAL | fl | [facility] | | | | RANGE ESTABLISHED | | LABORATORY | | + + + + + + | Diff Type | MANUAL | | [facility] | | | | | | LABORATORY | | + + + + + + | % Segmented | 76 | % | [facility] | | | | | | LABORATORY | | | Neutrophils | | | | | + + + + + + | % | 1 | % | [facility] | | | Metamyelocy | | | LABORATORY | | | leon | | | | | + + + + + + | % | 9 | % | [facility] | | | Lymphocytes | | | LABORATORY | | + + + + + + | % Reactive | 1 | % | [facility] | | | Lymphocytes | | | LABORATORY | | + + + + + + | % Monocytes | 12 | % | [facility] | | | | | | LABORATORY | | + + + + + + | Eosinophils | 1 | % | [facility] | | | % | | | LABORATORY | | + + + + + + | Neutrophils | 11.90 (H) | 1.90 - 7.40 | [facility] | | | , Absolute | | K/uL | LABORATORY | | + + + + + + | Absolute | 0.16 (H) | 0.00 K/uL | [facility] | | | Metamyelocy | | | LABORATORY | | | leon | | | | | + + + + + + | Absolute | 1.41 | 1.00 - 3.90 | [facility] | | | Lymphocytes | | K/uL | LABORATORY | | + + + + + + | Absolute | 0.16 (H) | 0.00 K/uL | [facility] | | | Variant | | | LABORATORY | | | Lymphocytes | | | | | + + + + + + | Absolute | 1.88 (H) | 0.00 - 0.80 | [facility] | | | Monocytes | | K/uL | LABORATORY | | + + + + + + | Eosinophils | 0.16 | 0.00 - 0.50 | [facility] | | | , Absolute | | K/uL | LABORATORY | | + + + + + + | RBC | RBC AND PLT MORPHOLOGY | | [facility] | | | Morphology | APPEAR NORMALComment: | | LABORATORY | | | | Testing performed at | | | | | | [facility], [address] [place] [address] | | | | | | [facility], [place] | | | | | | [address] | | | | + + + + + + + + | Specimen | + + | Blood | + + + + + + + | Performing | Address | City/State/Zipcode | Phone Number | | Organization | | | | + + + + + | [facility] | [address] | [place] [address] | [phone] | + + + + + Basic Metabolic Panel (06/18/2019 5:54 AM PDT) + + + + + + | Component | Value | Ref Range | Performed | Pathologist | | | | | At | Signature | + + + + + + | Na | 137 | 135 - 145 | [facility] | | | | | mmol/L | LABORATORY | | + + + + + + | K | 4.1 | 3.5 - 4.9 | [facility] | | | | | mmol/L | LABORATORY | | + + + + + + | Cl | 104 | 99 - 109 mmol/L | [facility] | | | | | | LABORATORY | | + + + + + + | CO2 | 27 | 23 - 32 mmol/L | [facility] | | | | | | LABORATORY | | + + + + + + | Anion Gap | 10 | 5 - 20 mmol/L | [facility] | | | | | | LABORATORY | | + + + + + + | Glucose | 118 (H) | 65 - 99 mg/dL | [facility] | | | | | | LABORATORY | | + + + + + + | BUN | 14 | 8 - 25 mg/dL | [facility] | | | | | | LABORATORY | | + + + + + + | Creatinine | 1.2 | 0.70 - 1.30 | [facility] | | | | | mg/dL | LABORATORY | | + + + + + + | BUN/Creatin | 12 | | [facility] | | | ine Ratio | | | LABORATORY | | + + + + + + | Calcium | 8.8 | 8.5 - 10.5 | [facility] | | | | | mg/dL | LABORATORY | | + + + + + + | Estimated | >60Comment: GFR <60: | >60 | [facility] | | | GFR | CHRONIC KIDNEY DISEASE, | mL/min/1.73m2 | LABORATORY | | | | IF FOUND OVER A 3 MONTH | | | | | | PERIOD.GFR <15: KIDNEY | | | | | | FAILURE.FOR | | | | | | AMERICANS, MULTIPLY THE | | | | | | CALCULATED GFR BY | | | | | | 1.210.This eGFR is | | | | | | calculated using the | | | | | | MDRD IDMS traceable | | | | | | equation.Testing | | | | | | performed at [facility], [address] | | | | | | [facility], | | | | | | [place] [address] | | | | + + + + + + + + | Specimen | + + | Blood | + + + + + + + | Performing | Address | City/State/Zipcode | Phone Number | | Organization | | | | + + + + + | [facility] | [address] | [place] [address] | [phone] | + + + + + XR Chest AP Portable (06/18/2019 4:29 AM PDT) + + | Specimen | + + | | + + + + + | Narrative | Performed At | + + + | CHEST PORTABLE ONE VIEW CLINICAL INFORMATION: PICC line | [facility] | | placement verification. COMPARISON: CT CHEST W CONTRAST | | | (06/17/2019); CT ANGIOGRAPHY CHEST (06/06/2019); CHEST TWO VIEWS [id number] | | | (06/06/2019); FINDINGS/IMPRESSION: 1. New right PICC line present | | | with the tip identified in the mid SVC. 2. Moderate pleuroparenchymal | | | opacities involving the mid and lower right hemithorax, similar to | | | the recent CT of the chest. Left lung is clear. 3. | | | Cardiomediastinal contours are stable. 4. No pneumothorax. | | | Signed by: Isiah Morel James Sign Date/Time: 06/18/2019 4:35 | | | AM | | + + + + + | Procedure Note | + + | Gabriele, Rad Results In - 06/18/2019 4:39 AM PDT | | CHEST PORTABLE ONE VIEW | | | | CLINICAL INFORMATION: | | PICC line placement verification. | | | | COMPARISON: | | CT CHEST W CONTRAST (06/17/2019); CT ANGIOGRAPHY CHEST (06/06/2019); CHEST | | TWO VIEWS [id number] (06/06/2019); | | | | FINDINGS/IMPRESSION: | | 1. New right PICC line present with the tip identified in the mid SVC. | | 2. Moderate pleuroparenchymal opacities involving the mid and lower | | right hemithorax, similar to the recent CT of the chest. Left lung is | | clear. | | 3. Cardiomediastinal contours are stable. | | 4. No pneumothorax. | | | | | | | | | | | | Signed by: Isiah Morel James | | Sign Date/Time: 06/18/2019 4:35 AM | + + + +---------+ + + | Performing | Address | City/State/Zipcode | Phone Number | | Organization | | | | + +---------+ + + | [facility] | | | | + +---------+ + + Respiratory pathogen panel, NAAT (06/18/2019 3:51 AM PDT) + + + + + + | Component | Value | Ref Range | Performed | Pathologist | | | | | At | Signature | + + + + + + | Adenovirus | Not Detected | NOTDET | [facility] | | | DNA | | | LABORATORY | | + + + + + + | Coronavirus | Not Detected | NOTDET | [facility] | | | 229E | | | LABORATORY | | + + + + + + | Coronavirus | Not Detected | NOTDET | [facility] | | | HKU1 | | | LABORATORY | | + + + + + + | Coronavirus | Not Detected | NOTDET | [facility] | | | NL63 | | | LABORATORY | | + + + + + + | Coronavirus | Not Detected | NOTDET | [facility] | | | OC43 | | | LABORATORY | | + + + + + + | Human | Not Detected | NOTDET | [facility] | | | Metapneumov | | | LABORATORY | | | irus | | | | | + + + + + + | Rhinovirus/ | Not Detected | NOTDET | [facility] | | | Enterovirus | | | LABORATORY | | + + + + + + | Influenza A | Not Detected | NOTDET | [facility] | | | | | | LABORATORY | | + + + + + + | Influenza B | Not Detected | NOTDET | [facility] | | | | | | LABORATORY | | + + + + + + | Parainfluen | Not Detected | NOTDET | [facility] | | | za 1 | | | LABORATORY | | + + + + + + | Parainfluen | Not Detected | NOTDET | [facility] | | | za 2 | | | LABORATORY | | + + + + + + | Parainfluen | Not Detected | NOTDET | [facility] | | | za 3 | | | LABORATORY | | + + + + + + | Parainfluen | Not Detected | NOTDET | [facility] | | | za 4 | | | LABORATORY | | + + + + + + | Respiratory | Not Detected | NOTDET | [facility] | | | Syncytial | | | LABORATORY | | | Virus | | | | | + + + + + + | Bordetella | Not Detected | NOTDET | [facility] | | | pertussis | | | LABORATORY | | | DNA | | | | | + + + + + + | Chlamydia | Not Detected | NOTDET | [facility] | | | pneumoniae | | | LABORATORY | | + + + + + + | Mycoplasma | Not Detected | NOTDET | [facility] | | | pneumoniae | | | LABORATORY | | + + + + + + | Interpretat | A negative FilmArray RP | | [facility] | | | ion: | result does not exclude | | LABORATORY | | | | the possibility of a | | | | | | viral or bacterial | | | | | | infection. Test results | | | | | | may also be affected by | | | | | | concurrent | | | | | | antiviral/antibacterial | | | | | | therapy or levels of | | | | | | organism in the specimen | | | | | | that are below the | | | | | | limit of detection for | | | | | | this test. Comment: | | | | | | Negative results in the | | | | | | setting of a respiratory | | | | | | illness may be due | | | | | | toinfection with | | | | | | pathogens that are not | | | | | | detected by this test or | | | | | | lowerrespiratory tract | | | | | | infection that is not | | | | | | detected by a | | | | | | nasopharyngeal | | | | | | swabspecimen. Testing | | | | | | performed by Molecular | | | | | | MethodologyTesting | | | | | | performed at [facility], [address] | | | | | | [address], | | | | | | [place] [address] | | | | + + + + + + + + | Specimen | + + | Body Fluid - Entire | | nasopharynx (body | | structure) | + + + + + + + | Performing | Address | City/State/Zipcode | Phone Number | | Organization | | | | + + + + + | [facility] | [address] | [place] [address] | [phone] | + + + + + CT Chest w Contrast (06/17/2019 11:22 PM PDT) + + | Specimen | + + | | + + + + + | Impressions | Performed At | + + + | 1. Interval improvement in right middle and lower lobe atelectasis, | [facility] | | which is now mild. 2. Moderate right pleural effusion is decreased | | | in size since 06/06/2019 comparison with new foci of air, likely | | | sequela of thoracentesis. Associated reactive hilar and mediastinal | | | lymphadenopathy. Dictated by: Isiah Ward Natalie | | | Signed by: Isiah Morel James Sign Date/Time: 06/18/2019 1:13 AM | | | The radiologist has reviewed the images and edited/approved the | | | report. For interventional procedures, the signing radiologist was | | | present for the calhoun portions of the exam. | | + + + + + + | Narrative | Performed At | + + + | CT CHEST WITH CONTRAST CLINICAL INFORMATION: Cough. | [facility] | | Pneumonia. Pleural effusion. Recently admitted at [facility] | | | [facility] for loculated PNA, referred by PCP to [facility] for worsening | | | symptoms. COMPARISON: CT ANGIOGRAPHY CHEST (06/06/2019); CHEST | | | TWO VIEWS [id number] (06/06/2019); PROCEDURE: Axial images through the | | | chest after the administration of 100 ml Omnipaque 350 intravenous | | | contrast. Multiplanar reconstructions. At least one of the | | | following CT dose optimization techniques were used: Automated | | | exposure control; Adjustment of mA and/or kV according to patient | | | size; Use of iterative reconstruction technique. FINDINGS: Lungs, | | | Pleura and Airways: Moderate multifocal platelike atelectasis in the | | | right middle and lower lobes. Atelectasis of the superior segment | | | of the right lower lobe. Moderate air-containing right pleural | | | effusion extending into the horizontal and oblique fissures. These | | | findings are moderately improved since comparison 06/06/2019, previously | | | there was near complete atelectasis of the right middle and lower | | | lobes and increased size of the pleural effusion. Small foci of air | | | between the visceral and parietal pleura adjacent to the anteromedial | | | and anterolateral right middle lobe (series 4, images 153 and 215), | | | in conjunction with small volume air within the soft tissues of the | | | lateral right chest wall, this is likely sequela of thoracentesis. | | | Mediastinum: No significant pericardial, great vessel or esophageal | | | abnormality. No mediastinal mass. Lymph Nodes: Right-sided hilar and | | | mediastinal lymphadenopathy, almost certainly reactive in the | | | setting of infection. Upper Abdomen: No significant abnormality in | | | the visualized upper abdomen. BODY WALL Soft Tissues: The soft | | | tissues of the chest wall are unremarkable. Bones: No acute fracture | | | or vertebral end plate destruction. No lytic or blastic lesion. | | + + + + + | Procedure Note | + + | Gabriele, Rad Results In - 06/18/2019 1:16 AM PDT | | CT CHEST WITH CONTRAST | | | | CLINICAL INFORMATION: | | Cough. Pneumonia. Pleural effusion. [facility] | | [facility], referred by PCP to [facility] for worsening | | symptoms. | | | | COMPARISON: | | CT ANGIOGRAPHY CHEST (06/06/2019); CHEST TWO VIEWS 11342 (06/06/2019); | | | | PROCEDURE: | | Axial images through the chest after the administration of 100 ml | | Omnipaque 350 intravenous contrast. Multiplanar reconstructions. | | | | At least one of the following CT dose optimization techniques were | | used: Automated exposure control; Adjustment of mA and/or kV according | | to patient size; Use of iterative reconstruction technique. | | | | FINDINGS: | | Lungs, Pleura and Airways: Moderate multifocal platelike atelectasis in | | the right middle and lower lobes. Atelectasis of the superior segment | | of the right lower lobe. Moderate air-containing right pleural | | effusion extending into the horizontal and oblique fissures. These | | findings are moderately improved since comparison 06/06/2019, previously | | there was near complete atelectasis of the right middle and lower lobes | | and increased size of the pleural effusion. | | Small foci of air between the visceral and parietal pleura adjacent to | | the anteromedial and anterolateral right middle lobe (series 4, images | | 153 and 215), in conjunction with small volume air within the soft | | tissues of the lateral right chest wall, this is likely sequela of | | thoracentesis. | | | | Mediastinum: No significant pericardial, great vessel or esophageal | | abnormality. No mediastinal mass. | | Lymph Nodes: Right-sided hilar and mediastinal lymphadenopathy, almost | | certainly reactive in the setting of infection. | | Upper Abdomen: No significant abnormality in the visualized upper | | abdomen. | | | | BODY WALL | | Soft Tissues: The soft tissues of the chest wall are unremarkable. | | Bones: No acute fracture or vertebral end plate destruction. No lytic | | or blastic lesion. | | | | IMPRESSION: | | 1. Interval improvement in right middle and lower lobe atelectasis, | | which is now mild. | | 2. Moderate right pleural effusion is decreased in size since 06/06/2019 | | comparison with new foci of air, likely sequela of thoracentesis. | | Associated reactive hilar and mediastinal lymphadenopathy. | | | | | | Dictated by: Isiah Ward, Griselda | | | | Signed by: Isiah Morel, Robert | | Sign Date/Time: 06/18/2019 1:13 AM | | | | The radiologist has reviewed the images and edited/approved | | the report. For interventional procedures, the signing | | radiologist was present for the calhoun portions of the exam. | + + + +---------+ + + | Performing | Address | City/State/Zipcode | Phone Number | | Organization | | | | + +---------+ + + | [facility] | | | | + +---------+ + + Culture, Blood (06/17/2019 10:56 PM PDT) + + + + + + | Component | Value | Ref Range | Performed | Pathologist | | | | | At | Signature | + + + + + + | Special | LAC | | [facility] | | | Requests | | | LABORATORY | | + + + + + + | Special | Testing performed at | | [facility] | | | Requests | [facility] | | LABORATORY | | | | [address];[place] [address] | | | | + + + + + + | RESULT | NO GROWTH 6 DAYS | | [facility] | | | | | | [facility] | | + + + + + + | RESULT | Testing performed at | | [facility] | | | | [facility], [address] | | LABORATORY | | | | [place] | | | | | | [id number]: Testing | | | | | | performed at [facility], [address] | | | | | [place] | | | | | | [address] | | | | + + + + + + + + | Specimen | + + | Blood - Peripheral | | blood specimen | | (specimen) | + + + + + + + | Performing | Address | City/State/Zipcode | Phone Number | | Organization | | | | + + + + + | [facility] | [address] | [place] [address] | [phone] | + + + + + Lactic Acid (06/17/2019 10:33 PM PDT) + + + + + + | Component | Value | Ref Range | Performed | Pathologist | | | | | At | Signature | + + + + + + | Lactate, | 2.0Comment: Testing | 0.4 - 2.0 | [facility] | | | Serum | performed at [facility];[address] | mmol/L | LABORATORY | | | | [address];[place] | | | | | | [address] | | | | + + + + + + + + | Specimen | + + | Blood | + + + + + + + | Performing | Address | City/State/Zipcode | Phone Number | | Organization | | | | + + + + + | [facility] | [address] | [place] [address] | [phone] | + + + + + Troponin I (06/17/2019 10:31 PM PDT) + + + + + + | Component | Value | Ref Range | Performed | Pathologist | | | | | At | Signature | + + + + + + | Troponin I | 0.006Comment: 0.04 | 0.00 - 0.04 | [facility] | | | | ng/mL or less | ng/mL | LABORATORY | | | | Negative, repeat | | | | | | testing in four to six | | | | | | hour ifclinically | | | | | | indicted0.05 to 0.77 | | | | | | ng/mL | | | | | | Suspicious for | | | | | | myocardial injury. | | | | | | Serial measurementsmay | | | | | | be necessary to confirm | | | | | | or exclude the diagnosis | | | | | | of acute | | | | | | coronarysyndrome. Repeat | | | | | | testing in four to six | | | | | | hours if indicated.0.78 | | | | | | or greater ng/mL | | | | | | Consistent with | | | | | | myocardial injury. | | | | | | Clinical andlaboratory | | | | | | correlation recommended. | | | | | | Testing performed at | | | | | | [facility];[address] | | | | | | [address];[place] [address] | | | | + + + + + + + + | Specimen | + + | Blood | + + + + + + + | Performing | Address | City/State/Zipcode | Phone Number | | Organization | | | | + + + + + | [facility] | [address] | [place] [address] | [phone] | + + + + + Comprehensive Metabolic Panel (06/17/2019 10:31 PM PDT) + + + + + + | Component | Value | Ref Range | Performed | Pathologist | | | | | At | Signature | + + + + + + | Na | 137 | 135 - 145 | [facility] | | | | | mmol/L | LABORATORY | | + + + + + + | K | 3.8 | 3.5 - 4.9 | [facility] | | | | | mmol/L | LABORATORY | | + + + + + + | Cl | 100 | 99 - 109 mmol/L | [facility] | | | | | | LABORATORY | | + + + + + + | CO2 | 26 | 23 - 32 mmol/L | [facility] | | | | | | LABORATORY | | + + + + + + | Anion Gap | 15 | 5 - 20 mmol/L | [facility] | | | | | | LABORATORY | | + + + + + + | Glucose | 137 (H) | 65 - 99 mg/dL | [facility] | | | | | | LABORATORY | | + + + + + + | BUN | 15 | 8 - 25 mg/dL | [facility] | | | | | | LABORATORY | | + + + + + + | Creatinine | 1.05 | 0.70 - 1.30 | [facility] | | | | | mg/dL | LABORATORY | | + + + + + + | BUN/Creatin | 14 | | [facility] | | | ine Ratio | | | LABORATORY | | + + + + + + | Calcium | 9.5 | 8.5 - 10.5 | [facility] | | | | | mg/dL | LABORATORY | | + + + + + + | Protein, | 7.5 | 6.3 - 8.2 g/dL | [facility] | | | Total | | | LABORATORY | | + + + + + + | Albumin | 3.9 | 3.6 - 5.0 g/dL | [facility] | | | | | | LABORATORY | | + + + + + + | Globulin | 3.6 | 1.3 - 4.9 g/dL | [facility] | | | | | | LABORATORY | | + + + + + + | A/G Ratio | 1.1 | 1.0 - 2.4 | [facility] | | | | | | LABORATORY | | + + + + + + | BILIRUBIN, | 0.3 | 0.1 - 1.5 mg/dL | [facility] | | | TOTAL | | | LABORATORY | | + + + + + + | ALK PHOS | 127 (H) | 35 - 115 U/L | [facility] | | | | | | LABORATORY | | + + + + + + | AST | 37 | 10 - 45 U/L | [facility] | | | | | | LABORATORY | | + + + + + + | ALT | 66 (H) | 10 - 65 U/L | [facility] | | | | | | LABORATORY | | + + + + + + | Estimated | >60Comment: GFR <60: | >60 | [facility] | | | GFR | CHRONIC KIDNEY DISEASE, | mL/min/1.73m2 | LABORATORY | | | | IF FOUND OVER A 3 MONTH | | | | | | PERIOD.GFR <15: KIDNEY | | | | | | FAILURE.FOR | | | | | | AMERICANS, MULTIPLY THE | | | | | | CALCULATED GFR BY | | | | | | 1.210.This eGFR is | | | | | | calculated using the | | | | | | [facility] traceable | | | | | | equation.Testing | | | | | | performed at [facility];[address] | | | | | | [facility];[place], [place] | | | | | | [address] | | | | + + + + + + + + | Specimen | + + | Blood | + + + + + + + | Performing | Address | City/State/Zipcode | Phone Number | | Organization | | | | + + + + + | [facility] | [address] | [place] [address] | [phone] | + + + + + CBC with Differential (06/17/2019 10:31 PM PDT) + + + + + + | Component | Value | Ref Range | Performed | Pathologist | | | | | At | Signature | + + + + + + | WBC | 18.13 (H) | 3.80 - 11.00 | [facility] | | | | | K/uL | LABORATORY | | + + + + + + | Red Blood | 4.73 | 4.20 - 5.70 | [facility] | | | Cells | | M/uL | LABORATORY | | + + + + + + | Hemoglobin | 13.0 (L) | 13.2 - 17.0 | [facility] | | | | | g/dL | LABORATORY | | + + + + + + | Hematocrit | 42.0 | 39.0 - 50.0 % | [facility] | | | | | | LABORATORY | | + + + + + + | MCV | 88.8 | 80.0 - 100.0 fl | [facility] | | | | | | LABORATORY | | + + + + + + | MCH | 27.5 | 27.0 - 34.0 pg | [facility] | | | | | | LABORATORY | | + + + + + + | MCHC | 31.0 (L) | 32.0 - 35.5 | [facility] | | | | | g/dL | LABORATORY | | + + + + + + | RDW-SD | 45.1 | 37 - 53 fl | [facility] | | | | | | LABORATORY | | + + + + + + | Platelet | 444 (H) | 150 - 400 K/uL | [facility] | | | Count | | | LABORATORY | | + + + + + + | MPV | 10.9Comment: NO NORMAL | fl | [facility] | | | | RANGE ESTABLISHED | | LABORATORY | | + + + + + + | Diff Type | AUTOMATED | | [facility] | | | | | | LABORATORY | | + + + + + + | % nRBC | 0.0 | 0 /100WBC | [facility] | | | | | | LABORATORY | | + + + + + + | % | 78.40 | % | [facility] | | | Neutrophils | | | LABORATORY | | + + + + + + | IMMATURE | 1.50 | % | [facility] | | | GRANULOCYTE | | | LABORATORY | | + + + + + + | % | 9.00 | % | [facility] | | | Lymphocytes | | | LABORATORY | | + + + + + + | Monocyte % | 8.00 | % | [facility] | | | | | | LABORATORY | | + + + + + + | Eosinophils | 2.60 | % | [facility] | | | % | | | LABORATORY | | + + + + + + | Basophils % | 0.50 | % | [facility] | | | | | | LABORATORY | | + + + + + + | Neutrophils | 14.21 (H) | 1.90 - 7.40 | [facility] | | | , Absolute | | K/uL | LABORATORY | | + + + + + + | IMMATURE | 0.27 (H)Comment: NOTE | 0.00 - 0.07 | [facility] | | | GRANS AB | NEW REFERENCE RANGE | K/uL | LABORATORY | | + + + + + + | Absolute | 1.63 | 1.00 - 3.90 | [facility] | | | Lymphocytes | | K/uL | LABORATORY | | + + + + + + | Absolute | 1.45 (H) | 0.00 - 0.80 | [facility] | | | Monocytes | | K/uL | LABORATORY | | + + + + + + | Eosinophils | 0.48 | 0.00 - 0.50 | [facility] | | | , Absolute | | K/uL | LABORATORY | | + + + + + + | Basophils, | 0.09Comment: Testing | 0.00 - 0.10 | [facility] | | | Absolute | performed at [facility];[address] | K/uL | LABORATORY | | | | [address];[place] | | | | | | [address] | | | | + + + + + + + + | Specimen | + + | Blood | + + + + + + + | Performing | Address | City/State/Zipcode | Phone Number | | Organization | | | | + + + + + | [facility] | [address] | [place] [address] | [phone] | + + + + + Culture, Blood (06/17/2019 10:30 PM PDT) + + + + + + | Component | Value | Ref Range | Performed | Pathologist | | | | | At | Signature | + + + + + + | RESULT | NO GROWTH 6 DAYS | | [facility] | | | | | | LABORATORY | | + + + + + + | RESULT | Testing performed at | | [facility] | | | | [facility], [address] | | LABORATORY | | | | [place] | | | | | | [id number]: Testing | | | | | | performed at [facility], [address] | | | | | [address] [place], | | | | | | [place] [address] | | | | + + + + + + + + | Specimen | + + | Blood - Swab of line | | insertion site | | (specimen) | + + + + + + + | Performing | Address | City/State/Zipcode | Phone Number | | Organization | | | | + + + + + | [facility] | [address] | [place] [address] | [phone] | + + + + + ECG 12 lead (06/17/2019 10:27 PM PDT) + + + + + + | Component | Value | Ref Range | Performed | Pathologist | | | | | At | Signature | + + + + + + | VENTRICULAR | 124 | BPM | [facility] | | | RATE EKG | | | | | + + + + + + | ATRIAL RATE | 124 | BPM | [facility] | | + + + + + + | P-R | 134 | ms | [facility] | | | INTERVAL | | | | | + + + + + + | QRS | 74 | ms | [facility] | | | DURATION | | | | | + + + + + + | Q-T | 318 | ms | [facility] | | | INTERVAL | | | | | + + + + + + | Q-T | 456 | ms | [facility] | | | INTERVAL | | | | | | (CORRECTED) | | | | | + + + + + + | P WAVE AXIS | 31 | degrees | [facility] | | + + + + + + | QRS AXIS | 48 | degrees | [facility] | | + + + + + + | T AXIS | 40 | degrees | [facility] | | + + + + + + | INTERPRETAT | This ECG contains | | [facility] | | | ION TEXT | Unconfirmed | | | | | | Interpretation | | | | | | Statements. See ED | | | | | | Record for Physician | | | | | | Interpretation. Sinus | | | | | | tachycardiaOtherwise | | | | | | normal ECGNo previous | | | | | | ECGs availableConfirmed | | | | | | by MUSE READ ONLY, | | | | | | -COMPUTER ([id number]), school photograph editor | | | | | | ALICE AUGUSTINE ([id number]) on | | | | | | 06/19/2019 1:06:46 AM | | | | + + + + + + + + | Specimen | + + | | + + + + + | Narrative | Performed At | + + + | | | + + + + +---------+ + + | Performing | Address | City/State/Zipcode | Phone Number | | Organization | | | | + +---------+ + + | [facility] | | | | + +---------+ + + documented in this encounter Visit Diagnoses + + | Diagnosis | + + | Empyema of the right lung (HCC) - Primary Empyema without mention of fistula | + + | Chest pain, unspecified type | + + | Sepsis, due to unspecified organism, unspecified whether acute organ dysfunction | | present (HCC) | + + | Empyema of right pleural space (HCC) Empyema without mention of fistula | + + | Community acquired pneumonia of right lower lobe of lung | + + | Persistent fever Fever, unspecified | + + | Leukocytosis, unspecified type | + + | Obesity, Class III, BMI 40-49.9 (morbid obesity) (HCC) Morbid obesity | + + | Essential hypertension Unspecified essential hypertension | + + | Reactive lymphadenopathy | + + | Type 2 diabetes mellitus without complication, without long-term current use of | | insulin (HCC) | + + | Chronic pain Other chronic pain | + + | Obstructive sleep apnea syndrome Obstructive sleep apnea (adult) (pediatric) | + + | Type 2 diabetes mellitus, without long-term current use of insulin (HCC) | + + | Empyema of lung (HCC) Empyema without mention of fistula | + + documented in this encounter Admitting Diagnoses + + | Diagnosis | + + | Empyema of right pleural space (HCC) Empyema without mention of fistula | + + documented in this encounter Administered Medications + +--------+ + +------+------+ | Medication Order | MAR | Action | Dose | Rate | Site | | | Action | Date | | | | + +--------+ + +------+------+ | acetaminophen (TYLENOL) tablet | Given | 06/22/19 | 1,000 mg | | | | 1,000 mg 1,000 mg, Oral, EVERY 8 | | 20 1:34 | | | | | HOURS (3 times per day), First | | PM PDT | | | | | dose on 06/19/19 at 1400 | | | | | | + +--------+ + +------+------+ +-------+ + +---+---+ | Given | 06/22/19 | 1,000 mg | | | | | 20 5:13 | | | | | | AM PDT | | | | +-------+ + +---+---+ | Given | 06/21/19 | 1,000 mg | | | | | 20 8:56 | | | | | | PM PDT | | | | +-------+ + +---+---+ +---+---+ | | | +---+---+ + +-------+ +--------+---+---+ | acetaminophen (TYLENOL) tablet | Given | 06/18/19 | 650 mg | | | | 650 mg 650 mg, Oral, EVERY 4 | | 20 6:36 | | | | | HOURS PRN, Pain, or fever >= 38.6 | | AM PDT | | | | | C (101.5 F), Starting Sat | | | | | | | 06/18/19 at 0333 | | | | | | + +-------+ +--------+---+---+ +---+---+ | | | +---+---+ + +-------+ +--------+---+---+ | albuterol-ipratropium | Given | 06/18/19 | 1 puff | | | | (COMBIVENT RESPIMAT) 100-20 | | 20 10:12 | | | | | mcg/puff inhaler 1 puff 1 puff, | | PM PDT | | | | | Inhalation, 4 TIMES DAILY, First | | | | | | | dose on 06/18/19 at 0305 | | | | | | + +-------+ +--------+---+---+ +-------+ +--------+---+---+ | Given | 06/18/19 | 1 puff | | | | | 20 5:49 | | | | | | PM PDT | | | | +-------+ +--------+---+---+ | Given | 06/18/19 | 1 puff | | | | | 20 12:52 | | | | | | PM PDT | | | | +-------+ +--------+---+---+ +---+---+ | | | +---+---+ + +-------+ +-------+---+---+ | aspirin EC tablet 81 mg 81 mg, | Given | 06/22/19 | 81 mg | | | | Oral, DAILY, First dose on Sat | | 20 10:36 | | | | | 06/18/19 at 0900 | | AM PDT | | | | + +-------+ +-------+---+---+ +-------+ +-------+---+---+ | Given | 06/21/19 | 81 mg | | | | | 20 9:16 | | | | | | AM PDT | | | | +-------+ +-------+---+---+ | Given | 06/20/19 | 81 mg | | | | | 20 8:50 | | | | | | AM PDT | | | | +-------+ +-------+---+---+ +---+---+ | | | +---+---+ + +-------+ +-------+---+---+ | atorvaSTATin (LIPITOR) tablet | Given | 06/21/19 | 20 mg | | | | 20 mg 20 mg, Oral, NIGHTLY, | | 20 8:55 | | | | | First dose on 06/18/19 at 2100 | | PM PDT | | | | + +-------+ +-------+---+---+ +-------+ +-------+---+---+ | Given | 06/20/19 | 20 mg | | | | | 20 9:00 | | | | | | PM PDT | | | | +-------+ +-------+---+---+ | Given | 06/19/19 | 20 mg | | | | | 20 9:23 | | | | | | PM PDT | | | | +-------+ +-------+---+---+ +---+---+ | | | +---+---+ + +---------+ +-----+-------+---+ | cefTRIAXone (ROCEPHIN) IVPB 2 g | New Bag | 06/22/19 | 2 g | 100 | | | 2 g, Intravenous, Administer | | 20 1:04 | | mL/hr | | | over 30 Minutes, EVERY 24 HOURS | | PM PDT | | | | | (Daily), First dose on Sat | | | | | | | 06/18/19 at 1100, Keep in | | | | | | | refrigerator., Indications: | | | | | | | Community Acquired Pneumonia, | | | | | | | Empyema of Pleura | | | | | | + +---------+ +-----+-------+---+ +---------+ +-----+-------+---+ | New Bag | 06/21/19 | 2 g | 100 | | | | 20 12:17 | | mL/hr | | | | PM PDT | | | | +---------+ +-----+-------+---+ | New Bag | 06/20/19 | 2 g | 100 | | | | 20 12:40 | | mL/hr | | | | PM PDT | | | | +---------+ +-----+-------+---+ +---+---+ | | | +---+---+ + +-------+ +---+---+---+ | chlorhexidine (HIBICLENS) 4 % | Given | 06/19/19 | | | | | liquid Topical, DAILY PRN, | | 20 12:17 | | | | | Other, decrotication, Starting | | AM PDT | | | | | 06/19/19 at 0000, For 2 doses, | | | | | | | Apply to: Other (Comment), Other | | | | | | | location: entire body | | | | | | + +-------+ +---+---+---+ +---+---+ | | | +---+---+ + +-------+ +--------+---+---+ | chlorhexidine (PERIDEX) 0.12% | Given | 06/19/19 | 15 mLs | | | | solution 15 mL 15 mL, | | 20 9:23 | | | | | Mouth/Throat, 2 TIMES DAILY, | | PM PDT | | | | | First dose on 06/19/19 at | | | | | | | 1315, Swish in mouth for 30 | | | | | | | seconds then spit out. Do not eat | | | | | | | for 2-3 hours after using., | | | | | | + +-------+ +--------+---+---+ +-------+ +--------+---+---+ | Given | 06/19/19 | 15 mLs | | | | | 20 2:00 | | | | | | PM PDT | | | | +-------+ +--------+---+---+ +---+---+ | | | +---+---+ + + + + +-------+---+ | dexmedetomidine in saline | Rate/Dos | 06/19/19 | 1.5 | 51.9 | | | (PRECEDEX) 4 mcg/mL infusion | e Change | 20 9:39 | mcg/kg/h | mL/hr | | | 0.2-1.5 mcg/kg/hr | | PM PDT | r | | | | 138.5 kg (6.925-51.9375 mL/hr, | | | | | | | rounded to 6.9-51.9 mL/hr), at | | | | | | | 6.9-51.9 mL/hr, Intravenous, | | | | | | | TITRATED, Starting 06/19/19 at | | | | | | | 1400, Reduce dose every 4 hours | | | | | | | to the lowest dose required to | | | | | | | meet sedation goal., Titration | | | | | | | Instruction: See below, Goal: | | | | | | | Other, Other goal: RASS goal in | | | | | | | pain/sedation management order, | | | | | | | Initial dose: 0.2 mcg/kg/hr, | | | | | | | Increase rate by: 0.2 mcg/kg/hr | | | | | | | every 30 minutes., Decrease rate | | | | | | | by: 0.2 mcg/kg/hr every 30 | | | | | | | minutes., *: Titrate drug per | | | | | | | order as tolerated. Titration may | | | | | | | vary based on the patient | | | | | | | | | | | | | | s critical condition., | | | | | | | Post-op/Phase II | | | | | | + + + + +-------+---+ + + + +-------+---+ | Rate/Dose Change | 06/19/19 | 0.4 | 13.9 | | | | 20 9:23 | mcg/kg/h | mL/hr | | | | PM PDT | r | | | + + + +-------+---+ | New Bag | 06/19/19 | 0.2 | 6.9 | | | | 20 9:02 | mcg/kg/h | mL/hr | | | | PM PDT | r | | | + + + +-------+---+ +---+---+ | | | +---+---+ + +-------+ +-------+---+---+ | DULoxetine (CYMBALTA) DR | Given | 06/21/19 | 30 mg | | | | capsule 30 mg 30 mg, Oral, | | 20 8:56 | | | | | DAILY, First dose on 06/18/19 | | PM PDT | | | | | at 1100, Do not open capsule., | | | | | | + +-------+ +-------+---+---+ +-------+ +-------+---+---+ | Given | 06/20/19 | 30 mg | | | | | 20 8:50 | | | | | | AM PDT | | | | +-------+ +-------+---+---+ | Given | 06/18/19 | 30 mg | | | | | 20 5:48 | | | | | | PM PDT | | | | +-------+ +-------+---+---+ +---+---+ | | | +---+---+ + +-------+ +-------+---+ + | enoxaparin (LOVENOX) 40 mg/0.4 | Given | 06/18/19 | 40 mg | | Abdomen- | | mL injection 40 mg 40 mg, | | 20 9:11 | | | LLQ | | Subcutaneous, EVERY 24 HOURS | | AM PDT | | | | | (Daily), First dose on Sat | | | | | | | 06/18/19 at 0900 | | | | | | + +-------+ +-------+---+ + +---+---+ | | | +---+---+ + +-------+ +-------+---+ + | enoxaparin (LOVENOX) 40 mg/0.4 | Given | 06/22/19 | 40 mg | | Leg-Left | | mL injection 40 mg 40 mg, | | 20 12:21 | | | Upper | | Subcutaneous, EVERY 24 HOURS | | PM PDT | | | | | INTERVAL, First dose (after last | | | | | | | modification) on 06/20/19 at | | | | | | | 1200 | | | | | | + +-------+ +-------+---+ + +-------+ +-------+---+ + | Given | 06/21/19 | 40 mg | | Abdomen- | | | 20 12:16 | | | RLQ | | | PM PDT | | | | +-------+ +-------+---+ + | Given | 06/20/19 | 40 mg | | Abdomen- | | | 20 12:01 | | | LLQ | | | PM PDT | | | | +-------+ +-------+---+ + +---+---+ | | | +---+---+ + + + +--------+---------+---+ | fentaNYL in saline 10 mcg/mL | Rate/Dos | 06/20/19 | 50 | 5 mL/hr | | | infusion 25-250 mcg/hr (2.5-25 | e Verify | 20 5:19 | mcg/hr | | | | mL/hr), at 2.5-25 mL/hr, | | AM PDT | | | | | Intravenous, TITRATED, Starting | | | | | | | 06/19/19 at 1315, Titration | | | | | | | Instruction: See below, Goal: | | | | | | | Pain score (NRS) less than 6, | | | | | | | Initial dose: 25 mcg/hr, Increase | | | | | | | rate by: 25 mcg/hr every 30 | | | | | | | minutes., Decrease rate by: 25 | | | | | | | mcg/hr every 30 minutes., *: | | | | | | | Titrate drug per order as | | | | | | | tolerated. Titration may vary | | | | | | | based on the patient | | | | | | | | | | | | | | s critical condition. | | | | | | + + + +--------+---------+---+ + + +--------+---------+---+ | Rate/Dose Change | 06/20/19 | 50 | 5 mL/hr | | | | 20 1:15 | mcg/hr | | | | | AM PDT | | | | + + +--------+---------+---+ | Restarted | 06/19/19 | 25 | 2.5 | | | | 20 10:58 | mcg/hr | mL/hr | | | | PM PDT | | | | + + +--------+---------+---+ +---+---+ | | | +---+---+ + +-------+ + +---+---+ | gabapentin (NEURONTIN) capsule | Given | 06/18/19 | 1,200 mg | | | | 1,200 mg 1,200 mg, Oral, ONCE, | | 20 2:57 | | | | | 06/18/19 at 0220, For 1 dose | | AM PDT | | | | + +-------+ + +---+---+ +---+---+ | | | +---+---+ + +-------+ + +---+---+ | gabapentin (NEURONTIN) tablet | Given | 06/18/19 | 1,200 mg | | | | 1,200 mg 1,200 mg, Oral, 3 TIMES | | 20 10:09 | | | | | DAILY, First dose (after last | | PM PDT | | | | | modification) on 06/18/19 at | | | | | | | 0900 | | | | | | + +-------+ + +---+---+ +-------+ + +---+---+ | Given | 06/18/19 | 1,200 mg | | | | | 20 2:36 | | | | | | PM PDT | | | | +-------+ + +---+---+ | Given | 06/18/19 | 1,200 mg | | | | | 20 9:12 | | | | | | AM PDT | | | | +-------+ + +---+---+ +---+---+ | | | +---+---+ + +-------+ + +---+---+ | gabapentin (NEURONTIN) tablet | Given | 06/22/19 | 1,200 mg | | | | 1,200 mg 1,200 mg, Oral, 3 TIMES | | 20 1:34 | | | | | DAILY, First dose (after last | | PM PDT | | | | | modification) on 06/22/19 at | | | | | | | 0900 | | | | | | + +-------+ + +---+---+ +-------+ + +---+---+ | Given | 06/22/19 | 1,200 mg | | | | | 20 10:16 | | | | | | AM PDT | | | | +-------+ + +---+---+ +---+---+ | | | +---+---+ + +-------+ +--------+---+---+ | gabapentin (NEURONTIN) tablet | Given | 06/21/19 | 300 mg | | | | 300 mg 300 mg, Oral, 3 TIMES | | 20 9:16 | | | | | DAILY, First dose (after last | | AM PDT | | | | | modification) on 06/19/19 at | | | | | | | 1400 | | | | | | + +-------+ +--------+---+---+ +-------+ +--------+---+---+ | Given | 06/20/19 | 300 mg | | | | | 20 9:00 | | | | | | PM PDT | | | | +-------+ +--------+---+---+ | Given | 06/20/19 | 300 mg | | | | | 20 1:38 | | | | | | PM PDT | | | | +-------+ +--------+---+---+ +---+---+ | | | +---+---+ + +-------+ +--------+---+---+ | gabapentin (NEURONTIN) tablet | Given | 06/21/19 | 600 mg | | | | 600 mg 600 mg, Oral, 3 TIMES | | 20 8:56 | | | | | DAILY, First dose (after last | | PM PDT | | | | | modification) on Thu06/21/19 at | | | | | | | 1400 | | | | | | + +-------+ +--------+---+---+ +-------+ +--------+---+---+ | Given | 06/21/19 | 600 mg | | | | | 20 1:40 | | | | | | PM PDT | | | | +-------+ +--------+---+---+ + +---+ | | | + +---+ | HYDROmorphone (DILAUDID) 1 | | | mg/mL injection Starting Sun | | | 06/19/19 at 1410, For 1 dose, | | | Brooke Wang: lakeisha | | | override, | | + +---+ | | | + +---+ + +-------+ +------+---+---+ | HYDROmorphone (DILAUDID) | Given | 06/19/19 | 2 mg | | | | injection 2 mg 2 mg, | | 20 2:15 | | | | | Intravenous, ONCE, 06/19/19 at | | PM PDT | | | | | 1500, For 1 dose | | | | | | + +-------+ +------+---+---+ + +---+ | | | + +---+ | insulin lispro (humaLOG) | | | injection (vial) 0-12 Units 0-12 | | | Units, Subcutaneous, 4 TIMES | | | DAILY BEFORE MEALS & NIGHTLY, | | | First dose (after last | | | modification) on Thu06/20/19 at | | | 1130, CORRECTION SCALE: Blood | | | Glucose (BG) < 150: | | | None BG 150-200: DAY: 2 units. | | | NIGHT: 0 units BG 201-250: | | | DAY: 4 units. NIGHT: 2 units | | | BG 251-300: DAY: 6 units. | | | NIGHT: 4 units BG 301-350: DAY: | | | 8 units. NIGHT: 6 units BG | | | 351-400: DAY: 10 units. NIGHT: 8 | | | units BG > 400 : DAY: 12 | | | units. NIGHT: 10 units | | | AND CALL PROVIDER | | | , Use DAY DOSE for doses | | | scheduled: AC, NPO, Daytime | | | 2882-0813 Use NIGHT DOSE for | | | doses scheduled: HS, | | | Nighttime 5601-0522 If the BG is | | | not checked before the patient | | | starts eating, do not give | | | correction insulin. Only for use | | | with U-100 insulin syringe., | | + +---+ | | | + +---+ + +-------+ +---------+---+---+ | iohexol (OMNIPAQUE 350) 350 | Given | 03/20/20 | 100 mLs | | | | mg/mL injection 100 mL 100 mL, | | 20 11:13 | | | | | Intravenous, ONCE PRN, Other, | | PM PDT | | | | | Starting 06/17/19 at 2303, For | | | | | | | 1 dose, Cat Scanner | | | | | | + +-------+ +---------+---+---+ +---+---+ | | | +---+---+ + +-------+ +-------+---+---+ | ketorolac (TORADOL) injection | Given | 06/19/19 | 30 mg | | | | 30 mg 30 mg, Intravenous, EVERY | | 20 5:50 | | | | | 6 HOURS INTERVAL, First dose | | AM PDT | | | | | (after last modification) on Sat | | | | | | | 06/18/19 at 2215, For 5 days | | | | | | + +-------+ +-------+---+---+ +-------+ +-------+---+---+ | Given | 06/18/19 | 30 mg | | | | | 20 10:09 | | | | | | PM PDT | | | | +-------+ +-------+---+---+ + +---+ | | | + +---+ | labetalol (TRANDATE) 5 mg/mL | | | injection 10 mg 10 mg, | | | Intravenous, EVERY 1 HOUR PRN, to | | | achieve or maintain goal BP<140, | | | Starting 06/19/19 at 1758 | | + +---+ | | | + +---+ + +-------+ +-------+---+---+ | labetalol (TRANDATE) 5 mg/mL | Given | 06/19/19 | 20 mg | | | | injection 20 mg 20 mg, | | 20 2:17 | | | | | Intravenous, EVERY 1 HOUR PRN, to | | PM PDT | | | | | achieve or maintain goal BP<150, | | | | | | | Starting 06/19/19 at 1254 | | | | | | + +-------+ +-------+---+---+ +---+---+ | | | +---+---+ + +---------+ +--------+-------+---+ | lactated ringers (LR) bolus | New Bag | 06/20/19 | 1,000 | 2000 | | | 1,000 mL 1,000 mL, Intravenous, | | 20 12:07 | mLs | mL/hr | | | Administer over 30 Minutes, ONCE, | | AM PDT | | | | | 06/20/19 at 0015, For 1 dose | | | | | | + +---------+ +--------+-------+---+ +---+---+ | | | +---+---+ + +-------+ +-------+---+---+ | lisinopril (PRINIVIL, ZESTRIL) | Given | 06/22/19 | 10 mg | | | | tablet 10 mg 10 mg, Oral, DAILY, | | 20 10:37 | | | | | First dose on 06/18/19 at | | AM PDT | | | | | 0900 | | | | | | + +-------+ +-------+---+---+ +-------+ +-------+---+---+ | Given | 06/21/19 | 10 mg | | | | | 20 9:16 | | | | | | AM PDT | | | | +-------+ +-------+---+---+ | Given | 06/20/19 | 10 mg | | | | | 20 8:50 | | | | | | AM PDT | | | | +-------+ +-------+---+---+ +---+---+ | | | +---+---+ + +-------+ +------+---+---+ | melatonin tablet 3 mg 3 mg, | Given | 06/19/19 | 3 mg | | | | Oral, NIGHTLY Lilli PEPE, | | 20 10:42 | | | | | Starting 06/18/19 at 0333 | | PM PDT | | | | + +-------+ +------+---+---+ +---+---+ | | | +---+---+ + +---------+ +--------+-------+---+ | meropenem (MERREM) 500 mg in | New Bag | 06/18/19 | 500 mg | 100 | | | sodium chloride 0.9% 50 mL IVPB | | 20 6:36 | | mL/hr | | | 500 mg, Intravenous, Administer | | AM PDT | | | | | over 30 Minutes, EVERY 6 HOURS | | | | | | | INTERVAL, First dose on Sat | | | | | | | 06/18/19 at 0100, Activate system | | | | | | | and mix before use., Indications: | | | | | | | SEPSIS OF UNKNOWN ETIOLOGY | | | | | | + +---------+ +--------+-------+---+ +---------+ +--------+-------+---+ | New Bag | 06/18/19 | 500 mg | 100 | | | | 20 1:29 | | mL/hr | | | | AM PDT | | | | +---------+ +--------+-------+---+ +---+---+ | | | +---+---+ + +-------+ + +---+---+ | methocarbamol (ROBAXIN) tablet | Given | 06/22/19 | 1,000 mg | | | | 1,000 mg 1,000 mg, Oral, EVERY 6 | | 20 12:20 | | | | | HOURS (4 times per day), First | | PM PDT | | | | | dose on 06/19/19 at 1400 | | | | | | + +-------+ + +---+---+ +-------+ + +---+---+ | Given | 06/22/19 | 1,000 mg | | | | | 20 5:13 | | | | | | AM PDT | | | | +-------+ + +---+---+ | Given | 06/22/19 | 1,000 mg | | | | | 20 12:27 | | | | | | AM PDT | | | | +-------+ + +---+---+ +---+---+ | | | +---+---+ + +-------+ +-------+---+---+ | metoprolol tartrate (LOPRESSOR) | Given | 06/19/19 | 25 mg | | | | tablet 25 mg 25 mg, Oral, 2 | | 20 9:22 | | | | | TIMES DAILY, First dose (after | | PM PDT | | | | | last modification) on 06/19/19 | | | | | | | at 2100, Post-op/Phase II | | | | | | + +-------+ +-------+---+---+ +---+---+ | | | +---+---+ + +-------+ +-------+---+---+ | metoprolol tartrate (LOPRESSOR) | Given | 06/20/19 | 25 mg | | | | tablet 25 mg 25 mg, Oral, 2 | | 20 8:50 | | | | | TIMES DAILY, First dose (after | | AM PDT | | | | | last modification) on 06/20/19 | | | | | | | at 0900, Post-op/Phase II | | | | | | + +-------+ +-------+---+---+ +---+---+ | | | +---+---+ + +-------+ +-------+---+---+ | metoprolol tartrate (LOPRESSOR) | Given | 06/18/19 | 50 mg | | | | tablet 50 mg 50 mg, Oral, 2 | | 20 10:10 | | | | | TIMES DAILY, First dose on Sat | | PM PDT | | | | | 06/18/19 at 0900 | | | | | | + +-------+ +-------+---+---+ +-------+ +-------+---+---+ | Given | 06/18/19 | 50 mg | | | | | 20 9:12 | | | | | | AM PDT | | | | +-------+ +-------+---+---+ +---+---+ | | | +---+---+ + +-------+ +-------+---+---+ | metoprolol tartrate (LOPRESSOR) | Given | 06/22/19 | 50 mg | | | | tablet 50 mg 50 mg, Oral, 2 | | 20 10:35 | | | | | TIMES DAILY, First dose (after | | AM PDT | | | | | last modification) on Thu06/20/19 | | | | | | | at 2100 | | | | | | + +-------+ +-------+---+---+ +-------+ +-------+---+---+ | Given | 06/21/19 | 50 mg | | | | | 20 8:56 | | | | | | PM PDT | | | | +-------+ +-------+---+---+ | Given | 06/21/19 | 50 mg | | | | | 20 9:17 | | | | | | AM PDT | | | | +-------+ +-------+---+---+ +---+---+ | | | +---+---+ + +---------+ +--------+-------+---+ | micafungin (MYCAMINE) 100 mg in | New Bag | 06/18/19 | 100 mg | 100 | | | sodium chloride 0.9% 100 mL IVPB | | 20 1:49 | | mL/hr | | | 100 mg, Intravenous, Administer | | AM PDT | | | | | over 1 Hours, ONCE, 06/18/19 | | | | | | | at 0050, For 1 dose, Protect from | | | | | | | light. Activate system and mix | | | | | | | before use., Indications: Sepsis | | | | | | + +---------+ +--------+-------+---+ +---+---+ | | | +---+---+ + +-------+ +------+---+---+ | morphine injection 4 mg 4 mg, | Given | 06/17/19 | 4 mg | | | | Intravenous, ONCE, 06/17/19 at | | 20 11:38 | | | | | 2340, For 1 dose | | PM PDT | | | | + +-------+ +------+---+---+ + +---+ | | | + +---+ | ondansetron (ZOFRAN) injection | | | 4 mg 4 mg, Intravenous, EVERY 4 | | | HOURS PRN, Nausea, Starting Tue | | | 06/21/19 at 1739, For 48 hours, | | | For 48 hours post-op, | | + +---+ | | | + +---+ + +-------+ +------+---+---+ | oxyCODONE (ROXICODONE) tablet 5 | Given | 06/22/19 | 5 mg | | | | mg 5 mg, Oral, EVERY 8 HOURS | | 20 1:34 | | | | | PRN, Pain, Starting 06/21/19 | | PM PDT | | | | | at 1335 | | | | | | + +-------+ +------+---+---+ +-------+ +------+---+---+ | Given | 06/22/19 | 5 mg | | | | | 20 5:13 | | | | | | AM PDT | | | | +-------+ +------+---+---+ | Given | 06/21/19 | 5 mg | | | | | 20 8:56 | | | | | | PM PDT | | | | +-------+ +------+---+---+ +---+---+ | | | +---+---+ + +-------+ + +---+---+ | oxyCODONE-acetaminophen | Given | 06/21/19 | 1 tablet | | | | (PERCOCET) 5-325 mg per tablet 1 | | 20 12:03 | | | | | tablet 1 tablet, Oral, EVERY 8 | | AM PDT | | | | | HOURS PRN, Pain, Starting Mon | | | | | | | 06/20/19 at 1549, No more than | | | | | | | 4000 mg acetaminophen per 24 | | | | | | | hours from all sources, | | | | | | + +-------+ + +---+---+ +-------+ + +---+---+ | Given | 06/20/19 | 1 tablet | | | | | 20 4:12 | | | | | | PM PDT | | | | +-------+ + +---+---+ +---+---+ | | | +---+---+ + +-------+ +--------+---+---+ | potassium chloride (KLOR-CON) | Given | 06/22/19 | 30 mEq | | | | ER tablet 30 mEq 30 mEq, Oral, | | 20 10:39 | | | | | ONCE, 06/22/19 at 0830, For 1 | | AM PDT | | | | | dose, May take with food to | | | | | | | decrease GI upset., | | | | | | + +-------+ +--------+---+---+ +---+---+ | | | +---+---+ + +---------+ + +-------+---+ | propofol infusion (DIPRIVAN) 10 | New Bag | 06/20/19 | 30 | 24.9 | | | mg/mL infusion 10-50 mcg/kg/min | | 20 5:19 | mcg/kg/m | mL/hr | | | | | AM PDT | in | | | | 138.5 kg (8.31-41.55 mL/hr, | | | | | | | rounded to 8.3-41.6 mL/hr), at | | | | | | | 8.3-41.6 mL/hr, Intravenous, | | | | | | | TITRATED, Starting 06/19/19 at | | | | | | | 1315, Shake well. Do not filter. | | | | | | | Expires 12 hours after spiked., | | | | | | | Titration Instruction: See below, | | | | | | | Goal: Other, Other goal: RASS | | | | | | | goal in pain/sedation/delirium | | | | | | | management order, Initial dose: | | | | | | | 10 mcg/kg/min, Increase rate by: | | | | | | | 5-10 mcg/kg/min every 5 minutes., | | | | | | | Decrease rate by: 5-10 | | | | | | | mcg/kg/min every 5 minutes., *: | | | | | | | Titrate drug per order as | | | | | | | tolerated. Titration may vary | | | | | | | based on the patient | | | | | | | | | | | | | | s critical condition. | | | | | | + +---------+ + +-------+---+ + + + +-------+---+ | Rate/Dose Change | 06/20/19 | 30 | 24.9 | | | | 20 3:00 | mcg/kg/m | mL/hr | | | | AM PDT | in | | | + + + +-------+---+ | Rate/Dose Change | 06/20/19 | 20 | 16.6 | | | | 20 1:20 | mcg/kg/m | mL/hr | | | | AM PDT | in | | | + + + +-------+---+ +---+---+ | | | +---+---+ + +---------+ +--------+-------+---+ | sodium chloride 0.9% (NS) bolus | New Bag | 06/17/19 | 2,000 | 4000 | | | 2,000 mL 2,000 mL, Intravenous, | | 20 10:32 | mLs | mL/hr | | | Administer over 30 Minutes, | | PM PDT | | | | | ONCE, 06/17/19 at 2205, For 1 | | | | | | | dose | | | | | | + +---------+ +--------+-------+---+ +---+---+ | | | +---+---+ + +---------+ +---+-------+---+ | sodium chloride 0.9% (NS) | New Bag | 06/18/19 | | 150 | | | infusion at 150 mL/hr, | | 20 1:35 | | mL/hr | | | Intravenous, CONTINUOUS, Starting | | AM PDT | | | | | 06/18/19 at 0120 | | | | | | + +---------+ +---+-------+---+ +---+---+ | | | +---+---+ + +---------+ +---+-------+---+ | sodium chloride 0.9% (NS) | New Bag | 06/19/19 | | 100 | | | infusion at 100 mL/hr, | | 20 5:12 | | mL/hr | | | Intravenous, CONTINUOUS, Starting | | AM PDT | | | | | 06/18/19 at 0400 | | | | | | + +---------+ +---+-------+---+ + + +---+-------+---+ | New Bag | 06/18/19 | | 100 | | | | 20 12:57 | | mL/hr | | | | PM PDT | | | | + + +---+-------+---+ | Continued Bag | 06/18/19 | | 100 | | | | 20 3:53 | | mL/hr | | | | AM PDT | | | | + + +---+-------+---+ +---+---+ | | | +---+---+ + +---------+ +---+ +---+ | sodium chloride 0.9% (NS) | New Bag | 06/19/19 | | 30 mL/hr | | | infusion at 30 mL/hr, | | 20 1:45 | | | | | Intravenous, CONTINUOUS, Starting | | PM PDT | | | | | 06/19/19 at 1400, | | | | | | | Post-op/Phase II | | | | | | + +---------+ +---+ +---+ +---+---+ | | | +---+---+ documented in this encounter Additional Health Concerns + + + + + | Infection | Onset Date | Last Indicated | Resolved Time | + + + + + | Rule out Respiratory | 06/18/2019 | 06/18/2019 | 06/20/2019 10:16 AM | | Infection | | | PDT | + + + + + | Rule out COVID-19 | 06/19/2019 | 06/19/2019 | 06/20/2019 1:54 PM | | | | | PDT | + + + + + documented as of this encounter
--- OUTSIDE RECORDS SUMMARY | ~2019-10-31 | XMS | Encounter Summary ---
Demographics + + + | Address | [address] | | | [place] [address] | + + + | Home Phone | | + + + | Preferred Language | Unknown | + + + | Marital Status | | + + + | Presybeterian Affiliation | Unknown | + + + | Race | Unknown | + + + | Ethnic Group | Unknown | + + + Author + + + | Author | [facility] | | | and Angelana | + + + | Organization | [facility] | | | and Angelana [...] Team Providers + +------+ + | Care Sorter Upholstery Parts Name | Role | Phone | + +------+ + | Edilberto Troy MD | PCP | | + +------+ + Reason for Visit Evaluate & Treat (Routine) +--------+ + + + + + | Status | Reason | Specialty | Diagnoses / | Referred By | Referred To | | | | | Procedures | Contact | Contact | +--------+ + + + + + | Closed | Specialty | Sleep | Diagnoses | Venkata, | [facility] | | | Services | Medicine | SHEILA | MD Nata | Center [address] | | | Required | | (obstructive | [address] | [place] | | | | | sleep | [address] [place] | [place], | | | | | apnea) | [place] | [place] [address] | | | | | Nocturnal | [address] | Phone: | | | | | hypoxemia | Phone: | [phone] | | | | | Procedures | [phone] | Fax: | | | | | [place] POLYSOM | Fax: | [phone] | | | | | 6/>YRS SLEEP | [phone] | | | | | | W/CPAP 4/> | | | | | | | ADDL EILEEN | | | | | | | ATTND [place] | | | | | | | POLYSOM | | | | | | | 6/>YRS SLEEP | | | | | | | 4/> ADDL | | | | | | | EILEEN ATTND | | | | | | | PAP+TCO2 | | | | | | | (02/15/18 @ | | | | | | | 9pm) *leave | | | | | | | here* | | | +--------+ + + + + + Encounter Details +--------+ + + + + | Date | Type | Department | Care Team | Description | +--------+ + + + + | 02/15/ | Hospital | [facility] | Nata Hastings MD | SHEILA (obstructive | | 2018 - | Encounter | [facility] | [address] | sleep apnea); | | | | CENTER [address] | [place] | Nocturnal hypoxemia | | 02/16/ | | [place] | [address] | | | 2017 | | [address] | | | | | | [phone] | | | +--------+ + + + [...] +---------+ + + | gabapentin | Take 600 mg by mouth | | 0 | | | | (NEURONTIN) 600 MG | 2 times daily. | | | | 0 | | tablet | | | | | | + + + +---------+ + + | nortriptyline | Take 25 mg by mouth | | 0 | | | | (PAMELOR) 25 mg | nightly. | | | | 8 | | capsule | | | | | | + + + +---------+ + + documented as of this encounter Procedure Notes Nata Hastings MD - 02/24/2018 8:25 AM PSTAssociated Order(s): SLEEP STUDY PAP TITRATIONPr e-Procedure Diagnose(s): SHEILA (obstructive sleep apnea); Nocturnal hypoxemia; Chronic obstruc tive pulmonary disease, unspecified COPD type (HCC)Post-Procedure Diagnose(s): SHEILA (obstruct lupe sleep apnea); Nocturnal hypoxemia; Chronic obstructive pulmonary disease, unspecified CO PD type (HCC); Periodic limb movements of sleep [facility] [place] [address] Positive Airway Pressure Titration Report on Jose Alberto Morocho performed on February 15, 2018. Clinical Information: Jose Alberto Morocho is a 47 y.o. 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 revmarcin wed his outside records. He had a split-night polysomnography at [facility] in [place], [place] on September 27, 2013. He had [...] ps at 4. Oxygen was not added. Last download showed that he is on auto bilevel: Max IPAP 22, min EPAP 14, maximum pressure support 6, minimum pressure support 4. Her age IPAP has been 19 for 90% of time. Maximum titrated EPAP has been 17. Average EPAP, 90% of time has been 14.2. AHI is 0.6. He has used his machine religiously and for average paige ly usage of 9 hours. he was not started on oxygen initially when he was started on BiPAP, and he had a few ove rnight oximetry and since his oxygen was low he was started on supplemental oxygen. He was o n 4 LPM oxygen . He says that has insurance several months ago and he couldn't afford oxygen so he stopped using his oxygen in March to April 2017 when he returned it. He says BiPAP has helped him a lot and without it he cannot sleep, however, he would sleep much better when he had oxygen. By that he says he means that he would have fewer awakening s at night and overall the quality of sleep was better. overnight oximetry which was done on bilevel and room air on December 24, 2017 showed me an SPO2 was 91.2%, teo SPO2 at 81%, and he had spent 38.4 minutes at or below 88%, and 79 .2 minutes at or below 89%. BMI: 51 Technical Information: Please see technical data which is attached. Definitions (The AASM Manual for the Scoring of Sleep and Associated Events, Version 2.4; 2 017): Apnea: There is a drop in the peak signal excursion by 90% or greater of pre-event baselin e using an oronasal thermal sensor (diagnostic study), PAP device flow (titration study), or an alternative apnea sensor (diagnostic study); the duration of the 90% or greater drop in sensor signal is 10 seconds or longer. Obstructive Apnea: Event associated with continued or increased inspiratory effort throug hout the entire period of absent airflow. Central Apnea: Event associated with absent inspiratory effort throughout the entire jeff od of absent airflow. Mixed Apnea: Event associated with absent inspiratory effort in the initial portion of th e event followed by resumption of inspiratory effort during the second portion of the event. Hypopnea: The peak signal excursions drop by 30% or more of pre-event baseline using nasal pressure (diagnostic study), PAP device flow (titration study), or an alternative hypopnea sensor (diagnostic study). The duration of the 30% or greater drop in signal excursion must last for 10 seconds or longer. The event is associated with a 3% or greater oxygen desaturat ion from pre-event baseline or the event is associated with an arousal. Respiratory Event Related Arousal: A sequence of breaths lasting 10 seconds or longer jj acterized by increasing respiratory effort or by flattening of the inspiratory portion of th e nasal pressure (diagnostic study) or PAP device flow (titration study) waveform leading to arousal from sleep when the sequence of breaths does not meet criteria for an apnea or hypo pnea. RELEVANT MEDICATIONS: Duloxetine, gabapentin, and nortriptyline. SUBJECTIVE: The patient rated sleep quality during sleep study as usual. SLEEP ARCHITECTURE AND EEG: ? Total sleep time was 437 minutes. Sleep efficiency was 89.5.% and was normal.. ? Sleep onset latency was 10 minutes and was normal. ? REM latency was 301 minutes and was increased. ? Percent of time in stage N3 was 14.8 % and was normal. ? Percent of time in stage REM was 7.2 % and was decreased.. ? Arousal Index for this titration study was 30.9./hour and was increased, with 0 respirato ry arousals/hour and 9.5 spontaneous arousals/hour. RESPIRATORY: ? During PAP trial, he was first started on bilevel-S at 16/8 cm H2O, and patient "felt lynn t the pressure were adequate but the duration of inhalation was short". The sound engineering technician then tried Bilevel-ST which didn't improve this problem. So the titration was started with bilev el AVAPS with the following setting: min EPAP 8, maximum EPAP 15, minimum pressure support 6 , maximum pressure support 17, tidal volume 560, Auto rate, maximum pressure 25, AVAPS rate d 2. This was more tolerable for the patient. Though obstructive sleep apnea was controlle d, patient continued to have hypoxemia. TCO2 was ranging between 50 and 51 mmHg. Min EPAP w as increased to 11 cm H2O and TV was increased to 600, did not improve hypoxemia, supplemen moiz oxygen was bled in, starting at 1 L/m. It was gradually increased to 4 L/m. hypoxemia especially worsened during stage R sleep when the supplemental oxygen was increased to 4 L/m . TCO2 remained at 47-48 mmHg |for the remainder of study ? Medium airfit P10 mask without chin strap was found to be adequate. ? Respiratory disturbance index (RDI) was 0, consisting of total 0 hypopneas, 0 obstructiv e apneas, 0 mixed apneas, and 0 central apneas and 0 RERAs. AHI was 0. ? Patient spent 13.8% of total sleep time in supine position. ? Mean SpO2 was 89 %, teo SpO2 was 80 %, and amount of total sleep time spent below SpO2 of 88% was 116.1 minutes %. 3% Oxygen Desaturation Index (MARILYN) was 18.9. and waselevated. ? Ambrosio-Jacobson breathing was not observed. LIMB MOVEMENTS: ? Total sleep periodic limb movement index was 75 and was increased. ? These limb movements were not significantly associated with respiratory event related sudheer usals. EKG: Normal sinus rhythm was noted with mean heart rate of 79, 74, and 84 beats per minute resp ectively. INTERPRETATION: - Previously diagnosed obstructive sleep apnea and nocturnal hypoxemia. Patient was previo usly was on 4 l/m nocturnal supplemental oxygen bled-in to his bilevel machine. He then lo st his insurance for a while and had to return his oxygen because he could not afford it. Lakesha shepherd has been using his bilevel machine religiously and though has helped him significantly, bu t he felt that he would sleep much better when he had his supplemental oxygen. This sleep s tudy was performed to requalify him for nocturnal mental oxygen. This was performed after a n overnight oximetry on bilevel and room air showed residual nocturnal hypoxemia. Patient is on bilevel-auto at home with the following setting: Max IPAP 22, min EPAP 14, maximum pres sure support 6, minimum pressure support 4. He reported that pressure were comfortable. - in this titration study and during the PAP trial in the beginning of study, patient was first started on bilevel-S at 16/8 cm H2O and he felt that the pressure was not comfortable during inhalation. he then for some reason was tried on bilevel- ST which is not a appropr iate setting for this patient. This did not improve the problem and he was switched to bilev el-AVAPS and was able to tolerate it better. Final setting was: min EPAP 11, maximum EPAP 15 , minimum pressure support 6, maximum pressure support 14, tidal volume 600, Auto rate, max imum pressure 25, AVAPS rated 2. Though sleep apnea was controlled in the setting and TCO 2 was acceptable and 50-52 mmHg, however, patient continued to have hypoxemia and supplementa l oxygen was added. It was restarted at 1 L/m and had to be increased to 4 L/m during REM s leep. At this level of supplemental oxygen, SPO2 remained above 90% and TCO2 was between 47 and 48 mmHg. Though AVAPS titration was successful , but I think if patient had been started on his home bilevel-auto setting he would probably tolerated it fine. He did not have any complaint abo ut the pressure with his machine. Thus, I will continue him on his bilevel-auto at current s etting with 4 L/m bleed-in oxygen. Will check ETCO2 in follow up visit, and if it was elevat ed we might need to switch him to bilevel-AVAPS. - Sleep efficiency was normal and sleep was moderately fragmented. - Periodic limb movement index was elevated, and these limb movements were not significantl y associated with respiratory event related arousals. RECOMMENDATIONS: 1. Bilevel-auto, Respironics: Max IPAP 22, min EPAP 14, maximum pressure support 6, minim um pressure support 4, with 4 l/m bleed-in oxygen. Depending on patient's response and ETCO 2 in f/u visits we might need to switch him to bilevel-AVAPS. 2. Clinical Correlation for excessive leg movements. Nata Hastings MD Portions of this chart may have been created with Zipari voice recognition software. Occasi onal wrong-word or sound-alike substitutions may have occurred due to the inherent tirado itations of voice recognition software. Please read the chart carefully and recognize, using context, where these substitutions have occurred. documented in this encounter Plan of Treatment Not on filedocumented as of this encounter Procedures + +--------+ + + + | Procedure Name | Priori | Date/Time | Associated Diagnosis | Comments | | | ty | | | | + +--------+ + + + | SLEEP STUDY PAP | Routin | 02/24/2018 | | Results for this | | TITRATION | e | 8:25 AM | | procedure are in the | | | | PST | | results section. | + +--------+ + + + documented in this encounter Results Sleep study PAP titration (02/24/2018 8:25 AM PST) + + + | Narrative | Performed At | + + + | Nata Hastings | | | 02/25/2018 10:22 [facility] | | | [place] [address] Positive Airway | | | Pressure Titration Report on Jose Alberto Morocho performed on January | | | 2017. Clinical Information: Jose Alberto Morocho is a 47 y.o. | | | male who has a history of morbid obesity, lumbar degenerative disc | | | disease, hypertension,gout, COPD, and obstructive sleep apnea | | | presenting for reevaluation and establishment of care for | | | obstructive sleep apnea. reviewed his outside records. He had a | | | split-night polysomnography at [facility] in [facility] | | | [place] on September 27, 2013. He had presented with snoring, witnessed | | | apnea, restless and unrefreshing Sleep, daytime sleepiness and | | | nocturia.Sleep efficiency was 87.2%. 14.2% of stage R sleep. AHI | | | was severely elevated at 78.2. Supine AHI was 176.5. Sleep apnea | | | was obstructive in nature. ETCO2 or TCO2 were not measured. | | | Patient spent 70% of total sleep time in supine position. Teo | | | oxygen saturation was 56%. CPAP was titrated and was switched to | | | bilevel because of high pressures need for CPAP. Patient was on | | | Bilevel at 20/19 cm H2O for only 8 minutes of sleep time and with | | | "ongoing significant respiratory events". It was concluded that | | | there was" incomplete resolution" of his sleep-related breathing | | | disorder at this pressure. autobilevel was recommended: IPAP max 25, | | | min EPAP 15, maximum pressure support at 6, min ps at 4. Oxygen | | | was not added. Last download showed that he is on auto bilevel: Max | | | IPAP 22, min EPAP 14, maximum pressure support 6, minimum pressure | | | support 4. Her age IPAP has been 19 for 90% of time. Maximum | | | titrated EPAP has been 17. Average EPAP, 90% of time has been 14.2. | | | AHI is 0.6. He has used his machine religiously and for | | | average daily usage of 9 hours. he was not started on oxygen | | | initially when he was started on BiPAP, and he had a few overnight | | | oximetry and since his oxygen was low he was started on supplemental | | | oxygen. He was on 4 LPM oxygen . He says that has insurance several | | | months ago and he couldn't afford oxygen so he stopped using his | | | oxygen in March to April 2017 when he returned it. He says BiPAP | | | has helped him a lot and without it he cannot sleep, however, he would | | | sleep much better when he had oxygen. By that he says he means that | | | he would have fewer awakenings at night and overall the quality of | | | sleep was better. overnight oximetry which was done on bilevel and | | | room air on December 24, 2017 showed mean SPO2 was 91.2%, teo SPO2 | | | at 81%, and he had spent 38.4 minutes at or below 88%, and 79.2 | | | minutes at or below 89%.BMI: 51 Technical Information: Please see | | | technical data which is attached. Definitions (The AASM Manual for the | | | Scoring of Sleep and Associated Events, Version 2.4; 2017): Apnea: | | | There is a drop in the peak signal excursion by 90% or greater of | | | pre-event baseline using an oronasal thermal sensor (diagnostic | | | study), PAP device flow (titration study), or an alternative apnea | | | sensor (diagnostic study); the duration of the 90% or greater drop in | | | sensor signal is 10 seconds or longer. Obstructive Apnea: Event | | | associated with continued or increased inspiratory effort throughout | | | the entire period of absent airflow. Central Apnea: Event associated | | | with absent inspiratory effort throughout the entire period of absent | | | airflow. Mixed Apnea: Event associated with absent inspiratory | | | effort in the initial portion of the event followed by resumption of | | | inspiratory effort during the second portion of the event. Hypopnea: | | | The peak signal excursions drop by 30% or more of pre-event baseline | | | using nasal pressure (diagnostic study), PAP device flow (titration | | | study), or an alternative hypopnea sensor (diagnostic study). The | | | duration of the 30% or greater drop in signal excursion must last for | | | 10 seconds or longer. The event is associated with a 3% or greater | | | oxygen desaturation from pre-event baseline or the event is associated | | | with an arousal. Respiratory Event Related Arousal: A sequence of | | | breaths lasting 10 seconds or longer characterized by increasing | | | respiratory effort or by flattening of the inspiratory portion of the | | | nasal pressure (diagnostic study) or PAP device flow (titration study) | | | waveform leading to arousal from sleep when the sequence of breaths | | | does not meet criteria for an apnea or hypopnea. RELEVANT | | | MEDICATIONS:Duloxetine, gabapentin, and nortriptyline. SUBJECTIVE:The | | | patient rated sleep quality during sleep study as usual. SLEEP | | | ARCHITECTURE AND EEG:? Total sleep time was 437 minutes. Sleep | | | efficiency was 89.5.% and was normal..? Sleep onset latency was 10 | | | minutes and was normal.? REM latency was 301 minutes and was | | | increased.? Percent of time in stage N3 was 14.8 % and was normal.? | | | Percent of time in stage REM was 7.2 % and was decreased.. ? Arousal | | | Index for this titration study was 30.9./hour and was increased, with | | | 0 respiratory arousals/hour and 9.5 spontaneous arousals/hour. | | | RESPIRATORY:? During PAP trial, he was first started on bilevel-S at | | | 16/8 cm H2O, and patient "felt that the pressure were adequate but | | | the duration of inhalation was short". The sound engineering technician then tried | | | Bilevel-ST which didn't improve this problem. So the titration was | | | started with bilevel AVAPS with the following setting: min EPAP 8, | | | maximum EPAP 15, minimum pressure support 6, maximum pressure support | | | 17, tidal volume 560, Auto rate, maximum pressure 25, AVAPS rated 2. | | | This was more tolerable for the patient. Though obstructive sleep | | | apnea was controlled, patient continued to have hypoxemia. TCO2 was | | | ranging between 50 and 51 mmHg. Min EPAP was increased to 11 cm H2O | | | and TV was increased to 600, did not improve hypoxemia, supplemental | | | oxygen was bled in, starting at 1 L/m. It was gradually increased | | | to 4 L/m. hypoxemia especially worsened during stage R sleep when | | | the supplemental oxygen was increased to 4 L/m. TCO2 remained at | | | 47-48 mmHg |for the remainder of study? Medium airfit P10 mask without | | | chin strap was found to be adequate. ? Respiratory disturbance | | | index (RDI) was 0, consisting of total 0 hypopneas, 0 obstructive | | | apneas, 0 mixed apneas, and 0 central apneas and 0 RERAs. AHI was 0.? | | | Patient spent 13.8% of total sleep time in supine position. ? Mean | | | SpO2 was 89 %, toe SpO2 was 80 %, and amount of total sleep time | | | spent below SpO2 of 88% was 116.1 minutes %. 3% Oxygen Desaturation | | | Index (MARILYN) was 18.9. and waselevated.? Ambrosio-Jacobson breathing was | | | not observed. LIMB MOVEMENTS:? Total sleep periodic limb movement | | | index was 75 and was increased. ? These limb movements were not | | | significantly associated with respiratory event related arousals. | | | EKG:Normal sinus rhythm was noted with mean heart rate of 79, 74, and | | | 84 beats per minute respectively. INTERPRETATION: - Previously | | | diagnosed obstructive sleep apnea and nocturnal hypoxemia. Patient | | | was previously was on 4 l/m nocturnal supplemental oxygen bled-in to | | | his bilevel machine. He then lost his insurance for a while and had | | | to return his oxygen because he could not afford it. He has been | | | using his bilevel machine religiously and though has helped him | | | significantly, but he felt that he would sleep much better when he had | | | his supplemental oxygen. This sleep study was performed to | | | requalify him for nocturnal mental oxygen. This was performed after | | | an overnight oximetry on bilevel and room air showed residual | | | nocturnal hypoxemia. Patient is on bilevel-auto at home with the | | | following setting: Max IPAP 22, min EPAP 14, maximum pressure support | | | 6, minimum pressure support 4. He reported that pressure were | | | comfortable. - in this titration study and during the PAP trial in the | | | beginning of study, patient was first started on bilevel-S at 16/8 | | | cm H2O and he felt that the pressure was not comfortable during | | | inhalation. he then for some reason was tried on bilevel- ST which | | | is not a appropriate setting for this patient. This did not improve | | | the problem and he was switched to bilevel-AVAPS and was able to | | | tolerate it better. Final setting was: min EPAP 11, maximum EPAP 15, | | | minimum pressure support 6, maximum pressure support 14, tidal volume | | | 600, Auto rate, maximum pressure 25, AVAPS rated 2. Though sleep | | | apnea was controlled in the setting and TCO 2 was acceptable and 50-52 | | | mmHg, however, patient continued to have hypoxemia and supplemental | | | oxygen was added. It was restarted at 1 L/m and had to be increased | | | to 4 L/m during REM sleep. At this level of supplemental oxygen, | | | SPO2 remained above 90% and TCO2 was between 47 and 48 mmHg.Though | | | AVAPS titration was successful , but I think if patient had been | | | started on his home bilevel-auto setting he would probably tolerated | | | it fine. He did not have any complaint about the pressure with his | | | machine. Thus, I will continue him on his bilevel-auto at current | | | setting with 4 L/m bleed-in oxygen. Will check ETCO2 in follow up | | | visit, and if it was elevated we might need to switch him to | | | bilevel-AVAPS. - Sleep efficiency was normal and sleep was moderately | | | fragmented. - Periodic limb movement index was elevated, and these | | | limb movements were not significantly associated with respiratory | | | event related arousals. RECOMMENDATIONS:1. Bilevel-auto, Respironics: | | | Max IPAP 22, min EPAP 14, maximum pressure support 6, minimum | | | pressure support 4, with 4 l/m bleed-in oxygen. Depending on | | | patient's response and ETCO2 in f/u visits we might need to switch him | | | to bilevel-AVAPS. 2. Clinical Correlation for excessive leg | | | movements. Nata Hastings MD Portions of this chart may have been | | | created with [employer]ari voice recognition software. Occasional wrong-word | | | or | | | | | | sound-alike | | | substitutions may have occurred due to the inherent limitations of | | | voice recognition software. Please read the chart carefully and | | | recognize, using context, where these substitutions have occurred. | | | | | |- Previously diagnosed obstructive sleep apnea and nocturnal | | |hypoxemia. Patient was previously was on 4 l/m nocturnal | | |supplemental oxygen bled-in to his bilevel machine. He then lost | | |his insurance for a while and had to return his oxygen because he | | |could not afford it. He has been using his bilevel machine | | |religiously and though has helped him significantly, but he felt | | |that he would sleep much better when he had his supplemental | | |oxygen. This sleep study was performed to requalify him for | | |nocturnal mental oxygen. This was performed after an overnight | | |oximetry on bilevel and room air showed residual nocturnal | | |hypoxemia. Patient is on bilevel-auto at home with the following | | |setting: Max IPAP 22, min EPAP 14, maximum pressure support 6, | | | minimum pressure support 4. He reported that pressure were | | |comfortable. | | | | | |- in this titration study and during the PAP trial in the | | |beginning of study, patient was first started on bilevel-S at | | |16/8 cm H2O and he felt that the pressure was not comfortable | | |during inhalation. he then for some reason was tried on bilevel- | | |ST which is not a appropriate setting for this patient. This did | | |not improve the problem and he was switched to bilevel-AVAPS and | | |was able to tolerate it better. Final setting was: min EPAP 11, | | |maximum EPAP 15, minimum pressure support 6, maximum pressure | | |support 14, tidal volume 600, Auto rate, maximum pressure 25, | | |AVAPS rated 2. Though sleep apnea was controlled in the setting | | |and TCO 2 was acceptable and 50-52 mmHg, however, patient | | |continued to have hypoxemia and supplemental oxygen was added. | | |It was restarted at 1 L/m and had to be increased to 4 L/m during | | |REM sleep. At this level of supplemental oxygen, SPO2 remained | | |above 90% and TCO2 was between 47 and 48 mmHg. | | |Though AVAPS titration was successful , but I think if patient | | |had been started on his home bilevel-auto setting he would | | |probably tolerated it fine. He did not have any complaint about | | |the pressure with his machine. Thus, I will continue him on his | | |bilevel-auto at current setting with 4 L/m bleed-in oxygen. Will | | |check ETCO2 in follow up visit, and if it was elevated we might | | |need to switch him to bilevel-AVAPS. | | | | | |- Sleep efficiency was normal and sleep was moderately | | |fragmented. | | | | | |- Periodic limb movement index was elevated, and these limb | | |movements were not significantly associated with respiratory | | |event related arousals. | | | | | |RECOMMENDATIONS: | | |1. Bilevel-auto, Respironics: Max IPAP 22, min EPAP 14, maximum | | |pressure support 6, minimum pressure support 4, with 4 l/m | | |bleed-in oxygen. Depending on patient's response and ETCO2 in | | |f/u visits we might need to switch him to bilevel-AVAPS. | | |2. Clinical Correlation for excessive leg movements. | | | | | |Nata Hastings MD | | | | | | | | |Portions of this chart may have been created with Zipari voice | | |recognition software. Occasional wrong-word or sound-alike | | |substitutions may have occurred due to the inherent limitations | | |of voice recognition software. Please read the chart carefully | | |and recognize, using context, where these substitutions have | | |occurred. | | + + + + + | Procedure Note | + + | Nata Hastings MD - 02/24/2018 8:25 AM [facility] | | [place], [place] [address]Rejprdap Airway Pressure Titration | | Report on Jose Alberto Morocho performed on February 15, 2018.Clinical Information: Jose Alberto | | Sue Morocho is a 47 y.o. male who has a history of morbid obesity, lumbar | | degenerative disc disease, hypertension,gout, COPD, and obstructive sleep apnea | | presenting for reevaluation and establishment of care for obstructive sleep apnea. | | reviewed his outside records. He had a split-night polysomnography at [facility] in [place], [place] on September 27, 2013. He had presented with snoring, witnessed | | apnea, restless and unrefreshing Sleep, daytime sleepiness and nocturia.Sleep | | efficiency was 87.2%. 14.2% of stage R sleep. AHI was severely elevated at 78.2. | | Supine AHI was 176.5. Sleep apnea was obstructive in nature. ETCO2 or TCO2 were not | | measured. Patient spent 70% of total sleep time in supine position. Teo oxygen | | saturation was 56%. CPAP was titrated and was switched to bilevel because of high | | pressures need for CPAP. Patient was on Bilevel at 20/19 cm H2O for only 8 minutes of | | sleep time and with "ongoing significant respiratory events". It was concluded that | | there was" incomplete resolution" of his sleep-related breathing disorder at this | | pressure. autobilevel was recommended: IPAP max 25, min EPAP 15, maximum pressure | | support at 6, min ps at 4. Oxygen was not added. Last download showed that he is on | | auto bilevel: Max IPAP 22, min EPAP 14, maximum pressure support 6, minimum pressure | | support 4. Her age IPAP has been 18 for 90% of time. Maximum titrated EPAP has been | | 17. Average EPAP, 90% of time has been 14.2. AHI is 0.6. He has used his machine | | religiously and for average daily usage of 9 hours. he was not started on oxygen | | initially when he was started on BiPAP, and he had a few overnight oximetry and since | | his oxygen was low he was started on supplemental oxygen. He was on 4 LPM oxygen . He | | says that has insurance several months ago and he couldn't afford oxygen so he stopped | | using his oxygen in March to April 2017 when he returned it. He says BiPAP has | | helped him a lot and without it he cannot sleep, however, he would sleep much better | | when he had oxygen. By that he says he means that he would have fewer awakenings at | | night and overall the quality of sleep was better. overnight oximetry which was done on | | bilevel and room air on December 24, 2017 showed mean SPO2 was 91.2%, teo SPO2 at | | 81%, and he had spent 38.4 minutes at or below 88%, and 79.2 minutes at or below | | 89%.BMI: 51Technical Information: Please see technical data which is | | attached.Definitions (The AASM Manual for the Scoring of Sleep and Associated Events, | | Version 2.4; 2017): Apnea: There is a drop in the peak signal excursion by 90% or | | greater of pre-event baseline using an oronasal thermal sensor (diagnostic study), PAP | | device flow (titration study), or an alternative apnea sensor (diagnostic study); the | | duration of the 90% or greater drop in sensor signal is 10 seconds or longer. | | Obstructive Apnea: Event associated with continued or increased inspiratory effort | | throughout the entire period of absent airflow. Central Apnea: Event associated with | | absent inspiratory effort throughout the entire period of absent airflow. Mixed Apnea: | | Event associated with absent inspiratory effort in the initial portion of the event | | followed by resumption of inspiratory effort during the second portion of the event. | | Hypopnea: The peak signal excursions drop by 30% or more of pre-event baseline using | | nasal pressure (diagnostic study), PAP device flow (titration study), or an alternative | | hypopnea sensor (diagnostic study). The duration of the 30% or greater drop in signal | | excursion must last for 10 seconds or longer. The event is associated with a 3% or | | greater oxygen desaturation from pre-event baseline or the event is associated with an | | arousal. Respiratory Event Related Arousal: A sequence of breaths lasting 10 seconds or | | longer characterized by increasing respiratory effort or by flattening of the | | inspiratory portion of the nasal pressure (diagnostic study) or PAP device flow | | (titration study) waveform leading to arousal from sleep when the sequence of breaths | | does not meet criteria for an apnea or hypopnea. RELEVANT MEDICATIONS:Duloxetine, | | gabapentin, and nortriptyline.SUBJECTIVE:The patient rated sleep quality during sleep | | study as usual.SLEEP ARCHITECTURE AND EEG:? Total sleep time was 437 minutes. Sleep | | efficiency was 89.5.% and was normal..? Sleep onset latency was 10 minutes and was | | normal.? REM latency was 301 minutes and was increased.? Percent of time in stage N3 was | | 14.8 % and was normal.? Percent of time in stage REM was 7.2 % and was decreased.. ? | | Arousal Index for this titration study was 30.9./hour and was increased, with 0 | | respiratory arousals/hour and 9.5 spontaneous arousals/hour. RESPIRATORY:? During PAP | | trial, he was first started on bilevel-S at 16/8 cm H2O, and patient "felt that the | | pressure were adequate but the duration of inhalation was short". The sound engineering technician then | | tried Bilevel-ST which didn't improve this problem. So the titration was started with | | bilevel AVAPS with the following setting: min EPAP 8, maximum EPAP 15, minimum pressure | | support 6, maximum pressure support 17, tidal volume 560, Auto rate, maximum pressure | | 25, AVAPS rated 2. This was more tolerable for the patient. Though obstructive sleep | | apnea was controlled, patient continued to have hypoxemia. TCO2 was ranging between 50 | | and 51 mmHg. Min EPAP was increased to 11 cm H2O and TV was increased to 600, did not | | improve hypoxemia, supplemental oxygen was bled in, starting at 1 L/m. It was gradually | | increased to 4 L/m. hypoxemia especially worsened during stage R sleep when the | | supplemental oxygen was increased to 4 L/m. TCO2 remained at 47-48 mmHg |for the | | remainder of study? Medium airfit P10 mask without chin strap was found to be adequate. | | ? Respiratory disturbance index (RDI) was 0, consisting of total 0 hypopneas, 0 | | obstructive apneas, 0 mixed apneas, and 0 central apneas and 0 RERAs. AHI was 0.? | | Patient spent 13.8% of total sleep time in supine position. ? Mean SpO2 was 89 %, teo | | SpO2 was 80 %, and amount of total sleep time spent below SpO2 of 88% was 116.1 minutes | | %. 3% Oxygen Desaturation Index (MARILYN) was 18.9. and waselevated.? Ambrosio-Jacobson | | breathing was not observed.LIMB MOVEMENTS:? Total sleep periodic limb movement index was | | 75 and was increased. ? These limb movements were not significantly associated with | | respiratory event related arousals. EKG:Normal sinus rhythm was noted with mean heart | | rate of 79, 74, and 84 beats per minute respectively. INTERPRETATION:- Previously | | diagnosed obstructive sleep apnea and nocturnal hypoxemia. Patient was previously was | | on 4 l/m nocturnal supplemental oxygen bled-in to his bilevel machine. He then lost | | his insurance for a while and had to return his oxygen because he could not afford it. | | He has been using his bilevel machine religiously and though has helped him | | significantly, but he felt that he would sleep much better when he had his supplemental | | oxygen. This sleep study was performed to requalify him for nocturnal mental oxygen. | | This was performed after an overnight oximetry on bilevel and room air showed residual | | nocturnal hypoxemia. Patient is on bilevel-auto at home with the following setting: Max | | IPAP 22, min EPAP 14, maximum pressure support 6, minimum pressure support 4. He | | reported that pressure were comfortable.- in this titration study and during the PAP | | trial in the beginning of study, patient was first started on bilevel-S at 16/8 cm H2O | | and he felt that the pressure was not comfortable during inhalation. he then for some | | reason was tried on bilevel- ST which is not a appropriate setting for this patient. | | This did not improve the problem and he was switched to bilevel-AVAPS and was able to | | tolerate it better. Final setting was: min EPAP 11, maximum EPAP 15, minimum pressure | | support 6, maximum pressure support 14, tidal volume 600, Auto rate, maximum pressure | | 25, AVAPS rated 2. Though sleep apnea was controlled in the setting and TCO 2 was | | acceptable and 50-52 mmHg, however, patient continued to have hypoxemia and supplemental | | oxygen was added. It was restarted at 1 L/m and had to be increased to 4 L/m during | | REM sleep. At this level of supplemental oxygen, SPO2 remained above 90% and TCO2 was | | between 47 and 48 mmHg.Though AVAPS titration was successful , but I think if patient | | had been started on his home bilevel-auto setting he would probably tolerated it fine. | | He did not have any complaint about the pressure with his machine. Thus, I will continue | | him on his bilevel-auto at current setting with 4 L/m bleed-in oxygen. Will check ETCO2 | | in follow up visit, and if it was elevated we might need to switch him to | | bilevel-AVAPS. - Sleep efficiency was normal and sleep was moderately fragmented.- | | Periodic limb movement index was elevated, and these limb movements were not | | significantly associated with respiratory event related arousals.RECOMMENDATIONS:1. | | Bilevel-auto, Respironics: Max IPAP 22, min EPAP 14, maximum pressure support 6, | | minimum pressure support 4, with 4 l/m bleed-in oxygen. Depending on patient's | | response and ETCO2 in f/u visits we might need to switch him to bilevel-AVAPS. 2. | | Clinical Correlation for excessive leg movements.Nata Hastings, FLYNNortions of this chart | | may have been created with Zipari voice recognition software. Occasional wrong-word or | | | | | | sound-alike | | substitutions may have occurred due to the inherent limitations of voice recognition | | software. Please read the chart carefully and recognize, using context, where these | | substitutions have occurred. | + + documented in this encounter Visit Diagnoses + + | Diagnosis | + + | SHEILA (obstructive sleep apnea) Obstructive sleep apnea (adult) (pediatric) | + + | Nocturnal hypoxemia Hypoxemia | + + documented in this encounter
--- OUTSIDE RECORDS SUMMARY | ~2019-10-31 | XMS | Encounter Summary ---
Demographics + + + | Address | [address] | | | [place] [address] | + + + | Home Phone | | + + + | Preferred Language | Unknown | + + + | Marital Status | Single | + + + | Pentecostal Affiliation | NON | + + + | Race | White | + + + | Ethnic Group | Not or | + + + Author + + + | Author | [facility] | + + + | Organization | [facility] | + + + | Address | Unknown | + + + | Phone | Unavailable | + + + Support + + +---------+ + | Name | Relationship | Address | Phone | + + +---------+ + | Dionne Frances | ECON | Unknown | | + + +---------+ + Care Team Providers + +------+ + | Care Wildlife Control Operator Name | Role | Phone | + [...] | | 2005 | Visit | [place] | [place] [address] [facility] | Lumbosacral (Primary | | | | Rd Mailcode:OP[address] | [address] | Dx) | | | | [facility] | [place] [address] | | | | | [place], [place] | | | | | | [address] | | | | | | [phone] | | | +--------+---------+ + + + [...] Instructions Patient Instructions 01/08/2006 11:30 AM PDT [facility] Department of Neurological Surgery [address] Mail [address] [place] [address] Toll Free Paging [email or web address] Pre-Operative Instructions Surgery Date: 01/09/06Check in time: [...] 6:30a m. Check in location: 4th floor [facility], [address]. [address] 9th floor [facility] (Admitting Dept.) Important Reminders You cannot eat or drink after midnight the night before surgery. You may, however, brush y our teeth and rinse your mouth. It is best to eat early the night before and get a good nigh t s rest. If you have any x-ray, CT or MRI films in your possession, please bring them with you to [facility] on the day of your surgery. If you take aspirin either for your heart, or as a pain medication, you need to stop at le ast 5 days before surgery to decrease any chance of increased bleeding during or after surge ry. Please check the labels of all nyvr-qwf-driewof medications that you take as they may [...] feel free to contact our office at [phone]. documented in this encounter Progress Notes Anai [...] with discussion were completed. [facility] Plan of Treatment Not on filedocumented as of this encounter Visit Diagnoses + + | Diagnosis | + + | Radiculitis, lumbosacral - Primary Thoracic or lumbosacral neuritis or radiculitis, | | unspecified | + + documented in this encounter
--- OUTSIDE RECORDS SUMMARY | ~2019-10-31 | XMS | Encounter Summary ---
Demographics + + + | Address | [address] | | | [place] [address] | + + + | Home Phone | | + + + | Preferred Language | Unknown | + + + | Marital Status | Single | + + + | Buddhism Affiliation | NON | + + + | Race | White | + + + | Ethnic Group | Not or | + + + Author + + + | Author | [facility] | + + + | Organization | [facility] | + + + | Address | Unknown | + + + | Phone | Unavailable | + + + Support + + +---------+ + | Name | Relationship | Address | Phone | + + +---------+ + | Dionne Frances | ECON | Unknown | | + + +---------+ + Care Team Providers + +------+ + | Care Rail Grinder Name | Role | Phone | + +------+ + | Gustavo Xavier | PCP | Unavailable | + +------+ + Reason for Referral Consult to [place] (Routine) +--------+--------+ + + + + | Status | Reason | Specialty | Diagnoses / | Referred By | Referred To | | | | | Procedures | Contact | Contact | +--------+--------+ + + + + | Closed | | Neurological | Diagnoses | [place], | [place], | | | | Surgery | | MD Dejan | MD Dejan | | | | | Radiculitis, | [address] | [address] | | | | | lumbosacral | Ave | Ave | | | | | Procedures | [place], [place] | [place] | | | | | CONSULT TO | [address] | [address] | | | | | OR MT | | | | | | | LAMINOTOMY,L | | | | | | | UMBAR DISK,1 | | | | | | | INTRSP MT | | | | | | | EXCIS EACH | | | | | | | ADDNL SPINAL | | | | | | | DISK | | | +--------+--------+ + + + + Reason for Visit + + + | Reason | Comments | + + + | Back pain | low back pain x 1 year, pt denies injury | + + + Encounter Details +--------+---------+ + + + | Date | Type | Department | Care Team | Description | +--------+---------+ + + + | 12/10/ | Office | Neurosurgery [address] | [address], | Radiculitis, | | 2005 | Visit | [address] | | Lumbosacral (Primary | | | | Rd Mailcode:OP14[address] | | Dx) | | | | [facility] | | | | | | [place], [place] | | | | | | [address] | | | | | | [phone] | | | +--------+---------+ + + + [...] + + + | Blood Pressure | 130/98 | 12/10/2005 11:26 AM | | | | | PDT | | + + + + + | Pulse | 80 | 12/10/2005 11:26 AM | | | | | PDT | | + + + + + | Temperature | - | - | | + + + + + | Respiratory Rate | 16 | 12/10/2005 11:26 AM | | | | | PDT | | + + + + + | Oxygen Saturation | - | - | | + + + + + | Inhaled Oxygen | - | - | | | Concentration | | | | + + + + + | Weight | 107 kg (236 lb) | 12/10/2005 11:26 AM | | | | | PDT | | + + + + + | Height | 176.5 cm (5' 9.5") | 12/10/2005 11:26 AM | | | | | PDT | | + + + + + | Body Mass Index | 34.35 | 12/10/2005 11:26 AM | | | | | PDT | | + + + + + documented in this encounter Progress Joe Viera - 12/10/2005 12:39 PM Angie Lan Morocho is a 35 y.o. seen today for neuros urgical consultation with regard to lower back and left lower extemity pain. He initally in jured his back in 1989. At that time he recalls heavy exercise rather than any injury being the culprit. The pain was limited to the lower back region. Until one year ago he had min or exacerbations two or three times per year. 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 He noticed increased pain with associated left l woer extremity pain to the great toe. He was treated with a series of three epidural steroid injections; the first alleviated his pain somewhat but the subsequent injections were not successful in pain relief. Review of Systems: General: No constitutional symptoms of fevers, fatigue, chills, weight loss or sweats. Eyes: No changes in vision loss, double vision, eye pain, eye irritation, discharge, blurr ed vision or light sensitivity. Ears, Nose and Throat: No hearing loss, ringing in the ears, ear discharge, earache, noseb nallely, nasal congestion, difficulty swallowing, hoarseness or sore throat. Respiratory: No shortness of breath, coughing up blood, excessive sputum, cough, chest dis comfort or wheezing. Musculoskeletal: Positive low back pain. No joint pain, swelling, stiffness, arthritis, mus eloina aches, muscle cramps or loss of strength. Cardiovascular: No chest pain, skipping beats, lightheadedness, difficulty breathing uprig ht or lying down, fatigue, near fainting or fainting, palpitations, weight gain, edema, leg cramps. Gastrointestinal: No loss of appetite, excessive appetite, indigestion, vomiting, nausea, constipation, gas, abdominal pain, hemorrhoids, diarrhea, bloating, bloody stools or dark ta rry stools. Genitourinary: No urinary frequency, blood in urine, difficulty in urination, discharge, p ainful urination, incontinence, urinary urgency or genital sores. Neurologic: Positve for left lower extemity pain and tinglin to the great toe. No unusual h eadaches, inability to speak, poor balance, tremors, memory loss, disturbances in coordinati on or sensation of room spinning. Skin: No itching, rash, poor wound healing, night sweats, changes in skin color, dryness, flushing or suspicious lesions. Psychological: No abnormal anxiety, depression, thoughts of suicide or hallucinations. Heme/Lymphatic: No skin discoloration, abnormal bleeding or enlarged lymph nodes. Endrocrine: No heat intolerance, cold intolerance, excessive hunger or excessive thirst. Allergic: No seasonal allergies, hives or rash, persistent infections or HIV exposure. PE: A&OX3. NAD. COR: RRR. Chest: CTA Neurological: PERRL, EOMI, Facies symmetric/tongue midline. Motor: Strength grossly 5/5 in the legs. Sensory: Benign. Cerebellar: Intact. Gait: Antalgic towards the left. DTR s: 2/2 at both knees and both ankles. Pathologic: Toes downgoing bilaterally; Saucedo's a re negative; no ankle clonus appreciated. Imaging: Foraminal stenosis, disc bulging L3-4, L4-5, Left > Rt Assessment: Radiculopathy either L4 or L5 Recommendations: Will obtain emg's in the [facility] to better localize level. Will follow up and discuss possible decompression surgery after EMG's are done. documented in this encoun ter Plan of Treatment + + +--------+ + + | Name | Type | Priori | Associated Diagnoses | Order Schedule | | | | ty | | | + + +--------+ + + | EMG/NERVE CONDUCTION | Procedures | Routin | Radiculitis, | Ordered: 12/10/2005 | | STUDY | | e | Lumbosacral | | + + +--------+ + + documented as of this encounter Visit Diagnoses + + | Diagnosis | + + | Radiculitis, lumbosacral - Primary Thoracic or lumbosacral neuritis or radiculitis, | | unspecified | + + documented in this encounter
--- OUTSIDE RECORDS SUMMARY | ~2019-10-31 | XMS | Encounter Summary ---
Demographics + + + | Address | [address] | | | [place] [address] | + + + | Home Phone | | + + + | Preferred Language | Unknown | + + + | Marital Status | | + + + | Amish Affiliation | Unknown | + + + | Race | Unknown | + + + | Ethnic Group | Unknown | + + + Author + + + | Author | [facility] | | | and Angelana | + + + | Organization | [facility] | | | and Angelana [...] Team Providers + +------+ + | Care Pupil Personnel Services Director Name | Role | Phone | + +------+ + | Edilberto Troy MD | PCP | | + +------+ + Reason for Visit + +--------+ + | Reason | Onset | Comments | | | Date | | + +--------+ + | Follow-up(Procedure) | 07/03/ | [facility] f/u appointment confirmation | | | 2020 | | + +--------+ + Encounter Details +--------+ + + + + | Date | Type | Department | Care Team | Description | +--------+ + + + + | 07/03/ | Telephone | [facility] | Rocky Pierre MD | Follow-up(Procedure) | | 2020 | | CARDIOTHORACIC | [address] | (MADHAVI f/u | | | | SURGERY [address] | [place], [place] | appointment | | | | [address] | [address] | confirmation) | | | | [place], [place] | | | | | | [address] | | | | | | [phone] | | | +--------+ + + + [...] + + documented as of this encounter Miscellaneous Notes Telephone Encounter - Anum Serrano RN - 07/04/2019 11:28 AM PDTContacted Jose Alberto verified two patient identifiers to confirm appointment 07/05/2019, Carlos Thompson PA-C. Telephone COVID-19 Screening prior clinic appointment: Have you had a fever > 38.0C (100.4F) in the last 24 hours? no Have you had a cough or shortness of breath in the last 24 hours? no Have you had loss of sense of smell or taste? no Have you had an exposure to a person diagnosed with COVID-19? no Patient to obtain f/u chest x-ray and will call if symptoms develop prior to appointment. documented in this en counter Plan of Treatment Not on filedocumented as of this encounter Visit Diagnoses Not on filedocumented in this encounter"
--- OUTSIDE RECORDS SUMMARY | ~2019-10-31 | XMS | Encounter Summary ---
Demographics + + + | Address | [address] | | | [place] [address] | + + + | Home Phone | | + + + | Preferred Language | Unknown | + + + | Marital Status | | + + + | Confucianist Affiliation | Unknown | + + + | Race | Unknown | + + + | Ethnic Group | Unknown | + + + Author + + + | Author | [facility] | | | and Angelana | + + + | Organization | [facility] | | | and Angelana [...] Team Providers + +------+ + | Care Computer Service Technician Name | Role | Phone | + +------+ + | Mamadou Hammer DO | PCP | | + +------+ + Reason for Visit + + + | Reason | Comments | + + + | Back Pain | low back radiating down left leg | + + + Evaluate & Treat (Routine) +--------+--------+ + + + + | Status | Reason | Specialty | Diagnoses / | Referred By | Referred To | | | | | Procedures | Contact | Contact | +--------+--------+ + + + + | Closed | | Physical | Diagnoses | Jaquelin, | Puja, | | | | Medicine and | Thoracic or | DO Mamadou | Ruddy Camacho MD | | | | Rehabilitatio | lumbosacral | [address] | [address] | | | | n | neuritis or | [address] | [place] | | | | | | [address] | [place], [place] | | | | | radiculitis, | [place], | [address] Phone: | | | | | unspecified | [place] | [phone] | | | | | | [address] | Fax: | | | | | | Phone: | [phone] | | | | | | [phone] | | | | | | | Fax: | | | | | | | [phone] | | +--------+--------+ + + + + Encounter Details +--------+---------+ + + + | Date | Type | Department | Care Team | Description | +--------+---------+ + + + | 09/12/ | Office | [facility] | Ruddy Luo | Lumbar radiculopathy | | 2014 | Visit | PHYSIATRY [address] | TMD [address] | (Primary Dx); DDD | | | | [address] [place] [address] | [facility] [place] | (degenerative disc | | | | [place], [place] | [address] | disease), lumbar | | | | [address] | | | | | | [phone] | [place], | | | | | | BHAVNA [address]aton [address] | | | | | | [address] | | | | | | [place] [address] | | | | | | [phone] | | | | | | | | +--------+---------+ + + + [...] + + + | Blood Pressure | 116/75 | 09/12/2014 8:25 AM | | | | | PDT | | + + + + + | Pulse | 94 | 09/12/2014 8:25 AM | | | | | PDT [...] + + + + | Weight | 142 kg (313 lb) | 09/12/2014 8:25 AM | | | | | PDT | | + + + + + | Height | 175.3 cm (5' 9") | 09/12/2014 8:25 AM | | | | | PDT | | + + + + + | Body Mass Index | 46.22 | 09/12/2014 8:25 AM | | | | | PDT | | + + + + + documented in this encounter Progress Notes Ruddy Luo MD - 09/12/2014 7:39 AM PDT Ruddy Luo MD [address] [facility], [address] [place] [address] FAX: PHYSICAL MEDICINE AND REHABILITATION H&P CHIEF COMPLAINT: Chief Complaint Patient presents with Back Pain low back radiating down left leg HISTORY OF PRESENT ILLNESS: The patient is a 44 y.o. male with the complaint of left leg p ain that began back in April. The patient reports that the pain started without any inci ting event/after. The symptoms have been rapidly worsening. He rates the pain as severe. The symptoms are daily, continuous. He describes the pain as burning. The patient describes leg symptoms that occur on his left side. The leg symptoms account f or 100% of his symptoms. The leg symptoms are constant and the symptoms travel from the lef t buttock region and down the posterior thigh to the calf. The patient does report numbness occasionally into the left toes. He does not report weakness of the legs The patient does not report any change in bowel or bladder function or any saddle anesthesi a recently. His symptoms improve with physical therapy, massage and TENS unit treatment. He reports be nding prone on the couch with his right knee on the floor and left foot on the floor. This is his position of comfort. His symptoms worsen with standing up first thing in the morning, along with any movement. He has tried 14 sessions of physical therapy, gabapentin, nortriptyline and oxycodone, phu g with muscle relaxers. He has had prior lumbar surgery at L3-L4 and L4-L5 on the left due to bulging discs and radiculopathy. He has tried a tapering dose of steroid. PAST MEDICAL HISTORY: Past Medical History Diagnosis Date Hypertension Gout Poor circulation Lumbar radiculopathy 09/12/2014 DDD (degenerative disc disease), lumbar 09/12/2014 PAST SURGICAL HISTORY: Past Surgical History Procedure Laterality Date Spine surgery 2005 Spleen repair 1983 CURRENT MEDICATIONS: Current Outpatient Prescriptions Medication Sig Dispense Refill acetaminophen (TYLENOL) 500 mg tablet Take 500 mg by mouth every 6 hours as needed for Pain. albuterol 90 mcg/puff inhaler Inhale 2 puffs into the lungs every 6 hours as needed for Wheezing. albuterol-ipratropium (COMBIVENT RESPIMAT) 100-20 mcg/puff inhaler Inhale 1 puff into t he lungs 4 times daily. aspirin 81 MG tablet Take 81 mg by mouth Daily. gabapentin (NEURONTIN) 600 MG tablet Take 600 mg by mouth 2 times daily. metoprolol tartrate (LOPRESSOR) 50 mg tablet Take 50 mg by mouth 2 times daily. Multiple Vitamins-Minerals (MULTIVITAMIN PO) Take by mouth. nortriptyline (PAMELOR) 25 mg capsule Take 25 mg by mouth nightly. oxyCODONE-acetaminophen (PERCOCET) 5-325 mg per tablet Take 1 tablet by mouth every 4 h ours as needed for Pain. ranitidine (ZANTAC) 150 mg tablet Take 150 mg by mouth 2 times daily. No current facility-administered medications for this visit. ALLERGIES: No Known Allergies SOCIAL HISTORY: The patient reports that he quit smoking about 4 years ago. He does not have any smokeless tobacco history on file. He reports that he drinks alcohol. He reports that he uses illicit drugs. 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 He does still smoke mariju tj regularly. FAMILY HISTORY: Family History Problem Relation Age of Onset COPD Mother Heart disease Father Multiple Sclerosis Sister Multiple Sclerosis Brother REVIEW OF SYSTEMS: GENERALLY: No fever, no [...] + signi ficant snoring, + sleep apnea, + sinus problems, no major dental work. NEUROLOGICALLY: Please see the review of systems discussed above in the history of present illness. In addition, the patient has numbness/pain of legs, awake with numbness/pain, wea kness, muscle aching, coordination difficulty, change in walk and pain in back. PSYCHIATRIC: No depression, no sleep disorders, no anxiety, no bipolar disorder, no psycho tic episodes. CARDIOVASCULAR: No heart attacks, no heart murmur, no heart fluttering, no chest pain, no ankle swelling. LUNG DISEASE: No shortness of breath, no cough, no tuberculosis, no bloody cough, no asth ma, no emphysema/COPD. GASTROINTESTINAL: No bowel disease, no nausea or vomiting, no rectal bleeding, no constipa tion, no stool incontinence, no liver disease, no gallbladder disease, no abdominal pain, no ulcers. KIDNEY DISEASE: No urinary frequency, no painful or difficult urination, no incontinence. ENDOCRINE: No diabetes, no thyroid disease, no osteopenia or osteoporosis, no breast drain age. SKIN: No breast lumps, no skin changes, no rashes, no itches. HEMATOLOGIC/LYMPHATIC: No enlarged lymph nodes, no easy or unusual bleeding, no personal h istory of cancer. RHEUMATOLOGIC: No joint arthritis, no rheumatoid arthritis. PHYSICAL EXAMINATION: Blood pressure 116/75, pulse 94, height 1.753 m (5' 9"), weight 141.976 kg (313 lb). Body m ass index is 46.2 kg/(m^2). GENERAL: The patient is well developed and well nourished. He does appear uncomfortable wh en seated. HEENT: HEAD/FACE: EYES: Normocephalic and atraumatic. There are no areas of recent trauma. Normal sclerae without icterus. SKIN Limited skin exam shows no significant rashes or lesions. There are surgical scars in the lumbar region. CHEST: The patient is in no acute respiratory distress with unlabored respirations. HEART: There is not lower extremity edema. ABDOMEN: The patient is overweight. NEUROLOGIC: The patient is awake, alert, and oriented to time, place, person. He follows simple and complex commands. His speech is fluent. He comprehends speech well. He has no apparent deficits with short or group home memory. He has appropriate fund of knowledge Cranial nerves 2-12 appear grossly intact. Sensory exam does show diminished sensation to light touch, left posterolateral thigh. REFLEX: RIGHT LEFT PATELLAR 2+ 2+ ACHILLES 2+ 0 PLANTAR Downgoing Downgoing MUSCULOSKELETAL There is no major palpable deformity of the spine. Straight leg raise is positive on the left, he was unable to even straighten the leg withou t pain. Brian's maneuver and impingement testing were negative for any groin pain but did cause lateral hip pain. There was no tenderness to palpation over the greater trochanters or sacral sulci. The patient localized the majority of the pain to the left buttock and do wn the left leg following an S1 distribution. Lumbar facet loading was negative. Strength testing showed 5/5 strength throughout the lower extremities with exception of weakness on t he left with single leg toe raises. The patient was unable to heel and toe walk on the left due to pain. There was no redness, effusion, warmth or joint line tenderness in the knees or ankles. RADIOGRAPHIC REVIEW: The patient's imaging was reviewed in detail with the patient today during the visit. The MRI from 06/21/2014 shows a broad based disc bulge off to the left at L5-S1 which results in narrowing of the lateral/subarticular recess and apparent impingement and flattening of the left S1 nerve root. There is also evidence of the prior left hemilaminecomies at L3-L4 and L4-L5. IMPRESSION: Encounter Diagnoses Name Primary? Lumbar radiculopathy Yes DDD (degenerative disc disease), lumbar PLAN: 1. The patient has had significant conservative care including medications, PT and chiropra ctic care. Unfortunately he continues to have significant discomfort. I did feel that he w ould be a good candidate for interventional procedures. I offered a left S1 epidural steroi d injection as the next step. The patient was informed our office would call him once this has been approved. 2. The patient is currently working on weight loss so that he can be considered for surgica l intervention. 3. I did not make any changes in his medications today. He is already on gabapentin, nor triptyline, Percocet and medical marijuana. These are prescribed by other physicians. ELECTRONICALLY EDITED AND SIGNED BY: Ruddy Luo MD, 09/16/2014 Scribed by: Ada Crews MA for Dr. Ruddy Luo on 09/12/2014 documented in this encounter Plan of Treatment Not on filedocumented as of this encounter Results FL NITZA Lumbar Transforaminal (10/30/2014 2:05 PM PDT) + + | Specimen | + + | | + + + + + | Narrative | Performed At | + + + | 10/30/2014 Left S1 Transforaminal Epidural Steroid Injection | [facility] | | Diagnosis: Lumbosacral radiculopathy ICD-9 Code 724.4 [facility] | | Sue Morocho presents to the fluoroscopy suite for [facility] | | fluoroscopically-guided left S1 transforaminal epidural [...] | + + + + + | [facility] | [address] | [place], [place] | [phone] | | [facility] | | [address] | | | - IMAGING | | | | + + + + + documented in this encounter Visit Diagnoses + + | Diagnosis | + + | Lumbar radiculopathy - Primary Thoracic or lumbosacral neuritis or radiculitis, | | unspecified | + + | DDD (degenerative disc disease), lumbar Degeneration of lumbar or lumbosacral | | intervertebral disc | + + documented in this encounter
--- OUTSIDE RECORDS SUMMARY | ~2019-10-31 | XMS | Encounter Summary ---
Demographics + + + | Address | [address] | | | [place] [address] | + + + | Home Phone [...] Author + + + | Author | [facility] | + + + | Organization | [facility] | + + + | Address | Unknown | + + + | Phone | Unavailable | + + + Support + + +---------+ + | Name | Relationship | Address | Phone | + + +---------+ + | Dionne Frances | ECON | Unknown | | + + +---------+ + Care Team Providers + +------+ + | Care Harbor Tug Captain Name | Role | Phone | + [...] Mailcode:OP14B | | | | | | [place] | | | | | | [place], [place] | | | | | | [address] | | | | | | [phone] | | | +--------+ + + + [...]
--- OUTSIDE RECORDS SUMMARY | ~2019-10-31 | XMS | Encounter Summary ---
Demographics + + + | Address | [address] | | | [place] [address] | + + + | Home Phone | | + + + | Preferred Language | Unknown | + + + | Marital Status | | + + + | Temple Affiliation | Unknown | + + + | Race | Unknown | + + + | Ethnic Group | Unknown | + + + Author + + + | Author | [facility] | | | and Angelana | + + + | Organization | [facility] | | | and [...] Team Providers + +------+ + | Care Wood Crew Supervisor Name | Role | Phone | + +------+ + | Edilberto Troy MD | PCP | | + +------+ + Reason for Referral Evaluate & Treat (Routine) +--------+ + + [...] | (obstructive | [address] | [place] | | | | | sleep | [place] | [place], | | | | | apnea) | [place] | [place] [address] | | | | | Nocturnal | [address] | Phone: | | | | | hypoxemia | Phone: | [phone] | | | | | Procedures | [phone] | Fax: | | | | | [place] [facility] | Fax: | [phone] | | | | | 6/>YRS SLEEP | [phone] | | | | | | W/CPAP 4/> | | | | | | | ADDL EILEEN | | | | | | | ATTND [place] | | | | | | | [...] | +--------+ + + + + | 12/29/ | Orders Only | [facility] | Nata Hastings MD | SHEILA (obstructive | | 2017 | | SLEEP DISORDER [address] | [address] | sleep apnea) | | | | [place] | [place] | (Primary Dx); | | | | [place] [address] | [address] | Nocturnal hypoxemia | | | | [phone] | | | +--------+ + + + [...] of this encounter Plan of Treatment + + +--------+ + + | Name | Type | Priori | Associated Diagnoses | Order Schedule | | | | ty | | | + + +--------+ + + | * [facility] - | Outpatient | Routin | SHEILA (obstructive | Ordered: 12/29/2017 | | AMB Referral | Referral | e | sleep apnea) | | | | | | Nocturnal hypoxemia | | + + +--------+ + + documented as of this encounter Visit Diagnoses + + | Diagnosis | + + | SHEILA (obstructive sleep apnea) - Primary Obstructive sleep apnea (adult) (pediatric) | + + | Nocturnal hypoxemia Hypoxemia | + + documented in this encounter"
--- OUTSIDE RECORDS SUMMARY | ~2019-10-31 | XMS | Encounter Summary ---
Demographics + + + | Address | [address] | | | [place] [address] | + + + | Home Phone | | + + + | Preferred Language | Unknown | + + + | Marital Status | | + + + | Voodoo Affiliation | Unknown | + + + | Race | Unknown | + + + | Ethnic Group | Unknown | + + + Author + + + | Author | [facility] | | | and Angelana | + + + | Organization | [facility] | | | and Angelana | [...] Team Providers + +------+ + | Care Job Printer Name | Role | Phone | + +------+ + | Edilberto Troy MD | PCP | | + +------+ + Encounter Details +--------+ + + + + | Date | Type | Department | Care Team | Description | +--------+ + + + + | 09/05/ | Imaging | [facility] | Provider, | | | 2020 | Exam | [facility] | [address] | | | | | IMAGING [address] | [address] | | | | | [address] | [place] [address] | | | | | [place] [address] | | | | | | [phone] | | | +--------+ + + + [...] CT CHEST W CONTRAST | Routin | 06/17/2019 | | Results for this | | | e | 12:00 AM | | procedure are in the | | | | PDT | | results section. | + +--------+ + + + documented in this encounter Results CT Chest w Contrast (06/17/2019 12:00 AM PDT) + + | Specimen [...]
--- OUTSIDE RECORDS SUMMARY | ~2019-10-31 | XMS | Encounter Summary ---
Demographics + + + | Address | [address] | | | [place] [address] | + + + | Home Phone | | + + + | Preferred Language | Unknown | + + + | Marital Status | | + + + | Muslim Affiliation | Unknown | + + + | Race | Unknown | + + + | Ethnic Group | Unknown | + + + Author + + + | Author | [facility] | | | and Angelana | + + + | Organization | [facility] | | | and [...] Team Providers + +------+ + | Care Sensor Specialist Name | Role | Phone | + +------+ + | Edilberto Troy MD | PCP | | + +------+ + Reason for Visit Auth/Cert +--------+--------+ + + + + | [...] | | | | | | | ([facility]) | | | +--------+--------+ + + + + Encounter Details +--------+ + + + + | Date | Type | Department | Care Team | Description | +--------+ + + + + | 06/18/ | Ancillary | [facility] | Rocky Pierre MD | Canceled (OTHER) | | 2020 | [facility] | [address] | | | | | OPERATING RO[address] | [place] | | | | | [address] | [address] | | | | | [place] | | | | | | [address] | Nika Diallo MD | | | | | [phone] | [address] | | | | | | [place] [address] | | | | | | [phone] | | | | | | | | +--------+ + + [...] + +--------+ + + + | HC CULTURE-SURGICAL | Routin | 06/19/2019 | | Results for this | | TISSUE | e | 10:48 AM | | procedure are in the | | | | PDT | | results section. | + +--------+ + + + documented in this encounter Results Culture, Tissue, Smear, with Anaerobes (06/19/2019 10:48 AM PDT) + + + + + + | Component | Value | Ref Range | Performed | Pathologist | | | | | At | Signature | + + + + + + | Special | PLEURAL RIGHT PEEL | | [facility] | | | Requests | | | LABORATORY | | + + + + + + | Special | Testing performed at | | [facility] | | | Requests | [facility] | | LABORATORY | | | | [place] [address] | | | | + + + + + + | Gram Stain | 1+ | | [facility] | | | Result | [facility] | | LABORATORY | | | | | | | | + + + + + + | Gram Stain | NO ORGANISMS SEEN | | [facility] | | | Result | | | LABORATORY | | + + + + + + | RESULT | NO GROWTH 4 DAYS | | [facility] | | | | | | LABORATORY | | + + + + + + | RESULT | Testing performed at | | [facility] | | | | L, [address] [facility] | | LABORATORY | | | | [place], [place] | | | | | | [id number]: Testing | | | | | | performed at [facility], [address] | | | | | | [address] [place], [place] | | | | | | [address] | | | | + + + + + + + + | Specimen | + + | | + + + + + + + | Performing | Address | City/State/Zipcode | Phone Number | | Organization | | | | + + + + + | [facility] | [address] | [place] [address] | [phone] | + + + + + documented in this encounter Visit Diagnoses Not on filedocumented in this encounter Additional Health Concerns + + + + + | Infection | Onset Date | Last Indicated | Resolved Time | + + + + + | Rule out Respiratory | 06/18/2019 | 06/18/2019 | 06/20/2019 10:16 AM | | Infection | | | PDT | + + + + + documented as of this encounter"
--- OUTSIDE RECORDS SUMMARY | ~2019-10-31 | XMS | Encounter Summary ---
Demographics + + + | Address | [address] | | | [place] [address] | + + + | Home Phone | | + + + | Preferred Language | Unknown | + + + | Marital Status | | + + + | Voodoo Affiliation | Unknown | + + + | Race | Unknown | + + + | Ethnic Group | Unknown | + + + Author + + + | Author | [facility] | | | and Angelana | + + + | Organization | [facility] | | | and Angelana [...] Team Providers + +------+ + | Care Commercial Light Fixture Assembler Name | Role | Phone | + [...] | | | | [address] | [place] [address] | | | | | [place] [address] | | | | | | [phone] | | | +--------+ + + + [...] + +--------+ + + + | CT ANGIOGRAM CHEST W | Routin | 06/06/2019 | | Results for this | | CONTRAST | e | 12:05 AM | | procedure are in the | | | | PDT | | results section. | + +--------+ + + + documented in this encounter Results CT Angiogram Chest W Contrast (06/06/2019 12:05 AM PDT) + + | Specimen [...]
--- OUTSIDE RECORDS SUMMARY | ~2019-10-31 | XMS | Encounter Summary ---
Demographics + + + | Address | [address] | | | [place] [address] | + + + | Home Phone | | + + + | Preferred Language | Unknown | + + + | Marital Status | Single | + + + | Protestant Affiliation | NON | + + + [...] Team Providers + +------+ + | Care Net Washer Name | Role | Phone | + [...] | Transcriptions | + + | Interface, Wool Hat Sanding Machine Operator In - 01/11/2006 2:33 AM PDT | | [id number] | | [id number] [place] [id number] | | | | Date: 01/09/2006 | | | | Attending Surgeon: Dejan Barclay M.D. | | | | Navigating Officer(s): Antwon Ellington M.D. | | | | [...] Intraoperative fluoroscopy was then obtained with a [place] elevator | | under the lamina of [...] | widened with 3-mm Kerrison rongeurs. A [place] elevator was placed over | | the [...] | | RAQUEL / OLIVIA | | [id number] / [id number] / [id number] / | | | | | + + documented in this encounter Visit Diagnoses Not on filedocumented in this encounter"
--- OUTSIDE RECORDS SUMMARY | ~2019-10-31 | XMS | Encounter Summary ---
Demographics + + + | Address | [address] | | | [place] [address] | + + + | Home Phone | | + + + | Preferred Language | Unknown | + + + | Marital Status | | + + + | Sabianism Affiliation | Unknown | + + + | Race | Unknown | + + + | Ethnic Group | Unknown | + + + Author + + + | Author | [facility] | | | and Angelana | + + + | Organization | [facility] | | | and Angelana [...] Team Providers + +------+ + | Care Employee Development Director Name | Role | Phone | + +------+ + | Edilberto Troy MD | PCP | | + +------+ + Encounter Details +--------+ + + + + | Date | Type | Department | Care Team | Description | +--------+ + + + + | 12/29/ | Documentati | [facility] | Nata Hastings MD | | | 2018 | on | SLEEP DISORDER [address] | [address] | | | | | [place] | [place] | | | | | [place] [address] | [address] | | | | | [phone] | | | +--------+ + + + [...] documented as of this encounter Progress Notes Nata Hastings MD - 12/29/2017 1:50 PM PDTI reviewed patient's overnight oximetry which wa s done on bilevel and room air on December 24, 2017. It showed mean SPO2 was 91.2%, anna SPO2 at 81%, and he had spent 38.4 minutes at or belo w 88%, and 79.2 minutes at or below 89%. He used to be on supplemental oxygen bleed into his bilevel machine, and it was disconnecte d in early 2017 as he could not afford it. We will need to perform a titration study with b ilevel and oxygen to requalify him for supplemental oxygen. [facility] will [facility]. documented in this encounter Plan of Treatment Not on filedocumented as of this encounter Visit Diagnoses Not on filedocumented in this encounter"
--- OUTSIDE RECORDS SUMMARY | ~2019-10-31 | XMS | Encounter Summary ---
Demographics + + + | Address | [address] | | | [place] [address] | + + + | Home Phone | | + + + | Preferred Language | Unknown | + + + | Marital Status | | + + + | Yarsani Affiliation | Unknown | + + + | Race | Unknown | + + + | Ethnic Group | Unknown | + + + Author + + + | Author | [facility] | | | and [place] | + + + | Organization | [facility] | | | and Angelana [...] Team Providers + +------+ + | Care Punch Machine Operator Name | Role | Phone | + +------+ + | Edilberto Troy MD | PCP | | + +------+ + Encounter Details +--------+ + + + + | Date | Type | Department | Care Team | Description | +--------+ + + + + | 09/06/ | Imaging | [facility] | Provider, | | | 2020 | Exam | [facility] | [address] | | | | | IMAGING [address] | [address] | | | | | [address] | [place] [address] | | | | | [place] [address] | | | | | | [phone] | | | +--------+ + + + [...] + documented in this encounter Results CT Abdomen Pelvis w Contrast (08/26/2019 12:00 [...]
--- OUTSIDE RECORDS SUMMARY | ~2019-10-31 | XMS | Encounter Summary ---
Demographics + + + | Address | [address] | | | [place] [address] | + + + | Home Phone | | + + + | Preferred Language | Unknown | + + + | Marital Status | | + + + | Gnosticism Affiliation | Unknown | + + + | Race | Unknown | + + + | Ethnic Group | Unknown | + + + Author + + + | Author | [facility] | | | and [place] | + + + | Organization | [facility] | | | and [place] | [...] Team Providers + +------+ + | Care Hall Clerk Name | Role | Phone | + +------+ + | Edilberto Troy MD | PCP | | + +------+ + Reason for Visit + +--------+ + | Reason | Onset | Comments | | | Date | | + +--------+ + | Follow-up(Procedure) | 06/23/ | R VATS decortication f/u post 2 day discharge | | | 2020 | | + +--------+ + Encounter Details +--------+ + + + + | Date | Type | Department | Care Team | Description | +--------+ + + + + | 06/23/ | Telephone | [facility] | Rocky Pierre MD | Follow-up(Procedure) | | 2019 | | CARDIOTHORACIC | [address] | (Scooter HENDRICKSON | | | | SURGERY [address] | [place] | decortication f/u | | | | [address] [address] | [address] | post 2 day | | | | [place] | | discharge) | | | | [address] | | | | | | [phone] | | | +--------+ + + + [...] Telephone Encounter - Anum Serrano RN - 06/24/2019 1:58 PM PDTSpoke with spouse, Xuan verified two patient identifiers to relay prescription for Robaxin sent to requested pharmac y. Advised to call clinic if he has questions or concerns. Xuan verbalized understanding, st kay[facility] Abrams is sleeping at this time and will relay message. elephone Encounter - Anum Serrano RN - 06/24/2019 12:01 PM PDTCall Date: 06/24/2019 [facility] Procedure: 06/19/2019, Dr Ignacio HENDRICKSON decortication Post-operative Appointment: 07/05/2019 at 0930 Other appointment: ID (Rosa Gardner) pending return call, PCP (Woodrow) 2019 2 days post discharge Spoke with Jose Alberto verified two patient identifiers Respiratory status: + mild shortness of breath with activity, resolves at rest, denies diff iculty breathing, hemoptysis, chest pain, or heart palpitations, reports occasional producti ve cough with streaks of dark blood. Encouraged use incentive spirometer as instructed. Incision site: denies fever, wound drainage, redness, swelling, or warmth, reports C/D/I Surgical pain: R chest describes as constant dull ache, pain increases with activity, rates pain 5/10, taking oxycodone 5 mg q 8-10 hours, gabapentin 500 mg, 2 tabs TID with some pain control. Patient concerns: questioned if he could receive prescription for muscle relaxer, states wa s given Robaxin during admit (pharmacy [facility]). Patient reports eating, u rinating, and having bowel movements without difficulty. Verified receiving IV abx daily per ID. Reviewed medications along with discharge instructions, advised to call clinic if he develo ps wound drainage, redness, fever, chest pain, or pain with swelling to extremities. Please obtain chest x-ray prior to appointment. Jose Alberto verbalized understanding and agreed wit plan of care, requested call back if prescription approved. Message routed to RON Kaur for update on patient status. documented in this encounter Plan of Treatment Not on filedocumented as of this encounter Visit Diagnoses Not on filedocumented in this encounter"
--- OUTSIDE RECORDS SUMMARY | ~2019-10-31 | XMS | Encounter Summary ---
Demographics + + + | Address | [address] | | | [place] [address] | + + + | Home Phone | | + + + | Preferred Language | Unknown | + + + | Marital Status | Single | + + + | Lutheran Affiliation | NON | + + + [...] Team Providers + +------+ + | Care Batch Maker Name | Role | Phone | + +------+ + | Nikolai Rowe | PCP | | + +------+ + Reason for Visit Consultation (Routine) +--------+--------+ + + + + | Status | Reason | Specialty | Diagnoses / | Referred By | Referred To | | | | | Procedures | Contact | Contact | +--------+--------+ + + + + | Closed | | Neurological | Diagnoses | Non[facility] | [place], | | | | Surgery | increased L | Epic Dept | MD Dejan | | | | | spine with | | [address] | | | | | radicular | | [address] | | | | | pain | | [place], [place] | | | | | herniated | | [address] | | | | | disk with | | | | | | | foraminal | | | | | | | stenosis | | | +--------+--------+ + + + + Encounter Details +--------+---------+ + + + | Date | Type | Department | Care Team | Description | +--------+---------+ + + + | 02/12/ | Office | Neurosurgery at | Dejan Barclay, | Lumbar radiculopathy | | 2010 | Visit | [facility] | MD | (Primary Dx) | | | | and Healing [address] | | | | | [address] [place] [facility] | | | | | | [facility], | | | | | | Building , | | | | | | Floor [place], [place] | | | | | | [address] | | | | | | [phone] | | | +--------+---------+ + + + [...] + documented in this encounter Progress Notes Dejan Barclay MD - 02/12/2011 3:00 PM PSTS: s/p laminoforaminotomies L3-4 left 2005, di d well x 5 yrs now with 6 weeks lefgt lepain after feelin glow back give way with "popping s ounds like bubble wrap", Numb to big toe sometimesNo bowel or bladdder issues, has had no treatments O:08/01 Bilat IP Q DF PF EHL, SILT except left great toe decrease Antalgic gait, poor rom, obese ,male + left SLR MRI : mild cntarl stenopsis , no foramnial stenosis, no hnp A: lumbar radiculopathy Plan: NITZA, PT, I no improvenment in 2 mos consider laminectomy I spent more than 20 minutes kors-ne-rzml with the patient of which greater than 50% was sp ent counseling the patient regarding his back. documented in this en counter Plan of Treatment Not on filedocumented as of this encounter Procedures + +--------+ + + + | Procedure Name | Priori | Date/Time | Associated Diagnosis | Comments | | | ty | | | | + +--------+ + + + | ORDERS OTHER | | 02/12/2011 | | Results for this | | | | 12:00 AM | | procedure are in the | | | | PST | | results section. | + +--------+ + + + documented in this encounter Results ORDERS OTHER (02/12/2011 12:00 AM PST) + + + | Narrative | Performed At | + + + | | | + + + + + | Transcriptions | + + | Radha Canas - 08/14/2011 10:10 AM PDT | + + documented in this encounter Visit Diagnoses + + | Diagnosis | + + | Lumbar radiculopathy - Primary Thoracic or lumbosacral neuritis or radiculitis, | | unspecified | + + documented in this encounter
--- OUTSIDE RECORDS SUMMARY | ~2019-10-31 | XMS | Encounter Summary ---
Demographics + + + | Address | [address] | | | [place] [address] | + + + | Home Phone | | + + + | Preferred Language | Unknown | + + + | Marital Status | Single | + + + | Latter Day Affiliation | NON | + + + | Race | White | + + + | Ethnic Group | Not or | + + + Author + + + | Author | [facility] | + + + | Organization | [facility] | + + + | Address | Unknown | + + + | Phone | Unavailable | + + + Support + + +---------+ + | Name | Relationship | Address | Phone | + + +---------+ + | Dionne Frances | ECON | Unknown | | + + +---------+ + Care Team Providers + +------+ + | Care Squadron Worker Name | Role | Phone | + +------+ + | Gustavo Xavier | PCP | Unavailable | + +------+ + Encounter Details +--------+ + + + + | Date | Type | Department | Care Team | Description | +--------+ + + + + | 12/30/ | Results | Neurosurgery [address] | Dejan Barclay, | | | 2004 | Only | [address] | | | | | | [address] Mailcode:[id number] | | | | | | [address] [place] | | | | | | [place], [place] | | | | | | [address] | | | | | | [phone] | | | +--------+ + + + [...] FILMS | Imaging | Routin | | 12/30/2004 12:00 AM | | | | e | | PDT | + +---------+--------+ + + documented as of this encounter Visit Diagnoses Not on filedocumented in this encounter"
--- OUTSIDE RECORDS SUMMARY | ~2019-10-31 | XMS | Encounter Summary ---
Demographics + + + | Address | [address] | | | [place] [address] | + + + | Home Phone | | + + + | Preferred Language | Unknown | + + + | Marital Status | Single | + + + | Zoroastrianism Affiliation | NON | + + + | Race | White | + + + | Ethnic Group | Not or | + + + Author + + + | Author | [facility] | + + + | Organization | [facility] | + + + | Address | Unknown | + + + | Phone | Unavailable | + + + Support + + +---------+ + | Name | Relationship | Address | Phone | + + +---------+ + | Dionne Frances | ECON | Unknown | | + + +---------+ + Care Team Providers + +------+ + | Care Community Service Specialist Name | Role | Phone | + +------+ + | Nikolai Rowe | PCP | | + +------+ + Encounter Details +--------+ + + + + | Date | Type | Department | Care Team | Description | +--------+ + + + + | 01/08/ | Ancillary | Registration [address] | Dejan [address]cl[address], | | | 2005 | [address] | [address] | | | | | [address] | [address] Mailcode: [id number] | | | | | | [place], [place] | | | | | | [address] | | | | | | [phone] | | | +--------+ + + + [...] +--------+ + + + | BASIC METABOLIC SET | Routin | 01/08/2006 | | Results for this | | (NA, K, CL, TCO2, | e | 1:40 PM | | procedure are in the | | BUN, CR, GLU, CA) | | PDT | | results section. | + +--------+ + + + | CBC ONLY | Routin | 01/08/2006 | | Results for this | | | e | 1:40 PM | | procedure are in the | | | | PDT | | results section. | + +--------+ + + + documented in this encounter Results BASIC METABOLIC SET (01/08/2006 1:40 PM PDT) + +---------+ + + + | Component | Value | Ref Range | Performed | Pathologist | | | | | At | Signature | + +---------+ + + + | GLUCOSE, | 94 | 65 - 110 mg/dL | [facility] | | | PLASMA | | | DEPARTMENT | | | (LAB) | | | OF | | | | | | PATHOLOGY | | + +---------+ + + + | BUN, PLASMA | 13 | 6 - 20 mg/dL | [facility] | | | (LAB) | | | DEPARTMENT | | | | | | OF | | | | | | PATHOLOGY | | + +---------+ + + + | CREATININE | 0.9 | 0.7 - 1.3 mg/dL | [facility] | | | PLASMA | | | DEPARTMENT | | | (LAB) | | | OF | | | | | | PATHOLOGY | | + +---------+ + + + | SODIUM, | 141 | 136 - 145 | [facility] | | | PLASMA | | mmol/L | DEPARTMENT | | | (LAB) | | | OF | | | | | | PATHOLOGY | | + +---------+ + + + | POTASSIUM, | 3.7 | 3.5 - 5.1 | [facility] | | | PLASMA | | mmol/L | DEPARTMENT | | | (LAB) | | | OF | | | | | | PATHOLOGY | | + +---------+ + + + | CHLORIDE, | 109 (H) | 98 - 107 mmol/L | [facility] | | | PLASMA | | | DEPARTMENT | | | (LAB) | | | OF | | | | | | PATHOLOGY | | + +---------+ + + + | TOTAL CO2, | 27 | 23 - 29 mmol/L | [facility] | | | PLASMA | | | DEPARTMENT | | | (LAB) | | | OF | | | | | | PATHOLOGY | | + +---------+ + + + | CALCIUM, | 10.0 | 8.5 - 10.5 | [facility] | | | PLASMA | | mg/dL | DEPARTMENT | | | (LAB) | | | OF | | | | | | PATHOLOGY | | + +---------+ + + + + + | Specimen | + + | | + + + + + | Narrative | Performed At | + + + | [id number] Estimated GFR > 60 mL/min/1.73 sq m if non- | [facility] | | [id number] Estimated GFR > 60 mL/min/1.73 sq m if GFR | DEPARTMENT OF | | is estimated using the MDRD equation recommended by the National | PATHOLOGY | | Kidney Disease Education Program. Estimated GFR Interpretive | | | Information: <60 mL/min/1.73 sq m Chronic Kidney Disease <15 | | | mL/mon/1.73 sq m Kidney Failure Estimated GFR greater than | | | 60mL/min/1.73 is of limited clinical Value. The MDRD equation is | | | not valid in the following situations: - Patients under 18 years of | | | age - Severe malnutrition or obesity - Vegetarian diet - Rapidly | | | changing kidney function | | + + + + + + + + | Performing | Address | City/State/Zipcode | Phone Number | | Organization | | | | + + + + + | [facility] DEPARTMENT OF | [address] | [place] [address] | | | PATHOLOGY | [address] | | | + + + + + | [facility] | [address] | [place] [address] | | | PATHOLOGY | [address] | | | + + + + + CBC ONLY WITH PLATELET (01/08/2006 1:40 PM PDT) + +-------+ + + + | Component | Value | Ref Range | Performed | Pathologist | | | | | At | Signature | + +-------+ + + + | WHITE CELL | 10.5 | 4.4 - 11.0 K/cu | [facility] | | | COUNT | | mm | DEPARTMENT | | | | | | OF | | | | | | PATHOLOGY | | + +-------+ + + + | RED CELL | 5.72 | 4.50 - 5.90 | [facility] | | | COUNT | | M/cu mm | DEPARTMENT | | | | | | OF | | | | | | PATHOLOGY | | + +-------+ + + + | HEMOGLOBIN | 17.4 | 13.5 - 17.5 | [facility] | | | | | g/dL | DEPARTMENT | | | | | | OF | | | | | | PATHOLOGY | | + +-------+ + + + | HEMATOCRIT | 51.4 | 41.0 - 53.0 % | [facility] | | | | | | DEPARTMENT | | | | | | OF | | | | | | PATHOLOGY | | + +-------+ + + + | MCV | 89.7 | 80.0 - 96.0 fL | [facility] | | | | | | DEPARTMENT | | | | | | OF | | | | | | PATHOLOGY | | + +-------+ + + + | MCHC | 33.8 | 33.4 - 35.5 | [facility] | | | | | g/dL | DEPARTMENT | | | | | | OF | | | | | | PATHOLOGY | | + +-------+ + + + | RDW | 12.7 | 11.5 - 15.0 % | [facility] | | | | | | DEPARTMENT | | | | | | OF | | | | | | PATHOLOGY | | + +-------+ + + + | PLATELET | 226 | 150 - 400 K/cu | [facility] | | | COUNT | | mm | DEPARTMENT | | | | | | OF | | | | | | PATHOLOGY | | + +-------+ + + + + + | Specimen | + + | | + + + + + + + | Performing | Address | City/State/Zipcode | Phone Number | | Organization | | | | + + + + + | [facility] | [address] | [place] [address] | | | PATHOLOGY | [address] | | | + + + + + | [facility] | [address] | [place] [address] | | | PATHOLOGY | [address] | | | + + + + + documented in this encounter Visit Diagnoses Not on filedocumented in this encounter"
--- OUTSIDE RECORDS SUMMARY | ~2019-10-31 | XMS | Encounter Summary ---
Demographics + + + | Address | [address] | | | [place] [address] | + + + | Home Phone | | + + + | Preferred Language | Unknown | + + + | Marital Status | | + + + | Caodaism Affiliation | Unknown | + + + | Race | Unknown | + + + | Ethnic Group | Unknown | + + + Author + + + | Author | [facility] | | | and [place] | + + + | Organization | [facility] | | | and [...] Team Providers + +------+ + | Care Wash Barrel Leader Name | Role | Phone | + +------+ + | Edilberto Troy MD | PCP | | + +------+ + Encounter Details +--------+ + + + + | Date | Type | Department | Care Team | Description | +--------+ + + + + | 09/04/ | Abstract | [facility] | Provider, | | | 2019 | | PHYSIATRY [address] | [address] | | | | | [address] | [address] | | | | | [place] | [place] [address] | | | | | [address] | | | | | | [phone] | | | +--------+ + + + [...]
--- OUTSIDE RECORDS SUMMARY | ~2019-10-31 | XMS | Encounter Summary ---
Demographics + + + | Address | [address] | | | [place] [address] | + + + | Home Phone | | + + + | Preferred Language | Unknown | + + + | Marital Status | | + + + | Christianity Affiliation | Unknown | + + + | Race | Unknown | + + + | Ethnic Group | Unknown | + + + Author + + + | Author | [facility] | | | and Angelana | + + + | Organization | [facility] | | | and Angelana [...] Team Providers + +------+ + | Care Solar Thermal Technician Name | Role | Phone | [...] Description | +--------+---------+ + + + | 06/18/ | Surgery | [facility] | Rocky Arce MD | VIDEO ASSISTED | | 2019 | | [facility] | [address] | THORACOSCOPY W/ | | | | OPERATING ROOM [address] | [place], [place] | DECORTICATION | | | | [address] | [address] | | | | | [place], [place] | | | | | | [address] | | | | | | [phone] | | | +--------+---------+ + + + [...] + + + | Blood Pressure | 120/75 | 06/19/2019 7:52 AM | | | | | PDT | | + + + + + | Pulse | 79 | 06/19/2019 7:52 AM | | | | | PDT | | + + + + + | Temperature | 37.2 C (99 F) | 06/19/2019 7:52 AM | | | | | PDT | | + + + + + | Respiratory Rate | 18 | 06/19/2019 7:52 AM | | | | | PDT | | + + + + + | Oxygen Saturation | 96% | 06/19/2019 7:52 AM | | | | | PDT | | + + + + + | Inhaled Oxygen | - | - | | | Concentration | | | | + + + + + | Weight | 138.5 kg (305 lb 6.4 | 06/19/2019 5:13 AM | | | | oz) | [...] might be different fr om the original. [facility]: Hospitalist Discharge Summary Pt: Robert Stiles AGE/SEX: 48 y.o. ROOM: [address] [place] [address] : 1970 PCP: Edilberto Troy MD Date [...] day follo wing discharge from [facility] on 06/15 where patient was admitted for 10 days for acute respiratory failure with right pneumonia and empyema and was admitted 06/16 for [address]py[address] [facility]. HOSPITAL COURSE: Upon admission, Patient underwent [...] BRONCHOSCOPY FLEXIBLE; Surgeon: Ronn Voss MD; Location: [facility] DURE UNIT INGUINAL HERNIA REPAIR Left 2000 SPINE SURGERY 2006 spleen repair 1984 THORACOSCOPY Right 06/19/2019 Procedure: VIDEO ASSISTED THORACOSCOPY W/ DECORTICATION; Surgeon: Rocky Arce MD; Loca tion: [facility] MAIN OR THORACOTOMY Right 06/19/2019 Procedure: THORACOTOMY-DECORTICATION; Surgeon: Rocky Arce MD; Location: [facility] MAIN OR No Known [...] Pneumonia. Pleural effusion. Recently a dmitted at [facility], on Vanco/Zosyn for loculated PNA, referred by PCP to [facility] for worsening symptoms. COMPARISON: CT ANGIOGRAPHY CHEST (06/06/2019); CHEST TWO VIEWS 82854 (06/06/2019); PRO CEDURE: Axial images through the [...] CT ANGIOGRAPHY CHEST (06/06/2019); CHEST TWO VIEWS 62354 (06/06/2019); FINDINGS/IMPRESSION: 1. New right PICC line [...] surgery What is the preferred imaging location? [facility] Follow up: [facility] [address] [facility] [id number] For IV antibiotics Rocky Arce MD [address] [place] [facility] [id number] Schedule an appointment as soon as possible for a visit in 2 weeks Hospital Follow-up Ciro Gardner MD [address] [facility] [id number] In 2 weeks Hospital Follow-up Edilberto Madrigal MD [address] [facility] [address] Hospital Follow-up Discharge Medications New Medications Details [...] take this when to take this aka: PRINIVIL ZESTRIL Unchanged Medications Details albuterol-ipratropium 100-20 mcg/puff [...] not caused by coughing Date Last Reviewed: 03/30/201619999287-3237 [employer]. [address] [place] [address]. All righ ts reserved. This information is not intended as a substitute for professional medical care. Always follow your healthcare professional's instructions. Cardiothoracic Surgery Discharge Instructions Routine Follow Up Appointments Follow up with Cardiothoracic Surgery, Dr Arce in 2 wks. Our office will call you to schedule a time Please call [phone] with any questions or if you need to reschedule Please go to [facility] and get a 2-view Chest X-Ray done 30min before your appoint ment. An order has been placed for you Follow up with your primary care physician in 2-4 weeks. General Instructions [facility] Cardiothoracic Surgery office will contact you within 72 hours of your hospital discharge. If you do not receive a phone call or have any concerns before then, please call our office Mon-Fri 8:00am-5:00pm at [phone]. Please make sure we have the best [...] (MOM) or Miralax Daily Monitoring Notify the [facility] Cardiothoracic Surgery office of: Any weight gain [...] at your follo w up visit with [facility] Cardiothoracic Surgery - no later than 2 [...] to sexual relati ons, driving, and work. [id number] [employer]. [address] [place] [address]. All righ ts reserved. This information is [...] Vu MD - 06/22/2019 9:43 AM PDT [facility]: Infectious Diseases Progress Note Hospital Day: [...] Procedure Component Value Units Date/Time Culture, Fungus [[id number]] Collected: 06/19/191047 Order Status: Sent Lab Status: In process Updated: 06/19/19 1112 Specimen: Tissue from Pleura, Right Culture, Tissue, Smear, with Anaerobes [[id number]] Collected: 06/19/191047 Order Status: Canceled Lab Status: No result Specimen: Tissue from Pleura, Right Culture Virus [[id number]] Collected: 06/19/191047 Order Status: Sent Lab Status: In process Updated: 06/19/19 1113 Specimen: Tissue from Pleura, Right Culture, Tissue, Smear, with Anaerobes [[id number]] Collected: 06/19/191047 Order Status: Completed Lab Status: Preliminary result Updated: 06/22/19 0725 Special Requests PLEURAL RIGHT PEEL Special Requests Testing performed at [facility];[address] [facility];[place] [address] Gram Stain Result -- 1+ WBC'S SEEN Gram Stain Result NO ORGANISMS SEEN RESULT NO GROWTH 3 DAYS RESULT Testing performed at [facility], [address] [place] [address] Comment: Testing performed at [facility], [address] [place] [address] Coronavirus (COVID-19) PCR [[id number]] Order Status: Canceled Lab Status: No result Specimen: Tissue from Nasopharynx Culture, Fungus [[id number]] Collected: 06/19/19 1029 Order Status: Sent Lab Status: In process Updated: 06/19/19 1110 Specimen: Body Fluid from Pleural Fluid, Right Culture Virus [[id number]] Collected: 06/19/19 1029 Order Status: Sent Lab Status: In process Updated: 06/19/19 1110 Specimen: Body Fluid from Pleural Fluid, Right Culture, Body Fluid Sterile [[id number]] Collected: 06/19/19 1029 Order Status: Completed Lab Status: Preliminary result Updated: 06/22/19 0725 Specimen: Body Fluid from Pleural Fluid, Right Gram Stain Result -- 1+ WBC'S SEEN RESULT NO GROWTH 3 DAYS RESULT Testing performed at [facility], [address] [place] [address] Comment: Testing performed at [facility], [address] [place] [address] MRSA NAAT [[id number]] Collected: 06/18/19 1258 Order Status: Completed Lab Status: Final result Updated: 06/18/19 1417 Specimen: Tissue from Nares SOURCE: NARES(NOSE) Result NEGATIVE Comment: Testing performed at [facility];[address] [place] [address];[place] [address] Streptococcus pneumoniae Antigen [[id number]] Collected: 06/18/19 1005 Order Status: Completed Lab Status: Final result Updated: 06/21/19 1108 Specimen: Urine, Unspecified Source Specimen Source Urine Streptococcus pneumoniae Negative Body Fluid Culture, Sterile Not indicated. Organism ID Not indicated. Please note (See Below) Comment: [employer] standards require a culture to be performed on CSF specimens submitted for bacterial antigen testing. (CAP [id number]) Urine specimens will not be cultured. Testing performed by [employer], [address] [place] [address] Respiratory pathogen panel, NAAT [[id number]] Collected: 06/18/19 0351 Order Status: Completed Lab [...] performed by Molecular Methodology Testing performed at [address] [address] Culture, Blood [[id number]] Collected: 06/17/192255 Order Status: Completed Lab Status: Preliminary result Updated: 06/19/19525 Specimen: Peripheral Blood Special Requests LAC Special Requests Testing performed at [facility];[address] [place] [address] RESULT NO GROWTH AT THIS TIME RESULT Testing performed at [facility], [address] [place] [address] Comment: Testing performed at [facility], [address] [place] [address] Culture, Blood [[id number]] Collected: 06/17/192229 Order Status: Completed Lab Status: Preliminary result Updated: 06/19/19525 Specimen: Blood from Line RESULT NO GROWTH AT THIS TIME RESULT Testing performed at [address] [address] Comment: Testing performed at [facility], [address] [place] [address] Microbiology Results (72 hrs) Procedure Component Value Units Date/Time Culture, Fungus [[id number]] Collected: 06/19/191047 Order Status: Sent Lab Status: In process Updated: 06/19/191111 Specimen: Tissue from Pleura, Right Culture Virus [[id number]] Collected: 06/19/191047 Order Status: Sent Lab Status: In process Updated: 06/19/191112 Specimen: Tissue from Pleura, Right Culture, Tissue, Smear, with Anaerobes [[id number]] Collected: 06/19/19 1048 Order Status: Completed Lab Status: Preliminary result Updated: 06/22/19 0725 Special Requests PLEURAL RIGHT PEEL Special Requests Testing performed at [facility];[address] [place] [address];[place] [address] Gram Stain Result -- 1+ WBC'S SEEN Gram Stain Result NO ORGANISMS SEEN RESULT NO GROWTH 3 DAYS RESULT Testing performed at [facility], [address] [place] [address] Comment: Testing performed at [facility], [address] [place] [address] Culture, Fungus [[id number]] Collected: 06/19/19 1029 Order Status: Sent Lab Status: In process Updated: 06/19/19 1110 Specimen: Body Fluid from Pleural Fluid, Right Culture Virus [[id number]] Collected: 06/19/19 102 Order Status: Sent Lab Status: In process Updated: 06/19/19 1110 Specimen: Body Fluid from Pleural Fluid, Right Culture, Body Fluid Sterile [[id number]] Collected: 06/19/19 102 Order Status: Completed Lab Status: Preliminary result Updated: 06/22/19 0725 Specimen: Body Fluid from Pleural Fluid, Right Gram Stain Result -- 1+ WBC'S SEEN RESULT NO GROWTH 3 DAYS RESULT Testing performed at [facility], [address] [place] [address] Comment: Testing performed at [facility], [address] [place] [address] IMAGING: CXR images were reviewed. My interpretation: [...] attending provider: Eddy Perry MD Discussed with immigration case manager regarding OPAT. Discussed with immigration case manager regarding discharge planning. Ciro Lee MD, MPH Infectious Diseases 06/22/19 Rudy García MD - 06/21/2019 5:02 PM PDTPROGRESS NOTE for Robert Stiles On the hospitalist service. 06/21/19 ASSESSMENT AND PLAN Empyema of right pleural space (06/19/2019) Assessment: Improved with no shortness of breath and decreased chest pain now 2 days stat us post thorascopic, thoracotomy, and full decortication per [facility] cardiothoracic surgery. Chest tube in place now [...] 1 day following discharge from [facility] on 05/28 where patient was admitted for 10 days for acute respiratory failure with right pneumonia and empyema and was admitted 06/16 for empyema at [facility]. Patient underwent a right diagnost ic thorascopic, [...] to 2 days if remains stable.Pavithra Ling OTR/L - 06/21/2019 1:36 PM P DT Occupational [...] note might be different from leeanne zavala. [facility]: Infectious Diseases Progress Note Hospital Day: [...] Procedure Component Value Units Date/Time Culture, Fungus [[id number]] Collected: 06/19/19 1048 Order Status: Sent Lab Status: In process Updated: 06/19/19 1112 Specimen: Tissue from Pleura, Right Culture, Tissue, Smear, with Anaerobes [[id number]] Collected: 06/19/19 1048 Order Status: Canceled Lab Status: No result Specimen: Tissue from Pleura, Right Culture Virus [[id number]] Collected: 06/19/19 1048 Order Status: Sent Lab Status: In process Updated: 06/19/19 1113 Specimen: Tissue from Pleura, Right Culture, Tissue, Smear, with Anaerobes [[id number]] Collected: 06/19/19 1048 Order Status: Completed Lab Status: Preliminary result Updated: 06/21/19 0737 Special Requests PLEURAL RIGHT PEEL Special Requests Testing performed at [facility];[address] [place] [address];[place] [address] Gram Stain Result -- 1+ WBC'S SEEN Gram Stain Result NO ORGANISMS SEEN RESULT NO GROWTH 2 DAYS RESULT Testing performed at [facility], [address] [place] [address] Comment: Testing performed at [facility], [address] [place] [address] Coronavirus (COVID-19) PCR [[id number]] Order Status: Canceled Lab Status: No result Specimen: Tissue from Nasopharynx Culture, Fungus [[id number]] Collected: 06/19/19 1029 Order Status: Sent Lab Status: In process Updated: 06/19/19 1110 Specimen: Body Fluid from Pleural Fluid, Right Culture Virus [[id number]] Collected: 06/19/19 1029 Order Status: Sent Lab Status: In process Updated: 06/19/19 1110 Specimen: Body Fluid from Pleural Fluid, Right Culture, Body Fluid Sterile [[id number]] Collected: 06/19/19 1029 Order Status: Completed Lab Status: Preliminary result Updated: 06/21/19 0737 Specimen: Body Fluid from Pleural Fluid, Right Gram Stain Result -- 1+ WBC'S SEEN RESULT NO GROWTH 2 DAYS RESULT Testing performed at [facility], [address] [place] [address] Comment: Testing performed at [facility], [address] [place] [address] MRSA NAAT [[id number]] Collected: 06/18/19 1258 Order Status: Completed Lab Status: Final result Updated: 06/18/19 1417 Specimen: Tissue from Nares SOURCE: NARES(NOSE) Result NEGATIVE Comment: Testing performed at [facility];[address] [facility];[place] [address] Streptococcus pneumoniae Antigen [[id number]] Collected: 06/18/19 1005 Order Status: Completed Lab Status: Final result Updated: 06/21/19 1108 Specimen: Urine, Unspecified Source Specimen Source Urine Streptococcus pneumoniae Negative Body Fluid Culture, Sterile Not indicated. Organism ID Not indicated. Please note (See Below) Comment: [employer] standards require a culture to be performed on CSF specimens submitted for bacterial antigen testing. (CAP [id number]) Urine specimens will not be cultured. Testing performed by [employer], [address] [place] [address] Respiratory pathogen panel, NAAT [[id number]] Collected: 06/18/19 0351 Order Status: Completed Lab [...] performed by Molecular Methodology Testing performed at [facility], [address] [place] [address] Culture, Blood [[id number]] Collected: 06/17/19 2256 Order Status: Completed Lab Status: Preliminary result Updated: 06/19/19 05 Specimen: Peripheral Blood Special Requests LAC Special Requests Testing performed at [facility];[address] [place] [address] RESULT NO GROWTH AT THIS TIME RESULT Testing performed at [facility], [address] [place] [address] Comment: Testing performed at [facility], [address] [place] [address] Culture, Blood [[id number]] Collected: 06/17/192229 Order Status: Completed Lab Status: Preliminary result Updated: 06/19/19525 Specimen: Blood from Line RESULT NO GROWTH AT THIS TIME RESULT Testing performed at [facility], [address] [place] [address] Comment: Testing performed at [facility], [address] [place] [address] Microbiology Results (72 hrs) Procedure Component Value Units Date/Time Culture, Fungus [[id number]] Collected: 06/19/19 1048 Order Status: Sent Lab Status: In process Updated: 06/19/19 111 Specimen: Tissue from Pleura, Right Culture Virus [[id number]] Collected: 06/19/19 1048 Order Status: Sent Lab Status: In process Updated: 06/19/19 1113 Specimen: Tissue from Pleura, Right Culture, Tissue, Smear, with Anaerobes [[id number]] Collected: 06/19/19 1048 Order Status: Completed Lab Status: Preliminary result Updated: 06/21/19 0737 Special Requests PLEURAL RIGHT PEEL Special Requests Testing performed at [facility];[address] [place] [address] Gram Stain Result -- 1+ WBC'S SEEN Gram Stain Result NO ORGANISMS SEEN RESULT NO GROWTH 2 DAYS RESULT Testing performed at [facility], [address] [place] [address] Comment: Testing performed at [facility], [address] [place] [address] Culture, Fungus [[id number]] Collected: 06/19/19 1029 Order Status: Sent Lab Status: In process Updated: 06/19/19 1110 Specimen: Body Fluid from Pleural Fluid, Right Culture Virus [[id number]] Collected: 06/19/19 1029 Order Status: Sent Lab Status: In process Updated: 06/19/19 1110 Specimen: Body Fluid from Pleural Fluid, Right Culture, Body Fluid Sterile [[id number]] Collected: 06/19/19 1029 Order Status: Completed Lab Status: Preliminary result Updated: 06/21/19 0737 Specimen: Body Fluid from Pleural Fluid, Right Gram Stain Result -- 1+ WBC'S SEEN RESULT NO GROWTH 2 DAYS RESULT Testing performed at [facility], [address] [place] [address] Comment: Testing performed at [facility], [address] [place] [address] MRSA NAAT [[id number]] Collected: 06/18/19 1258 Order Status: Completed Lab Status: Final result Updated: 06/18/19 1417 Specimen: Tissue from Nares SOURCE: NARES(NOSE) Result NEGATIVE Comment: Testing performed at [facility];[address] [place] [address];[place] [address] IMAGING: CXR images were reviewed. My interpretation: [...] attending provider: Eddy Perry MD Discussed with immigration case manager regarding OPAT. Discussed with immigration case manager regarding discharge planning. Ciro Lee MD, MPH Infectious Diseases 06/21/19 Gregg Zhang PA - 06/21/2019 9:01 AM PDTFormatting of this note might be different from the or iginal. [facility]: Cardiothoracic Surgery Progress Note ROOM: [address] [place] [address] Hospital Day: LOS: 3 days Post-Op Day: 2 Days Post-Op Surgery/Procedure: 06/19/2019, Dr Ignacio Helms VATS decortication SUBJECTIVE Events Overnight: HD stable, SR. [...] (!) 139.3 kg (307 lb 3.2 oz) 06/19/191999 (!) 139.5 kg (307 lb 7.1 oz) [...] mg by mouth 2 times daily. Historical Danielle helms MD LABS: Recent Results (from the past 24 [...] Vu MD - 06/20/2019 10:43 AM PDT [facility]: Infectious Diseases Progress Note Hospital Day: [...] RIGHT PEEL Special Requests Testing performed at [facility];[address] [facility];[place] [address] Gram Stain Result 1+ WBC'S SEEN Gram Stain Result NO ORGANISMS SEEN Gram Stain Result Testing performed at [facility], [address] [facility], [place] [address] RESULT PENDING Blood gas, Arterial Result Value [...] Procedure Component Value Units Date/Time Culture, Fungus [[id number]] Collected: 06/19/191047 Order Status: Sent Lab Status: In process Updated: 06/19/191111 Specimen: Tissue from Pleura, Right Culture, Tissue, Smear, with Anaerobes [[id number]] Collected: 06/19/191047 Order Status: Canceled Lab Status: No result Specimen: Tissue from Pleura, Right Culture Virus [[id number]] Collected: 06/19/191047 Order Status: Sent Lab Status: In process Updated: 06/19/191112 Specimen: Tissue from Pleura, Right Culture, Tissue, Smear, with Anaerobes [[id number]] Collected: 06/19/191047 Order Status: Completed Lab Status: Preliminary result Updated: 06/19/192206 Special Requests PLEURAL RIGHT PEEL Special Requests Testing performed at [facility];[address] [place] [address] Gram Stain Result -- 1+ WBC'S SEEN Gram Stain Result NO ORGANISMS SEEN Gram Stain Result Testing performed at [facility], [address] [place] [address] RESULT PENDING Comment: Testing performed at [facility], [address] [place] [address] Coronavirus (COVID-19) PCR [[id number]] Order Status: Canceled Lab Status: No result Specimen: Tissue from Nasopharynx Culture, Fungus [[id number]] Collected: 06/19/19 1029 Order Status: Sent Lab Status: In process Updated: 06/19/19 1110 Specimen: Body Fluid from Pleural Fluid, Right Culture Virus [[id number]] Collected: 06/19/19 1029 Order Status: Sent Lab Status: In process Updated: 06/19/19 1110 Specimen: Body Fluid from Pleural Fluid, Right Culture, Body Fluid Sterile [[id number]] Collected: 06/19/19 1029 Order Status: Completed Lab Status: Preliminary result Updated: 06/19/19 2207 Specimen: Body Fluid from Pleural Fluid, Right Gram Stain Result -- 1+ WBC'S SEEN Gram Stain Result Testing performed at [facility], [address] [place] [address] RESULT PENDING Comment: Testing performed at [facility], [address] [place] [address] MRSA NAAT [[id number]] Collected: 06/18/19 1258 Order Status: Completed Lab Status: Final result Updated: 06/18/19 1417 Specimen: Tissue from Nares SOURCE: NARES(NOSE) Result NEGATIVE Comment: Testing performed at [facility];[address] [place] [address];[place] [address] Streptococcus pneumoniae Antigen [[id number]] Collected: 06/18/19 1005 Order Status: Sent Lab Status: In process Updated: 06/18/19 1010 Specimen: Urine, Unspecified Source Respiratory pathogen panel, NAAT [[id number]] Collected: 06/18/19 0351 Order Status: Completed Lab [...] performed by Molecular Methodology Testing performed at [facility], [address] [place] [address] Culture, Blood [[id number]] Collected: 06/17/19 2256 Order Status: Completed Lab Status: Preliminary result Updated: 06/19/19 05 Specimen: Peripheral Blood Special Requests LAC Special Requests Testing performed at [facility];[address] [place] [address];[place] [address] RESULT NO GROWTH AT THIS TIME RESULT Testing performed at [address] [address] Comment: Testing performed at [facility], [address] [place] [address] Culture, Blood [[id number]] Collected: 06/17/192229 Order Status: Completed Lab Status: Preliminary result Updated: 06/19/19 05 Specimen: Blood from Line RESULT NO GROWTH AT THIS TIME RESULT Testing performed at [facility], [address] [place] [address] Comment: Testing performed at [address] [address] Microbiology Results (72 hrs) Procedure Component Value Units Date/Time Culture, Fungus [[id number]] Collected: 06/19/191047 Order Status: Sent Lab Status: In process Updated: 06/19/19 111 Specimen: Tissue from Pleura, Right Culture Virus [[id number]] Collected: 06/19/191047 Order Status: Sent Lab Status: In process Updated: 06/19/19 111 Specimen: Tissue from Pleura, Right Culture, Tissue, Smear, with Anaerobes [[id number]] Collected: 06/19/191047 Order Status: Completed Lab Status: Preliminary result Updated: 06/19/192206 Special Requests PLEURAL RIGHT PEEL Special Requests Testing performed at [facility];[address] [place] [address] Gram Stain Result -- 1+ WBC'S SEEN Gram Stain Result NO ORGANISMS SEEN Gram Stain Result Testing performed at [address] [address] RESULT PENDING Comment: Testing performed at [facility], [address] [place] [address] Culture, Fungus [[id number]] Collected: 06/19/19 1029 Order Status: Sent Lab Status: In process Updated: 06/19/19 1110 Specimen: Body Fluid from Pleural Fluid, Right Culture Virus [[id number]] Collected: 06/19/19 1029 Order Status: Sent Lab Status: In process Updated: 06/19/19 1110 Specimen: Body Fluid from Pleural Fluid, Right Culture, Body Fluid Sterile [[id number]] Collected: 06/19/19 1029 Order Status: Completed Lab Status: Preliminary result Updated: 06/19/19 2207 Specimen: Body Fluid from Pleural Fluid, Right Gram Stain Result -- 1+ WBC'S SEEN Gram Stain Result Testing performed at [facility], [address] [place] [address] RESULT PENDING Comment: Testing performed at [address] [address] MRSA NAAT [[id number]] Collected: 06/18/19 1258 Order Status: Completed Lab Status: Final result Updated: 06/18/19 1417 Specimen: Tissue from Nares SOURCE: NARES(NOSE) Result NEGATIVE Comment: Testing performed at [facility];[address] [place] [address] Streptococcus pneumoniae Antigen [[id number]] Collected: 06/18/19 1005 Order Status: Sent Lab Status: In process Updated: 06/18/19 1010 Specimen: Urine, Unspecified Source Respiratory pathogen panel, NAAT [[id number]] Collected: 06/18/19 0351 Order Status: Completed Lab [...] performed by Molecular Methodology Testing performed at [address] [address] Culture, Blood [[id number]] Collected: 06/17/196 Order Status: Completed Lab Status: Preliminary result Updated: 06/19/19525 Specimen: Peripheral Blood Special Requests LAC Special Requests Testing performed at [address] [address] RESULT NO GROWTH AT THIS TIME RESULT Testing performed at [address] [address] Comment: Testing performed at [facility], [address] [place] [address] Culture, Blood [[id number]] Collected: 06/17/190 Order Status: Completed Lab Status: Preliminary result Updated: 06/19/19525 Specimen: Blood from Line RESULT NO GROWTH AT THIS TIME RESULT Testing performed at [address] [address] Comment: Testing performed at [address] [address] IMAGING: CXR images were reviewed. My interpretation: [...] attending provider: Leon Ch MD Discussed with immigration case manager regarding OPAT. Ciro Lee MD, MPH Infectious Diseases 06/20/19 Yuly Cordero DO - 06/20/2019 9:02 AM PDTFormatting of this note might be different from the origin [facility] Service: Commercial Loan Specialist Progress Note Robert Stiles 48 [facility].o. Hospital [...] chest pa in after an admission at [facility] from 06/05-06/16/19 where he was diagnosed and treated for a rig ht-sided pneumonia with complex exudative parapneumonic effusion (s/p chest tube drainage), acute respiratory failure with BIPAP and sepsis. . He was discharged home and presented to [facility] on 07/15/19 with cc of SOB and [...] [facility] Code Status: Full Code *Please bill 35 minutes of critical care time spent evaluating the patient, reviewing the d sukh and formulating a plan exclusive of all other procedures. Yuly Garcia DO 06/20/2019 Dictation software, TroopSwap, was used which may contain error with similar sound words even after review. Portions of this chart may have been copied from previous notes for continuity of care. Carlos Zhang PA - 0 06/20/2019 7:26 AM PDT [facility] Service: Cardiothoracic Surgery Progress Note ROOM: [facility]/[address] [place] [address] Hospital Day: LOS: 2 days Post-Op Day: [...] by mouth 2 times daily. Yes Historical Val freeman MD lidocaine-prilocaine (EMLA) cream apply three times a [...] mg by mouth 2 times daily. Historical Danielle helms MD LABS: Recent Results (from the past 24 hour(s)) POC Glucose Result Value Ref Range Glucose, POC 105 (H) 65 - 99 mg/dL Type and Screen Result Value Ref Range ABO Rh O POSITIVE Antibody Screen NEGATIVE BB BAND [id number] BB BAND Testing performed at [facility];[address] [facility];[place] [address] Culture, Body Fluid Sterile Result Value Ref Range Gram Stain Result 1+ WBC'S SEEN Gram Stain Result Testing performed at [facility], [address] [place] [address] RESULT PENDING Culture, Tissue, Smear, with Anaerobes Result Value Ref Range Special Requests PLEURAL RIGHT PEEL Special Requests Testing performed at [facility];[address] [place] [address] Gram Stain Result 1+ WBC'S SEEN Gram Stain Result NO ORGANISMS SEEN Gram Stain Result Testing performed at [facility], [address] [place] [address] RESULT PENDING Blood gas, Arterial Result Value [...] ID has been following him since his [facility] admission and they were very clear that [...] admitted to the adult hospitalist service at [facility]. Admitting Physician: Josselin Diallo MD Chief complaint: shortness of breath and chest pain History of present illness: Patient is a 48-year-old male with history significant for hype rtension, hyperlipidemia, well controlled type 2 diabetes mellitus on metformin, morbid obes ity, nocturnal hypoxemia and obstructive sleep apnea with BiPAP, former smoker, and recent h ospitalization at [facility] for right lower lobe empyema with discharge date 06/16/2019 presents with shortness of breath, pleuritic chest pain, and fever. Patient was admitted from 06/05 through 06/16/2019 at [facility] in [place], [place] for acute respiratory failure with right-sided [...] he was subsequently discharged with nonoperative ma nagcrissy with continued IV by antibiotics via PICC until 07/12/2019 with close follow-up with infectious disease Dr Crenshaw, general surgeon Dr Basurto, and PCP Dr. Troy. Following discharge from [facility] on 06/15 patient felt well in [...] until the patie nt presented to the [facility] ED in the evening of the 06/16. Upon arrival to the [facility] ED, patient was febrile to 102.6, normotensive, [...] and 4 mg IV morphine for pain. [facility] infectious disease was consulted who recommended initiating [...] 2001 SPINE SURGERY 2006 spleen repair 1983 Home medications: Prior to Admission medications Medication [...] Patient is full code. Patient lives in [place], [place]. 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 I am in agreement with their assessment plan and disposition.documented in this encounter Consult Notes Yuly Garcia DO - 06/19/2019 12:33 PM PDTFormatting of this note might be different from komal zavala. [facility] Service: Commercial Loan Specialist Initial Consult Note Robert Stiles 48 y.o. [...] chest pa in after an admission at [facility] from 06/05-06/16/19 where he was diagnosed and treated for a rig ht-sided pneumonia with complex exudative parapneumonic effusion (s/p chest tube drainage), acute respiratory failure with BIPAP and sepsis. . 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 Patient lives in [place], [place]. 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 The pat iejerod was admitted to [facility] from 06/07/19 to 06/16/19. 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 Patient lives in [place], [place]. 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 [facility] Service: Infectious Diseases Initial Consult Note Date [...] for further care. His fluid culture at [facility] from 06/14 was NGTD. 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 Patient lives in [place], [place]. 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 2 children from [...] Galen Roth MD 81 mg at 06/18/19 09 atorvaSTATin (LIPITOR) tablet 20 mg 20 mg [...] Galen Roth MD 40 mg at 06/18/19 09 gabapentin (NEURONTIN) tablet 1,200 mg 1,200 mg [...] Component Value Units Date/Time Streptococcus pneumoniae Antigen [[id number]] Collected: 06/18/19 1005 Order Status: Sent Lab Status: In process Updated: 06/18/19 1010 Specimen: Urine, Unspecified Source Respiratory pathogen panel, NAAT [[id number]] Collected: 06/18/19 0351 Order Status: Completed Lab [...] performed by Molecular Methodology Testing performed at [facility], [address] [place] [address] Culture, Blood [[id number]] Collected: 06/17/19 2256 Order Status: Sent Lab Status: In process Updated: 06/17/19 2303 Specimen: Peripheral Blood Culture, Blood [[id number]] Collected: 06/17/190 Order Status: Sent Lab Status: In process Updated: 06/17/19 223 Specimen: Blood from Line Microbiology Results (72 hrs) Procedure Component Value Units Date/Time Streptococcus pneumoniae Antigen [[id number]] Collected: 06/18/19 1005 Order Status: Sent Lab Status: In process Updated: 06/18/19 1010 Specimen: Urine, Unspecified Source Respiratory pathogen panel, NAAT [[id number]] Collected: 06/18/19 0351 Order Status: Completed Lab [...] performed by Molecular Methodology Testing performed at [facility], [address] [place] [address] Culture, Blood [[id number]] Collected: 06/17/19 225 Order Status: Sent Lab Status: In process Updated: 06/17/19 230 Specimen: Peripheral Blood Culture, Blood [[id number]] Collected: 06/17/192229 Order Status: Sent Lab Status: [...] administer upstairs. Electronically si gned by Krupa nSeed RN at 06/18/2019 3:34 AM Krupa Garcia RN - 2:43 AM PDTProvided sandwich, apples, veggie tray, and water to patient.Electronica lly signed by Krupa Sneed RN at 06/18/2019 2:44 AM Tai Mcgee RN - 12:15 AM PDTAssumed care of pt, received report from JEREMY Rae. Kyra Hunt RN - 06/18/2019 12:06 AM PD TPt states he feels increased SOB and RN gave pt 2L of O2 on [place]. yra Prather RN - 06/17/2019 11:16 PM PDTMica Aayush hoffman () [phone] signed by Kyra Prather RN at 06/17/2019 11:17 PM PDT Yumiko Nj CNA - 06/17/2019 10:22 PM PDTMade call to JORGE Request for images, patien t records and notes Randolph brooks DO - 06/17/2019 9:50 PM PDTFormatting of this note might be different fr om the original. [facility] Department of Emergency Medicine 9:50 PM History [...] other symptoms at this time. 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 Patient was just discharged yesterday from [facility] after a 10 day stay for loculated pneumoni a. He reports that in the hospital they placed a chest tube and performed a thoracentesis. H e reports that since he was discharged he has been very nauseas, had a fever, and has pain b ehind his shoulder blades. He called Dr. Crawley from [facility] who recommended that he come to the ED at [facility]. Patient was sent home on vancomycin and [...] able... (REFER TO PRESCRIPTION NOTES). 03/11/18 Historical ProviderMD DULoxetine (CYMBALTA) [address] capsule Take 30 mg by mouth Daily. Historical ProviderGreta DULoxetine (CYMBALTA) [address] capsule 03/10/18 Historical ProviderMD gabapentin (NEURONTIN) 600 MG tablet Take 600 mg by mouth 2 times daily. Historical Prov ideMD mario lidocaine-prilocaine (EMLA) cream apply three times a [...] file Gets together: Not on file Attends baptism service: Not on file Active member of [...] and reevaluate the patient. On review of [facility] notes: Patient was admitted on the [address] [facility] with empyema and treated for sepsis. [...] he had a fluoroscopy guided thoracentesis a t [facility]. He was then discharged on 06/15 with [...] 100 mL (100 mLs Intravenous Given 06/17/19 6464) morphine injection 4 mg (4 mg Intravenous Given 06/17/19 6142) Records Reviewed Old medical records. Nursing notes. No prior [facility] ED visits available for review. Laboratory Evaluation Results Procedure Component Value Ref Range Date/Time Lactic Acid [[id number]] Collected: 06/17/192232 Order Status: Completed Specimen: Blood Updated: 06/17/192304 Lactate, Serum 2.0 0.4 - 2.0 mmol/L Culture, Blood [[id number]] Collected: 06/17/192255 Order Status: Sent Specimen: Peripheral Blood Updated: 06/17/192302 Comprehensive Metabolic Panel [[id number]] (Abnormal) Collected: 06/17/192230 Order Status: Completed Specimen: [...] Estimated GFR >60 >60 mL/min/1.73m2 Troponin I [[id number]] Collected: 06/17/192230 Order Status: Completed Specimen: Blood Updated: 06/17/192300 Troponin I 0.006 0.00 - 0.04 ng/mL CBC with Differential [[id number]] (Abnormal) Collected: 06/17/192230 Order Status: Completed Specimen: [...] 0.09 0.00 - 0.10 K/uL Culture, Blood [[id number]] Collected: 06/17/192229 Order Status: Sent Specimen: Blood [...] Cough. Pneumonia. Pleural effusion. Recently admitted at [facility], on Vanco/Zosyn for loculated PNA, referred by PCP to [facility] for worsening symptoms. COMPARISON: CT ANGIOGRAPHY CHEST (06/06/2019); CHEST TWO VIEWS 62744 (06/06/2019); PROCEDURE: Axial images through the chest [...] Cough. Pneumonia. Pleural effusion. Recently admitted at [facility] on Vanco/Zosyn for loculated PNA, referred by PCP to [facility] for worsening symptoms. COMPARISON: CT ANGIOGRAPHY CHEST (06/06/2019); CHEST TWO VIEWS [id number] (06/06/2019); PROCEDURE: Axial images through the chest [...] Admit Clinical impression: Chest pain, unspecified type [[id number]] Clinical impression: Sepsis, due to unspecified organism, unspecified whether acute organ dysfunction present (HCC) [[id number]] Admitting provider: FAIZAN HOSPITALIST [[id number]] Expected patient class: Inpatient [101] Level of service: Medical Discharge Medications: ED Prescriptions None Procedures Attending Provider Note: Randolph Juan DO personally performed the services describ ed in this documentation, as scribed by Francisco Cuevas in my presence, and it is both accura te and complete. Chart Reviewed and Completed. Scribe: I Keesha Posey, scribing for and in the presence of [...] none Pharmacy Pharmacy/Medication needs: ([facility] in [place]) Notes: CM faxed new IV abx script [...] this RN. YULY AGRAWAL RN lan of [facility] - Meghan Jaimes RN - 06/21/2019 6:30 PM [...] pain scheduled and PRN medications given per MAR. Problem: Respiratory Compromise (Pneumonia) Goal: Effective Oxygenation [...] pt states that he was discharged from [facility] with Option Car e for home IV abx therapy. Per ID MD pt will need an additional 4 weeks IV abx on discharge Next Steps: CM to update Fernley and send new IV abx script when [...] Roth MD 06/20/2019 2:35 PM lan of [facility] - Gustavo Coats, PT, DPT - 06/20/2019 [...] pt . may mobilize with supervision from [facility] staff as tolerated. Living Environment Lives With: spouse Living Arrangements: house Home Accessibility: stairs to enter home Functional Level Prior Transferring: independent Ambulation: independent Equipment Currently Used at Home: none Cognitive Assessment Orientation: oriented x 4 Bed Mobility Additional Documentation: supine to/from sit Supine to Sit, Level of [place]: modified independent Transfers Additional Documentation: sit to/from stand Sit-Stand, Level of [place]: modified independent, supervised Gait Gait Comments: normal gait cycle with decreased holley Level of [place]: modified independent, supervised Assistive Device: none, gait [...] (06/18 1452) Oxygen Concentration (%): 50 (06/18 1452) PEEP: 12 (06/18 1452) Inspiratory time (sec): 0.9 (06/18 1452) I:E : 2.0 (06/18 1452) Peak Inspiratory Pressure: 30 (06/18 1452) Vent Tolerance: well Spontaneous Breathing Trial Performed: [...] Rocky Arce MD - 06/19/2019 11:37 AM [facility] OPERATIVE REPORT ROCKY ARCE MD Patient: ROBERT STILES Admitting: JOSSELIN DIALLO MR #: [id number] LOC: PT TYPE: Adm Date: 06/17/2019 : 1970 DATE OF PROCEDURE: 06/19/2019 PREOPERATIVE DIAGNOSIS: Loculated right pleural effusion with compressive atelectasis. POSTOPERATIVE DIAGNOSIS: Loculated right pleural effusion with compressive atelectasis. PROCEDURES: 1. Right diagnostic thoracoscopy. 2. Right thoracotomy. 3. Full decortication. SURGEON: Rocky Arce MD TAXI DRIVER SUPERVISOR: YOVANNY Conley ANESTHESIOLOGIST: Janes Cameron MD ANESTHESIA: [...] dyspn ea. The patient was admitted to [facility] from 06/07/2019 to 06/16/2019. He was [...] the left lateral decubitus position [facility]. An axillary roll was put [...] 06/19/2019 11:37:11 Transcribed on 06/19/2019 18:26:10 by job# [id number] Confirmation #: [id number] lan of Jayden Mujica RN - 06/19/2019 7:47 AM LONNYThicarlos a RN received report from NOC RN. Shortly after 0740 pt was taken [...] (Chest pain) Previous Discharging Facility: [facility] PCP: Edilberto Troy MD Contact Information [...] this note might be different from the [facility] Service: Hospitalist Plan Of Care Note Pt: Robert Stiles AGE/SEX: 48 y.o. male ROOM: [facility]/8112-01 : 1970 PCP: Edilberto Troy MD ADMIT DATE: 06/17/2019 TODAY'S DATE: 06/18/2019 48-year-old male with history significant for hypertension, hyperlipidemia, well controlled type 2 diabetes mellitus on metformin, morbid obesity, nocturnal hypoxemia and obstructive sleep apnea with BiPAP, former smoker, and recent hospitalization at [facility] for right lower l obe empyema [...] MD, FACP 06/18/2019 10:33 AM Dictation software, TroopSwap, used which may contain error for similar [...] | + +--------+ + + + | AK KIRANC INCL | Routin | 06/19/2019 | | [...] | Routin | 06/19/2019 | Empyema lung ([facility]) | Results for this | | | e | 10:48 AM | | procedure are in the | | | | PDT | | results section. | + +--------+ + + + | CULTURE, FUNGUS | Routin | 06/19/2019 | Empyema lung ([facility]) | Results for this | | | e | 10:48 AM | | procedure are in the | | | | PDT | | results section. | + +--------+ + + + | CULTURE, BODY FLUID | Routin | 06/19/2019 | Empyema lung ([facility]) | Results for this | | STERILE | e | 10:29 AM | | procedure are in the | | | | PDT | | results section. | + +--------+ + + + | CULTURE, VIRUS | Routin | 06/19/2019 | Empyema lung ([facility]) | Results for this | | | [...] THORACOTOMY-DECORTIC | | 06/19/2019 | Empyema lung (HCC) | | | ATION | | 8:31 AM | | | | | | PDT | | | + +--------+ + + + | VIDEO ASSISTED | | 06/19/2019 | Empyema lung (HCC) | | | THORACOSCOPY W/ | | [...] Signed | | | by: Isiah Branham, Edide Sign Date/Time: 07/05/2019 9:10 AM | | [...] + + | Performing | Address | City/State/[facility] Cent[facility] | Phone Number | | Organization | [...] | | | POC | performed at [facility];[address] | | LABORATORY | | | | [address];[place], [place] | | | | | | [address] | | | | + + + + + + + + | Specimen | + + | | + + + + + + + | Performing | Address | City/State/Zipcode | Phone Number | | Organization | | | | + + + + + | [facility] | [address] | [place] [address] | [phone] | + + + + + POC Glucose (06/22/2019 8:03 AM PDT) + + + + + + | Component | Value | Ref Range | Performed | Pathologist | | | | | At | Signature | + + + + + + | Glucose, | 130 (H)Comment: Testing | 65 - 99 mg/dL | [facility] | | | POC | performed at [facility];[address] | | LABORATORY | | | | [address];[place] | | | | | | [address] | | | | + + + + + + + + | Specimen | + + | | + + + + + + + | Performing | Address | City/State/Zipcode | Phone Number | | Organization | | | | + + + + + | [facility] | [address] | [place] [address] | [phone] | + + + + + XR [...] Testing | 1.7 - 2.4 mg/dL | [facility] | | | | performed at [facility];[address] | | LABORATORY | | | | [address];[place], [place] | | | | | | [address] | | | | + + + + + + + + | Specimen | + + | Blood | + + + + + + + | Performing | Address | City/State/Zipcode | Phone Number | | Organization | | | | + + + + + | [facility] | [address] | [place] [address] | [phone] | + + + + + CBC [...] | | | Absolute | performed at [facility];[address] | K/uL | LABORATORY | | | | [address];[place], [place] | | | | | | [address] | | | | + + + + + + + + | Specimen | + + | Blood | + + + + + + + | Performing | Address | City/State/Zipcode | Phone Number | | Organization | | | | + + + + + | [facility] | [address] | [place] [address] | [phone] | + + + + + Basic [...] | >60Comment: GFR <60: | >60 | [facility] | | | GFR | CHRONIC KIDNEY [...] | | | | | | MDRD IDIL traceable | | | | | | equation.Testing | | | | | | performed at [facility] | | | | | | [facility];[place], [place] | | | | | | [address] | | | | + + + + + + + + | Specimen | + + | Blood | + + + + + + + | Performing | Address | City/State/Zipcode | Phone Number | | Organization | | | | + + + + + | [facility] | [address] | [place] [address] | [phone] | + + + + + POC [...] | | | POC | performed at [facility];[address] | | LABORATORY | | | | [address];[place] | | | | | | [address] | | | | + + + + + + + + | Specimen | + + | | + + + + + + + | Performing | Address | City/State/Zipcode | Phone Number | | Organization | | | | + + + + + | [facility] | [address] | [place] [address] | [phone] | + + + + + POC Glucose (06/21/2019 3:50 PM PDT) + + + + + + | Component | Value | Ref Range | Performed | Pathologist | | | | | At | Signature | + + + + + + | Glucose, | 108 (H)Comment: Testing | 65 - 99 mg/dL | [facility] | | | POC | performed at [facility];[address] | | LABORATORY | | | | [address];[place], [place] | | | | | | [address] | | | | + + + + + + + + | Specimen | + + | | + + + + + + + | Performing | Address | City/State/Zipcode | Phone Number | | Organization | | | | + + + + + | [facility] | [address] | [place] [address] | [phone] | + + + + + POC [...] | | | POC | performed at [facility];[address] | | LABORATORY | | | | [address];[place] | | | | | | [address] | | | | + + + + + + + + | Specimen | + + | | + + + + + + + | Performing | Address | City/State/Zipcode | Phone Number | | Organization | | | | + + + + + | [facility] | [address] | [place] [address] | [phone] | + + + + + POC Glucose (06/21/2019 6:20 AM PDT) + + + + + + | Component | Value | Ref Range | Performed | Pathologist | | | | | At | Signature | + + + + + + | Glucose, | 146 (H)Comment: Testing | 65 - 99 mg/dL | [facility] | | | POC | performed at [facility];[address] | | LABORATORY | | | | [address];[place], [place] | | | | | | [address] | | | | + + + + + + + + | Specimen | + + | | + + + + + + + | Performing | Address | City/State/Zipcode | Phone Number | | Organization | | | | + + + + + | [facility] | [address] | [place] [address] | [phone] | + + + + + XR [...] | | | pneumothorax. Signed by: Isiah Morel James Sign | | | Date/Time: 06/21/2019 5:28 [...] Testing | 1.7 - 2.4 mg/dL | [facility] | | | | performed at [facility];[address] | | LABORATORY | | | | [facility];[place], [place] | | | | | | [address] | | | | + + + + + + + + | Specimen | + + | Blood | + + + + + + + | Performing | Address | City/State/Zipcode | Phone Number | | Organization | | | | + + + + + | [facility] | [address] | [place] [address] | [phone] | + + + + + CBC [...] | | | Absolute | performed at [facility];[address] | [address] | LABORATORY | | | | [address];[place], [place] | | | | | | [address] | | | | + + + + + + + + | Specimen | + + | Blood | + + + + + + + | Performing | Address | City/State/Zipcode | Phone Number | | Organization | | | | + + + + + | [facility] | [address] | [place] [address] | [phone] | + + + + + Basic [...] | | | | | | MDRD IDIL traceable | | | | | | equation.Testing | | | | | | performed at [facility];[address] | | | | | | [facility];[place], [place] | | | | | | [address] | | | | + + + + + + + + | Specimen | + + | Blood | + + + + + + + | Performing | Address | City/State/Zipcode | Phone Number | | Organization | | | | + + + + + | [facility] | [address] | [place] [address] | [phone] | + + + + + POC [...] | | | POC | performed at [facility];[address] | | LABORATORY | | | | [address];[place], [place] | | | | | | [address] | | | | + + + + + + + + | Specimen | + + | | + + + + + + + | Performing | Address | City/State/Zipcode | Phone Number | | Organization | | | | + + + + + | [facility] | [address] | [place] [address] | [phone] | + + + + + POC [...] | | | POC | performed at [facility];[address] | | LABORATORY | | | | [address];[place] | | | | | | [address] | | | | + + + + + + + + | Specimen | + + | | + + + + + + + | Performing | Address | City/State/Zipcode | Phone Number | | Organization | | | | + + + + + | [facility] | [address] | [place] [address] | [phone] | + + + + + POC Glucose (06/20/2019 12:03 PM PDT) + + + + + + | Component | Value | Ref Range | Performed | Pathologist | | | | | At | Signature | + + + + + + | Glucose, | 140 (H)Comment: Testing | 65 - 99 mg/dL | [facility] | | | POC | performed at [facility];[address] | | LABORATORY | | | | [address];[place] | | | | | | [address] | | | | + + + + + + + + | Specimen | + + | | + + + + + + + | Performing | Address | City/State/Zipcode | Phone Number | | Organization | | | | + + + + + | [facility] | [address] | [place] [address] | [phone] | + + + + + XR [...] | | | | Signed by: Isiah Johnson Mark | | Sign Date/Time: 06/20/2019 7:22 AM [...] Testing | 1.7 - 2.4 mg/dL | [facility] | | | | performed at [facility] | | LABORATORY | | | | [facility];[place], [place] | | | | | | [address] | | | | + + + + + + + + | Specimen | + + | | + + + + + + + | Performing | Address | City/State/Zipcode | Phone Number | | Organization | | | | + + + + + | [facility] | [address] | [place] [address] | [phone] | + + + + + CBC [...] 0.06Comment: Testing | 0.00 - 0.10 | [facility] | | | Absolute | performed at [facility];[address] | K/uL | LABORATORY | | | | [address];[place], [place] | | | | | | [address] | | | | + + + + + + + + | Specimen | + + | | + + + + + + + | Performing | Address | City/State/Zipcode | Phone Number | | Organization | | | | + + + + + | [facility] | [address] | [place] [address] | [phone] | + + + + + Basic [...] | >60Comment: GFR <60: | >60 | [facility] | | | GFR | CHRONIC KIDNEY [...] | | | | | performed at [facility] | | | | | | [facility];[place] | | | | | | [address] | | | | + + + + + + + + | Specimen | + + | | + + + + + + + | Performing | Address | City/State/Zipcode | Phone Number | | Organization | | | | + + + + + | [facility] | [address] | [place] [address] | [phone] | + + + + + POC [...] | | | POC | performed at [facility];[address] | | LABORATORY | | | | [address];[place] | | | | | | [address] | | | | + + + + + + + + | Specimen | + + | | + + + + + + + | Performing | Address | City/State/Zipcode | Phone Number | | Organization | | | | + + + + + | [facility] | [address] | [place] [address] | [phone] | + + + + + POC Glucose (06/19/2019 7:59 PM PDT) + + + + + + | Component | Value | Ref Range | Performed | Pathologist | | | | | At | Signature | + + + + + + | Glucose, | 110 (H)Comment: Testing | 65 - 99 mg/dL | [facility] | | | POC | performed at [facility];[address] | | LABORATORY | | | | [address];[place], [place] | | | | | | [address] | | | | + + + + + + + + | Specimen | + + | | + + + + + + + | Performing | Address | City/State/Zipcode | Phone Number | | Organization | | | | + + + + + | [facility] | [address] | [place] [address] | [phone] | + + + + + POC Glucose (06/19/2019 7:22 PM PDT) + + + + + + | Component | Value | Ref Range | Performed | Pathologist | | | | | At | Signature | + + + + + + | Glucose, | 136 (H)Comment: Testing | 65 - 99 mg/dL | [facility] | | | POC | performed at [facility];[address] | | LABORATORY | | | | [address];[place], [place] | | | | | | [address] | | | | + + + + + + + + | Specimen | + + | | + + + + + + + | Performing | Address | City/State/Zipcode | Phone Number | | Organization | | | | + + + + + | [facility] | [address] | [place] [address] | [phone] | + + + + + XR [...] Isiah Branham Richard | | Sign Date/Time: 06/19/2019 6:57 PM [...] + | Hang | [facility] | | [facility] | PROVATION | | CenterPulmonology | | | Patient Name: Robert Stiles | | | Procedure Date: 06/19/2019 2:12 PMMRN: [id number] | | | Date of : 1970Note [...] | | | | | | Ronn Shanika, 06/19/2019 5:47:46 PMThis report has been | | | signed electronically.Number of Addenda: 0 Note Initiated On: | | | 06/19/2019 2:12 PM [facility] | | | Department | | |Ronn Shanika, | | |06/19/2019 5:47:46 PM | | |This report has been signed electronically. | | |Number of Addenda: 0 | | | | | |Note Initiated On: 06/19/2019 2:12 PM | | | | | | [facility] | | + + [...] | Procedure Note | + + | Tony Suazo Results In 06/19/2019 2:36 PM PDT | | ABDOMEN [...] LABORATORY | | | | performed at [facility] | | | | | | [address] [facility];[place], [place] | | | | | | [address] | | | | + + + + + + + + | Specimen | + + | | + + + + + + + | Performing | Address | City/State/Zipcode | Phone Number | | Organization | | | | + + + + + | [facility] | [address] | [place] [address] | [phone] | + + + + + XR [...] (06/06/2019); CHEST TWO | | | VIEWS 17364 (06/06/2019); FINDINGS: Endotracheal tube tip 4.5 cm [...] | ANGIOGRAPHY CHEST (06/06/2019); CHEST TWO VIEWS 33616 (06/06/2019); | | | | FINDINGS: | [...] | | | | Signed by: Isiah Devi Corey | | Sign Date/Time: 06/19/2019 1:46 [...] | SOURCE: | PLEURAL RIGHTComment: | | [facility] | | | | Testing performed at | | LABORATORY | | | | [facility];[address] [place] [address] | | | | | | [address];[place] [address] | | | | + + + + + + | CULTURE,VIR | No virus | | [facility] | | | [place] | isolated.Comment: | | LABORATORY | | | | Testing performed by | | | | | | [facility] [employer], [address] [place] [address] | | | | | | [facility] | | | | | | [address]IB[place] | | | | | | [...] | + + + + + | [facility] | [address] | [place] [address] | [phone] | + + + + + Ginna Ferguson (06/19/2019 10:48 AM PDT) + + + [...] RESULT | Testing performed at | | [facility] | | | | [facility], [address] | | LABORATORY | | | | [address], [place] | | | | | | [address]Qosiywj: Testing | | | | | | performed at [facility], [address] | | | | | [address], | | | | | | [place] [address] | | | | + + + [...] [facility] | [address] | [place] [address] | [phone] | + + + + + Culture, [...] | NO GROWTH 4 DAYS | | [facility] | | | | | | LABORATORY | | + + + + + + | RESULT | Testing performed at | | [facility] | | | | [address], [address] | | LABORATORY | | | | [address], [place] | | | | | | [address]Nqtfsjf: Testing | | | | | | performed at [facility], [address] | | | [address], | | | | | | [place] [address] | | | | + + + + + + + + | Specimen | + + | Body Fluid - Pleural | | fluid specimen | | (specimen) | + + + + + + + | Performing | Address | City/State/Zipcode | Phone Number | | Organization | | | | + + + + + | [facility] | [address] | [place] [address] | [phone] | + + + + + Culture Virus (06/19/2019 10:29 AM PDT) + + + + + + | Component | Value | Ref Range | Performed | Pathologist | | | | | At | Signature | + + + + + + | SOURCE: | PLEURAL FLUID | | [facility] | | | | RIGHTComment: Testing | | LABORATORY | | | | performed at [facility];[address] | | | | | | [facility];[place] | | | | | | [address] | | | | + + + + + + | CULTURE,VIR | No virus | | [facility] | | | [place] | isolated.Comment: | | LABORATORY | | | | Testing performed by | | | | | | [facility], [address] | | | | | | [facility] | | | | | | [address] | | | | | | [...] | + + + + + | [facility] | [address] | [place] [address] | [phone] | + + + + + Culture, Fungus (06/19/2019 10:29 AM PDT) + + + + + + | Component | Value | Ref Range | Performed | Pathologist | | | | | At | Signature | + + + + + + | RESULT | NO FUNGUS ISOLATED | | [facility] | | | | | | LABORATORY | | + + + + + + | RESULT | Testing performed at | | [facility] | | | | [facility], [address] | | LABORATORY | | | | [place] | | | | | | [address]Ihxzbha: Testing | | | | | | performed at [facility], [address] | | | | | | [address], | | | | | | [place] [address] | | | | + + + + + + + + | Specimen | + + | Body Fluid - Pleural | | fluid specimen | | (specimen) | + + + + + + + | Performing | Address | City/State/Zipcode | Phone Number | | Organization | | | | + + + + + | [facility] | [address] | [place] [address] | [phone] | + + + + + Type [...] + + + | BB BAND | [id number] | | [facility] | | | | | | LABORATORY | | + + + + + + | BB BAND | Testing performed at | | [facility] | | | | [facility];[address] | | LABORATORY | | | | [address];[place] [address] | | | | + + + + + + + + | Specimen | + + | Blood | + + + + + + + | Performing | Address | City/State/Zipcode | Phone Number | | Organization | | | | + + + + + | [facility] | [address] | [place] [address] | [phone] | + + + + + POC Glucose (06/19/2019 7:53 AM PDT) + + + + + + | Component | Value | Ref Range | Performed | Pathologist | | | | | At | Signature | + + + + + + | Glucose, | 105 (H)Comment: Testing | 65 - 99 mg/dL | [facility] | | | POC | performed at [facility];[address] | | LABORATORY | | | | [address];[place] | | | | | | [address] | | | | + + + + + + + + | Specimen | + + | | + + + + + + + | Performing | Address | City/State/Zipcode | Phone Number | | Organization | | | | + + + + + | [facility] | [address] | [place] [address] | [phone] | + + + + + Hemoglobin A1C (06/19/2019 6:34 AM PDT) + + + + + + | Component | Value | Ref Range | Performed | Pathologist | | | | | At | Signature | + + + + + + | Hemoglobin | 7.3 (H)Comment: HbA1c | 4.0 - 6.0 % | [facility] | | | A1c | method is [...] | 163 (H)Comment: | <154 mg/dL | [facility] | | | Average | Estimated Average | | LABORATORY | | | Glucose | Glucose calculated from | | | | | | hemoglobin A1c by use of | | | | | | the ADArecommended | | | | | | formula.Testing | | | | | | performed at [facility], [address] | | | | | | [address], | | | | | | [place] [address] | | | | + + + + + + + + | Specimen | + + | Blood | + + + + + + + | Performing | Address | City/State/Zipcode | Phone Number | | Organization | | | | + + + + + | [facility] | [address] | [place] [address] | [phone] | + + + + + CBC [...] | | | Absolute | performed at [facility];[address] | K/uL | LABORATORY | | | | [address];[place] | | | | | | [address] | | | | + + + + + + + + | Specimen | + + | Blood | + + + + + + + | Performing | Address | City/State/Zipcode | Phone Number | | Organization | | | | + + + + + | [facility] | [address] | [place] [address] | [phone] | + + + + + Basic [...] | | | | | | MDRD [facility] traceable | | | | | | equation.Testing | | | | | | performed at [facility];[address] | | | | | | [facility];[place], [place] | | | | | | [address] | | | | + + + + + + + + | Specimen | + + | Blood | + + + + + + + | Performing | Address | City/State/Zipcode | Phone Number | | Organization | | | | + + + + + | [facility] | [address] | [place] [address] | [phone] | + + + + + POC Glucose (06/18/2019 9:47 PM PDT) + + + + + + | Component | Value | Ref Range | Performed | Pathologist | | | | | At | Signature | + + + + + + | Glucose, | 110 (H)Comment: Testing | 65 - 99 mg/dL | [facility] | | | POC | performed at [facility];[address] | | LABORATORY | | | | [address];[place] | | | | | | [address] | | | | + + + + + + + + | Specimen | + + | | + + + + + + + | Performing | Address | City/State/Zipcode | Phone Number | | Organization | | | | + + + + + | [facility] | [address] | [place] [address] | [phone] | + + + + + POC Glucose (06/18/2019 4:38 PM PDT) + + + + + + | Component | Value | Ref Range | Performed | Pathologist | | | | | At | Signature | + + + + + + | Glucose, | 111 (H)Comment: Testing | 65 - 99 mg/dL | [facility] | | | POC | performed at [facility];[address] | | LABORATORY | | | | [address];[place] | | | | | | [address] | | | | + + + + + + + + | Specimen | + + | | + + + + + + + | Performing | Address | City/State/Zipcode | Phone Number | | Organization | | | | + + + + + | [facility] | [address] | [place] [address] | [phone] | + + + + + MRSA NAAT (06/18/2019 12:58 PM PDT) + + + + + + | Component | Value | Ref Range | Performed | Pathologist | | | | | At | Signature | + + + + + + | SOURCE: | NARES(NOSE) | | [facility] | | | | | | LABORATORY | | + + + + + + | Result | NEGATIVEComment: Testing | MRSNEG | [facility] | | | | performed at [facility];[address] | | LABORATORY | | | | [address];[place] | | | | | | [address] | | | | + + + + + + + + | Specimen | + + | Tissue - Both | | anterior nares (body | | structure) | + + + + + + + | Performing | Address | City/State/Zipcode | Phone Number | | Organization | | | | + + + + + | [facility] | [address] | [place] [address] | [phone] | + + + + + POC Glucose (06/18/2019 11:44 AM PDT) + + + + + + | Component | Value | Ref Range | Performed | Pathologist | | | | | At | Signature | + + + + + + | Glucose, | 110 (H)Comment: Testing | 65 - 99 mg/dL | [facility] | | | POC | performed at [facility];[address] | | LABORATORY | | | | [address];[place] | | | | | | [address] | | | | + + + + + + + + | Specimen | + + | | + + + + + + + | Performing | Address | City/State/Zipcode | Phone Number | | Organization | | | | + + + + + | [facility] | [address] | [place] [address] | [phone] | + + + + + HIV P24 antigen (06/18/2019 10:31 AM PDT) + + + + + + | Component | Value | Ref Range | Performed | Pathologist | | | | | At | Signature | + + + + + + | HIV 1 and 2 | NON REACTIVEComment: | NR | [facility] | | | Ab | Testing performed at | | LABORATORY | | | | [facility];[address];[place] [address] | | | | + + + + + + + + | Specimen | + + | Blood | + + + + + + + | Performing | Address | City/State/Zipcode | Phone Number | | Organization | | | | + + + + + | [facility] | [address] | [place] [address] | [phone] | + + + + + HIV 1 and 2 Ab, Reflex (06/18/2019 10:31 AM PDT) + + + + + + | Component | Value | Ref Range | Performed | Pathologist | | | | | At | Signature | + + + + + + | HIV 1 and 2 | NON REACTIVEComment: THE | NR | [facility] | | | Ab | NON REACTIVE HIV 1/2 | | LABORATORY | | | | RESULT INDICATES THAT | | | | | | NEITHER ANTIBODIES NOR | | | | | | [id number] TO HIV 1/2 | | | | | | HAVE BEEN DETECTED IN | | | | | | THIS SPECIMEN. THIS | | | | | | RESULT DOES NOTPRECLUDE | | | | | | PREVIOUS EXPOSURE OR | | | | | | INFECTION.Testing | | | | | | performed at [facility], [address] | | | | | [address], | | | | | | [place] [address] | | | | + + + + + + + + | Specimen | + + | Blood | + + + + + + + | Performing | Address | City/State/Zipcode | Phone Number | | Organization | | | | + + + + + | [facility] | [address] | [place] [address] | [phone] | + + + + + Streptococcus [...] Organism ID | Not indicated. | | [facility] | | | | | | LABORATORY | | + + + + + + | Please note | (See Below)Comment: | | [facility] | | | | [employer] | | LABORATORY | | | | Pathologists standards | | | | | | require a culture to | | | | | | beperformed on CSF | | | | | | specimens submitted for | | | | | | bacterial antigen | | | | | | testing.(CAP [id number]) | | | | | | Urine specimens will not | | | | | | be cultured.Testing | | | | | | performed by [employer], | | | | | | [address] [facility], | | | | | | [facility] [address] | | | | + + + + + + + + | Specimen | + + | Urine - Urine | | specimen (specimen) | + + + + + + + | Performing | Address | City/State/Zipcode | Phone Number | | Organization | | | | + + + + + | [facility] | [address] | [place] [address] | [phone] | + + + + + POC Glucose (06/18/2019 9:17 AM PDT) + + + + + + | Component | Value | Ref Range | Performed | Pathologist | | | | | At | Signature | + + + + + + | Glucose, | 99Comment: Testing | 65 - 99 mg/dL | [facility] | | | POC | performed at [facility];[address] | | LABORATORY | | | | [address];[place], [place] | | | | | | [address] | | | | + + + + + + + + | Specimen | + + | | + + + + + + + | Performing | Address | City/State/Zipcode | Phone Number | | Organization | | | | + + + + + | [facility] | [address] | [place] [address] | [phone] | + + + + + Procalcitonin [...] | | | | | | at [facility];[address] | | | | | | [address];[place] [address] | | | | + + + + + + + + | Specimen | + + | Blood | + + + + + + + | Performing | Address | City/State/Zipcode | Phone Number | | Organization | | | | + + + + + | [facility] | [address] | [place] [address] | [phone] | + + + + + Magnesium (06/18/2019 5:54 AM PDT) + + + + + + | Component | Value | Ref Range | Performed | Pathologist | | | | | At | Signature | + + + + + + | Magnesium | 2.1Comment: Testing | 1.7 - 2.4 mg/dL | [facility] | | | | performed at [facility], [address] | | LABORATORY | | | | [facility], | | | | | | [place] [address] | | | | + + + + + + + + | Specimen | + + | Blood | + + + + + + + | Performing | Address | City/State/Zipcode | Phone Number | | Organization | | | | + + + + + | [facility] | [address] | [place] [address] | [phone] | + + + + + CBC with Differential (06/18/2019 5:54 AM PDT) + + + + + + | Component | Value | Ref Range | Performed | Pathologist | | | | | At | Signature | + + + + + + | WBC | 15.67 (H) | 3.80 - 11.00 | [facility] | | | | | K/uL | [...] at | | | | | | [facility], [address] | | | | | | [place] | | | | | | [address] | | | | + + + + + + + + | Specimen | + + | Blood | + + + + + + + | Performing | Address | City/State/Zipcode | Phone Number | | Organization | | | | + + + + + | [facility] | [address] | [place] [address] | [phone] | + + + + + Basic [...] | | | | | performed at [facility], [address] | | | | | | [address], | | | | | | [place] [address] | | | | + + + + + + + + | Specimen | + + | Blood | + + + + + + + | Performing | Address | City/State/Zipcode | Phone Number | | Organization | | | | + + + + + | [facility] | [address] | [place] [address] | [phone] | + + + + + XR [...] CT ANGIOGRAPHY CHEST (06/06/2019); CHEST TWO VIEWS [id number] | | | (06/06/2019); FINDINGS/IMPRESSION: 1. New [...] CHEST (06/06/2019); CHEST | | TWO VIEWS [id number] (06/06/2019); | | | | FINDINGS/IMPRESSION: | [...] | | | | | performed at [facility], [address] | | | | | | [place], | | | | | | [place] [address] | | | | + + + + + + + + | Specimen | + + | Body Fluid - Entire | | nasopharynx (body | | structure) | + + + + + + + | Performing | Address | City/State/Zipcode | Phone Number | | Organization | | | | + + + + + | [facility] | [address] | [place] [address] | [phone] | + + + + + CT [...] | Pneumonia. Pleural effusion. Recently admitted at [facility], on | | | [facility] for loculated PNA, referred [facility] PCP [facility] for worsening | | | symptoms. COMPARISON: CT ANGIOGRAPHY CHEST (06/06/2019); CHEST | | | TWO VIEWS [id number] (06/06/2019); PROCEDURE: Axial images through the | [...] Cough. Pneumonia. Pleural effusion. Recently admitted at [facility] on | | [facility]os[facility] for loculated PNA, referred by PCP to [facility] for worsening | | symptoms. | | | | COMPARISON: | | CT ANGIOGRAPHY CHEST (06/06/2019); CHEST TWO VIEWS [id number] (06/06/2019); | | | | PROCEDURE: | [...] | | | | Dictated by: Isiah Ward Natalie | | | | Signed by: Isiah Morel James | | Sign Date/Time: 06/18/2019 1:13 AM [...] + | Special | [facility] | | [facility] | | | Requests | | | LABORATORY | | + + + + + + | Special | Testing performed at | | [facility] | | | Requests | [facility] | | LABORATORY | | | | [place] [id number] | | | | + + + + + + | RESULT | NO GROWTH 6 DAYS | | [facility] | | | | | | [facility] | | + + + + + + | RESULT | Testing performed at | | [facility] | | | | [facility], [address] | | LABORATORY | | | | [place] | | | | | | [id number]: Testing | | | | | | performed at [facility], [address] [place], [place] | | | | | | [id number] | | | | + + + + + + + + | Specimen | + + | Blood - Peripheral | | blood specimen | | (specimen) | + + + + + + + | Performing | Address | City/State/Zipcode | Phone Number | | Organization | | | | + + + + + | [facility] | [address] | [place] [address] | [phone] | + + + + + Lactic Acid (06/17/2019 10:33 PM PDT) + + + + + + | Component | Value | Ref Range | Performed | Pathologist | | | | | At | Signature | + + + + + + | Lactate, | 2.0Comment: Testing | 0.4 - 2.0 | [facility] | | | Serum | performed at [facility];888 | mmol/L | LABORATORY | | | | [address];[place], [place] | | | | | | [address] | | | | + + + + + + + + | Specimen | + + | Blood | + + + + + + + | Performing | Address | City/State/Zipcode | Phone Number | | Organization | | | | + + + + + | [facility] | [address] | [place] [address] | [phone] | + + + + + Troponin I (06/17/2019 10:31 PM PDT) + + + + + + | Component | Value | Ref Range | Performed | Pathologist | | | | | At | Signature | + + + + + + | Troponin I | 0.006Comment: 0.04 | 0.00 - 0.04 | [facility] | | | | ng/mL or less [...] at | | | | | | [facility];[address];[place] [address] | | | | + + + + + + + + | Specimen | + + | Blood | + + + + + + + | Performing | Address | City/State/Zipcode | Phone Number | | Organization | | | | + + + + + | [facility] | [address] | [place] [address] | [phone] | + + + + + Comprehensive [...] (H) | 10 - 65 U/L | [facility] | | | | | | [facility]OR[facility] | | + + + + + + | Estimated | >60Comment: GFR <60: | >60 | [facility] | | | GFR | CHRONIC KIDNEY [...] | | | | | performed at [facility] | | | | | | [facility];[place], [place] | | | | | | [address] | | | | + + + + + + + + | Specimen | + + | Blood | + + + + + + + | Performing | Address | City/State/Zipcode | Phone Number | | Organization | | | | + + + + + | [facility] | [address] | [place] [address] | [phone] | + + + + + CBC [...] 0.09Comment: Testing | 0.00 - 0.10 | [facility] | | | Absolute | performed at [facility];[address] | K[address]uL | LABORATORY | | | | [address];[place], [place] | | | | | | [address] | | | | + + + + + + + + | Specimen | + + | Blood | + + + + + + + | Performing | Address | City/State/Zipcode | Phone Number | | Organization | | | | + + + + + | [facility] | [address] | [place] [address] | [phone] | + + + + + Culture, Blood (06/17/2019 10:30 PM PDT) + + + + + + | Component | Value | Ref Range | Performed | Pathologist | | | | | At | Signature | + + + + + + | RESULT | NO GROWTH 6 DAYS | | [facility] | | | | | | LABORATORY | | + + + + + + | RESULT | Testing performed at | | [facility] | | | | [facility], [address] | | LABORATORY | | | | [place] | | | | | | [id number]: Testing | | | | | | performed at [facility], [address] | | | | | [address] [place], | | | | | | [place] [address] | | | | + + + + + + + + | Specimen | + + | Blood - Swab of line | | insertion site | | (specimen) | + + + + + + + | Performing | Address | City/State/Zipcode | Phone Number | | Organization | | | | + + + + + | [facility] | [address] | [place] [address] | [phone] | + + + + + ECG [...] | | | | | | -COMPUTER ([id number]), editorial assistant | | | | | | ALICE AUGUSTINE ([id number]) on | | | | | | [...] | Diagnosis | + + | Empyema lung (HCC) Empyema without mention of fistula [...] | | | | | modification) on Thu06/20/19 at | | | | | | [...] | | | | | modification) on Thu06/22/19 at | | | | | | | 0900 | | | | | | + +-------+ + +---+---+ +-------+ + +---+---+ | Given | 06/22/19 | 1,200 mg | | | | | 20 10:16 | | | | | | AM PDT | | | | +-------+ + +---+---+ + +---+ | | | + +---+ | insulin lispro (humaLOG) | | | injection (vial) 0-12 Units 0-12 | | | Units, Subcutaneous, 4 TIMES | | | DAILY BEFORE MEALS & NIGHTLY, | | | First dose (after last | | | modification) on 06/20/19 at | | | 1130, CORRECTION SCALE: [...] scheduled: AC, NPO, Daytime | | | [id number] Use NIGHT DOSE for | | | doses scheduled: HS, | | | Nighttime 4921-3044 If the BG is | | | [...] | + +---+ + +-------+ +-------+---+---+ | lidocaine 1% injection PRN, | Given | 06/19/19 | 3 mLs | | | | Starting 06/19/19 at 0946, | | 20 9:46 | | | | | Intra-op | | AM PDT | | | [...] mg | | | | Oral, NIGHTLY PRN, Insomnia, | | 20 10:42 | | | [...]
--- OUTSIDE RECORDS SUMMARY | ~2019-10-31 | XMS | Encounter Summary ---
Demographics + + + | Address | [address] | | | [place] [address] | + + + | Home Phone [...] Author + + + | Author | [facility] | + + + | Organization | [facility] | + + + | Address | Unknown | + + + | Phone | Unavailable | + + + Support + + +---------+ + | Name | Relationship | Address | Phone | + + +---------+ + | Dionne Frances | ECON | Unknown | | + + +---------+ + Care Team Providers + +------+ + | Care Solderer Assembly Repair Name | Role | Phone | + [...] [id number] | | | | | | [place], [place] | | | | | | [address] | | | | | | [phone] | | | +--------+ + + + [...]
--- OUTSIDE RECORDS SUMMARY | ~2019-10-31 | XMS | Encounter Summary ---
Demographics + + + | Address | [address] | | | [place] [address] | + + + | Home Phone | | + + + | Preferred Language | Unknown | + + + | Marital Status | | + + + | Restoration Affiliation | Unknown | + + + | Race | Unknown | + + + | Ethnic Group | Unknown | + + + Author + + + | Author | [facility] | | | and Angelana | + + + | Organization | [facility] | | | and Angelana [...] Team Providers + +------+ + | Care Crop Or Grain Farmer Name | Role | Phone | + [...] + + | 06/18/ | Surgery | [facility] | Ronn Voss MD | BRONCHOSCOPY | | 2020 | | [facility] | [address] | FLEXIBLE | | | | INTRA OP [address] | [address] [place], [place] | | | | | [address] [place], [place] | [address] | | | | | [address] | | | | | | [phone] | | | +--------+---------+ + + + [...] + + + | Blood Pressure | 97/54 | 06/19/2019 2:45 PM | | | | | PDT | | + + + + + | Pulse | 88 | 06/19/2019 2:51 PM | | | | | PDT | | + + + + + | Temperature | 36.7 C (98.1 F) | 06/19/2019 12:15 PM | | | | | PDT | | + + + + + | Respiratory Rate | 22 | 06/19/2019 2:51 PM | | | | | PDT | | + + + + + | Oxygen Saturation | 94% | 06/19/2019 2:51 PM | | | | | PDT [...] might be different fr om the original. [facility] Service: Hospitalist Discharge Summary Pt: Robert Stiles AGE/SEX: 48 y.o. ROOM: [address] [place] [address] : 1970 PCP: Edilberto Troy MD Date [...] pain one day follo wing discharge from [facility] on 06/15 where patient was admitted for 10 days for acute respiratory failure with right pneumonia and empyema and was admitted 06/16 for empyema at [facility]. HOSPITAL COURSE: Upon admission, Patient underwent a [...] appointments with cardiac surgery, infectious disease, and is excellent PCP. All questions were answered [...] BRONCHOSCOPY FLEXIBLE; Surgeon: Ronn Voss MD; [facility] 2000 SPINE SURGERY 2006 spleen repair 1984 THORACOSCOPY Right 06/19/2019 Procedure: VIDEO ASSISTED THORACOSCOPY W/ DECORTICATION; Surgeon: Rocky Arce MD; Loca tion: [facility] OR THORACOTOMY Right 06/19/2019 Procedure: THORACOTOMY-DECORTICATION; Surgeon: Rocky Arce MD; Location: [facility] MAIN OR No Known Allergies No medications [...] the examination. DATA Recent Labs Lab 06/22/19 0506/21/19 0412 WBC 14.77* 14.24* RBC 4.33 4.21 [...] Pneumonia. Pleural effusion. Recently a [facility] at [facility], referred by PCP to [facility] for worsening symptoms. COMPARISON: CT ANGIOGRAPHY CHEST (06/06/2019); CHEST TWO VIEWS [id number] (06/06/2019); PRO CEDURE: Axial images through the [...] CT ANGIOGRAPHY CHEST (06/06/2019); CHEST TWO VIEWS [id number] (06/06/2019); FINDINGS/IMPRESSION: 1. New right PICC line [...] surgery What is the preferred imaging location? [facility] Follow up: [facility] [address] [facility] [id number] For IV antibiotics Rocky Arce MD [address] [place] [facility] [address] Schedule an appointment as soon as possible for a visit in 2 weeks Hospital Follow-up Ciro Gardner MD [address] [facility] [address] In 2 weeks Hospital Follow-up Edilberto Madrigal MD [address] [facility] [address] Hospital Follow-up Discharge Medications New Medications Details [...] Discharge Instructions Instructions Eddy Perry MD - 03/25/2020Formatting of this note might be differe nt [...] not caused by coughing Date Last Reviewed: 03/30/201619996799-0382 [employer]. [address] [place] [address]. All righ ts reserved. This information is not intended as a substitute for professional medical care. Always follow your healthcare professional's instructions. Cardiothoracic Surgery Discharge Instructions Routine Follow Up Appointments Follow up with Cardiothoracic Surgery, Dr Arce in 2 wks. Our office will call you to schedule a time Please call [phone] with any questions or if you need to reschedule Please go to [facility] and get a 2-view Chest X-Ray done 30min before your appoint ment. An order has been placed for you Follow up with your primary care physician in 2-4 weeks. General Instructions The [facility] Cardiothoracic Surgery office will contact you within 72 hours of your hospital discharge. If you do not receive a phone call or have any concerns before then, please call our office Mon-Fri 8:00am-5:00pm at [phone]. Please make sure we have the best [...] Daily Monitoring Notify the [facility] Cardiothoracic Surgery office of: Any weight gain [...] w up visit with [facility] Cardiothoracic Surgery - no later than 2 [...] to sexual relati ons, driving, and work. [id number] [employer]. [address] [place] [address], [place] [id number]. All righ ts reserved. This information is [...] Vu MD - 06/22/2019 9:[address] [facility] Service: Infectious Diseases Progress Note Hospital [...] Procedure Component Value Units Date/Time Culture, Fungus [[id number]] Collected: 06/19/191047 Order Status: Sent Lab Status: In process Updated: 06/19/19 1112 Specimen: Tissue from Pleura, Right Culture, Tissue, Smear, with Anaerobes [[id number]] Collected: 06/19/191047 Order Status: Canceled Lab Status: No result Specimen: Tissue from Pleura, Right Culture Virus [[id number]] Collected: 06/19/191047 Order Status: Sent Lab Status: In process Updated: 06/19/19 1113 Specimen: Tissue from Pleura, Right Culture, Tissue, Smear, with Anaerobes [[id number]] Collected: 06/19/191047 Order Status: Completed Lab Status: Preliminary result Updated: 06/22/19 0725 Special Requests PLEURAL RIGHT PEEL Special Requests Testing performed at [facility];[address] [place] [address] Gram Stain Result -- 1+ WBC'S SEEN Gram Stain Result NO ORGANISMS SEEN RESULT NO GROWTH 3 DAYS RESULT Testing performed at [facility], [address] [place] [address] Comment: Testing performed at [facility], [address] [place] [address] Coronavirus (COVID-19) PCR [[id number]] Order Status: Canceled Lab Status: No result Specimen: Tissue from Nasopharynx Culture, Fungus [[id number]] Collected: 06/19/19 1029 Order Status: Sent Lab Status: In process Updated: 06/19/19 1110 Specimen: Body Fluid from Pleural Fluid, Right Culture Virus [[id number]] Collected: 06/19/19 1029 Order Status: Sent Lab Status: In process Updated: 06/19/19 1110 Specimen: Body Fluid from Pleural Fluid, Right Culture, Body Fluid Sterile [[id number]] Collected: 06/19/19 1029 Order Status: Completed Lab Status: Preliminary result Updated: 06/22/19 0725 Specimen: Body Fluid from Pleural Fluid, Right Gram Stain Result -- 1+ WBC'S SEEN RESULT NO GROWTH 3 DAYS RESULT Testing performed at [facility], [address] [place] [address] 20922 Comment: Testing performed at [facility], [address] [place] [address] 86142 MRSA NAAT [[id number]] Collected: 06/18/19 1258 Order Status: Completed Lab Status: Final result Updated: 06/18/19 1417 Specimen: Tissue from Nares SOURCE: NARES(NOSE) Result NEGATIVE Comment: Testing performed at [facility];[address] [place] [address];[place] [address] Streptococcus pneumoniae Antigen [[id number]] Collected: 06/18/19 1005 Order Status: Completed Lab Status: Final result Updated: 06/21/19 1108 Specimen: Urine, Unspecified Source Specimen Source Urine Streptococcus pneumoniae Negative Body Fluid Culture, Sterile Not indicated. Organism ID Not indicated. Please note (See Below) Comment: [employer] standards require a culture to be performed on CSF specimens submitted for bacterial antigen testing. (CAP [id number]) Urine specimens will not be cultured. Testing performed by [facility], [address] [place] [address] Respiratory pathogen panel, NAAT [[id number]] Collected: 06/18/19 0351 Order Status: Completed Lab [...] performed by Molecular Methodology Testing performed at [facility], [address] [place] [address] Culture, Blood [[id number]] Collected: 06/17/192255 Order Status: Completed Lab Status: Preliminary result Updated: 06/19/19525 Specimen: Peripheral Blood Special Requests LAC Special Requests Testing performed at [facility];[address] [place] [address];[place] [address] RESULT NO GROWTH AT THIS TIME RESULT Testing performed at [facility], [address] [place] [address] Comment: Testing performed at [facility], [address] [place] [address] Culture, Blood [[id number]] Collected: 06/17/192229 Order Status: Completed Lab Status: Preliminary result Updated: 06/19/19525 Specimen: Blood from Line RESULT NO GROWTH AT THIS TIME RESULT Testing performed at [facility], [address] [place] [address]998 Comment: Testing performed at [facility], [address] [place] [address] 78681 Microbiology Results (72 hrs) Procedure Component Value Units Date/Time Culture, Fungus [[id number]] Collected: 06/19/191047 Order Status: Sent Lab Status: In process Updated: 06/19/191111 Specimen: Tissue from Pleura, Right Culture Virus [[id number]] Collected: 06/19/191047 Order Status: Sent Lab Status: In process Updated: 06/19/191112 Specimen: Tissue from Pleura, Right Culture, Tissue, Smear, with Anaerobes [[id number]] Collected: 06/19/191047 Order Status: Completed Lab Status: Preliminary result Updated: 06/22/19 0725 Special Requests PLEURAL RIGHT PEEL Special Requests Testing performed at [facility];[address] [place] [address];[place] [address] Gram Stain Result -- 1+ WBC'S SEEN Gram Stain Result NO ORGANISMS SEEN RESULT NO GROWTH 3 DAYS RESULT Testing performed at [facility], [address] [place] [address] Comment: Testing performed at [facility], [address] [place] [address], [place] [address] Culture, Fungus [[id number]] Collected: 06/19/19 102 Order Status: Sent Lab Status: In process Updated: 06/19/19 1110 Specimen: Body Fluid from Pleural Fluid, Right Culture Virus [[id number]] Collected: 06/19/19 102 Order Status: Sent Lab Status: In process Updated: 06/19/19 1110 Specimen: Body Fluid from Pleural Fluid, Right Culture, Body Fluid Sterile [[id number]] Collected: 06/19/19 102 Order Status: Completed Lab Status: Preliminary result Updated: 06/22/19 0725 Specimen: Body Fluid from Pleural Fluid, Right Gram Stain Result -- 1+ WBC'S SEEN RESULT NO GROWTH 3 DAYS RESULT Testing performed at [facility], [address] [place] [address] Comment: Testing performed at [address] [address] IMAGING: CXR images were reviewed. My interpretation: [...] attending provider: Eddy Perry MD Discussed with gearcase assembler regarding OPAT. Discussed with gearcase assembler regarding discharge planning. Ciro Lee MD, MPH Infectious Diseases 06/22/19 Rudy García MD - 06/21/2019 5:02 PM PDTPROGRESS NOTE for Robert Stiles On the hospitalist service. 06/21/19 ASSESSMENT AND PLAN Empyema of right pleural space (06/19/2019) Assessment: Improved with no shortness of breath and decreased chest pain now 2 days stat us post thorascopic, thoracotomy, and full decortication per [facility] cardiothoracic surgery. Chest tube in place now [...] right side 1 day following discharge from [facility] on 05/28 where patient was admitted for 10 days for acute respiratory failure with right pneumonia and empyema and was admitted 06/16 for empyema at [facility]. Patient underwent a right diagnost ic thorascopic, [...] clear to auscultation bilaterally in bilateral upper waslh and left posterior left field. Decreased air [...] note might be different from leeanne zavala. [facility] Service: Infectious Diseases Progress Note Hospital [...] Procedure Component Value Units Date/Time Culture, Fungus [[id number]] Collected: 06/19/19 1048 Order Status: Sent Lab Status: In process Updated: 06/19/19 1112 Specimen: Tissue from Pleura, Right Culture, Tissue, Smear, with Anaerobes [[id number]] Collected: 06/19/19 1048 Order Status: Canceled Lab Status: No result Specimen: Tissue from Pleura, Right Culture Virus [[id number]] Collected: 06/19/19 1048 Order Status: Sent Lab Status: In process Updated: 06/19/19 1113 Specimen: Tissue from Pleura, Right Culture, Tissue, Smear, with Anaerobes [[id number]] Collected: 06/19/191047 Order Status: Completed Lab Status: Preliminary result Updated: 06/21/19 0737 Special Requests PLEURAL RIGHT PEEL Special Requests Testing performed at [facility];[address] [place] [address] Gram Stain Result -- 1+ WBC'S SEEN Gram Stain Result NO ORGANISMS SEEN RESULT NO GROWTH 2 DAYS RESULT Testing performed at [facility], [address] [place] [address] Comment: Testing performed at [facility], [address] [place] [address] Coronavirus (COVID-19) PCR [[id number]] Order Status: Canceled Lab Status: No result Specimen: Tissue from Nasopharynx Culture, Fungus [[id number]] Collected: 06/19/19 1029 Order Status: Sent Lab Status: In process Updated: 06/19/19 1110 Specimen: Body Fluid from Pleural Fluid, Right Culture Virus [[id number]] Collected: 06/19/19 1029 Order Status: Sent Lab Status: In process Updated: 06/19/19 1110 Specimen: Body Fluid from Pleural Fluid, Right Culture, Body Fluid Sterile [[id number]] Collected: 06/19/19 1029 Order Status: Completed Lab Status: Preliminary result Updated: 06/21/19 0737 Specimen: Body Fluid from Pleural Fluid, Right Gram Stain Result -- 1+ WBC'S SEEN RESULT NO GROWTH 2 DAYS RESULT Testing performed at [facility], [address] [place] [address] Comment: Testing performed at [facility], [address] [place] [address] 11725 MRSA NAAT [[id number]] Collected: 06/18/19 1258 Order Status: Completed Lab Status: Final result Updated: 06/18/19 1417 Specimen: Tissue from Nares SOURCE: NARES(NOSE) Result NEGATIVE Comment: Testing performed at [facility];[address] [place] [address] Streptococcus pneumoniae Antigen [[id number]] Collected: 06/18/19 1005 Order Status: Completed Lab Status: Final result Updated: 06/21/19 1108 Specimen: Urine, Unspecified Source Specimen Source Urine Streptococcus pneumoniae Negative Body Fluid Culture, Sterile Not indicated. Organism ID Not indicated. Please note (See Below) Comment: [employer] standards require a culture to be performed on CSF specimens submitted for bacterial antigen testing. (CAP [id number]) Urine specimens will not be cultured. Testing performed by [facility], [address] [place] [address] Respiratory pathogen panel, NAAT [[id number]] Collected: 06/18/19 0351 Order Status: Completed Lab [...] performed by Molecular Methodology Testing performed at [facility], [address] [place] [address] Culture, Blood [[id number]] Collected: 06/17/19 2256 Order Status: Completed Lab Status: Preliminary result Updated: 06/19/19 0526 Specimen: Peripheral Blood Special Requests LAC Special Requests Testing performed at [facility];[address] [place] [address] RESULT NO GROWTH AT THIS TIME RESULT Testing performed at [facility], [address] [place] [address] Comment: Testing performed at [facility], [address] [place] [address]277 Culture, Blood [[id number]] Collected: 06/17/19 2230 Order Status: Completed Lab Status: Preliminary result Updated: 06/19/19 05 Specimen: Blood from Line RESULT NO GROWTH AT THIS TIME RESULT Testing performed at [facility], [address] [place] [address] 48801 Comment: Testing performed at [facility], [address] [place] [address] 16598 Microbiology Results (72 hrs) Procedure Component Value Units Date/Time Culture, Fungus [[id number]] Collected: 06/19/19 1048 Order Status: Sent Lab Status: In process Updated: 06/19/19 1112 Specimen: Tissue from Pleura, Right Culture Virus [[id number]] Collected: 06/19/19 1048 Order Status: Sent Lab Status: In process Updated: 06/19/19 1113 Specimen: Tissue from Pleura, Right Culture, Tissue, Smear, with Anaerobes [[id number]] Collected: 06/19/19 1048 Order Status: Completed Lab Status: Preliminary result Updated: 06/21/19 0737 Special Requests PLEURAL RIGHT PEEL Special Requests Testing performed at [facility];[address] [place] [address] 19426 Gram Stain Result -- 1+ WBC'S SEEN Gram Stain Result NO ORGANISMS SEEN RESULT NO GROWTH 2 DAYS RESULT Testing performed at [facility], [address] [place] [address] 49512 Comment: Testing performed at [facility], [address] [place] [address] Culture, Fungus [[id number]] Collected: 06/19/19 1029 Order Status: Sent Lab Status: In process Updated: 06/19/19 1110 Specimen: Body Fluid from Pleural Fluid, Right Culture Virus [[id number]] Collected: 06/19/19 1029 Order Status: Sent Lab Status: In process Updated: 06/19/19 1110 Specimen: Body Fluid from Pleural Fluid, Right Culture, Body Fluid Sterile [[id number]] Collected: 06/19/19 1029 Order Status: Completed Lab Status: Preliminary result Updated: 06/21/19 0737 Specimen: Body Fluid from Pleural Fluid, Right Gram Stain Result -- 1+ WBC'S SEEN RESULT NO GROWTH 2 DAYS RESULT Testing performed at [facility], [address] [place] [address] 54781 Comment: Testing performed at [facility], [address] [place] [address] 27660 MRSA NAAT [[id number]] Collected: 06/18/19 1258 Order Status: Completed Lab Status: Final result Updated: 06/18/19 1417 Specimen: Tissue from Nares SOURCE: NARES(NOSE) Result NEGATIVE Comment: Testing performed at [facility];[address] [place] [address];[place] [address] IMAGING: CXR images were reviewed. My interpretation: [...] attending provider: Eddy Perry MD Discussed with gearcase assembler regarding OPAT. Discussed with gearcase assembler regarding discharge planning. Ciro Lee MD, MPH Infectious Diseases 06/21/19 oggs, HILARY Rose - 06/21/2019 9:01 AM PDTFormatting of this note might be different from the or iginal. [facility] Service: Cardiothoracic Surgery Progress Note ROOM: [address] [place] [address] Hospital Day: LOS: 3 days Post-Op Day: [...] (!) 141.2 kg (311 lb 3.2 oz) 06/17/192133 (!) 139.6 kg (307 lb 12.2 oz) [...] Vu MD - 06/20/2019 10:[address] [facility] Service: Infectious Diseases Progress Note Hospital [...] RIGHT PEEL Special Requests Testing performed at [facility];[address] [facility];[place] [address] Gram Stain Result 1+ WBC'S SEEN Gram Stain Result NO ORGANISMS SEEN Gram Stain Result Testing performed at [facility], [address] [facility], [place] [address] RESULT PENDING Blood gas, Arterial Result Value [...] Procedure Component Value Units Date/Time Culture, Fungus [[id number]] Collected: 06/19/191047 Order Status: Sent Lab Status: In process Updated: 06/19/191111 Specimen: Tissue from Pleura, Right Culture, Tissue, Smear, with Anaerobes [[id number]] Collected: 06/19/191047 Order Status: Canceled Lab Status: No result Specimen: Tissue from Pleura, Right Culture Virus [[id number]] Collected: 06/19/191047 Order Status: Sent Lab Status: In process Updated: 06/19/19 111 Specimen: Tissue from Pleura, Right Culture, Tissue, Smear, with Anaerobes [[id number]] Collected: 06/19/191047 Order Status: Completed Lab Status: Preliminary result Updated: 06/19/197 Special Requests PLEURAL RIGHT PEEL Special Requests Testing performed at [facility];[address] [place] [address];[place] [address] Gram Stain Result -- 1+ WBC'S SEEN Gram Stain Result NO ORGANISMS SEEN Gram Stain Result Testing performed at [facility], [address] [place] [address] RESULT PENDING Comment: Testing performed at [facility], [address] [place] [address] 11503 Coronavirus (COVID-19) PCR [[id number]] Order Status: Canceled Lab Status: No result Specimen: Tissue from Nasopharynx Culture, Fungus [[id number]] Collected: 06/19/19 1029 Order Status: Sent Lab Status: In process Updated: 06/19/19 1110 Specimen: Body Fluid from Pleural Fluid, Right Culture Virus [[id number]] Collected: 06/19/19 1029 Order Status: Sent Lab Status: In process Updated: 06/19/19 1110 Specimen: Body Fluid from Pleural Fluid, Right Culture, Body Fluid Sterile [[id number]] Collected: 06/19/19 1029 Order Status: Completed Lab Status: Preliminary result Updated: 06/19/19 2207 Specimen: Body Fluid from Pleural Fluid, Right Gram Stain Result -- 1+ WBC'S SEEN Gram Stain Result Testing performed at [address] [address] RESULT PENDING Comment: Testing performed at [facility], [address] [place] [address] 10414 MRSA NAAT [[id number]] Collected: 06/18/19 1258 Order Status: Completed Lab Status: Final result Updated: 06/18/19 1417 Specimen: Tissue from Nares SOURCE: NARES(NOSE) Result NEGATIVE Comment: Testing performed at [facility];[address] [place] [address];[place] [address] Streptococcus pneumoniae Antigen [[id number]] Collected: 06/18/19 1005 Order Status: Sent Lab Status: In process Updated: 06/18/19 1010 Specimen: Urine, Unspecified Source Respiratory pathogen panel, NAAT [[id number]] Collected: 06/18/19 0351 Order Status: Completed Lab [...] performed by Molecular Methodology Testing performed at [facility], [address] [place] [address] 57294 Culture, Blood [[id number]] Collected: 06/17/19 2256 Order Status: Completed Lab Status: Preliminary result Updated: 06/19/19 0526 Specimen: Peripheral Blood Special Requests LAC Special Requests Testing performed at [facility];[address] [place] [address] 34189 RESULT NO GROWTH AT THIS TIME RESULT Testing performed at [facility], [address] [place] [address] 60172 Comment: Testing performed at [facility], [address] [place] [address] 13381 Culture, Blood [[id number]] Collected: 06/17/192229 Order Status: Completed Lab Status: Preliminary result Updated: 06/19/19 05 Specimen: Blood from Line RESULT NO GROWTH AT THIS TIME RESULT Testing performed at [facility], [address] [place] [address] Comment: Testing performed at [facility], [address] [place] [address] 24278 Microbiology Results (72 hrs) Procedure Component Value Units Date/Time Culture, Fungus [[id number]] Collected: 06/19/191047 Order Status: Sent Lab Status: In process Updated: 06/19/19 111 Specimen: Tissue from Pleura, Right Culture Virus [[id number]] Collected: 06/19/191047 Order Status: Sent Lab Status: In process Updated: 06/19/19 111 Specimen: Tissue from Pleura, Right Culture, Tissue, Smear, with Anaerobes [[id number]] Collected: 06/19/191047 Order Status: Completed Lab Status: Preliminary result Updated: 06/19/192206 Special Requests PLEURAL RIGHT PEEL Special Requests Testing performed at [facility];[address] [place] [address] 15686 Gram Stain Result -- 1+ WBC'S SEEN Gram Stain Result NO ORGANISMS SEEN Gram Stain Result Testing performed at [address] [address] RESULT PENDING Comment: Testing performed at [facility], [address] [place] [address] Culture, Fungus [[id number]] Collected: 06/19/19 1029 Order Status: Sent Lab Status: In process Updated: 06/19/19 1110 Specimen: Body Fluid from Pleural Fluid, Right Culture Virus [[id number]] Collected: 06/19/19 1029 Order Status: Sent Lab Status: In process Updated: 06/19/19 1110 Specimen: Body Fluid from Pleural Fluid, Right Culture, Body Fluid Sterile [[id number]] Collected: 06/19/19 1029 Order Status: Completed Lab Status: Preliminary result Updated: 06/19/192206 Specimen: Body Fluid from Pleural Fluid, Right Gram Stain Result -- 1+ WBC'S SEEN Gram Stain Result Testing performed at [address] [address] RESULT PENDING Comment: Testing performed at [facility], [address] [place] [address] MRSA NAAT [[id number]] Collected: 06/18/19 1258 Order Status: Completed Lab Status: Final result Updated: 06/18/19 1417 Specimen: Tissue from Nares SOURCE: NARES(NOSE) Result NEGATIVE Comment: Testing performed at [facility];[address] [place] [address];[place] [address] Streptococcus pneumoniae Antigen [[id number]] Collected: 06/18/19 1005 Order Status: Sent Lab Status: In process Updated: 06/18/19 1010 Specimen: Urine, Unspecified Source Respiratory pathogen panel, NAAT [[id number]] Collected: 06/18/19 0351 Order Status: Completed Lab [...] performed by Molecular Methodology Testing performed at [facility], [address] [place] [address] Culture, Blood [[id number]] Collected: 06/17/192255 Order Status: Completed Lab Status: Preliminary result Updated: 06/19/19525 Specimen: Peripheral Blood Special Requests LAC Special Requests Testing performed at [facility];[address] [place] [address] RESULT NO GROWTH AT THIS TIME RESULT Testing performed at [facility], [address] [place] [address] Comment: Testing performed at [facility], [address] [place] [address] Culture, Blood [[id number]] Collected: 06/17/192229 Order Status: Completed Lab Status: Preliminary result Updated: 06/19/19525 Specimen: Blood from Line RESULT NO GROWTH AT THIS TIME RESULT Testing performed at [address] [address] Comment: Testing performed at [address] [address] IMAGING: CXR images were reviewed. My interpretation: [...] attending provider: Leon Ch MD Discussed with gearcase assembler regarding OPAT. 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 Hospital Day: LOS: 2 [...] chest pa in after an admission at [facility] from 06/05-06/16/19 where he was diagnosed and treated for a rig ht-sided pneumonia with complex exudative parapneumonic effusion (s/p chest tube drainage), acute respiratory failure with BIPAP and sepsis. . He was discharged home and presented to [facility] on 07/15/19 with cc of [...] [facility] Code Status: Full Code *Please bill 35 minutes of critical care time spent evaluating the patient, reviewing the d sukh and formulating a plan exclusive of all other procedures. Yuly Garcia DO 06/20/2019 Dictation software, [employer], was used which may contain error with similar sound words even after review. Portions of this chart may have been copied from previous notes for continuity of care. Carlos Zhang PA - 0 06/20/2019 7:[address] [facility] Service: Cardiothoracic Surgery Progress Note ROOM: [address] [place] [address] Hospital Day: LOS: 2 days Post-Op Day: [...] O POSITIVE Antibody Screen NEGATIVE BB BAND [id number] BB BAND Testing performed at [facility];[address] [facility];[place] [address] Culture, Body Fluid Sterile Result Value Ref Range Gram Stain Result 1+ WBC'S SEEN Gram Stain Result Testing performed at [address] [address] RESULT PENDING Culture, Tissue, Smear, with Anaerobes Result Value Ref Range Special Requests PLEURAL RIGHT PEEL Special Requests Testing performed at [facility];[address] [place] [address] Gram Stain Result 1+ WBC'S SEEN Gram Stain Result NO ORGANISMS SEEN Gram Stain Result Testing performed at [facility], [address] [place] [address] RESULT PENDING Blood gas, Arterial Result Value [...] ID has been following him since his [facility] admission and they were very clear that [...] admitted to the adult hospitalist service at [facility]. Admitting Physician: Josselin Diallo MD Chief complaint: shortness of breath and chest pain History of present illness: Patient is a 48-year-old male with history significant for hype rtension, hyperlipidemia, well controlled type 2 diabetes mellitus on metformin, morbid obes ity, nocturnal hypoxemia and obstructive sleep apnea with BiPAP, former smoker, and recent h ospitalization at [facility] for right lower lobe empyema with discharge date 06/16/2019 presents with shortness of breath, pleuritic chest pain, and fever. Patient was admitted from 06/05 through 06/16/2019 at [facility] in [place], [place] for acute respiratory failure with right-sided [...] and PCP Dr. Troy. Following discharge from [facility] on 06/15 patient felt well in the [...] nt presented to the [facility] ED in the evening of the 06/16. Upon arrival to the [facility] ED, patient was febrile to 102.6, normotensive, [...] IV morphine for pain. [facility] infectious disease was consulted who recommended initiating [...] Patient is full code. Patient lives in [place], [place]. 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 for right lower lung empyema treated [...] a hemoglobin A1c of 7.2 % at [facility] on 06/07/2019 Plan: -Hold home treatment [...] note might be different from t carlos zavala. 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 [...] chest pa in after an admission at [facility] from 06/05-06/16/19 where he was diagnosed and treated for a rig ht-sided pneumonia with complex exudative parapneumonic effusion (s/p chest tube drainage), acute respiratory failure with BIPAP and sepsis. . 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 Patient lives in [place], [place]. 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 The pat ient was admitted to [facility] from 06/07/19 to 06/16/19. 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 Patient lives in [place], [place]. 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 [facility] Service: Infectious Diseases Initial Consult Note [...] for further care. His fluid culture at [facility] from 06/14 was NGTD. 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 Patient lives in [place], [place]. 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 children [...] Galen Roth MD 1 puff at 06/18/19 09 aspirin EC tablet 81 mg 81 mg [...] Roth MD 1 ,200 mg at 06/18/19 09 insulin lispro (humaLOG) injection (vial) 0-6 Units [...] 17 g Oral Daily PRN Greta Howe D senna (SENOKOT) tablet 8.6 mg 8.6 mg [...] Component Value Units Date/Time Streptococcus pneumoniae Antigen [[id number]] Collected: 06/18/19 1005 Order Status: Sent Lab Status: In process Updated: 06/18/19 1010 Specimen: Urine, Unspecified Source Respiratory pathogen panel, NAAT [[id number]] Collected: 06/18/19 0351 Order Status: Completed Lab [...] performed by Molecular Methodology Testing performed at [facility], [address] [place] [address] Culture, Blood [[id number]] Collected: 06/17/19 2256 Order Status: Sent Lab Status: In process Updated: 06/17/19 2303 Specimen: Peripheral Blood Culture, Blood [[id number]] Collected: 06/17/19 2230 Order Status: Sent Lab Status: In process Updated: 06/17/19 223 Specimen: Blood from Line Microbiology Results (72 hrs) Procedure Component Value Units Date/Time Streptococcus pneumoniae Antigen [[id number]] Collected: 06/18/19 1005 Order Status: Sent Lab Status: In process Updated: 06/18/19 1010 Specimen: Urine, Unspecified Source Respiratory pathogen panel, NAAT [[id number]] Collected: 06/18/19 0351 Order Status: Completed Lab Status: Final result Updated: 06/18/19 06 Specimen: Body Fluid from Nasopharynx Adenovirus DNA [...] performed by Molecular Methodology Testing performed at [facility], [address] [place] [address] Culture, Blood [[id number]] Collected: 06/17/19 225 Order Status: Sent Lab Status: In process Updated: 06/17/192302 Specimen: Peripheral Blood Culture, Blood [[id number]] Collected: 06/17/192229 Order Status: Sent Lab Status: [...] AM Andrew LUNA at bedside with wheelchair, jose sauceda has personal belonging, handed combivent inhaler to administer upstairs. Electronically si gned by Krupa Sneed RN at 06/18/2019 3:34 AM PDTKrupa Sneed RN - 2:43 AM PDTProvided sandwich, apples, veggie tray, and water to patient.Electronica lly signed by Krupa Sneed RN at 06/18/2019 2:44 AM PDTTai Carter RN - 12:15 AM PDTAssumed care of pt, received report from JEREMY Rae. yra Prather RN - 06/18/2019 12:06 AM PD TPt states he feels increased SOB and RN gave pt 2L of O2 on NC. yra Prather RN - 06/17/2019 11:16 PM PDTMica Aayush hoffman () [phone] signed by Kyra Prather RN at 06/17/2019 11:17 PM PDT Yumiko Nj CNA - 06/17/2019 10:22 PM PDTMade call to [facility] Request for images, patien t records and notes Randolph brooks DO - 06/17/2019 9:50 PM PDTFormatting of this note might be different fr om the original. [facility] Department of Emergency Medicine 9:50 PM [...] other symptoms at this time. 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 Patient was just discharged yesterday from [facility] after a 10 day stay for loculated pneumoni a. He reports that in the hospital they placed a chest tube and performed a thoracentesis. H e reports that since he was discharged he has been very nauseas, had a fever, and has pain b ehind his shoulder blades. He called Dr. Crawley from [facility] who recommended that he come to the ED at [facility]. Patient was sent home on vancomycin and [...] file Gets together: Not on file Attends church service: Not on file Active member of [...] and reevaluate the patient. On review of [facility] notes: Patient was admitted on the 05 of June to [facility] with empyema and treated for sepsis. He [...] 4 mg (4 mg Intravenous Given 06/17/19 8758) Records Reviewed Old medical records. Nursing notes. No prior [facility] ED visits available for review. Laboratory Evaluation Results Procedure Component Value Ref Range Date/Time Lactic Acid [[id number]] Collected: 06/17/192232 Order Status: Completed Specimen: Blood Updated: 06/17/192304 Lactate, Serum 2.0 0.4 - 2.0 mmol/L Culture, Blood [[id number]] Collected: 06/17/192255 Order Status: Sent Specimen: Peripheral Blood Updated: 06/17/192302 Comprehensive Metabolic Panel [[id number]] (Abnormal) Collected: 06/17/192230 Order Status: Completed Specimen: [...] Estimated GFR >60 >60 mL/min/1.73m2 Troponin I [[id number]] Collected: 06/17/192230 Order Status: Completed Specimen: Blood Updated: 06/17/192300 Troponin I 0.006 0.00 - 0.04 ng/mL CBC with Differential [[id number]] (Abnormal) Collected: 06/17/192230 Order Status: Completed Specimen: [...] 0.09 0.00 - 0.10 K/uL Culture, Blood [[id number]] Collected: 06/17/192229 Order Status: Sent Specimen: Blood [...] Cough. Pneumonia. Pleural effusion. Recently admitted at [facility], on Vanco/Zosyn for loculated PNA, referred by PCP to [facility] for worsening symptoms. COMPARISON: CT ANGIOGRAPHY CHEST (06/06/2019); CHEST TWO VIEWS [id number] (06/06/2019); PROCEDURE: Axial images through the chest [...] Cough. Pneumonia. Pleural effusion. Recently admitted at [facility], on Vanco/Zosyn for loculated PNA, referred by PCP to [facility] for worsening symptoms. COMPARISON: CT ANGIOGRAPHY CHEST (06/06/2019); CHEST TWO VIEWS [id number] (06/06/2019); PROCEDURE: Axial images through the chest [...] Admit Clinical impression: Chest pain, unspecified type [[id number]] Clinical impression: Sepsis, due to unspecified organism, unspecified whether acute organ dysfunction present (HCC) [[id number]] Admitting provider: FAIZAN HOSPITALIST [[id number]] Expected patient class: Inpatient [101] Level of [...] none Pharmacy Pharmacy/Medication needs: ([facility] in [place]) Notes: CM faxed new IV abx script [...] this RN. YULY AGRAWAL RN lan of Meghan Oorzco RN - 06/21/2019 6:30 PM PDTDiscussed pending [...] Ongoing, progressing Nicole Dodd RN lan of Julia [facility] RN - 06/21/2019 1:17 PM PDTCare Management Follow-Up Readmission Risk: Medium Current Discharge Plan Anticipated Discharge Disposition: home with outpatient services Expected DC Date: 06/22/2019 Barriers to Discharge: not medically ready for discharge Steps Taken Toward Discharge: pt states that he was discharged from [facility] with Option Car e for home IV abx therapy. Per ID MD pt will need an additional 4 weeks IV abx on discharge Next Steps: CM to update [place] and send new IV abx script when [...] overnight. Shift chart review complete. lan of [facility] - Olga Sandoval RN - 06/20/2019 10:56 [...] Roth MD 06/20/2019 2:35 PM lan of Care - Gustavo Coats, PT, DPT - 06/20/2019 [...] pt . may mobilize with supervision from [facility] staff as tolerated. Living Environment Lives With: spouse Living Arrangements: house Home Accessibility: stairs to enter home Functional Level Prior Transferring: independent Ambulation: independent Equipment Currently Used at Home: none Cognitive Assessment Orientation: oriented x 4 Bed Mobility Additional Documentation: supine to/from sit Supine to Sit, Level of [place]: modified independent Transfers Additional Documentation: sit to/from stand Sit-Stand, Level of [place]: modified independent, supervised Gait Gait Comments: normal gait cycle with decreased holley Level of [place]: modified independent, supervised Assistive Device: none, gait [...] Injury Outcome: Ongoing, progressing -C Instructions P lalit - Ronn Voss MD - 06/19/2019 2:12 [...] Rocky Arce MD - 06/19/2019 11:37 AM [facility] OPERATIVE REPORT ROCKY ARCE MD Patient: ROBERT STILES Admitting: JOSSELIN DIALLO MR #: [id number] LOC: PT TYPE: Adm Date: 06/17/2019 : 1970 DATE OF PROCEDURE: 06/19/2019 PREOPERATIVE DIAGNOSIS: Loculated right pleural effusion with compressive atelectasis. POSTOPERATIVE DIAGNOSIS: Loculated right pleural effusion with compressive atelectasis. PROCEDURES: 1. Right diagnostic thoracoscopy. 2. Right thoracotomy. 3. Full decortication. SURGEON: Rocky Arce MD LEGAL ADMINISTRATOR: YOVANNY Conley ANESTHESIOLOGIST: Janes Cameron MD ANESTHESIA: [...] dyspn ea. The patient was admitted to [facility] from 06/07/2019 to 06/16/2019. He was treated [...] the left lateral decubitus [facility]. An axillary roll was put [...] Transcribed on 06/19/2019 18:26:10 by vale job# [id number] Confirmation #: [id number] lan of Jayden Mujica RN - 06/19/2019 [...] review complete. Wendy Peguero RN lan of Chepe Rush, Yuly Ascencio RN - 06/18/2019 7:33 PM PDTTmax this [...] pt verbalizes understanding. Electronically s igned by uYly Mackenzie RN at 06/18/2019 6:51 PM PDTPlan [...] Same As: (Chest pain) Previous Discharging Facility: [facility] PCP: Edilberto Troy MD Contact Information [...] Discharge: (TBD) Pharmacy/Medication Needs: ([facility] in [place]) Transportation Needs: family or friend will provide [...] note might be different from the o katelyninal. [facility] Service: Hospitalist Plan Of Care Note Pt: Robert Stiles AGE/SEX: 48 y.o. male ROOM: [address] [place] [address]- : 1970 PCP: Edilberto Troy MD ADMIT DATE: 06/17/2019 TODAY'S DATE: 06/18/2019 48-year-old male with history significant for hypertension, hyperlipidemia, well controlled type 2 diabetes mellitus on metformin, morbid obesity, nocturnal hypoxemia and obstructive sleep apnea with BiPAP, former smoker, and recent hospitalization at [facility] for right lower l obe empyema with [...] MD, FACP 06/18/2019 10:33 AM Dictation software, [employer], used which may contain error for similar [...] | + +--------+ + + + | [place] BRNCHSC INCL | Routin | 06/19/2019 | [...] Routin | 06/19/2019 | Empyema lung ([facility]) | Results for this | | | [...] Routin | 06/19/2019 | Empyema lung ([facility]) | Results for this | | | e | 10:29 AM | | procedure are in the | | | | PDT | | results section. | + +--------+ + + + | CULTURE, FUNGUS | Routin | 06/19/2019 | Empyema lung ([facility]) | Results for this | | | [...] | | | POC | performed at [facility];[address] | | LABORATORY | | | | [address] [facility];[place], [place] | | | | | | [address] | | | | + + + + + + + + | Specimen | + + | | + + + + + + + | Performing | Address | City/State/Zipcode | Phone Number | | Organization | | | | + + + + + | [facility] | [address] | [place] [address] | [phone] | + + + + + POC Glucose (06/22/2019 8:03 AM PDT) + + + + + + | Component | Value | Ref Range | Performed | Pathologist | | | | | At | Signature | + + + + + + | Glucose, | 130 (H)Comment: Testing | 65 - 99 mg/dL | [facility] | | | POC | performed at [facility];[address] | | LABORATORY | | | | [address];[place] | | | | | | [address] | | | | + + + + + + + + | Specimen | + + | | + + + + + + + | Performing | Address | City/State/Zipcode | Phone Number | | Organization | | | | + + + + + | [facility] | [address] | [place] [address] | [phone] | + + + + + XR [...] Procedure Note | + + | Gabriele, Tony Results In - 06/22/2019 7:12 AM PDT [...] KR | | | | performed at [facility];[address] | | LABORATORY | | | | [address] [facility];[place], [place] | | | | | | [address] | | | | + + + + + + + + | Specimen | + + | Blood | + + + + + + + | Performing | Address | City/State/Zipcode | Phone Number | | Organization | | | | + + + + + | [facility] | [address] | [place] [address] | [phone] | + + + + + CBC [...] | | | Absolute | performed at [facility];[address] | [address]uL | LABORATORY | | | | [address];[place] | | | | | | [address] | | | | + + + + + + + + | Specimen | + + | Blood | + + + + + + + | Performing | Address | City/State/Zipcode | Phone Number | | Organization | | | | + + + + + | [facility] | [address] | [place] [address] | [phone] | + + + + + Basic [...] | | | | | performed at [facility];[address] | | | | | | [address] [facility];[place], [place] | | | | | | [address] | | | | + + + + + + + + | Specimen | + + | Blood | + + + + + + + | Performing | Address | City/State/Zipcode | Phone Number | | Organization | | | | + + + + + | [facility] | [address] | [place] [address] | [phone] | + + + + + POC [...] | | | POC | performed at [facility];[address] | | LABORATORY | | | | [address];[place], [place] | | | | | | [address] | | | | + + + + + + + + | Specimen | + + | | + + + + + + + | Performing | Address | City/State/Zipcode | Phone Number | | Organization | | | | + + + + + | [facility] | [address] | [place] [address] | [phone] | + + + + + POC Glucose (06/21/2019 3:50 PM PDT) + + + + + + | Component | Value | Ref Range | Performed | Pathologist | | | | | At | Signature | + + + + + + | Glucose, | 108 (H)Comment: Testing | 65 - 99 mg/dL | [facility] | | | POC | performed at [facility];[address] | | LABORATORY | | | | [address];[place] | | | | | | [address] | | | | + + + + + + + + | Specimen | + + | | + + + + + + + | Performing | Address | City/State/Zipcode | Phone Number | | Organization | | | | + + + + + | [facility] | [address] | [place] [address] | [phone] | + + + + + POC Glucose (06/21/2019 12:14 PM PDT) + + + + + + | Component | Value | Ref Range | Performed | Pathologist | | | | | At | Signature | + + + + + + | Glucose, | 129 (H)Comment: Testing | 65 - 99 mg/dL | [facility] | | | POC | performed at [facility];[address] | | LABORATORY | | | | [address];[place], [place] | | | | | | [address] | | | | + + + + + + + + | Specimen | + + | | + + + + + + + | Performing | Address | City/State/Zipcode | Phone Number | | Organization | | | | + + + + + | [facility] | [address] | [place] [address] | [phone] | + + + + + POC [...] | | | POC | performed at [facility];[address] | | LABORATORY | | | | [address];[place], [place] | | | | | | [address] | | | | + + + + + + + + | Specimen | + + | | + + + + + + + | Performing | Address | City/State/Zipcode | Phone Number | | Organization | | | | + + + + + | [facility] | [address] | [place] [address] | [phone] | + + + + + XR [...] KR | | | | performed at [facility] | | LABORATORY | | | | [address];[place] | | | | | | [address] | | | | + + + + + + + + | Specimen | + + | Blood | + + + + + + + | Performing | Address | City/State/Zipcode | Phone Number | | Organization | | | | + + + + + | [facility] | [address] | [place] [address] | [phone] | + + + + + CBC [...] 0.09Comment: Testing | 0.00 - 0.10 | [facility] | | | Absolute | performed at [facility];[address] | K/[address]L | LABORATORY | | | | [address];[place], [place] | | | | | | [address] | | | | + + + + + + + + | Specimen | + + | Blood | + + + + + + + | Performing | Address | City/State/Zipcode | Phone Number | | Organization | | | | + + + + + | [facility] LABORATORY | [address] | [place] [address] | [phone] | + + + + + Basic [...] | | | | | performed at [facility] | | | | | | [facility];[place], [place] | | | | | | [address] | | | | + + + + + + + + | Specimen | + + | Blood | + + + + + + + | Performing | Address | City/State/Zipcode | Phone Number | | Organization | | | | + + + + + | [facility] | [address] | [place] [address] | [phone] | + + + + + POC Glucose (06/20/2019 8:52 PM PDT) + + + + + + | Component | Value | Ref Range | Performed | Pathologist | | | | | At | Signature | + + + + + + | Glucose, | 132 (H)Comment: Testing | 65 - 99 mg/dL | [facility] | | | POC | performed at [facility];[address] | | LABORATORY | | | | [address];[place] | | | | | | [address] | | | | + + + + + + + + | Specimen | + + | | + + + + + + + | Performing | Address | City/State/Zipcode | Phone Number | | Organization | | | | + + + + + | [facility] | [address] | [place] [address] | [phone] | + + + + + POC [...] | | | POC | performed at [facility];[address] | | LABORATORY | | | | [address];[place] | | | | | | [address] | | | | + + + + + + + + | Specimen | + + | | + + + + + + + | Performing | Address | City/State/Zipcode | Phone Number | | Organization | | | | + + + + + | [facility] | [address] | [place] [address] | [phone] | + + + + + POC [...] | | | POC | performed at [facility];888 | | LABORATORY | | | | [address];[place], [place] | | | | | | [address] | | | | + + + + + + + + | Specimen | + + | | + + + + + + + | Performing | Address | City/State/Zipcode | Phone Number | | Organization | | | | + + + + + | [facility] | [address] | [place] [address] | [phone] | + + + + + XR [...] + + | Gabriele, Rad Results In 06/20/2019 7:26 AM PDT | | CHEST [...] Testing | 1.7 - 2.4 mg/dL | [facility] | | | | performed at [facility];[address] | | LABORATORY | | | | [address];[place] | | | | | | [address] | | | | + + + + + + + + | Specimen | + + | | + + + + + + + | Performing | Address | City/State/Zipcode | Phone Number | | Organization | | | | + + + + + | [facility] | [address] | [place] [address] | [phone] | + + + + + CBC [...] 0.06Comment: Testing | 0.00 - 0.10 | [facility] | | | Absolute | performed at [facility];[address] | K/uL | LABORATORY | | | | [address];[place] | | | | | | [address] | | | | + + + + + + + + | Specimen | + + | | + + + + + + + | Performing | Address | City/State/Zipcode | Phone Number | | Organization | | | | + + + + + | [facility] | [address] | [place] [address] | [phone] | + + + + + Basic [...] | 8.5 | 8.5 - 10.5 | [place] | [...] | | | | | performed at [facility];88 | | | | | | [facility];[place], [place] | | | | | | [address] | | | | + + + + + + + + | Specimen | + + | | + + + + + + + | Performing | Address | City/State/Zipcode | Phone Number | | Organization | | | | + + + + + | [facility] | [address] | [place] [address] | [phone] | + + + + + POC [...] | | | POC | performed at [facility];[address] | | LABORATORY | | | | [address];[place], [place] | | | | | | [address] | | | | + + + + + + + + | Specimen | + + | | + + + + + + + | Performing | Address | City/State/Zipcode | Phone Number | | Organization | | | | + + + + + | [facility] | [address] [facility] | [place] [address] | [phone] | + + + + + POC [...] | | | POC | performed at [facility];[address] | | LABORATORY | | | | [address];[place] | | | | | | [address] | | | | + + + + + + + + | Specimen | + + | | + + + + + + + | Performing | Address | City/State/Zipcode | Phone Number | | Organization | | | | + + + + + | [facility] | [address] | [place] [address] | [phone] | + + + + + POC Glucose (06/19/2019 7:22 PM PDT) + + + + + + | Component | Value | Ref Range | Performed | Pathologist | | | | | At | Signature | + + + + + + | Glucose, | 136 (H)Comment: Testing | 65 - 99 mg/dL | [facility] | | | POC | performed at [facility];[address] | | LABORATORY | | | | [address];[place] | | | | | | [address] | | | | + + + + + + + + | Specimen | + + | | + + + + + + + | Performing | Address | City/State/Zipcode | Phone Number | | Organization | | | | + + + + + | [facility] | [address] | [place] [address] | [phone] | + + + + + XR [...] | | Signed by: Isiah Branham, Eddie Sign Date/Time: | | | 06/19/2019 6:57 PM [...] Performed At | + + + | [facility] | [facility] | | [facility] | PROVATION | | CenterPulmonology | | | Patient Name: Robert Stiles | | | Procedure Date: 06/19/2019 2:12 PMMRN: [id number] | | | Date of : 1970Note [...] On: | | | 06/19/2019 2:[address] [facility] | | | Department | | |Ronn Voss | | |06/19/2019 5:47:46 PM | | |This report has been signed electronically. | | |Number of Addenda: 0 | | | | | |Note Initiated On: 06/19/2019 2:12 PM | | | | | | [facility] Department | | + [...] + + | Gabriele, Rad Results In 06/19/2019 2:36 PM PDT | [...] | | | | | Signed by: Iisah Sosa Casey | | Sign Date/Time: 06/19/2019 2:33 PM [...] (H) | 35 - 45 mmHg | [facility] | | | Arterial | | | [...] Comment, | Site = arterial | | [facility] | | | POC | lineComment: Testing | | LABORATORY | | | | performed at [facility];888 | | | | | | [address];[place] | | | | | | [address] | | | | + + + + + + + + | Specimen | + + | | + + + + + + + | Performing | Address | City/State/Zipcode | Phone Number | | Organization | | | | + + + + + | [facility] | [address] | [place] [address] | [phone] | + + + + + XR [...] (06/06/2019); CHEST TWO | | | VIEWS 38240 (06/06/2019); FINDINGS: Endotracheal tube tip 4.5 cm [...] | ANGIOGRAPHY CHEST (06/06/2019); CHEST TWO VIEWS 71866 (06/06/2019); | | | | FINDINGS: | [...] | | LABORATORY | | | | [facility];[address];[place] [address] | | | | + + + + + + | CULTURE,VIR | No virus | | [place] | | | [place] | isolated.Comment: | | LABORATORY | | | | Testing performed by | | | | | | [facility], [address] [place] [address] | | | | | | [facility] | | | | | | [id number] ON | | | | | | [...] | + + + + + | [facility] | [address] | [place] [address] | [phone] | + + + + + Culture, [...] RESULT | Testing performed at | | [facility] | | | | [facility], [address] | | LABORATORY | | | | [place] | | | | | | [address]Mviysor: Testing | | | | | | performed at [facility], [address] | | | | | | [address], | | | | | | [place] [address] | | | | + + + + + + + + | Specimen | + + | Tissue - Entire | | right pleura (body | | structure) | + + + + + + + | Performing | Address | City/State/Zipcode | Phone Number | | Organization | | | | + + + + + | [facility] | [address] | [facility] [place] [address] | [phone] | + + + + + Culture, [...] | | [place] | | | | [facility], [address] | | LABORATORY | | | | [place] | | | | | | [address]Sslcyyr: Testing | | | | | | performed at [facility], [address] | | | | | | [address] [place], | | | | | | [place] [address] | | | | + + + + + + + + | Specimen | + + | Body Fluid - Pleural | | fluid specimen | | (specimen) | + + + + + + + | Performing | Address | City/State/Zipcode | Phone Number | | Organization | | | | + + + + + | [facility] | [address] | [place] [address] | [phone] | + + + + + Culture Virus (06/19/2019 10:29 AM PDT) + + + + + + | Component | Value | Ref Range | Performed | Pathologist | | | | | At | Signature | + + + + + + | SOURCE: | PLEURAL FLUID | | [facility] | | | | RIGHTComment: Testing | | LABORATORY | | | | performed at [facility];88 | | | | | | [address];[place], [place] | | | | | | [address] | | | | + + + + + + | CULTURE,VIR | No virus | | [facility] | | | [place] | isolated.Comment: | | LABORATORY | | | | Testing performed by | | | | | | [facility], [address] [place] [address] | | | | | | [place] | | | | | | [id number] ON | | | | | | [...] | + + + + + | [facility] | [address] | [place] [address] | [phone] | + + + + + Culture, [...] RESULT | Testing performed at | | [facility] | | | | [facility], [address] [facility] | | LABORATORY | | | | [place], [place] | | | | | | [address]Ripmprm: Testing | | | | | | performed at [facility], [address] | | | | | | [facility] [address], | | | | | | [place] [address] | | | | + + + + + + + + | Specimen | + + | Body Fluid - Pleural | | fluid specimen | | (specimen) | + + + + + + + | Performing | Address | City/State/Zipcode | Phone Number | | Organization | | | | + + + + + | [facility] | [address] | [place] [address] | [phone] | + + + + + Type [...] + + + | BB BAND | [id number] | | [facility] | | | | | | LABORATORY | | + + + + + + | BB BAND | Testing performed at | | [facility] | | | | [facility];[address] | | LABORATORY | | | | [address];[place] [address] | | | | + + + + + + + + | Specimen | + + | Blood | + + + + + + + | Performing | Address | City/State/Zipcode | Phone Number | | Organization | | | | + + + + + | [facility] | [address] | [place] [address] | [phone] | + + + + + POC [...] | | | POC | performed at [facility];[address] | | LABORATORY | | | | [address];[place] | | | | | | [address] | | | | + + + + + + + + | Specimen | + + | | + + + + + + + | Performing | Address | City/State/Zipcode | Phone Number | | Organization | | | | + + + + + | [facility] | [address] | [place] [address] | [phone] | + + + + + Hemoglobin A1C (06/19/2019 6:34 AM PDT) + + + + + + | Component | Value | Ref Range | Performed | Pathologist | | | | | At | Signature | + + + + + + | Hemoglobin | 7.3 (H)Comment: HbA1c | 4.0 - 6.0 % | [facility] | | | A1c | method is [...] | 163 (H)Comment: | <154 mg/dL | [facility] | | | Average | Estimated Average | | LABORATORY | | | Glucose | Glucose calculated from | | | | | | hemoglobin A1c by use of | | | | | | the ADArecommended | | | | | | formula.Testing | | | | | | performed at [facility], [address] | | | | | | [facility], | | | | | | [place] [address] | | | | + + + + + + + + | Specimen | + + | Blood | + + + + + + + | Performing | Address | City/State/Zipcode | Phone Number | | Organization | | | | + + + + + | [facility] | [address] | [place] [address] | [phone] | + + + + + CBC [...] | | | Absolute | performed at [facility];[address] | K/uL | LABORATORY | | | | [address];[place], [place] | | | | | | [address] | | | | + + + + + + + + | Specimen | + + | Blood | + + + + + + + | Performing | Address | City/State/Zipcode | Phone Number | | Organization | | | | + + + + + | [facility] | [address] | [place] [address] | [phone] | + + + + + Basic [...] | | | | | performed at [facility];[address] | | | | | | [facility];[place], [place] | | | | | | [address] | | | | + + + + + + + + | Specimen | + + | Blood | + + + + + + + | Performing | Address | City/State/Zipcode | Phone Number | | Organization | | | | + + + + + | [facility] | [address] | [place] [address] | [phone] | + + + + + POC [...] | | | POC | performed at [facility];[address] | | LABORATORY | | | | [address];[place], [place] | | | | | | [address] | | | | + + + + + + + + | Specimen | + + | | + + + + + + + | Performing | Address | City/State/Zipcode | Phone Number | | Organization | | | | + + + + + | [facility] | [address] | [place] [address] | [phone] | + + + + + POC Glucose (06/18/2019 4:38 PM PDT) + + + + + + | Component | Value | Ref Range | Performed | Pathologist | | | | | At | Signature | + + + + + + | Glucose, | 111 (H)Comment: Testing | 65 - 99 mg/dL | [facility] | | | POC | performed at [facility];[address] | | LABORATORY | | | | [address];[place] | | | | | | [address] | | | | + + + + + + + + | Specimen | + + | | + + + + + + + | Performing | Address | City/State/Zipcode | Phone Number | | Organization | | | | + + + + + | [facility] | [address] | [place] [address] | [phone] | + + + + + MRSA [...] [facility] | | | | performed at [facility];[address] | | LABORATORY | | | | [address];[place], [place] | | | | | | [address] | | | | + + + + + + + + | Specimen | + + | Tissue - Both | | anterior nares (body | | structure) | + + + + + + + | Performing | Address | City/State/Zipcode | Phone Number | | Organization | | | | + + + + + | [facility] | [address] | [place] [address] | [phone] | + + + + + POC Glucose (06/18/2019 11:44 AM PDT) + + + + + + | Component | Value | Ref Range | Performed | Pathologist | | | | | At | Signature | + + + + + + | Glucose, | 110 (H)Comment: Testing | 65 - 99 mg/dL | [facility] | | | POC | performed at [facility];[address] | | LABORATORY | | | | [address];[place] | | | | | | [address] | | | | + + + + + + + + | Specimen | + + | | + + + + + + + | Performing | Address | City/State/Zipcode | Phone Number | | Organization | | | | + + + + + | [facility] | [address] | [place] [address] | [phone] | + + + + + HIV [...] | | LABORATORY | | | | [facility];[address];[place] [address] | | | | + + + + + + + + | Specimen | + + | Blood | + + + + + + + | Performing | Address | City/State/Zipcode | Phone Number | | Organization | | | | + + + + + | [facility] | [address] | [place] [address] | [phone] | + + + + + HIV 1 and 2 Ab, Reflex (06/18/2019 10:31 AM PDT) + + + + + + | Component | Value | Ref Range | Performed | Pathologist | | | | | At | Signature | + + + + + + | HIV 1 and 2 | NON REACTIVEComment: THE | NR | [facility] | | | Ab | NON REACTIVE HIV 1/2 | | LABORATORY | | | | RESULT INDICATES THAT | | | | | | NEITHER ANTIBODIES NOR | | | | | | [id number] TO HIV 1/2 | | | | | | HAVE BEEN DETECTED IN | | | | | | THIS SPECIMEN. THIS | | | | | | RESULT DOES NOTPRECLUDE | | | | | | PREVIOUS EXPOSURE OR | | | | | | INFECTION.Testing | | | | | | performed at [facility], [address] | | | | | | [address], | | | | | | [place] [address] | | | | + + + + + + + + | Specimen | + + | Blood | + + + + + + + | Performing | Address | City/State/Zipcode | Phone Number | | Organization | | | | + + + + + | [facility] | [address] | [place] [address] | [phone] | + + + + + Streptococcus [...] Please note | (See Below)Comment: | | [facility] | | | | [employer] | | LABORATORY | | | | Pathologists standards | | | | | | require a culture to | | | | | | beperformed on CSF | | | | | | specimens submitted for | | | | | | bacterial antigen | | | | | | testing.(CAP [id number]) | | | | | | Urine specimens will not | | | | | | be cultured.Testing | | | | | | performed by [facility], | | | | | | [address] [facility], | | | | | | [facility] [address] | | | | + + + + + + + + | Specimen | + + | Urine - Urine | | specimen (specimen) | + + + + + + + | Performing | Address | City/State/Zipcode | Phone Number | | Organization | | | | + + + + + | [facility] | [address] | [place] [address] | [phone] | + + + + + POC Glucose (06/18/2019 9:17 AM PDT) + + + + + + | Component | Value | Ref Range | Performed | Pathologist | | | | | At | Signature | + + + + + + | Glucose, | 99Comment: Testing | 65 - 99 mg/dL | [facility] | | | POC | performed at [facility];[address] | | LABORATORY | | | | [address];[place], [place] | | | | | | [address] | | | | + + + + + + + + | Specimen | + + | | + + + + + + + | Performing | Address | City/State/Zipcode | Phone Number | | Organization | | | | + + + + + | [facility] | [address] | [place] [address] | [phone] | + + + + + Procalcitonin (06/18/2019 5:54 AM PDT) + + + + + + | Component | Value | Ref Range | Performed | Pathologist | | | | | At | Signature | + + + + + + | PROCALCITON | <0.05Comment: | <0.5 ng/mL | [facility] | | | IN | INTERPRETIVE | [...] | | | | | | at [facility];[address] [place] [address] | | | | | | [facility];[place] [address] | | | | + + + + + + + + | Specimen | + + | Blood | + + + + + + + | Performing | Address | City/State/Zipcode | Phone Number | | Organization | | | | + + + + + | [facility] | [address] | [place] [address] | [phone] | + + + + + Magnesium (06/18/2019 5:54 AM PDT) + + + + + + | Component | Value | Ref Range | Performed | Pathologist | | | | | At | Signature | + + + + + + | Magnesium | 2.1Comment: Testing | 1.7 - 2.4 mg/dL | [facility] | | | | performed at [facility], [address] | | LABORATORY | | | | [address], | | | | | | [place] [address] | | | | + + + + + + + + | Specimen | + + | Blood | + + + + + + + | Performing | Address | City/State/Zipcode | Phone Number | | Organization | | | | + + + + + | [facility] | [address] | [place] [address] | [phone] | + + + + + CBC [...] at | | | | | | [facility], [address] [place] [address] | | | | | | [place] | | | | | | [address] | | | | + + + + + + + + | Specimen | + + | Blood | + + + + + + + | Performing | Address | City/State/Zipcode | Phone Number | | Organization | | | | + + + + + | [facility] | [address] | [place] [address] | [phone] | + + + + + Basic [...] | | | | | performed at [facility], [address] | | | | | | [facility], | | | | | | [place] [address] | | | | + + + + + + + + | Specimen | + + | Blood | + + + + + + + | Performing | Address | City/State/Zipcode | Phone Number | | Organization | | | | + + + + + | [facility] | [address] | [place] [address] | [phone] | + + + + + XR [...] CT ANGIOGRAPHY CHEST (06/06/2019); CHEST TWO VIEWS 05023 | | | (06/06/2019); FINDINGS/IMPRESSION: 1. New [...] CHEST (06/06/2019); CHEST | | TWO VIEWS 91382 (06/06/2019); | | | | FINDINGS/IMPRESSION: | [...] | | | | | performed at [facility], [address] | | | | | | [facility], | | | | | | [place] [address] | | | | + + + + + + + + | Specimen | + + | Body Fluid - Entire | | nasopharynx (body | | structure) | + + + + + + + | Performing | Address | City/State/Zipcode | Phone Number | | Organization | | | | + + + + + | [facility] | [address] | [place] [address] | [phone] | + + + + + CT [...] | Pneumonia. Pleural effusion. Recently admitted at [facility], on | | | Vanco/Zosyn for loculated PNA, referred by PCP to [facility] for worsening | | | symptoms. COMPARISON: CT ANGIOGRAPHY CHEST (06/06/2019); CHEST | | | TWO VIEWS 27827 (06/06/2019); PROCEDURE: Axial images through the | [...] + + | Gabriele, Rad Results In 06/18/2019 1:16 AM PDT | | CT CHEST WITH CONTRAST | | | | CLINICAL INFORMATION: | | Cough. Pneumonia. Pleural effusion. Recently admitted at [facility] on | | [facility] for loculated PNA, referred by PCP to [facility] for worsening | | symptoms. | | | | COMPARISON: | | CT ANGIOGRAPHY CHEST (06/06/2019); CHEST TWO VIEWS 89975 (06/06/2019); | | | | PROCEDURE: | [...] [facility] | | | Requests | [facility];[address] | | LABORATORY | | | | [address];[place] [address] | | | | + + + + + + | RESULT | NO GROWTH 6 DAYS | | [facility] | | | | | | LABORATORY | | + + + + + + | RESULT | Testing performed at | | [facility] | | | | [facility], [address] [facility] | | LABORATORY | | | | [address], [place], [place] | | | | | | [address]Ktpbcta: Testing | | | | | | performed at [facility], [address] [facility], [place], [place] | | | | | | [address] | | | | + + + + + + + + | Specimen | + + | Blood - Peripheral | | blood specimen | | (specimen) | + + + + + + + | Performing | Address | City/State/Zipcode | Phone Number | | Organization | | | | + + + + + | [facility] | [address] | [place] [address] | [phone] | + + + + + Lactic Acid (06/17/2019 10:33 PM PDT) + + + + + + | Component | Value | Ref Range | Performed | Pathologist | | | | | At | Signature | + + + + + + | Lactate, | 2.0Comment: Testing | 0.4 - 2.0 | [facility] | | | Serum | performed at [facility];[address] | mmol/L | LABORATORY | | | | [address];[place] | | | | | | [address] | | | | + + + + + + + + | Specimen | + + | Blood | + + + + + + + | Performing | Address | City/State/Zipcode | Phone Number | | Organization | | | | + + + + + | [facility] | [address] | [place] [address] | [phone] | + + + + + Troponin [...] at | | | | | | [facility];[address] [facility] | | | | | | [facility];[place] [address] | | | | + + + + + + + + | Specimen | + + | Blood | + + + + + + + | Performing | Address | City/State/Zipcode | Phone Number | | Organization | | | | + + + + + | [facility] | [address] | [place] [address] | [phone] | + + + + + Comprehensive [...] | >60Comment: GFR <60: | >60 | [facility] | | | GFR | CHRONIC KIDNEY [...] | | | | | performed at [facility];[address] | | | | | | [address] [facility];[place], [place] | | | | | | [address] | | | | + + + + + + + + | Specimen | + + | Blood | + + + + + + + | Performing | Address | City/State/Zipcode | Phone Number | | Organization | | | | + + + + + | [facility] | [address] [facility] | [place] [address] | [phone] | + + + + + CBC [...] | | | Absolute | performed at [facility];[address] | [address] | LABORATORY | | | | [address];[place] | | | | | | [address] | | | | + + + + + + + + | Specimen | + + | Blood | + + + + + + + | Performing | Address | City/State/Zipcode | Phone Number | | Organization | | | | + + + + + | [facility] | [address] | [place] [address] | [phone] | + + + + + Culture, [...] RESULT | Testing performed at | | [facility] | | | | [facility], [address] [facility] | | LABORATORY | | | | Jennifer, [place], [place] | | | | | | [id number]: Testing | | | | | | performed at [facility], [address] | | | | | | [facility], | | | | | | [place] [address] | | | | + + + + + + + + | Specimen | + + | Blood - Swab of line | | insertion site | | (specimen) | + + + + + + + | Performing | Address | City/State/Zipcode | Phone Number | | Organization | | | | + + + + + | [facility] | [address] | [place] [address] | [phone] | + + + + + ECG [...] | | | | | | -COMPUTER ([id number]), associate editor | | | | | | ALICE AUGUSTINE ([id number]) on | | | | | | [...] scheduled: AC, NPO, Daytime | | | 9521-5814 Use NIGHT DOSE for | | | doses scheduled: HS, | | | Nighttime [id number] If the BG is | | | [...] | + +---+ + +-------+ +-------+---+---+ | lisinopril (PRINIVIL, ZESTRIL) [...]
--- OUTSIDE RECORDS SUMMARY | ~2019-10-31 | XMS | Encounter Summary ---
Demographics + + + | Address | [address] | | | [place] [address] | + + + | Home Phone | | + + + | Preferred Language | Unknown | + + + | Marital Status | Single | + + + | Methodist Affiliation | NON | + + + | Race | White | + + + | Ethnic Group | Not or | + + + Author + + + | Author | [facility] | + + + | Organization | [facility] | + + + | Address | Unknown | + + + | Phone | Unavailable | + + + Support + + +---------+ + | Name | Relationship | Address | Phone | + + +---------+ + | Dionne Frances | ECON | Unknown | | + + +---------+ + Care Team Providers + +------+ + | Care Ocular Care Technologist Name | Role | Phone | + [...] [id number] | | | | | | [place], [place] | | | | | | [address] | | | | | | [phone] | | | +--------+ + + + [...] Performed At | + + + | [id number] Estimated GFR > 60 mL/min/1.73 sq m if non- | [facility] | | [id number] Estimated GFR > 60 mL/min/1.73 sq m [...] DEPARTMENT OF | [address] | [place] [address] | | | PATHOLOGY | [address] | | | + + + + + | [place] DEPARTMENT OF | [address] | [place] [address] | | | PATHOLOGY | [address] [...] | + + + + + | [facility] | [address] | [place] [address] | | | PATHOLOGY | [address] | | | + + + + + | [facility] | [address] | [place] [address] | | | PATHOLOGY | [address] | | | + + + + + documented in this encounter Visit Diagnoses Not on filedocumented in this encounter"
--- OUTSIDE RECORDS SUMMARY | ~2019-10-31 | XMS | Encounter Summary ---
Demographics + + + | Address | [address] | | | [place] [address] | + + + | Home Phone | | + + + | Preferred Language | Unknown | + + + | Marital Status | | + + + | Zoroastrian Affiliation | Unknown | + + + | Race | Unknown | + + + | Ethnic Group | Unknown | + + + Author + + + | Author | [facility] | | | and Angelana | + + + | Organization | [facility] | | | and Angelana [...] Team Providers + +------+ + | Care Auger Operator Name | Role | Phone | + +------+ + | Edilberto Troy MD | PCP | | + +------+ + Reason for Visit + + + | Reason | Comments | + + + | Follow-up | | + + + Encounter Details +--------+---------+ + + + | Date | Type | Department | Care Team | Description | +--------+---------+ + + + | 07/04/ | Office | [facility] | Rosa Gardner, | Empyema of right | | 2020 | Visit | INFECTIOUS DISEASE | Ciro Curiel MD | pleural space (HCC) | | | | [address] | [address] | (Primary Dx); Long | | | | [place], [place] | [place] [address] | term (current) use | | | | [address] | [phone] | of antibiotics; | | | | [phone] | | Controlled type 2 | | | | | | diabetes mellitus | | | | | | with diabetic | | | | | | polyneuropathy, | | | | | | without long-term | | | | | | current use of | | | | | | insulin (HCC) | +--------+---------+ + + + Social History [...] + + + | Blood Pressure | 125/85 | 07/05/2019 8:11 AM | | | | | PDT | | + + + + + | Pulse | 99 | 07/05/2019 8:11 AM | | | | | PDT | | + + + + + | Temperature | 37 C (98.6 F) | 07/05/2019 8:11 AM | | | | | PDT | | + + + + + | Respiratory Rate | 16 | 07/05/2019 8:11 AM | | | | | PDT | | + + + + + | Oxygen Saturation | 93% | 07/05/2019 8:11 AM | | | | | PDT | | + + + + + | Inhaled Oxygen | - | - | | | Concentration | | | | + + + + + | Weight | 141.1 kg (311 lb) | 07/05/2019 8:11 AM | | | | | PDT | | + + + + + | Height | 175.3 cm (5' 9") | 07/05/2019 8:11 AM | | | | | PDT | | + + + + + | Body Mass Index | 45.93 | 07/05/2019 8:11 AM | | | | | PDT | | + + + + + documented in this encounter Progress Notes Ciro Vu MD - 07/05/2019 8:00 AM PDT [facility] Service: Infectious Diseases Outpatient Follow Up Note CHIEF COMPLAINT Follow up on empyema HISTORY OF PRESENT ILLNESS The patient is a 48 y.o.-year-old male presenting today for follow up. History obtained from chart review and the patient. The patient has been admitted to the [...] for further care. His fluid culture at [facility] from 06/14 was NGTD. 06/10/19 sputum NRF. Blood cx 06/05, 06/06, 06/07 , 06/08 all NG. Infectious Disease (ID) consult requested for further evaluation and management. I recommended cardiothoracic surgery consultation. Patient was evaluated by Dr. Ignacio giron taken to the OR for decortication. All the cultures are negative. The patient responded well to IV ceftriaxone. He was discharged to complete 4 weeks of therapy. His white blood cell count has normalize d. He feels better, less pain, minimal cough. He denies fevers, chills. PAST MEDICAL HISTORY Patient Active Problem List Diagnosis Lumbar radiculopathy DDD (degenerative disc disease), lumbar Obesity, Class III, BMI 40-49.9 (morbid obesity) Chronic pain Depressive disorder Essential hypertension Obstructive sleep apnea syndrome Type 2 diabetes mellitus Type 2 diabetes mellitus, without long-term current use of insulin Empyema of lung Empyema lung PAST SURGICAL HISTORY Past Surgical History: Procedure Laterality Date BRONCHOSCOPY Bilateral 06/19/2019 Procedure: BRONCHOSCOPY FLEXIBLE; Surgeon: Ronn Voss MD; [facility] 2000 SPINE SURGERY 2006 spleen repair 1984 THORACOSCOPY Right 06/19/2019 Procedure: VIDEO ASSISTED THORACOSCOPY W/ DECORTICATION; Surgeon: Rocky Pierre MD; Loca tion: [facility] MAIN OR THORACOTOMY Right 06/19/2019 Procedure: THORACOTOMY-DECORTICATION; Surgeon: Rocky Pierre MD; Location: [facility] MAIN OR SOCIAL HISTORY Social History Socioeconomic History Marital status: Spouse name: Not on file Number of children: 2 Years of education: Not on file Highest education level: Not on file Occupational History 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 Employer: [employer] Social Needs Financial resource strain: Not on file Food insecurity: Worry: Not on file Inability: Not on file Transportation needs: Medical: Not on file Non-medical: Not on file Tobacco Use Smoking status: Former Smoker Last attempt to quit: 04/25/2010 Years since quittin.2 Smokeless tobacco: Never Used Substance and Sexual Activity Alcohol use: Yes Alcohol/week: 0.0 standard drinks Drug use: Yes Comment: Marijuana Sexual activity: Yes Lifestyle Physical activity: Days per week: Not on file Minutes per session: Not on file Stress: Not on file Relationships Social connections: Talks on phone: Not on file Gets together: Not on file Attends jehovah's witness service: Not on file Active member of [...] Patient is full code. Patient lives in [place], [place]. 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 Patient is independent in his activities of daily living and denies any falls. Patient reports using marijuana, denies currently using tobacco though formerly smoked cig arettes. Patient reports rare alcohol use. FAM. HISTORY Family History Problem Relation Age of Onset COPD Mother Heart disease Father Multiple sclerosis Sister Multiple sclerosis Brother MEDICATIONS: Reviewed with the patient today. Patient did not bring medication list or bottles to clinic today. Current Outpatient Medications: albuterol 90 mcg/puff inhaler, Inhale 2 puffs into the lungs every 2 hours as needed f or Wheezing., Disp: , Rfl: albuterol-ipratropium (COMBIVENT RESPIMAT) 100-20 mcg/puff inhaler, Inhale 1 puff into the lungs 4 times daily., Disp: , Rfl: apixaban (ELIQUIS) 5 mg tablet, Take 5 mg by mouth 2 times daily., Disp: , Rfl: aspirin 81 MG tablet, Take 81 mg by mouth Daily., Disp: , Rfl: atorvaSTATin (LIPITOR) 20 mg tablet, Take 20 mg by mouth nightly., Disp: , Rfl: cefTRIAXone (ROCEPHIN) IVPB (custom dose) 2 g, Inject 2 g into the vein Daily for 25 d ays. Indications: Empyema, Disp: 1 each, Rfl: 0 chlorhexidine (PERIDEX) 0.12% solution, USE DIRECTE Rinse with 1/2 ounce by mouth f or 30 seconds then spit out. use twice a day, Disp: , Rfl: clotrimazole (LOTRIMIN) 1% cream, clotrimazole 1 % topical cream APPLY TO THE AFFECTE D AND SURROUNDING AREAS OF SKIN BY TOPICAL ROUTE 2 TIMES PER DAY IN THE MORNING AND EVENING, Disp: , Rfl: diazePAM (VALIUM) 5 mg tablet, take 1 tablet by mouth 1 hour prior to procedure and 1 to 2 table... (REFER TO PRESCRIPTION NOTES)., Disp: , Rfl: 0 DULoxetine (CYMBALTA) [address] capsule, Take 30 mg by mouth Daily., Disp: , Rfl: DULoxetine (CYMBALTA) [address] capsule, Take 1 capsule by mouth Daily., Disp: , Rfl: 0 famotidine (PEPCID) 20 mg tablet, Daily., Disp: , Rfl: gabapentin (NEURONTIN) 600 MG tablet, Take 2 tablets by mouth 3 times daily., Disp: 90 tablet, Rfl: 0 lidocaine-prilocaine (EMLA) cream, apply three times a day if needed for pain, Disp: , Rfl: 0 lisinopril (PRINIVIL, ZESTRIL) 10 mg tablet, Take 1 tablet by mouth Daily., Disp: , Rf l: metFORMIN (GLUCOPHAGE) 1000 MG tablet, Take 1,000 mg by mouth 2 times daily (with valery kfast & dinner)., Disp: , Rfl: methocarbamol (METHOCARBAMOL) 750 mg tablet, Take 1 tablet by mouth every 6 hours as n eeded for Muscle spasms., Disp: 30 tablet, Rfl: 0 metoprolol tartrate (LOPRESSOR) 50 mg tablet, Take 50 mg by mouth 2 times daily., Disp : , Rfl: Multiple Vitamins-Minerals (MULTIVITAMIN PO), Take by mouth., Disp: , Rfl: oxyCODONE (ROXICODONE) 5 mg tablet, Take 1 tablet by mouth every 8 hours as needed for Pain for up to 15 days., Disp: 45 tablet, Rfl: 0 ranitidine (ZANTAC) 150 mg tablet, Take 150 mg by mouth 2 times daily., Disp: , Rfl: No Known Allergies REVIEW OF SYSTEMS 12+ systems reviewed. Negative except as per HPI. PHYSICAL EXAM Vital Signs: BP 125/85 | Pulse 99 | Temp 37 C (98.6 F) (Oral) | Resp 16 | Ht 1.753 m (5' 9") | Wt (!) 141.1 kg (311 lb) | SpO2 93% | BMI 45.93 kg/m General Appearance: Alert, cooperative, no distress. Obese. Head: Normocephalic, without obvious abnormality, atraumatic. Lips, mucosa, and tongue normal; dentition normal; no thrush present. Eyes: PERRL, conjunctiva/corneas clear, EOM's intact. Throat: Oropharynx without exudates. Neck: Supple, symmetrical, trachea midline, no adenopathy; thyroid: no enlargement/tenderness/nodules; no carotid bruit or JVD Back: Symmetric, no curvature, ROM normal, no CVA tenderness Lungs: Clear to auscultation bilaterally, respirations unlabored Chest Wall: No tenderness or [...] REVIEW OF LABS: All labs were reviewed. Results for orders placed or performed during the hospital encounter of 06/17/19 Culture, Blood Result Value Ref Range RESULT NO GROWTH 6 DAYS RESULT Testing performed at [facility], [address] [place] [address] Culture, Blood Result Value Ref Range Special Requests LAC Special Requests Testing performed at [facility];[address] [place] [address] RESULT NO GROWTH 6 DAYS RESULT Testing performed at [facility], [address] [place] [address] Respiratory pathogen panel, NAAT Result Value Ref [...] the limit of detection for this test. Streptococcus pneumoniae Antigen Result Value Ref Range Specimen Source Urine Streptococcus pneumoniae Negative Negative Body Fluid Culture, Sterile Not indicated. Organism ID Not indicated. Please note (See Below) MRSA NAAT Result Value Ref Range SOURCE: NARES(NOSE) Result NEGATIVE MRSNEG Culture, Fungus Result Value Ref Range RESULT NO FUNGUS ISOLATED TO DATE RESULT Testing performed at [address] [address] Culture Virus Result Value Ref Range SOURCE: PLEURAL FLUID RIGHT CULTURE,VIRAL No virus isolated. Culture, Body Fluid Sterile Result Value Ref Range Gram Stain Result 1+ WBC'S SEEN RESULT NO GROWTH 4 DAYS RESULT Testing performed at [address] [address] Culture, Fungus Result Value Ref Range RESULT NO FUNGUS ISOLATED TO DATE RESULT Testing performed at [address] [address] Culture Virus Result Value Ref Range SOURCE: PLEURAL RIGHT CULTURE,VIRAL No virus isolated. CBC with Differential Result Value Ref Range [...] Lactate, Serum 2.0 0.4 - 2.0 mmol/L Basic Metabolic Panel Result Value Ref Range [...] Glucose, POC 99 65 - 99 mg/dL HIV 1 and 2 Ab, Reflex Result Value Ref Range HIV 1 and 2 Ab NON REACTIVE NR HIV P24 antigen Result Value Ref Range HIV 1 and 2 Ab NON REACTIVE NR POC Glucose Result Value Ref Range Glucose, POC 110 (H) 65 - 99 mg/dL POC Glucose Result Value Ref Range Glucose, POC 111 (H) 65 - 99 mg/dL POC Glucose Result Value Ref Range Glucose, POC 110 (H) 65 - 99 mg/dL Basic Metabolic Panel Result Value Ref Range Na 142 135 - 145 mmol/L K 4.4 3.5 - 4.9 mmol/L Cl 106 99 - 109 mmol/L CO2 30 23 - 32 mmol/L Anion Gap 10 5 - 20 mmol/L Glucose 107 (H) 65 - 99 mg/dL BUN 18 8 - 25 mg/dL Creatinine 1.01 0.70 - 1.30 mg/dL BUN/Creatinine Ratio 18 Calcium 9.5 8.5 - 10.5 mg/dL Estimated GFR >60 >60 mL/min/1.73m2 CBC with Differential Result Value Ref Range WBC 14.59 (H) 3.80 - 11.00 K/uL RBC 4.64 4.20 - 5.70 M/uL Hemoglobin 13.1 (L) 13.2 - 17.0 g/dL Hematocrit 41.7 39.0 - 50.0 % MCV 89.9 80.0 - 100.0 fl MCH 28.2 27.0 - 34.0 pg MCHC 31.4 (L) 32.0 - 35.5 g/dL RDW-SD 46.2 37 - 53 fl Platelet Count 399 150 - 400 K/uL MPV 10.8 fl Diff Type AUTOMATED % nRBC 0.0 0 /100WBC % Neutrophils 73.50 % IMMATURE GRANULOCYTE 0.80 % % Lymphocytes 12.30 % Monocyte % 9.10 % Eosinophils % 3.80 % Basophils % 0.50 % Neutrophils, Absolute 10.72 (H) 1.90 - 7.40 K/uL IMMATURE GRANS AB 0.12 (H) 0.00 - 0.07 K/uL Absolute Lymphocytes 1.80 1.00 - 3.90 K/uL Absolute Monocytes 1.33 (H) 0.00 - 0.80 K/uL Eosinophils, Absolute 0.55 (H) 0.00 - 0.50 K/uL Basophils, Absolute 0.07 0.00 - 0.10 K/uL Hemoglobin A1C Result Value Ref Range Hemoglobin A1c 7.3 (H) 4.0 - 6.0 % Estimated Average Glucose 163 (H) <154 mg/dL POC Glucose Result Value Ref Range Glucose, POC 105 (H) 65 - 99 mg/dL POC Glucose [...] Glucose Result Value Ref Range Glucose, POC 110 (H) 65 - 99 mg/dL POC Glucose [...] POC 132 (H) 65 - 99 mg/dL POC Glucose Result Value Ref Range Glucose, POC 146 (H) 65 - 99 mg/dL POC Glucose Result Value Ref Range Glucose, POC 129 (H) 65 - 99 mg/dL POC Glucose Result Value Ref Range Glucose, POC 108 (H) 65 - 99 mg/dL Basic Metabolic [...] 10.5 mg/dL Estimated GFR >60 >60 mL/min/1.73m2 *Note: Due to a large number of results and/or encounters for the requested time period, so me results have not been displayed. A complete set of results can be found in Results Review . No results displayed because visit has over 200 results. CrCl cannot be calculated (Patient's most recent lab result is older than the maximum 3 day s allowed.). MICROBIOLOGY Microbiology Results (Last 14 Days by Collected Date with Culture/Sensitivity) No results found for the last 336 hours. IMAGING No new images for review today. ASSESSMENT AND RECOMMENDATIONS The patient is a 48 y.o.-year-old male with the following problems: Visit Diagnoses and Associated Orders: Jose Alberto was seen today for follow-up. Diagnoses and all orders for this visit: Empyema of right pleural space (HCC) prison (current) use of antibiotics Controlled type 2 diabetes mellitus with diabetic polyneuropathy, without long-term current use of insulin (HCC) 1. Empyema of right pleural space Culture negative. Responding well to ceftriaxone. Continue current antibiotic regimen. 2. Persistent fever and leukocytosis, sec to #1, resolved. 3. Morbid obesity 4. Elevated liver enzymes, resolved 5. Long-term use of IV antibiotics. Monitoring toxicity with weekly labs, CBC, CMP. Side effects of medications, duration of therapy, prognosis and importance of adherence wer e discussed with the patient today. Follow up in 2 weeks. Ciro Lee MD, MPH Infectious Diseases 07/05/2019 document ed in this encounter Plan of Treatment Not on filedocumented as of this encounter Visit Diagnoses + + | Diagnosis | + + | Empyema of right pleural space (HCC) - Primary Empyema without mention of fistula | + + | prison (current) use of antibiotics | + + | Controlled type 2 diabetes mellitus with diabetic polyneuropathy, without long-term | | current use of insulin (HCC) | + + documented in this encounter
--- OUTSIDE RECORDS SUMMARY | ~2019-10-31 | XMS | Encounter Summary ---
Demographics + + + | Address | [address] | | | [place] [address] | + + + | Home Phone | | + + + | Preferred Language | Unknown | + + + | Marital Status | | + + + | Restorationism Affiliation | Unknown | + + + | Race | Unknown | + + + | Ethnic Group | Unknown | + + + Author + + + | Author | [facility] | | | and [place]ana | + + + | Organization | [facility] | | | and Angelana [...] Team Providers + +------+ + | Care Physical Therapist Center Manager Name | Role | Phone | + +------+ + | Edilberto Troy MD | PCP | | + +------+ + Encounter Details +--------+ + + + + | Date | Type | Department | Care Team | Description | +--------+ + + + + | 06/23/ | Orders Only | [facility] | Aaliyah Suarez | | | 2020 | | [facility] | [address] | | | | | CARE [address]LO[address] | | | | | [address] | [place] [address] | | | | | [place], [place] | [phone] | | | | | [address] | | | | | | [phone] | | | +--------+ + + + [...]
--- OUTSIDE RECORDS SUMMARY | ~2019-10-31 | XMS | Encounter Summary ---
Demographics + + + | Address | [address] | | | [place] [address] | + + + | Home Phone | | + + + | Preferred Language | Unknown | + + + | Marital Status | Single | + + + | Oriental Orthodox Affiliation | NON | + + + [...] Team Providers + +------+ + | Care Financial Advocate Name | Role | Phone | + [...] | | | | pain | | [place], [place] | | | | | herniated | | [address] | | | | | disk with [...] radiculopathy | | 2010 | Visit | [facility] | MD | (Primary Dx) | | | | and Healing [address] | | | | | | [address] [facility] | | | | | [facility], | | | | | | Building , | | | | | | Floor [place], [place] | | | | | | [address] | | | | | | [phone] | | | +--------+---------+ + + + [...] laminectomy I spent more than 20 minutes [id number] with the patient of which greater than [...]
--- OUTSIDE RECORDS SUMMARY | ~2019-10-31 | XMS | Clinical Summary ---
Demographics + + + | Address | [address] | | | [place] [address] | + + + | Home Phone | | + + + | Preferred Language | Unknown | + + + | Marital Status | Single | + + + | Advent Affiliation | NON | + + + [...] Team Providers + +------+ + | Care Mortgage Loan Officer Name | Role | Phone | + +------+ + | Nikolai Rowe | PCP | | + +------+ + Source Comments [facility] is fully live on both [facility] and [facility] [place] [facility] Allergies No Known Allergies Medications + [...] | BCBS | xxxxxxxxxxx | 06/29/19 | [phone] | [address] | PPO | | SHIELD | OUT OF | x | 11-Pre | 8 | [address] | | | | STATE | | sent | | [place], | | | | | | | | [place] | | | | | | | | [phone] | | + +--------+ +--------+ + +------+ [...] | Self | [birth year] | [address] | | | al/Fam | | 1971 | [phone] | [place] [address] | | | joaquin | | | 8 (Home) | | + +--------+ +--------+ + +
--- OUTSIDE RECORDS SUMMARY | ~2019-10-31 | XMS | Encounter Summary ---
Demographics + + + | Address | [address] | | | [place] [address] | + + + | Home Phone | | + + + | Preferred Language | Unknown | + + + | Marital Status | | + + + | Worship Affiliation | Unknown | + + + | Race | Unknown | + + + | Ethnic Group | Unknown | + + + Author + + + | Author | [facility] | | | and Angelana | + + + | Organization | [facility] | | | and [...] Team Providers + +------+ + | Care Gas Appliance Installer Name | Role | Phone | + +------+ + | Mamadou Hammer DO | PCP | | + +------+ + Encounter Details +--------+ + + + + | Date | Type | Department | Care Team | Description | +--------+ + + + + | 08/28/ | Abstract | [facility] | Ruddy Luo | | | 2014 | | PHYSIATRY [address] | | | | [address] [place] [address] | | | | | [place] | [address] | | | | | [address] | | | | | | [phone] | | | +--------+ + + + [...]
--- OUTSIDE RECORDS SUMMARY | ~2019-10-31 | XMS | Encounter Summary ---
Demographics + + + | Address | [address] | | | [place] [address] | + + + | Home Phone | | + + + | Preferred Language | Unknown | + + + | Marital Status | Single | + + + | Muslim Affiliation | NON | + + + | Race | White | + + + | Ethnic Group | Not or | + + + Author + + + | Author | [facility] | + + + | Organization | [facility] | + + + | Address | Unknown | + + + | Phone | Unavailable | + + + Support + + +---------+ + | Name | Relationship | Address | Phone | + + +---------+ + | Dionne Frances | ECON | Unknown | | + + +---------+ + Care Team Providers + +------+ + | Care Millwright Supervisor Name | Role | Phone | + +------+ + | Nikolai Rowe | PCP | | + +------+ + Encounter Details +--------+ + + + + | Date | Type | Department | Care Team | Description | +--------+ + + + + | 01/09/ | Hospital | Registration [id number] | [address], | | | 2005 | Activity | [address] | | | | | | [address] Mailcode: [address] | | | | | | [place], [place] | | | | | | [address] | | | | | | [phone] | | | +--------+ + + + [...] + + | BASIC METABOLIC SET | Urgent | 01/09/2006 | | Results for this | | (NA, K, CL, TCO2, | | 6:35 AM | | procedure are in the | | BUN, CR, GLU, CA) | | PDT | | results section. | + +--------+ + + + documented in this encounter Results BASIC METABOLIC SET (01/09/2006 6:35 AM PDT) + +-------+ + + + | Component | Value | Ref Range | Performed | Pathologist | | | | | At | Signature | + +-------+ + + + | GLUCOSE, | 95 | 65 - 110 mg/dL | [facility] | | | PLASMA | | | DEPARTMENT | | | (LAB) | | | OF | | | | | | PATHOLOGY | | + +-------+ + + + | BUN, PLASMA | 15 | 6 - 20 mg/dL | [facility] | | | (LAB) | | | DEPARTMENT | | | | | | OF | | | | | | PATHOLOGY | | + +-------+ + + + | CREATININE | 0.8 | 0.7 - 1.3 mg/dL | [facility] | | | PLASMA | | | DEPARTMENT | | | (LAB) | | | OF | | | | | | PATHOLOGY | | + +-------+ + + + | SODIUM, | 139 | 136 - 145 | [facility] | | | PLASMA | | mmol/L | DEPARTMENT | | | (LAB) | | | OF | | | | | | PATHOLOGY | | + +-------+ + + + | POTASSIUM, | 3.6 | 3.5 - 5.1 | [facility] | | | PLASMA | | mmol/L | DEPARTMENT | | | (LAB) | | | OF | | | | | | PATHOLOGY | | + +-------+ + + + | CHLORIDE, | 105 | 98 - 107 mmol/L | [facility] | | | PLASMA | | | DEPARTMENT | | | (LAB) | | | OF | | | | | | PATHOLOGY | | + +-------+ + + + | TOTAL CO2, | 25 | 23 - 29 mmol/L | [facility] | | | PLASMA | | | DEPARTMENT | | | (LAB) | | | OF | | | | | | PATHOLOGY | | + +-------+ + + + | CALCIUM, | 9.0 | 8.5 - 10.5 | [facility] | [...] | + + + + + | [facility] DEPARTMENT OF | [address] | [place] [address] | | | PATHOLOGY | [address] | | | + + + + + | [facility] DEPARTMENT OF | [address] | [place] [address] | | | PATHOLOGY | [address] | | | + + + + + documented in this encounter Visit Diagnoses Not on filedocumented in this encounter"
--- OUTSIDE RECORDS SUMMARY | ~2019-10-31 | XMS | Encounter Summary ---
Demographics + + + | Address | [address] | | | [place] [address] | + + + | Home Phone | | + + + | Preferred Language | Unknown | + + + | Marital Status | | + + + | Jain Affiliation | Unknown | + + + | Race | Unknown | + + + | Ethnic Group | Unknown | + + + Author + + + | Author | [facility] | | | and [place] | + + + | Organization | [facility] | | | and Angelana [...] Team Providers + +------+ + | Care Superior Court Clerk Name | Role | Phone | [...] | | | | [address]RE [address] | [place] [address] | | | | | [place] [address] | | | | | | [phone] | | | +--------+ + + + [...] this encounter Results CT Chest w Contrast (08/26/2019 12:05 [...]
--- OUTSIDE RECORDS SUMMARY | ~2019-10-31 | XMS | Encounter Summary ---
Demographics + + + | Address | [address] | | | [place] [address] | + + + | Home Phone | | + + + | Preferred Language | Unknown | + + + | Marital Status | | + + + | Anglican Affiliation | Unknown | + + + | Race | Unknown | + + + | Ethnic Group | Unknown | + + + Author + + + | Author | [facility] | | | and [place] | + + + | Organization | [facility] | | [...] Team Providers + +------+ + | Care Charging Operator Name | Role | Phone | [...] | | | | | | | (FORMERLY [facility]) | | | +--------+--------+ + + + + Encounter Details +--------+ + + + + | Date | Type | Department | Care Team | Description | +--------+ + + + + | 06/18/ | Anesthesia | [facility] | Janes Cameron MD | | | 2020 | [facility] | [address] | | | | | OPER[address] | [place] [address] | | | | | [address] | [phone] | | | | | [place], [place] | | | | | | [address] | | | | | | [phone] | | | +--------+ + + + + Anesthesia Record + + + + + | Procedure Name | Responsible | Anesthesia Start | Anesthesia Stop Time | | | Anesthesiologist | Time | | + + + + + | VIDEO ASSISTED | Janes Cameron MD | 06/19/19 0847 | 06/19/19 1211 | | THORACOSCOPY W/ | | | | | DECORTICATION (Right | | | | | Chest) | | | | + + + + + +----+---+ + + | Da | T | Event | Comment | | te | i | | | | | m | | | | | e | | | +----+---+ + + | 03 | 0 | | | | /2 | 8 | | | | 2/ | 2 | | | | 20 | 8 | | | | 20 | | | | +----+---+ + + | | 0 | An Start | Reassessment prior to anesthesia induction/procedure. | | | 8 | | | | | 4 | | | | | 7 | | | +----+---+ + + | | 0 | An | | | | 8 | Induction | | | | 5 | | | | | 9 | | | +----+---+ + + | | 0 | An | With hepa filters in circuit | | | 9 | Intubation | | | | 0 | | | | | 1 | | | +----+---+ + + | | 0 | Anesthesia | | | | 9 | Ready | | | | 2 | | | | | 2 | | | +----+---+ + + | | 0 | An one lung | | | | 9 | vent | | | | 2 | | | | | 2 | | | +----+---+ + + | | 0 | Quick Note | incision | | | 9 | | | | | 4 | | | | | 6 | | | +----+---+ + + | | 0 | First | | | | 9 | Inc/Proc St | | | | 4 | | | | | 6 | | | +----+---+ + + | | 1 | An Two-Lung | | | | 1 | Vent | | | | 1 | | | | | 1 | | | +----+---+ + + | | 1 | Quick Note | ETT exchanged to regular ET #8.0 without problem. | | | 1 | | | | | 5 | | | | | 1 | | | +----+---+ + + | | 1 | an stop | | | | 1 | data | | | | 5 | | | | | 7 | | | +----+---+ + + | | 1 | An Stop | Patient handed off to recovery nurse. | | | 1 | | | | | 1 | | | +----+---+ + + +------+ | Meds | +------+ + + + | Name | Total | + + + | midazolam 2 mg/mL | 2 mg | + + + | fentaNYL | 350 mcg | + + + | lidocaine 2% | 50 mg | + + + | propofol | 200 mg | + + + | succinylcholine | 200 mg | + + + | rocuronium | 50 mg | + + + | ceFAZolin in dextrose IVPB 2 | 2 g | | g/100 mL | | + + + | HYDROmorphone | 2 mg | + + + | vecuronium | 10 mg | + + + | propofol infusion | 180.05 mg | + + + | PLASMALYTE | 1,000 mL | + + + + + | Name | + + | N2O Flow Rate (L/Min) | + + | O2 Flow Rate (L/Min) | + + | Insp O2 | + + | Exp N2O | + + | Exp ISO | + + | Air Flow Rate (L/Min) | + + + + | No blood administrations on file. | + + +--------+ + + + | Type | Details | Placement | Removal | +--------+ + + + | PICC | 06/18/19; 1817; Billy Holland; yes; | 06/18/191817 by Yuly | | | Single | placement verified by x-ray; | Edyta Ascencio | | | Lumen | present on admission, placed at | JEREMY Mackenzie | | | | [place] | | | +--------+ + + + | Wound | 06/19/19; 1130; Incision; Right; | 06/19/19 1130 by | | | | chest | Galen Sneed RN | | +--------+ + + + | Periph | 06/17/19; 223; Right; | 06/17/19 2231 by | 06/22/19 1209 by | | eral | Antecubital; [id number] | Krupa Mclean | Nicole Dodd RN | | IV | catheter system; 20 gauge (was | JEREMY Sneed | | | | not charted by melvin LUNA); no | | | | | longer indicated, catheter/device | | | | | intact; 06/22/19; 1209 | | | +--------+ + + + | Airway | Placement Date: 06/19/19; Airway | 06/19/19 0000 by | 06/20/19 0810 by | | | Type: endotracheal; Size: 8; | Tobias Mclean, CONSTRUCTION FRAMER | Shannan Lucas RN | | | Removal: per protocol, removed by | | | | | RT; Removal Date: 06/20/19; | | | | | Removal Time: 0810 | | | +--------+ + + + | Arteri | 06/19/19; 0857; Alcohol; No; | 06/19/19 0857 by Janes | 06/20/19 0930 by | | al | Right; radial artery; 20 gauge; | Chet Cameron MD | Shannan Lucas RN | | Line | continuous blood pressure | | | | | monitoring; no longer indicated, | | | | | catheter intact, removed per | | | | | policy; 06/20/19; 929 | | | +--------+ + + + | Airway | Placement Date: 06/19/19; | 06/19/19 09 by Janes | 06/19/19 1200 by | | | Placement Time: 0901; Mask | Chet Cameron MD | Tata Novak RN | | | Ventilation: EZ; Airway Grade: 3; | | | | | Successful Technique: Mac; | | | | | Laryngoscope Blade Size: 4; | | | | | Airway Type: dual lumen; Size: | | | | | 39; Position: Right; Airway Tube | | | | | Secured At: 28; Tube Reference | | | | | Point: lip; Trauma: none; Other | | | | | Equipment: bougie; Placement | | | | | Check: bilateral chest rise, | | | | | fiberscope; Removal Date: | | | | | 06/19/19 (did not arrive to ICU | | | | | with per offgoing nurse); Removal | | | | | Time: 1200 | | | +--------+ + + + | Urethr | 06/19/19; 0912; indicated due to | 06/19/19 0912 by | 06/20/19 0930 by | | al | specific surgical procedure; All | Galen Sneed RN | Shannan Lcuas RN | | Cathet | elements; All elements; Bag | | | | er | positioned below the bladder, | | | | | System checked to verify closed | | | | | connections & no dependent loops, | | | | | obstructions/kinks; indwelling | | | | | double lumen catheter; latex; 16; | | | | | None; 1; 10; 10; comfort | | | | | positioning; drainage bag to | | | | | dependent drainage; urethral | | | | | catheter removed, tubing intact; | | | | | 06/20/19; 0930 | | | +--------+ + + + | Chest | 06/19/19; 1108; 1; right; | 06/19/19 1108 by | 06/21/19 1202 by | | Tube | lateral; pleural; 32Fr; other | Galen Sneed RN | Niocle Dodd RN | | | (see comments) (removed by | | | | | Cardiothoracic team); 06/21/19; | | | | | 1202 | | | +--------+ + + + documented in this encounter Social History + +-------+ +--------+ + | [...] + + documented as of this encounter OR Notes Anesthesia Postprocedure Evaluation - Janes Cameron MD - 06/19/2019 12:12 PM PDT ANESTHESIA POSTANESTHESIA EVALUATION Jose Alberto Rogers Morocho 48 y.o. male 1970 [id number] Procedure(s) VIDEO ASSISTED THORACOSCOPY W/ DECORTICATION (Right Chest) THORACOTOMY-DECORTICATION (Right ) Cooperates? sedated Mental Status sedated Respiratory Intubated and on vent Cardiovascular Satisfactory Temperature 36.8 Pain Unable to evaluate N/V Control no Hydration Satisfactory - No signs of dehydration Adverse Events ADVERSE EVENTS: No adverse events Vitals Value Taken Time Temp Pulse 100 06/19/2019 12:09 PM Resp 11 06/19/2019 12:09 PM BP 125/59 06/19/2019 12:02 PM Arterial Line BP 100/85 06/19/2019 12:09 PM Arterial Line BP 2 SpO2 93 % 06/19/2019 12:09 PM Vitals shown include unvalidated device data. Electronically signed by Rakesh Valenzuela MD 06/19/2019 12:12 PM [facility] 12:1 4 PM PDTAnesthesia Preprocedure Evaluation - Janes Cameron MD - 06/19/2019 8:25 AM PDTFormatt ing of this note might be different from the original. ANESTHESIA PREANESTHESIA EVALUATION Jose Alberto Morocho 48 y.o. male 1970 [id number] Procedure(s): VIDEO ASSISTED THORACOSCOPY W/ DECORTICATION (Right Chest) Medical,anesthesia, drug, allergy histories reviewed, NPO status verified. (-) perioperative beta-rosmery/statin not given/taken, Review of Systems / Med History Anesthesia History No anesthesia complications except where noted below. Family Anesthesia History Family Anesthesia Negative except where noted below. Cardiovascular Exercise tolerance >4 METS (+) hypertension . Pulmonary Right pleural effusion. . (+) shortness of breath, pneumonia.(+) sleep apnea. Gastrointestinal/Hepatic Negative except where noted below. Renal Negative except where noted below. Endocrine (+) obesity: (+) Diabetes: Cancer Negative except where noted below. Neuromuscular Negative except where noted below. Psychology Negative except where noted below. Physical Exam Airway MP III, TM >3 FB, Mouth opening >2 FB. Neck: full ROM, extends >30 degrees. Jaw protru carmelita normal. Facial hair present: Yes Dental tougue ring, pt states not able to remove it. CV Rhythm regular. Rate normal. Pulm (+) decreased breath sounds. Neuro grossly normal. Anesthesia Plan ASA: 3 Type: General. Induction: Inhalational and intravenous. Potential problems: Difficult airway, ongoing infection. Monitors: Standard ASA monitors. Arterial line to aid in hemodynamic monitoring. Postop Pain Management: Consent statement: Anesthetic plan, alternatives, risks and benefits discussed with patient. drug reaction, he art problems, ICU placement, perioperative CV events, post-op intubation, respiratory events , voice injury Consenting person understands and agrees to proceed. Discussed plan with attending. Electronically Signed by: Rakesh Valenzuela MD [facility] date/time: 06/19/2019 8:25 AM documented in this encount er Miscellaneous Notes Anesthesia Post-op Handoff - Janes Cameron MD - 06/19/2019 12:11 PM PDTFormatting of this not e might be different from the original. ANESTHESIA HANDOFF NOTE Jose Alberto Morocho 48 y.o. male 1970 [id number] VIDEO ASSISTED THORACOSCOPY W/ DECORTICATION (Right Chest) THORACOTOMY-DECORTICATION (Right ) HANDOFF NOTE Handoff Protocol Used: post-procedure handoff checklist completed The following were completed during the transfer of care: 1. Identification of patient 2. Identification of responsible practitioner (primary service) 3. Discussion of pertinent medical history 4. Discussion of the surgical/procedure course (procedure, reason for surgery, procedure pe rformed) 5. Intraoperative anesthetic management and issues/concerns 6. Expectations/plans for the early post-procedure period 7. Opportunity for questions and acknowledgement of understanding of report from receiving team Patient Location: ICU Condition: sedated Multimodal analgesia: multimodal analgesia not used between 6 hours prior to anesthesia sta rt to PACU discharge Multimodal analgesia not used reason: A medical reason exists for NOT using multimodal anal gesia. Two or more SHEILA mitigation strategies used: perioperative obstructive sleep apnea intervent ions applied pt was transported to ICU with stable vitals, report given to the ICU team. The significant anesthesia concerns and VS in Epic were reviewed with the receiving team. Rakesh Valenzuela MD 06/19/2019 12:11 PM [facility] 12:1 2 PM PDTdocumented in this encounter Plan of Treatment Not on filedocumented as of this encounter Visit Diagnoses Not on filedocumented in this encounter Administered Medications + +---------+ +------+------+------+ | Medication Order | MAR | Action | Dose | Rate | Site | | | Action | Date | | | | + +---------+ +------+------+------+ | balanced electrolytes in water | New Bag | 06/19/19 | | | | | (PLASMALYTE-148/NORMOSOL-R) | | 20 8:47 | | | | | infusion Intravenous, CONTINUOUS | | AM PDT | | | | | PRN, Starting 06/19/19 at | | | | | | | 0847, Anesthesia Intra-op | | | | | | + +---------+ +------+------+------+ +---+---+ | | | +---+---+ + +-------+ +-----+---+---+ | ceFAZolin in dextrose (ANCEF) | Given | 06/19/19 | 2 g | | | | IVPB Intravenous, Administer | | 20 9:11 | | | | | over 30 Minutes, PRN, Starting | | AM PDT | | | | | [place] 06/19/19 at 0911, Anesthesia | | | | | | | Intra-op | | | | | | + +-------+ +-----+---+---+ +---+---+ | | | +---+---+ + +-------+ +---------+---+---+ | fentaNYL (PF) injection | Given | 06/19/19 | 100 mcg | | | | Intravenous, PRN, Starting Sun | | 20 10:21 | | | | | 06/19/19 at 0946, Anesthesia | | AM PDT | | | | | Intra-op | | | | | | + +-------+ +---------+---+---+ +-------+ +---------+---+---+ | Given | 06/19/19 | 100 mcg | | | | | 20 9:46 | | | | | | AM PDT | | | | +-------+ +---------+---+---+ | Given | 06/19/19 | 150 mcg | | | | | 20 8:59 | | | | | | AM PDT | | | | +-------+ +---------+---+---+ +---+---+ | | | +---+---+ + +-------+ +------+---+---+ | HYDROmorphone (DILAUDID) 2 | Given | 06/19/19 | 1 mg | | | | mg/mL injection Intravenous, | | 20 10:03 | | | | | PRN, Starting 06/19/19 at | | AM PDT | | | | | 0957, Anesthesia Intra-op | | | | | | + +-------+ +------+---+---+ +-------+ +------+---+---+ | Given | 06/19/19 | 1 mg | | | | | 20 9:57 | | | | | | AM PDT | | | | +-------+ +------+---+---+ +---+---+ | | | +---+---+ + +-------+ +-------+---+---+ | lidocaine (PF) 2% injection | Given | 06/19/19 | 50 mg | | | | Intravenous, PRN, Starting Sun | | 20 8:59 | | | | | 06/19/19 at 0859, Anesthesia | | AM PDT | | | | | Intra-op | | | | | | + +-------+ +-------+---+---+ +---+---+ | | | +---+---+ + +-------+ +------+---+---+ | midazolam (VERSED) 1 mg/mL | Given | 06/19/19 | 2 mg | | | | injection Intravenous, PRN, | | 20 8:46 | | | | | Starting 06/19/19 at 0846, | | AM PDT | | | | | Anesthesia Intra-op | | | | | | + +-------+ +------+---+---+ +---+---+ | | | +---+---+ + +-------+ +--------+---+---+ | propofol (DIPRIVAN) injection | Given | 06/19/19 | 200 mg | | | | Intravenous, PRN, Starting Sun | | 20 8:59 | | | | | 06/19/19 at 0859, Anesthesia | | AM PDT | | | | | Intra-op | | | | | | + +-------+ +--------+---+---+ +---+---+ | | | +---+---+ + +---------+ + +-------+---+ | propofol infusion (DIPRIVAN) 10 | New Bag | 06/19/19 | 50 | 41.6 | | | mg/mL infusion Intravenous, | | 20 11:45 | mcg/kg/m | mL/hr | | | CONTINUOUS PRN, Starting Sun | | AM PDT | in | | | | 06/19/19 at 1145, Anesthesia | | | | | | | Intra-op | | | | | | + +---------+ + +-------+---+ +---+---+ | | | +---+---+ + +-------+ +-------+---+---+ | rocuronium (ZEMURON) injection | Given | 06/19/19 | 40 mg | | | | Intravenous, PRN, Starting Sun | | 20 9:35 | | | | | 06/19/19 at 0859, Anesthesia | | AM PDT | | | | | Intra-op | | | | | | + +-------+ +-------+---+---+ +-------+ +-------+---+---+ | Given | 06/19/19 | 10 mg | | | | | 20 8:59 | | | | | | AM PDT | | | | +-------+ +-------+---+---+ +---+---+ | | | +---+---+ + +-------+ +--------+---+---+ | succinylcholine (ANECTINE) | Given | 06/19/19 | 200 mg | | | | injection Intravenous, PRN, | | 20 8:59 | | | | | Starting 06/19/19 at 0859, | | AM PDT | | | | | Anesthesia Intra-op | | | | | | + +-------+ +--------+---+---+ +---+---+ | | | +---+---+ + +-------+ +------+---+---+ | vecuronium (NORCURON) injection | Given | 06/19/19 | 5 mg | | | | Intravenous, PRN, Starting Sun | | 20 11:49 | | | | | 06/19/19 at 1042, Anesthesia | | AM PDT | | | | | Intra-op | | | | | | + +-------+ +------+---+---+ +-------+ +------+---+---+ | Given | 06/19/19 | 5 mg | | | | | 20 10:42 | | | | | | AM [...]
--- OUTSIDE RECORDS SUMMARY | ~2019-10-31 | XMS | Encounter Summary ---
Demographics + + + | Address | [address] | | | [place] [address] | + + + | Home Phone [...] Team Providers + +------+ + | Care Clinical Safety Specialist Name | Role | Phone | [...] [id number] | | | | | | [place], [place] | | | | | | [address] | | | | | | [phone] | | | +--------+ + + + [...] | + + + + + | [facility] DEPARTMENT OF | [address] | [place] [address] | | | PATHOLOGY | [address] | | | + + + + + | [facility] DEPARTMENT OF | [address] | [place] [address] | | | PATHOLOGY | [address] | | | + + + + + documented in this encounter Visit Diagnoses Not on filedocumented in this encounter"
--- OUTSIDE RECORDS SUMMARY | ~2019-10-31 | XMS | Encounter Summary ---
Demographics + + + | Address | [address] | | | [place] [address] | + + + | Home Phone | | + + + | Preferred Language | Unknown | + + + | Marital Status | Single | + + + | Alevism Affiliation | NON | + + + | Race | White | + + + | Ethnic Group | Not or | + + + Author + + + | Author | [facility] | + + + | Organization | [facility] | + + + | Address | Unknown | + + + | Phone | Unavailable | + + + Support + + +---------+ + | Name | Relationship | Address | Phone | + + +---------+ + | Dionne Frances | ECON | Unknown | | + + +---------+ + Care Team Providers + +------+ + | Care Gas Blender Name | Role | Phone | + [...] Mailcode:[id number] | | | | | | [address] | | | | | | [place], [place] | | | | | | [address] | | | | | | [phone] | | | +--------+ + + + [...]
--- OUTSIDE RECORDS SUMMARY | ~2019-10-31 | XMS | Encounter Summary ---
Demographics + + + | Address | [address] | | | [place] [address] | + + + | Home Phone | | + + + | Preferred Language | Unknown | + + + | Marital Status | Single | + + + | Episcopal Affiliation | NON | + + + | Race | White | + + + | Ethnic Group | Not or | + + + Author + + + | Author | [facility] | + + + | Organization | [facility] | + + + | Address | Unknown | + + + | Phone | Unavailable | + + + Support + + +---------+ + | Name | Relationship | Address | Phone | + + +---------+ + | Dionne Frances | ECON | Unknown | | + + +---------+ + Care Team Providers + +------+ + | Care Chief Knowledge Officer Name | Role | Phone | [...] | | | | | Procedures | [place] | [place] | | | | | CONSULT TO | [address] | [address] | | | | | [place] | | | | | | | LAMINOTOMY,L | | | | | | | UMBAR DISK,1 | | | | | | | [place]TRSP [place] | | | | | | | [...] Dx) | | | | [facility] | | | | | | [place], [place] | | | | | | [address] | | | | | | [phone] | | | +--------+---------+ + + + [...] L5 Recommendations: Will obtain emg's in the [facility] to better localize level. Will follow up [...]
--- OUTSIDE RECORDS SUMMARY | ~2019-10-31 | XMS | Encounter Summary ---
Demographics + + + | Address | [address] | | | [place] [address] | + + + | Home Phone | | + + + | Preferred Language | Unknown | + + + | Marital Status | | + + + | Baptism Affiliation | Unknown | + + + | Race | Unknown | + + + | Ethnic Group | Unknown | + + + Author + + + | Author | [facility] | | | and Angelana | + + + | Organization | [facility] | | | and Angelana [...] Team Providers + +------+ + | Care Textile Science Technician Name | Role | Phone | + +------+ + | Edilberto Troy MD | PCP | | + +------+ + Reason for Visit + + + | Reason | Comments | + + + | CPAP Follow Up | | + + + Encounter Details +--------+---------+ + + + | Date | Type | Department | Care Team | Description | +--------+---------+ + + + | 03/17/ | Office | [facility] [place] [facility] | Nata Hastings MD | SHEILA (obstructive | | 2017 | Visit | SLEEP DISORDER [address] | [address] | sleep apnea) | | | | [address] | [place] | (Primary Dx); | | | | [place] [id number] | [id number] | Nocturnal hypoxemia | | | | [phone] | | | +--------+---------+ + + + [...] + + + | Blood Pressure | 140/90 | 03/17/2018 10:33 AM | | | | | PST | | + + + + + | Pulse | 81 | 03/17/2018 10:33 AM | | | | | PST | | + + + + + | Temperature | - | - | | + + + + + | Respiratory Rate | 18 | 03/17/2018 10:33 AM | | | | | PST | | + + + + + | Oxygen Saturation | 98% | 03/17/2018 10:33 AM | | | | | PST | | + + + + + | Inhaled Oxygen | - | - | | | Concentration | | | | + + + + + | Weight | 152.6 kg (336 lb 6.8 | 03/17/2018 10:33 AM | | | | oz) | PST | | + + + + + | Height | - | - | | + + + + + | Body Mass Index | 49.68 | 12/24/2017 9:37 AM | | | | | PDT | | + + + + + documented in this encounter Progress Notes Nata Hastings MD - 03/17/2018 10:30 AM PST The patient comes in to discuss sleep study results. My interpretation of the patient's s leep study, which I have reviewed with the patient, is as follows: Positive Airway Pressure Titration Report on Jose Alberto Morocho performed on February 15, 2018. Clinical Information: Jose Alberto Morocho is a 47 y.o. male who has a history of morbid ob esity, lumbar degenerative disc disease, hypertension,gout, COPD, and obstructive sleep ap raquel presenting for reevaluation and establishment of care for obstructive sleep apnea.re viewed his outside records. He had a split-night polysomnography at [facility] in [place], [place] on September 27, 2013. He had presented with snoring, witnessed apnea, rest less and unrefreshing Sleep, daytime sleepiness and nocturia. Sleep efficiency was 87.2%. 14.2% of stage R sleep. AHI was severely elevated at 78.2. Supine AHI was 176.5. Sleep apnea was obstructive in nature. ETCO2 or TCO2 were not me asured. Patient spent 70% of total sleep time in supine position. Teo oxygen saturatio n was 56%. CPAP was titrated and was switched to bilevel because of high pressures need fo r CPAP. Patient was on Bilevel at 20/19 cm H2O for only 8 minutes of sleep time and with "ongoing significant respiratory events". It was concluded that there was" incomplete res olution" of his sleep-related breathing disorder at this pressure. autobilevel was recommend ed: IPAP max 25, min EPAP 15, maximum pressure support at 6, min ps at 4. Oxygen was not added. Last download showed that he is on auto bilevel: Max IPAP 22, min EPAP 14, maximum pressure support 6, minimum pressure support 4. Her a ge IPAP has been 19 for 90% of time. Maximum titrated EPAP has been 17. Average EPAP, 90 % of time has been 14.2. AHI is 0.6. He has used his machine religiously and for ave rage daily usage of 9 hours. he was [...] he means that he would have fewer awakenin gs at night and overall the quality of sleep was better. overnight oximetry which was done on bilevel and room air on December 24, 2017 showed me an SPO2 was 91.2%, teo SPO2 at 81%, and he had spent 38.4 minutes at or below 88%, and 7 9.2 minutes at or below 89%. BMI: 51 Technical Information: Please see technical data which is attached. Definitions (The AASM Manual for the Scoring of Sleep and Associated Events, Version 2.4; 2 017): Apnea: There is a drop in the peak signal excursion by 90% or greater of pre-mandy nt baseline using an oronasal thermal sensor (diagnostic study), PAP device flow (titration study), or an alternative apnea sensor (diagnostic study); the duration of the 90% or greate r drop in sensor signal is 10 seconds or longer. Obstructive Apnea: Event associated with continued or increased inspi ratory effort throughout the entire period of absent airflow. Central Apnea: Event associated with absent inspiratory effort throug hout the entire period of absent airflow. Mixed Apnea: Event associated with absent inspiratory effort in the i nitial portion of the event followed by resumption of inspiratory effort during the second p ortion of the event. Hypopnea: The peak signal excursions drop by 30% or more of pre-event baseline u sing nasal pressure (diagnostic study), PAP device flow (titration study), or an alternative hypopnea sensor (diagnostic study). The duration of the 30% or greater drop in signal excur carmelita must last for 10 seconds or longer. The event is associated with a 3% or greater oxygen desaturation from pre-event baseline or the event is associated with an arousal. Respiratory Event Related Arousal: A sequence of breaths lasting 10 seconds or l onger characterized by increasing respiratory effort or by flattening of the inspiratory por tion of the nasal pressure (diagnostic study) or PAP device flow (titration study) waveform leading to arousal from sleep when the sequence of breaths does not meet criteria for an leather cutter ea or hypopnea. RELEVANT MEDICATIONS: Duloxetine, gabapentin, and nortriptyline. SUBJECTIVE: The patient rated sleep quality during sleep study as usual. SLEEP ARCHITECTURE AND EEG: Total sleep time was 437 minutes. Sleep efficiency was 89.5.% and was normal.. Sleep onset latency was 10 minutes and was normal. REM latency was 301 minutes and was increased. Percent of time in stage N3 was 14.8 % and was normal. Percent of time in stage REM was 7.2 % and was decreased.. Arousal Index for this titration study was 30.9./hour and was increased, with 0 respirat ory arousals/hour and 9.5 spontaneous arousals/hour. RESPIRATORY: During PAP trial, he was first started on bilevel-S at 16/8 cm H2O, and patient "felt th at the pressure were adequate but the duration of inhalation was short". The ski technician the n tried Bilevel-ST which didn't improve this problem. So the titration was started with bile trisha AVAPS with the following setting: min EPAP 8, maximum EPAP 15, minimum pressure support 6, maximum pressure support 17, tidal volume 560, Auto rate, maximum pressure 25, AVAPS rat ed 2. This was more tolerable for the patient. Though obstructive sleep apnea was controll ed, patient continued to have hypoxemia. TCO2 was ranging between 50 and 51 mmHg. Min EPAP was increased to 11 cm H2O and TV was increased to 600, did not improve hypoxemia, suppleme ntal oxygen was bled in, starting at 1 L/m. It was gradually increased to 4 L/m. hypoxemia especially worsened during stage R sleep when the supplemental oxygen was increased to 4 L/ m. TCO2 remained at 47-48 mmHg |for the remainder of study Medium airfit P10 mask without chin strap was found to be adequate. Respiratory disturbance index (RDI) was 0, consisting of total 0 hypopneas, 0 obstructi ve apneas, 0 mixed apneas, and 0 central apneas and 0 RERAs. AHI was 0. Patient spent 13.8% of total sleep time in supine position. Mean SpO2 was 89 %, teo SpO2 was 80 %, and amount of total sleep time spent below SpO2 of 88% was 116.1 minutes %. 3% Oxygen Desaturation Index (MARILYN) was 18.9. and waselevated. Ambrosio-Jacobson breathing was not observed. LIMB MOVEMENTS: Total sleep periodic limb movement index was 75 and was increased. These limb movements were not significantly associated with respiratory event related ar ousals. EKG: Normal sinus rhythm was noted with [...] 2. Clinical Correlation for excessive leg movements. Today, I discussed the above results in detail with patient. I discussed the machines lynn t were during his sleep study and their difference. He agrees that he does not have any di fficulty tolerating the pressure off his bilevel machine at the current setting. I recommen ded him to continue to use his machine and we will add 4 l/m bleed in oxygen. He verbalize d understanding and agreed. I also discussed that we will check his EtCO2 In next visit. Again, encouraged healthy eating habits. Vitals: 03/17/18 1033 BP: 140/90 Pulse: 81 Resp: 18 PainSc: 7 PainLoc: Back Plan: - Bilevel-auto, Respironics: Max IPAP 22, min EPAP 14, maximum pressure support 6, minimu m pressure support 4, with 4 l/m bleed-in oxygen. [facility] - ETCO2 in next visit. - RTC in 3 months. I spent 15 minutes face to face with the patient, with over 50% spent in counseling and/or coordination of care regarding sleep related breathing disorders. documented in this enco unter Plan of Treatment Not on filedocumented as of this encounter Visit Diagnoses + + | Diagnosis | + + | SHEILA (obstructive sleep apnea) - Primary Obstructive sleep apnea (adult) (pediatric) | + + | Nocturnal hypoxemia Hypoxemia | + + documented in this encounter
--- OUTSIDE RECORDS SUMMARY | ~2019-10-31 | XMS | Encounter Summary ---
Demographics + + + | Address | [address] | | | [place] [address] | + + + | Home Phone | | + + + | Preferred Language | Unknown | + + + | Marital Status | | + + + | Yazdanism Affiliation | Unknown | + + + | Race | Unknown | + + + | Ethnic Group | Unknown | + + + Author + + + | Author | [facility] | | | and Angelana | + + + | Organization | [facility] | | | and Angelana [...] Team Providers + +------+ + | Care Parts Runner Name | Role | Phone | + +------+ + | Edilberto Troy MD | PCP | | + +------+ + Reason for Visit +---------+ + | Reason | Comments | +---------+ + | Post Op | VATS | +---------+ + Encounter Details +--------+---------+ + + + | Date | Type | Department | Care Team | Description | +--------+---------+ + + + | 07/04/ | Office | [facility] | JayCarlos, | Empyema of lung | | 2020 | Visit | CARDIOTHORACIC | [place] [address] | ([facility]) (Primary Dx) | | | | SURGERY [address] | [address], | | | | | [address] | [place] [address] | | | | | [place] | [phone] | | | | | [address] | | | | | | [phone] | | | +--------+---------+ + + + [...] + + + | Blood Pressure | 130/88 | 07/05/2019 9:09 AM | | | | | PDT | | + + + + + | Pulse | 104 | 07/05/2019 9:09 AM | | | | | PDT | | + + + + + | Temperature | 36 C (96.8 F) | 07/05/2019 9:09 AM | | | | | PDT | | + + + + + | Respiratory Rate | - | - | | + + + + + | Oxygen Saturation | 93% | 07/05/2019 9:09 AM | | | | | PDT | | + + + + + | Inhaled Oxygen | - | - | | | Concentration | | | | + + + + + | Weight | 140.8 kg (310 lb 8 | 07/05/2019 9:09 AM | | | | oz) | PDT | | + + + + + | Height | 175.3 cm (5' 9") | 07/05/2019 9:09 AM | | | | | PDT | | + + + + + | Body Mass Index | 45.85 | 07/05/2019 9:09 AM | | | | | PDT | | + + + + + documented in this encounter Progress Notes Carlos Thompson PA - 07/05/2019 9:30 AM PDTFormatting of this note might be different fr om the original. Cardiothoracic Surgery Outpatient Progress Note Pt: Jose Alberto Morocho AGE/SEX: 48 y.o. male : 1970 Surgery/Procedure: 06/19/2019, Dr Ignacio Helms VATGladys decortication Discharge Date: 06/22/2019 SUBJECTIVE: Mr. Jose Alberto Morocho presents for a 2 week post discharge follow-up exam. He says that He feels well overall, and that pain and energy levels have been improving since discharge. He reports that incisions appear to be healing well. Pt reports ambulating w/o complications . Pt reports using the Incentive Spirometry every hour to prevent pneumonia. He reports no chest pain, sob, nausea, vomiting, fevers, chills, or leg edema and has good post-operative pain control. He has an appointment with Infectious Disease He has an appointment with Primary Care Physician Visit Diagnoses and Associated Orders: Jose Alberto was seen today for post op. Diagnoses and all orders for this visit: Empyema of lung (HCC) Other orders - Discontinue: methocarbamol (METHOCARBAMOL) 750 mg tablet; Take 1 tablet by mouth 4 ti mes daily. - methocarbamol (METHOCARBAMOL) 750 mg tablet; Take 1 tablet by mouth every 6 hours as needed for Muscle spasms. DATA: Scheduled Medications Current Outpatient Medications on File Prior to Visit Medication Sig Dispense Refill albuterol 90 mcg/puff inhaler Inhale 2 puffs into the lungs every 2 hours as needed for Wheezing. albuterol-ipratropium (COMBIVENT RESPIMAT) 100-20 mcg/puff inhaler Inhale 1 puff into t he lungs 4 times daily. aspirin 81 MG tablet Take 81 mg by mouth Daily. atorvaSTATin (LIPITOR) 20 mg tablet Take 20 mg by mouth nightly. cefTRIAXone (ROCEPHIN) IVPB (custom dose) 2 g Inject 2 g into the vein Daily for 25 day s. Indications: Empyema 1 each 0 chlorhexidine (PERIDEX) 0.12% solution USE DIRECTE Rinse with 1/2 ounce by mouth for 30 seconds then spit out. use twice a day clotrimazole (LOTRIMIN) 1% cream clotrimazole 1 % topical cream APPLY TO THE AFFECTED AND SURROUNDING AREAS OF SKIN BY TOPICAL ROUTE 2 TIMES PER DAY IN MORNING AND EVENING diazePAM (VALIUM) 5 mg tablet take 1 tablet by mouth 1 hour prior to procedure and 1 to 2 table... (REFER TO PRESCRIPTION NOTES). 0 DULoxetine (CYMBALTA) [address] capsule Take 30 mg by mouth Daily. DULoxetine (CYMBALTA) [address] capsule Take 1 capsule by mouth Daily. 0 famotidine (PEPCID) 20 mg tablet Daily. gabapentin (NEURONTIN) 600 MG tablet Take 2 tablets by mouth 3 times daily. 90 tablet 0 lidocaine-prilocaine (EMLA) cream apply three times a [...] Multiple Vitamins-Minerals (MULTIVITAMIN PO) Take by mouth. oxyCODONE (ROXICODONE) 5 mg tablet Take 1 tablet by mouth every 8 hours as needed for P ain for up to 15 days. 45 tablet 0 ranitidine (ZANTAC) 150 mg tablet Take 150 mg by mouth 2 times daily. No current facility-administered medications on file prior to visit. REVIEW OF SYSTEMS: General ROS: Negative: fever, chill, malaise. Cardiovascular ROS: Negative: chest pain, dyspnea on exertion, edema, irregular heartbeat, loss of consciousness, murmur, orthopnea, palpitations, paroxysmal nocturnal dyspnea, rapid heart rate or shortness of breath Respiratory ROS: Negative: cough, hemoptysis, shortness of breath, sputum changes, tachypne a or wheezing Gastrointestinal ROS: Negative: abdominal pain, appetite loss, blood in stools, constipatio n, gas/bloating, melena, nausea/vomiting or swallowing difficulty/pain Musculoskeletal ROS: Negative: gait disturbance Neurological ROS: Negative: behavioral changes, confusion, dizziness, headaches, memory lo ss, numbness/tingling or speech problems Dermatological ROS: Negative: discharge, erythema, warmth or inflammation on or around the incision sites. OBJECTIVE: Vital Signs: BP 130/88 | Pulse 104 | Temp 36 C (96.8 F) (Temporal) | Ht 1.753 m (5' 9") | Wt (!) 140.8 kg (310 lb 8 oz) | SpO2 93% | BMI 45.85 kg/m PHYSICAL EXAM: GENERAL: The patient is A&O x3, NAD. NEURO: No gross deficits no facial asymmetry, speech normal, moves all extremities well. HEART: RRR, no murmur, rub, or gallop noted. LUNGS: Lungs CTA b/l w/o wheezing, crackles, or rhonchi. ABDOMEN: Soft, nondistended, nontender, no notable masses. BS are active. EXTREMITIES: Warm and well-perfused, no edema, no clubbing or cyanosis noted. SKIN: Clean, dry, intact. No evidence of erythema, discharge, or dehiscence. ASSESSMENT & PLAN: S/p VATS decortication: Pt recovering well overall, surgical sites appear to be healing well. 1 sutures were removed during this office visit. Medications were discussed: Patient taking all medications as prescribed Patient was instructed to follow up as planned with ID, Dr Lee Patient was instructed to call our office for any new pain, redness, swelling, or discha rge from incisions, or fever. All medications were reviewed during this examination. Specific follow-up and emergency instructions have been provided and the patient has verbal ized understanding to all instructions. The patient has been seen and the plan discussed with the attending provider, Dr. Pierre. HILARY Turner 07/05/2019 documented in this e ncounter Plan of Treatment Not on filedocumented as of this encounter Visit Diagnoses + + | Diagnosis | + + | Empyema of lung (HCC) - Primary Empyema without mention of fistula | + + documented in this encounter
--- OUTSIDE RECORDS SUMMARY | 2019-10-31 08:06 | XMS ---
PreManage Notification: ROBERT STILES Security Casing Tier Events No recent Security Events currently on file CRITERIA MET - History of Sepsis Dx - PDMP CARE PROVIDERS There are no care providers on record at this time. Daniel has no Care Guidelines for this patient. [place] V[facility] COUNT (12 MO.) [facility] TOTAL 4 NOTE: Visits indicate total known visits. ED[facility] [place] (12 MO.) 10/31/2019 08:03 [facility] [place] TYPE: Emergency COMPLAINT: - BACK PAIN 06/29/2019 12:45 [facility] TYPE: Emergency COMPLAINT: - SENT BY XRAY FOR RT ARM DVT [facility]2019 21:[facility] DIAGNOSES: - Sepsis, unspecified organism - Chest Pain - Fever (9 Weeks To 74 Years) - Chest pain, unspecified 06/06/2019 12:00 [facility]HEMI G[facility] TYPE: Emergency COMPLAINT: - SOB, BACK PAIN DIAGNOSES: - Other chest pain - Pneumonia, unspecified organism - Essential (primary) hypertension - senior care (current) use of oral hypoglycemic drugs - Other usp (current) drug therapy - 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 - Nicotine dependence, unspecified, uncomplicated - Pleural effusion, not elsewhere classified INPATIENT VISIT TRACKING (12 MO.) 06/19/2019 00:00 [facility] TYPE: Inpatient DIAGNOSES: - Sepsis, unspecified organism - Chest pain, unspecified 06/17/2019 21:26 [facility] TYPE: Internal Medicine DIAGNOSES: - Sepsis, unspecified organism - Fever, unspecified - Chest pain, unspecified - Morbid (severe) obesity due to excess calories - Type 2 diabetes mellitus without complications - Enlarged lymph nodes, unspecified - Elevated white blood cell count, unspecified - Pyothorax without fistula - Essential (primary) hypertension - Lobar pneumonia, unspecified organism 06/06/2019 20:55 [facility] TYPE: Medical Surgical COMPLAINT: - ACUTE RESPIRATORY FAILURE HYPOXIA PNA SEPSIS DIAGNOSES: 0. Acute respiratory failure, unspecified whether with hypoxia o 1. Sepsis, unspecified organism 2. Acute respiratory failure with hypoxia 3. Pneumonia, unspecified organism 4. Pyothorax without fistula 5. Body mass index (BMI) 40.0-44.9, adult 6. Pleural effusion in other conditions classified elsewhere 7. Other chronic pain 8. Type 2 diabetes mellitus without complications 9. senior care (current) use of oral hypoglycemic drugs 10. Morbid (severe) obesity due to excess calories 11. Elevated white blood cell count, unspecified 12. Obstructive sleep apnea (adult) (pediatric) 13. Cannabis dependence, uncomplicated 14. Essential (primary) hypertension 15. Unspecified osteoarthritis, unspecified site 16. Radiculopathy, lumbar region 17. Personal history of nicotine dependence 18. Hyperlipidemia, unspecified [email or web address]
[2019-10-31] MEDS ORDERED: OMEPRAZOLE20 MG PO (08:14)
[2019-10-31] MEDS ORDERED: AMITRIPTYLINE H25 MG PO (08:15)
[2019-10-31] MEDS ORDERED: PERCOCET 5-3251 EACH PO (09:35)
[2019-10-31] MEDS ORDERED: PREDNISONE20 MG PO (09:35)
== END 2019-10-31 09:55 | disposition home or self-care (01) ==
LOC: ED 08:03
DX: S39.012A Strain of muscle, fascia and tendon of lower back, initial encounter (principal); I10 Essential (primary) hypertension; Z79.82 Long term (current) use of aspirin; Z79.84 Long term (current) use of oral hypoglycemic drugs; Z79.899 Other long term (current) drug therapy; Z98.890 Other specified postprocedural states; X58.XXXA Exposure to other specified factors, initial encounter
CPT/HCPCS: 72100; 96372; 99283-25; J1100; J1170; J1885; J2270

== ENCOUNTER 2020-07-11 11:39 | Emergency (ER) | payer BC ==
[~2020-07-11] VITALS: Ht 172.7 cm; Wt 147.4 kg
[~2020-07-11 11:39] MED LIST changes: +AMITRIPTYLINE H25 MG PO; +OMEPRAZOLE20 MG PO; +PREDNISONE20 MG PO
--- OUTSIDE RECORDS SUMMARY | 2020-07-11 11:42 | XMS ---
PreManage Notification: ROBERT STILES Security Filter Tip Catcher Events No recent Security Events currently on file CRITERIA MET - History of Sepsis Dx [facility] 11/01/2019-Current PHONE: [phone] Daniel has no Care Guidelines for this patient. Care History Medical/Surgical 11/01/2019 [facility] - Patient is currently established with [facility]. If patient is seen in the ED during business hours. Please contact CHWs at [facility]. Care Recommendation: If this patient has had 5 or more Emergency Department visits in the last 12 months.\T\nbsp; Patient will require education on the scope and purpose of the ED as an acute care provider not a Primary Care Provider and should not be utilized for chronic conditions.\T\nbsp; These are guidelines and the provider should exercise clinical judgment when providing care. E.D. VISIT COUNT (12 MO.) 2 [facility] TOTAL 2 NOTE: Visits indicate total known visits. ED/UCC VISIT TRACKING (12 MO.) 07/11/2020 11:40 [facility] [place] TYPE: Emergency COMPLAINT: - SOB 10/31/2019 08:03 [facility] [place] TYPE: Emergency COMPLAINT: - BACK PAIN DIAGNOSES: - longterm (current) use of aspirin - Essential (primary) hypertension - longterm (current) use of oral hypoglycemic drugs - Other exterminator (current) drug therapy - Other specified postprocedural states - Exposure to other specified factors, initial encounter - Dorsalgia, unspecified - Strain of muscle, fascia and tendon of lower back, initial encounter INPATIENT VISIT TRACKING (12 MO.) No inpatient visits to display in this time frame [email or web address]
[2020-07-11] MEDS ORDERED: VICTOZA 2-0.6 MG/0.1 SUB-Q (12:00)
[2020-07-11] MEDS ORDERED: DOXYCYCLINE HY100 MG PO (17:36)
[2020-07-11] MEDS ORDERED: PREDNISONE20 MG PO (17:36)
[2020-07-11] MEDS ORDERED: ROBITUSSIN COU237 M2 PO (17:36)
== END 2020-07-11 18:17 | disposition home or self-care (01) ==
LOC: ED 11:39
DX: J40 Bronchitis, not specified as acute or chronic (principal); Z20.822 Contact with and (suspected) exposure to COVID-19; I10 Essential (primary) hypertension; Z87.891 Personal history of nicotine dependence; Z79.899 Other long term (current) drug therapy; Z79.82 Long term (current) use of aspirin; Z79.84 Long term (current) use of oral hypoglycemic drugs
CPT/HCPCS: 71045; 99285-25; C9803; J7512; U0003

== ENCOUNTER 2021-05-07 11:00 | Emergency (ER) | payer OTHER, BC ==
[~2021-05-07] VITALS: Ht 172.7 cm; Wt 105.9 kg
[~2021-05-07 11:00] MED LIST changes: +DOXYCYCLINE HY100 MG PO; +ROBITUSSIN COU237 M2 PO; +VICTOZA 2-0.6 MG/0.1 SUB-Q
[2021-05-07] MEDS ORDERED: CYCLOBENZAPRINE10 MG PO (11:18)
--- OUTSIDE RECORDS SUMMARY | 2021-05-07 11:22 | XMS ---
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 Care History Medical/Surgical 11/01/2019 [facility] - Patient is currently established with [facility]. If patient is seen in the ED during business hours. Please contact CHWs at [facility]. Care Recommendation: If this patient has had [...] care. E.D. VISIT COUNT (12 MO.) 2 [facility] TOTAL 2 NOTE: Visits indicate total known visits. 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
[2021-05-07] MEDS ORDERED: HYDROCODON-ACE1 EA10 PO (11:55)
== END 2021-05-07 12:05 | disposition home or self-care (01) ==
LOC: ED 11:00
DX: S46.212A Strain of muscle, fascia and tendon of other parts of biceps, left arm, initial encounter (principal); Z87.891 Personal history of nicotine dependence; Z79.82 Long term (current) use of aspirin; Z79.899 Other long term (current) drug therapy; X50.9XXA Other and unspecified overexertion or strenuous movements or postures, initial encounter
CPT/HCPCS: 73060; 99283-25

== ENCOUNTER 2021-08-19 10:29 | Emergency (ER) | payer OTHER, BC ==
[~2021-08-19] VITALS: Ht 172.7 cm; Wt 95.2 kg
[~2021-08-19 10:29] MED LIST changes: +CYCLOBENZAPRINE10 MG PO; +HYDROCODON-ACE1 EA10 PO
--- OUTSIDE RECORDS SUMMARY | 2021-08-19 10:30 | XMS ---
PreManage Notification: ROBERT STILES Security Professional Nursing Tutor Events No recent Security Events currently on file CRITERIA MET - [facility] CARE PROVIDERS CARLOS ALBERTO LINO Internal Medicine 11/01/2019-Current PHONE: Unknown Daniel has no Care Guidelines for this patient. Care History Medical/Surgical 11/01/2019 [facility] - Patient is currently established with [facility]. If patient is seen in the ED during business hours. Please contact CHWs at [facility]. Care Recommendation: If this patient has had [...] E.D. VISIT COUNT (12 MO.) 2 [facility] TOTAL 2 NOTE: Visits indicate total known visits. ED/UCC VISIT TRACKING (12 MO.) 08/19/2021 10:29 [facility] [place] TYPE: Emergency COMPLAINT: - L SHOULDER PAIN 05/07/2021 11:04 [facility] [place] TYPE: Emergency COMPLAINT: - L SHOULDER INJURY DIAGNOSES: - Other long-term (current) drug therapy - Personal history of nicotine dependence - Pain in left arm - intermodal customer service (current) use of aspirin - Other and unspecified overexertion or strenuous movements or postures, initial encounter - Strain of muscle, fascia and tendon of other parts of biceps, left arm, initial encounter INPATIENT VISIT TRACKING (12 MO.) No inpatient visits to display in this time frame [email or web address]
[2021-08-19] MEDS ORDERED: METHOCARBAMOL750 MG PO (11:44)
== END 2021-08-19 12:00 | disposition home or self-care (01) ==
LOC: ED 10:29
DX: M50.10 Cervical disc disorder with radiculopathy, unspecified cervical region (principal); M48.02 Spinal stenosis, cervical region; Z87.891 Personal history of nicotine dependence; Z98.890 Other specified postprocedural states; Z79.82 Long term (current) use of aspirin; Z79.899 Other long term (current) drug therapy
CPT/HCPCS: 99283; A9270

== ENCOUNTER 2022-02-07 05:57 | Day surgery (SDC) | payer BC ==
[~2022-02-07] VITALS: Ht 172.7 cm; Wt 104.5 kg
[~2022-02-07 05:57] MED LIST changes: +CYMBALTA60 MG PO; +FISH OIL 1,0001 EAC6 PO; +GABAPENTIN600 MG PO; +METHOCARBAMOL750 MG PO; +MULTI VITAMIN1 EACH PO; +NEPHPLEX RX TA1 EACH PO
--- NOTE | 2022-02-07 08:03 | NUR ---
02/07/22 0803 Natalie Balderas 0757- PT ARRIVES TO PACU REACTIVE TO VOICE. PT REPORTS NO PAIN OR NAUSEA. RESP EVEN AND UNLABORED. OXYGEN SAT HIGH 90'S ON 2L VIA CO2 NC. 0803- OXYGEN TITRATED OFF.
--- NOTE | 2022-02-11 14:09 | PATH ---
[facility] [address], [place] [address] Signed SPECIMEN(S): A RECTAL POLYP AT 6 CM SPECIMEN(S): B DESCENDING COLON POLYP SPECIMEN SOURCE: A. RECTAL POLYP AT 6 CM B. DESCENDING COLON POLYP CLINICAL HISTORY: Colonoscopy. History of polyps. Diverticulosis. FINAL PATHOLOGIC DIAGNOSIS: A. Rectal polyp: - Hyperplastic polyp (two fragments). B. Descending colon polyp: - Tubular adenoma (two fragments). JVR:[facility]:c2NR MICROSCOPIC EXAMINATION: Histologic sections of all submitted blocks are examined by light microscopy. These findings, together with the gross examination, support the pathologic diagnosis. GROSS DESCRIPTION: Two specimens are received in two containers, labeled "JS." A. The specimen, labeled "JS, rectal polyp at 6 cm," is received in formalin and consists of two bledsoe soft tissue fragments that measure 0.2 cm in greatest dimension. The specimen is entirely submitted in cassette (A1). B. The specimen, labeled "JS, descending/left colon polyp at 55 cm," is received in formalin and consists of two bledsoe soft tissue fragments that measure 0.2 cm in greatest dimension. The specimen is entirely submitted in cassette (B1). VB (under the direct supervision of a pathologist) The Gross Description was prepared using a voice recognition system. The report was reviewed for accuracy; however, sound-alike word errors, addition and/or deletions may occur. If there is any question about this report, please contact Client Services. PERFORMING LABORATORY: The technical component was performed by [facility], [address] [place] [id number] (CLIA# [id number]). Professional interpretation was PATIENT NAME: ROBERT STILES PATHOLOGY DATE OF : 68 REPORT #: [id number] PHYSICIAN: ALEX PATHOLOGY PCP: CARLOS ALBERTO LINO MD REPORT IS CONFIDENTIAL AND NOT TO BE RELEASED WITHOUT AUTHORIZATION [facility] [address] [place], [place] [address] Signed performed by [facility] [address] [place] [address] (CLIA#: [id number]). Diagnostician: Gavin Moran MD Pathologist Electronically Signed 02/11/2022 Copies: ~ PATIENT NAME: ROBERT STILES PATHOLOGY DATE OF : 68 REPORT #: [id number] PHYSICIAN: ALEX PATHOLOGY PCP: CARLOS ALBERTO LINO MD REPORT IS CONFIDENTIAL AND NOT TO BE RELEASED WITHOUT AUTHORIZATION
--- NOTE | 2022-02-12 08:12 | OR ---
[facility] [address] [place], [place] [address] Signed DATE OF OPERATION: 02/07/2022 SURGEON: Alice Hester MD PREOPERATIVE DIAGNOSES: 1. Personal history of colonic polyps in 2017 at age 45. 2. Single left colon diverticulum. POSTOPERATIVE DIAGNOSES: 1. 4 mm polyps x2 at 6 cm (rectum). 2. 4 mm polyp at 55 cm (left colon). 3. Left greater than right diverticulosis. 4. Minimal internal hemorrhoids. PROCEDURE: Colonoscopy with hot biopsy. ESTIMATED BLOOD LOSS: None. INDICATIONS: Robert is a 51-year-old gentleman who actually came to see me in 2017 at age of 45. He was having diarrhea at that time. That is now resolved. He had multiple adenomatous polyps removed. No polyp was over 7 mm in diameter. We saw just a single diverticulum in his left colon. Because of his body mass index, his severe sleep apnea and so fourth he did require monitored anesthesia care. In addition, he has had a thoracotomy at [facility] for a right-sided empyema back in 2019. He said he nearly . He also has a history of COPD. In the meantime, he did have his gastric sleeve procedure and lost 110 pounds. He is down around 230 pounds. He said he cannot sleep without his BiPAP mask at night. Consequently, we asked for monitored anesthesia care once again. In the office, he told me he has no lower GI complaints. There is no family history of colon cancer or polyps. I had given him another pamphlet on colonoscopy. He recalls the nature of that test. There is risk including, but not limited to gas bloating, crampy abdominal pain, bleeding, perforation requiring surgery, and missed diagnosis. He had expressed understanding and wished to proceed. PROCEDURE IN DETAIL: Robert was taken into our endoscopy suite and placed in the left lateral decubitus position. He was given monitored anesthesia care per our nurse pca to include propofol. A digital rectal exam was performed, this was unremarkable. He had good Electronically Signed By: ALICE HESTER MD 02/10/22 0704 Electronically Signed By: ALICE HESTER MD 02/12/22 0927 PATIENT NAME: ROBERT STILES OPERATIVE REPORT DATE OF : 68 REPORT #: [id number] PHYSICIAN: ALICE HESTER MD PCP: CARLOS ALBERTO LINO MD REPORT IS CONFIDENTIAL AND NOT TO BE RELEASED WITHOUT AUTHORIZATION [facility] [address] [place], [place] [address] Signed sphincter tone and no external hemorrhoids. There were no masses. He is a large man and I really could not reach the prostate gland. Adult colonoscope had been introduced and advanced all the way around into the cecum under direct visualization of camera. It took a little extra propofol as we went to keep him sedated and not moving. His prep was good. He could consider a little additional prep in the future. We could see the appendiceal orifice and ileocecal valve. We had taken pictures throughout for photodocumentation. He did have a diverticulum in the base of the cecum. He also had several diverticula now in the left colon. They were moderate in size, minimal to moderate in number, and scattered about. The above-mentioned polyps were easily removed with the help of hot biopsy forceps. We had retroflexed the scope in the rectum and he does have just minimal internal hemorrhoid tissue. After this, the gas was suctioned out. The colonoscope removed. Robert tolerated the procedure quite well. RECOMMENDATIONS: I will see Robert back in my office in 7 to 14 days to review his results. It looks like he will be on the 5-year rotation. He will always need monitored anesthesia care. He could consider using some additional bowel prep. Alice Hester MD ALB/MODL /[id number] cc: MD Alice Hardy MD Copies: CARLOS ALBERTO LINO MD, ANDREW L MD ~ Electronically Signed By: ALICE HESTER MD 02/10/22 0704 Electronically Signed By: ALICE HESTER MD 02/12/22 0927 PATIENT NAME: ROBERT STILES OPERATIVE REPORT DATE OF : 68 REPORT #: [id number] PHYSICIAN: ALICE HESTER MD PCP: CARLOS ALBERTO LINO MD REPORT IS CONFIDENTIAL AND NOT TO BE RELEASED WITHOUT AUTHORIZATION
== END 2022-02-07 08:35 | disposition home or self-care (01) ==
LOC: OPS 05:57 → DS 05:57 → OPS 07:30 → DS 07:30 → OPS 08:35
PROVIDERS: ATTEND Colon & Rectal Surgery
PROC: 0DBP8ZZ Excision of Rectum, Via Natural or Artificial Opening Endoscopic (ICD-10-PCS; 2022-02-07)
PROC: 0DBG8ZZ Excision of Left Large Intestine, Via Natural or Artificial Opening Endoscopic (ICD-10-PCS; principal; 2022-02-07 07:30)
DX: D12.4 Benign neoplasm of descending colon (principal); K57.30 Diverticulosis of large intestine without perforation or abscess without bleeding; Z86.010 Personal history of colon polyps; K64.8 Other hemorrhoids; K62.1 Rectal polyp; I10 Essential (primary) hypertension; J44.9 Chronic obstructive pulmonary disease, unspecified; E66.9 Obesity, unspecified; Z68.35 Body mass index [BMI] 35.0-35.9, adult
CPT/HCPCS: J2250; J2704; J3010; J7121

== ENCOUNTER 2024-02-06 13:41 | Emergency (ER) | payer OTHER ==
[~2024-02-06] VITALS: Ht 172.7 cm; Wt 119.7 kg
[~2024-02-06 13:41] MED LIST changes: -CYCLOBENZAPRINE10 MG PO; +HYDROCODON-ACE1 EA11 PO; +LISINOPRIL20 MG PO
[2024-02-06] MEDS ORDERED: TAMSULOSIN HCL0.4 MG PO (13:54)
[2024-02-06] MEDS ORDERED: OXYCODONE HCL5 MG PO ×2 (13:54→16:49)
[2024-02-06] MEDS ORDERED: HYDROCHLOROTHIA25 MG PO (13:54)
[2024-02-06] MEDS ORDERED: HYDROmorphone HCL 1 MG/ML SYR IV PRN (14:00)
[2024-02-06] MEDS ORDERED: ondansetron HCL 4 MG/2 ML VIAL IV ONE (14:00)
[2024-02-06] MEDS ORDERED: SODIUM CHLORIDE 0.9% 1,000 ML IV ONE (14:00)
[2024-02-06] MEDS ORDERED: KETOROLAC TROMETHAMINE 30 MG/ML VIAL IV ONE (14:00)
[2024-02-06 14:10] LABS: BASOPHILS 0.5 % (0-2); EOSINOPHILS 1.8 % (0-6); LYMPHOCYTES 22.7 % (24-44); MCH 32.6 (27-36); MCV 95.7 fl (81-99); MONOCYTES 6.1 % (0-12); NEUTROPHILS 68.9 % (39-80); PLATELET COUNT 214 K/uL (140-440); RBC 4.91 M/ul (4.3-5.7); RDW 14.8 (10.5-15.0)
[2024-02-06 14:25] LABS: ALBUMIN 3.5 g/dL (3.4-5.0); ALBUMIN/GLOBULIN RATIO 0.88 (1.1-2.4); BILIRUBIN, TOTAL 0.5 ng/dL (0.2-1.0); BUN/CREATININE RATIO 20.58 (6.0-28.6); CALCIUM 9.3 mg/dL (8.5-10.1); CREATININE, SERUM 1.02 mg/dL (0.70-1.30); PROTEIN, TOTAL 7.5 g/dL (6.4-8.2)
[2024-02-06 14:43] LABS: BILIRUBIN, URINE NEGATIVE (negative); BLOOD/HGB, URINE TRACE-I (Negative); KETONE, URINE NEGATIVE (Negative); LEUK ESTERASE, URINE NEGATIVE (negative); NITRITE, URINE NEGATIVE (negative); PH, URINE 5.5 (5-7)
[2024-02-06 14:50] LABS: BACTERIA, URINE NONE SEEN /hpf (negative); CASTS, URINE NONE SEEN \\lpf; COLLECTION TYPE, URINE CLEAN CATCH; CRYSTALS, URINE NONE SEEN (0-1+); EPITHELIAL CELLS, URINE SQUAMOUS 1+ /lpf (0-1+); REFLEX CULTURE, URINE No (No)
[2024-02-06] MEDS ORDERED: SODIUM CHLORIDE 0.9% 1,000 ML IV PRN (15:30)
[2024-02-06] MEDS ORDERED: CYCLOBENZAPRINE10 MG PO (16:46)
[2024-02-06] MEDS ORDERED: ONDANSETRON ODT4 MG PO (16:49)
[2024-02-06 16:55] VITALS: BP 105/75
== END 2024-02-06 16:55 | disposition home or self-care (01) ==
LOC: ED 13:41
PROVIDERS: Emergency Medicine
DX: N20.0 Calculus of kidney (principal); I10 Essential (primary) hypertension; Z87.891 Personal history of nicotine dependence; Z79.82 Long term (current) use of aspirin; Z79.899 Other long term (current) drug therapy
CPT/HCPCS: 36415; 74176; 80053; 81001; 83690; 85025; 96374; 96375; 99284-25; J1171; J1885; J2405; J7030

== ENCOUNTER 2024-06-27 09:27 | Emergency (ER) | payer OTHER ==
[~2024-06-27] VITALS: Ht 172.7 cm; Wt 120.1 kg
[~2024-06-27 09:27] MED LIST changes: +CYCLOBENZAPRINE10 MG PO; +HYDROCHLOROTHIA25 MG PO; +ONDANSETRON ODT4 MG PO; +OXYCODONE HCL5 MG PO; +TAMSULOSIN HCL0.4 MG PO
[2024-06-27] MEDS ORDERED: ASPIRIN 325 MG TAB PO ONE (10:15)
[2024-06-27 10:16] LABS: BASOPHILS 0.6 % (0-2); EOSINOPHILS 3.4 % (0-6); HEMATOCRIT 48.1 % (35.0-50.0); HEMOGLOBIN 16.3 g/dL (12.0-18.0); LYMPHOCYTES 21.5 % (24-44); MCH 30.4 (27-36); MCHC 33.9 g/dl (30-36); MCV 89.8 fl (81-99); MONOCYTES 9.3 % (0-12); NEUTROPHILS 65.2 % (39-80); PLATELET COUNT 231 K/uL (140-440); RBC 5.35 M/ul (4.3-5.7); RDW 14.5 (10.5-15.0)
[2024-06-27 10:39] LABS: ALBUMIN 3.7 g/dL (3.4-5.0); ALBUMIN/GLOBULIN RATIO 0.97 (1.1-2.4); ALKALINE PHOSPHATASE 90 U/L (46-116); ALT (SGPT) 38 U/L (14-59); ANION GAP 10.5 (7-21); AST (SGOT) 20 U/L (15-37); BILIRUBIN, TOTAL 0.6 mg/dL (0.2-1.0); BUN/CREATININE RATIO 18.51 (6.0-28.6); CALCIUM 8.9 mg/dL (8.5-10.1); CARBON DIOXIDE 32 mmol/L (21-32); CHLORIDE 98 mmol/L (98-107); CREATININE, SERUM 0.81 mg/dL (0.70-1.30); GLOMERULAR FILTRATION RATE,EST 105 mL/min (>60); MAGNESIUM 2.2 mg/dL (1.8-2.4); POTASSIUM 3.5 mmol/L (3.5-5.1); PROTEIN, TOTAL 7.5 g/dL (6.4-8.2); UREA NITROGEN 15 mg/dL (7-18)
[2024-06-27] MEDS ORDERED: MECLIZINE HCL25 MG PO (13:39)
[2024-06-27] MEDS ORDERED: ONDANSETRON HCL4 MG PO (13:39)
[2024-06-27 14:36] VITALS: BP 135/84
--- NOTE | 2024-06-28 12:15 | EKG ---
[facility] [address] [facility] [place] [address] Signed Normal sinus rhythm Normal ECG When compared with ECG of 03-FEB-2022 17:26, No significant change was found Confirmed by Ulisses Archer DO ([id number]) on 06/28/2024 12:15:16 PM Electronically Signed By: ULISSES ARCHER DO 06/28/24 1215 PATIENT NAME: ROBERT STILES JERSON Electrocardiogram DATE OF : 68 PHYSICIAN: ULISSES ARCHER DO REPORT #: [id number] REPORT IS CONFIDENTIAL AND NOT TO BE RELEASED WITHOUT AUTHORIZATION
== END 2024-06-27 14:38 | disposition home or self-care (01) ==
LOC: ED 09:27
PROVIDERS: Emergency Medicine
DX: R42 Dizziness and giddiness (principal); I10 Essential (primary) hypertension; Z87.891 Personal history of nicotine dependence
CPT/HCPCS: 36415; 70551; 71045; 80053; 83735; 84484; 85025; 93005; 93010; 99284-25

== ENCOUNTER 2024-10-18 10:54 | Emergency (ER) | payer OTHER ==
[~2024-10-18] VITALS: Ht 172.7 cm; Wt 119.0 kg
[~2024-10-18 10:54] MED LIST changes: +MECLIZINE HCL25 MG PO; +ONDANSETRON HCL4 MG PO
[2024-10-18] MEDS ORDERED: DULOXETINE HCL60 MG PO (11:11)
[2024-10-18] MEDS ORDERED: ZANAFLEX4 MG PO (11:12)
[2024-10-18] MEDS ORDERED: HYDROmorphone HCL 1 MG/ML SYR IM ONE (12:30)
[2024-10-18 14:33] VITALS: BP 158/101
== END 2024-10-18 14:33 | disposition home or self-care (01) ==
LOC: ED 10:54
DX: M54.50 Low back pain, unspecified (principal); I10 Essential (primary) hypertension; Z87.442 Personal history of urinary calculi; Z87.891 Personal history of nicotine dependence
CPT/HCPCS: 96372; 99283; J1171